=== PATIENT | male | born 1960 | race Caucasian/White ===

== ENCOUNTER 2017-01-09 06:47 | Outpatient (CLI) | payer BC ==
[~2017-01-09] VITALS: Ht 193 cm; Wt 105.2 kg
[~2017-01-09 06:47] MED LIST: ALFU10TA6 PO; ATOR20TA66 PO; CEPH-507 PO; CEPH500C PO; CIPR-225 PO; CIPR500T78 PO; DIPH1TAB25 PO; FENO145T2 PO; FENO145T20 PO; FEXO-104 PO; FEXO-16 PO; GABA-488 PO; GLIM4TAB PO; GLYB5TAB6 PO; HYDR-2889 PO; HYDR-2890 PO; HYDR-3729 PO; HYDR-3816 PO; HYDR-3820 PO; HYDR-622 PO; INSU100C4 SQ; INUL1TAB PO; KETO10TA PO; KETO10TA77 PO; KETO200T PO; LISI10TA2 PO; LISI20TA PO; LORA1TAB59 PO; MELO-195 PO; MONT10TA21 PO; MONT10TA24 PO; MULT-608 PO; MUPI15CR TP; NEBI5TAB8 PO; NF-LOVAZAC PO; NITR-65 PO; ONDA-42 SL; ONDA4TAB8 PO; ONDA4TAB8 SL; OXYC-12 PO; OXYC-197 PO; ROPI0.5T2 PO; ROPI2TAB28 PO; ROPI2TAB3 PO; SITA1TAB2 PO; SITA1TBM7 PO; SITA50TA PO; SULF1TAB7 PO; TAMS0.4C9 PO; TAMS0.4C98 PO; [UNRECOGNIZED DRUG - OTHER] PO
[2017-01-09] MEDS ORDERED: NFNEB10T PO (13:25)
[2017-01-09] MEDS ORDERED: OMG1KC PO (13:25)
== END 2017-01-09 13:29 ==
LOC: PREOP 06:47
PROVIDERS: ATTEND Surgery
DX: Z01.818 Encounter for other preprocedural examination (principal); R19.7 Diarrhea, unspecified

== ENCOUNTER → 2017-01-13 | Day surgery (SDC) | payer BC ==
[~2017-01-13] MED LIST changes: +FLUMAZENIL (ROMAZICON) 0.1 MG/ML 5 ML VIAL INJ PRN; +MIDAZOLAM 2 MG/2 ML (VERSED) VIAL IVP PRN; +NALOXONE 0.4 MG/ML 1 ML (NARCAN) VIAL IVP PRN; +NFNEB10T PO; +NS IV 500 ML 500 ML IV PRN; +OMG1KC PO
== END | disposition home or self-care (01) ==
LOC: ENDO 10:17
PROVIDERS: ATTEND Surgery
DX: K52.9 Noninfective gastroenteritis and colitis, unspecified (principal); Z53.9 Procedure and treatment not carried out, unspecified reason

== ENCOUNTER 2017-02-06 14:23 | Outpatient (CLI) | payer BC ==
[~2017-02-06] VITALS: Ht 193 cm; Wt 105.2 kg
[~2017-02-06 14:23] MED LIST changes: -FLUMAZENIL (ROMAZICON) 0.1 MG/ML 5 ML VIAL INJ PRN; -MIDAZOLAM 2 MG/2 ML (VERSED) VIAL IVP PRN; -NALOXONE 0.4 MG/ML 1 ML (NARCAN) VIAL IVP PRN; -NS IV 500 ML 500 ML IV PRN
== END 2017-02-07 13:17 ==
LOC: PREOP 14:23
PROVIDERS: ATTEND Surgery
DX: Z01.818 Encounter for other preprocedural examination (principal); R19.7 Diarrhea, unspecified

== ENCOUNTER 2017-02-10 11:03 | Day surgery (SDC) | payer BC ==
[~2017-02-10] VITALS: Ht 193 cm; Wt 105.2 kg
[2017-02-10] MEDS ORDERED: NS IV 500 ML 500 ML ONE (11:13)
[2017-02-10 11:15] VITALS: BP 152/82
[2017-02-10] MEDS ORDERED: NS IV 500 ML 500 ML IV ONE (11:15)
[2017-02-10] MEDS ORDERED: MIDAZOLAM 2 MG/2 ML (VERSED) VIAL ONE ×4 (12:29)
[2017-02-10] MEDS ORDERED: fentaNYL INJECTION 100 MCG/2 ML AMP ONE ×2 (12:29)
[2017-02-10] MEDS: fentaNYL INJECTION 100 MCG/2 ML AMP IVP PRN ×2 (12:40→12:48)
[2017-02-10] MEDS: MIDAZOLAM 2 MG/2 ML (VERSED) VIAL IVP PRN ×4 (12:41→12:55)
--- NOTE | 2017-02-10 12:44 | Conscious Sedation/ASA ---
Conscious Sedation Pre-Proced Time Reviewed: 12:44 ASA Class: 2 Airway Mallampati Classification: (wainwright appropriate class) I. II. III, IV Lungs Heart ASA score ASA 1: a normal healthy patient ASA 2: a patient with a mild systemic disease (mid diabetes, controlled hypertension, obesity ASA 3: a patient with a severe systemic disease that limits activity (angina , COPD, prior Myocardial infarction) ASA 4: a patient with an incapacitating disease that is a constant threat to life (CHF, renal failure) ASA 5: a moribund patient not expected to survive 24 hrs. (ruptured aneurysm) ASA 6: a declared brain patient whose organs are being harvested. For emergent operations, add the letter E after the classification Grade 1 Sedation Plan: Discussed options with patient/fam Note The patient is an appropriate candidate to undergo the planned procedure, sedation, and anesthesia. The patient immediately re-assessed prior to indication. CHARLES TELLEZ MD Feb 10, 2017 12:44 pm
--- NOTE | 2017-02-10 12:44 | History & Physicial ---
History of Present Illness History of Present Illness Reason for visit/HPI To undergo colonoscopy for investigating diarrhea and screening purposes Date of Admission Date Seen by Provider: Feb 10, 2017 Time Seen by Provider: 12:42 I consulted on this patient on 02/10/17 12:41 Attending Physician Charles Casiano MD Admitting Physician Jan Garg MD Consult Allergies and Home Medications Allergies Coded Allergies: No Known Drug Allergies (Unverified , 01/09/17) Home Medications Gabapentin 300 Mg Capsule, 600 MG PO BID, (Reported) TAKE 2 (300MG) TABS Glimepiride 4 Mg Tablet, 8 MG PO DAILY, (Reported) TAKE 2 (4MG) TABS Glyburide 5 Mg Tablet, 10 EACH PO BIDAC, (Reported) TAKE 2 (5MG) TAB Nebivolol HCl 10 Mg Tab, 10 MG PO DAILY, (Reported) [place] 3 Polyunsat Fatty Acids 1,000 Mg Cap, 1,000 MG PO DAILY, (Reported) Ropinirole Hcl 2 Mg Tab.er.24h, 4 MG PO BID, (Reported) TAKE 2 (2MG) TABS Sitagliptin Phos/Metformin Hcl 1 Each Tbmp.24hr, 1 EACH PO BID, (Reported) Past Kuykjhx-Vywhbr-Oipaqs Hx Patient Social History Marrital Status: Employed/Student: employed Alcohol Use: Occasionally Uses Recreational Drug Use: No Smoking Status: Light Tobacco Smoker Type Used: Cigars Recent Foreign Travel: No Contact w/other who traveled: No Recent Hopitalizations: No Recent Infectious Disease Expo: No Immunizations Up To Date Tetanus Booster (TDap): More than 5yrs Date of Influenza Vaccine: May 06, 2016 Seasonal Allergies Seasonal Allergies: Yes Surgeries HX Surgeries: Yes (scope left shoulder, attach muscle in right FA, ESWL, CYSTO) Surgeries: Gallbladder, Orthopedic Respiratory Hx Respiratory Disorders: No Cardiovascular Hx Cardiovascular Disorders: Yes Cardiac Disorders: Hypertension Neurological Hx Neurological Disorders: Yes (NEUROPATHY IN FEET) Neurological Disorders: Neuropathy Reproductive System Hx Reproductive Disorders: No Sexually Transmitted Disease: No HIV/AIDS: No Genitourinary Hx Genitourinary Disorders: Yes (CYSTS IN BILATERAL KIDNEYS) Genitourinary Disorders: Kidney Stones Gastrointestinal Hx Gastrointestinal Disorders: Yes (dumping syndrome) Gastrointestinal Disorders: Gastroesophageal Reflux, Chronic Diarrhea, Gall Bladder Disease, Irritable Bowel Musculoskeletal Hx Musculoskeletal Disorders: Yes ( LEFT RCR AND BICEP TENDON REPAIR 2011) Musculoskeletal Disorders: Arthritis Endocrine Hx Endocrine Disorders: Yes (DOES NOT CHECK BLOOD SUGAR, EXCEPT ON RARE OCCASIONS) Endocrine Disorders: Diabetes, Non-Insulin dep HEENT HX ENT Disorders: Yes Loss of Vision: Bilateral Hearing Impairment: Denies Cancer Hx Cancer: No Psychosocial Hx Psychiatric Problems: Yes (NONMEDICATED DEPRESSION) Behavioral Health Disorders: Depression Integumentary HX Skin/Integumentary Disorder: No Blood Transfusions Hx Blood Disorders: No Adverse Reaction to a Blood Tr: No Family Medical History Family Hx: Diabetes mellitus 19 MOTHER G8 SISTER FH: lung cancer 19 MOTHER Hypertension 19 FATHER 19 MOTHER G8 SISTER Kidney stone G8 SISTER Parkinson's disease G8 SISTER Prostate cancer 19 FATHER Constitutional: no symptoms reported EENTM: no symptoms reported Respiratory: no symptoms reported Cardiovascular: no symptoms reported Gastrointestinal: diarrhea Genitourinary: no symptoms reported Musculoskeletal: no symptoms reported Skin: no symptoms reported Psychiatric/Neurological: No Symptoms Reported Physical Exam Vital Signs Vital Sign - Last 12Hours 02/10/17 11:15 Temp 97.1 Pulse 55 Resp 18 B/P (MAP) 152/82 Pulse Ox 98 O2 Delivery Room Air Capillary Refill : General Appearance: No Apparent Distress HEENT: Normal ENT Inspection Neck: Normal Inspection Respiratory: Lungs Clear Cardiovascular: Regular Rate, Rhythm Gastrointestinal: Non Tender, Soft Rectal: Deferred Back: Normal Inspection Extremity: Normal Inspection Neurologic/Psychiatric: Alert, Oriented x3 Skin: Warm/Dry Assessment/Plan Assessment and Plan gentleman here to undergo colonoscopy for investigating diarrhea and screening purposes. Problems: CHARLES CASIANO MD Feb 10, 2017 12:44 pm
--- NOTE | 2017-02-10 13:01 | Endo Procedure Record ---
Endo Procedure Report Date of Procedure Feb 10, 2017 Surgeon (s) CHARLES TELLEZ MD Post Procedure/Op Diagnosis 1.chronic diarrhea 2. Screening for colon cancer Procedure Performed colonoscopy to cecum Description of Procedure Anesthesia Type: Conscious Sedation Specimen(s) collected/removed none Description of the Procedure Indication for procedure: This gentleman came in for screening colonoscopy to evaluate chronic diarrhea and for screening purposes. Informed consent was obtained after reviewing the procedure in detail. Description of the procedure; He was placed in left lateral to this position and his vital signs were monitored. Conscious sedation was achieved using Versed and fentanyl. Digital rectal examination was unremarkable. The colonoscope was then introduced in the rectum and advanced to the cecum. It was then withdrawn slowly and the mucosa examined in a systematic fashion and the quality bowel preparation was rather poor. No obvious lesions could be identified He tolerated the procedure well and was taken back to the nursing area in a stable condition Impression: Chronic diarrhea. Screening for colon cancer. No polyps. Copies To: ALEKSANDRA SANCHEZ MD, XAVIER M MD Feb 10, 2017 1:01 pm
--- NOTE | 2017-02-10 13:03 | Discharge Inst-Simple/Standard ---
Discharge Inst-Standard Discharge Medications New, Converted or Re-Newed RX: Other Patient Instructions/Follow Up Plan of Care/Instructions/FU: rrepeat colonoscopy in 10 years Activity as Tolerated: Yes Discharge Diet: ADA Diet CHARLES TELLEZ MD Feb 10, 2017 1:03 pm
[2017-02-10 13:25] VITALS: BP 107/60
[2017-02-10 13:55] VITALS: BP 134/77
[2017-02-10 14:20] VITALS: BP 134/77
== END 2017-02-10 14:20 | disposition home or self-care (01) ==
LOC: ENDO 11:03
PROVIDERS: ATTEND Surgery
DX: Z12.11 Encounter for screening for malignant neoplasm of colon (principal); R19.7 Diarrhea, unspecified; I10 Essential (primary) hypertension; F17.290 Nicotine dependence, other tobacco product, uncomplicated; K21.9 Gastro-esophageal reflux disease without esophagitis; E11.9 Type 2 diabetes mellitus without complications; F32.9 Major depressive disorder, single episode, unspecified; G62.9 Polyneuropathy, unspecified

== ENCOUNTER → 2017-04-15 | Outpatient (CLI) | payer BC ==
--- NOTE | 2017-04-15 16:41 | Diagnostic Imaging Report ---
EXAMINATION: Three views of the right foot. INDICATION: Right foot pain after injury when a board dropped on the foot a couple of weeks ago. Right great toe pain. FINDINGS: There is a curved lucency along the tuft of the distal phalanx of the great toe, suggestive of a nondisplaced fracture. There is also suggestion of a nondisplaced intra-articular fracture in the distal aspect of the proximal phalanx. There is a minimal hallux valgus deformity. No displaced fracture. IMPRESSION: The findings are suggestive of nondisplaced fractures along the distal aspect of the distal phalanx and the distal aspect of the proximal phalanx of the right great toe. Report given to Olu Sue APRN & faxed at 4:42 p.m. 04/15/2017/monika Dictated by: Dictated on workstation # [id number]
== END ==
LOC: RAD 14:37
PROVIDERS: ATTEND Nurse Practitioner Family
DX: S99.921A Unspecified injury of right foot, initial encounter (principal); W20.8XXA Other cause of strike by thrown, projected or falling object, initial encounter; Y99.8 Other external cause status
CPT/HCPCS: 73630

== ENCOUNTER 2017-10-17 09:49 | Emergency (ER) | payer BC ==
[~2017-10-17] VITALS: Ht 193 cm; Wt 108.9 kg
[2017-10-17] MEDS ORDERED: LACTATED RINGERS 1,000 ML IV ONE (10:58)
[2017-10-17 11:06] LABS: BASOPHILS % (AUTO) 0 % (0-10); EOSINOPHILS # (AUTO) 0.1 10^3/uL (0.0-0.3); EOSINOPHILS % (AUTO) 1 % (0-10); HEMATOCRIT 47 % (40-54); HEMOGLOBIN 17.2 G/DL (13.3-17.7); LYMPHOCYTES # (AUTO) 2.5 X 10^3 (1.0-4.0); LYMPHOCYTES % (AUTO) 14 % (12-44); MEAN CORPUSCULAR HEMOGLOBIN 30 PG (25-34); MEAN CORPUSCULAR HGB CONC 37 G/DL (32-36); MEAN CORPUSCULAR VOLUME 83 FL (80-99); MEAN PLATELET VOLUME 11.9 FL (7.4-10.4); MONOCYTES # (AUTO) 1.3 X 10^3 (0.0-1.0); MONOCYTES % (AUTO) 7 % (0-12); NEUTROPHILS # (AUTO) 14.4 X 10^3 (1.8-7.8); NEUTROPHILS % (AUTO) 79 % (42-75); PLATELET COUNT 186 10^3/uL (130-400); RED BLOOD COUNT 5.65 10^6/uL (4.35-5.85); WHITE BLOOD COUNT 18.3 10^3/uL (4.3-11.0)
[2017-10-17 11:10] LABS: PROTHROMBIN TIME PATIENT 13.1 SEC (12.2-14.7)
[2017-10-17 11:22] LABS: ALANINE AMINOTRANSFERASE 25 U/L (0-55); ALBUMIN 3.8 GM/DL (3.2-4.5); ALKALINE PHOSPHATASE 62 U/L (40-136); BUN/CREATININE RATIO 19; CARBON DIOXIDE 24 MMOL/L (21-32); CHLORIDE 103 MMOL/L (98-107); CREATINE KINASE 40 U/L (30-200); GFR ESTIMATED 57; MAGNESIUM 1.6 MG/DL (1.8-2.4); POTASSIUM 4.3 MMOL/L (3.6-5.0); SODIUM 134 MMOL/L (135-145); TOTAL PROTEIN 6.7 GM/DL (6.4-8.2)
[2017-10-17 11:25] LABS: GLUCOSE 425 MG/DL (70-105)
[2017-10-17] MEDS ORDERED: NS IV 1000 ML 1,000 ML IV ONE ×3 (11:25→14:54)
--- NOTE | 2017-10-17 11:28 | Diagnostic Imaging Report ---
INDICATION: Headache, nausea and emesis for one week Portable AP upright view of the chest is obtained with comparison made to study of 04/22/2016. FINDINGS: Heart size and pulmonary vascularity are within normal limits, and the lungs are clear, bilaterally. IMPRESSION: Unremarkable chest. Dictated by: Dictated on workstation # [id number]
[2017-10-17] MEDS ORDERED: inSUlin (REGULAR) HUMAN 1 UNIT/0.01 ML (CHARGE PER UNIT) IV ONE (11:30)
[2017-10-17 11:42] LABS: CREATINE KINASE MB 1.7 NG/ML (<6.6); TSH (THYROID ANALYZER) 1.72 UIU/ML (0.35-4.94)
[2017-10-17 12:06] LABS: BILIRUBIN,URINE NEGATIVE (NEGATIVE); CLARITY,URINE CLEAR; COLOR,URINE YELLOW; GLUCOSE, URINE (UA) 4+ (NEGATIVE); KETONES,URINE 1+ (NEGATIVE); LEUKOCYTE ESTERASE ,URINE 1+ (NEGATIVE); NITRITE,URINE NEGATIVE (NEGATIVE); PH,URINE 5 (5-9); PROTEIN,URINE 3+ (NEGATIVE); UROBILINOGEN,URINE NORMAL (NORMAL)
[2017-10-17 12:20] LABS: LYMPHOCYTES % (MANUAL) 12 %; MONOCYTES % (MANUAL) 6 %; NEUTROPHILS % (MANUAL) 82 %; RBC MORPH NORMAL
[2017-10-17 12:27] LABS: AMPHETAMINE SCREEN, URINE NEGATIVE (NEGATIVE); BARBITURATE SCREEN URINE NEGATIVE (NEGATIVE); BENZODIAZEPINES SCREEN URINE NEGATIVE (NEGATIVE); CANNABINOID SCREEN, URINE NEGATIVE (NEGATIVE); COCAINE SCREEN URINE NEGATIVE (NEGATIVE); METHADONE STAT NEGATIVE (NEGATIVE); METHAMPHETAMINE SCREEN URINE S NEGATIVE (NEGATIVE); OPIATE SCREEN URINE NEGATIVE (NEGATIVE); OXYCODONE STAT NEGATIVE (NEGATIVE); PROPOXYPHENE STAT NEGATIVE (NEGATIVE); TRICYCLIC ANTIDEPRESSANTS SCRE NEGATIVE (NEGATIVE)
[2017-10-17 12:44] LABS: BACTERIA,URINE FEW /HPF; CALCIUM OXALATE CRYSTALS,UR FEW /LPF; RBC,URINE >100 /HPF
--- NOTE | 2017-10-17 12:44 | Diagnostic Imaging Report ---
Clinical indication: Patient with headache since Friday. Nausea, vomiting and chills. Exam: Head CT without contrast. Comparison: None. Findings: There is no evidence of acute cerebral infarct, intracranial hemorrhage, or gross mass effect. The brain parenchymal volume appears appropriate for patient's age. There is a small prominent perivascular space versus chronic lacunar infarct in the left basal ganglia region. There is normal yang-white matter distinction. There is no significant midline shift or herniation. There is no evidence of hydrocephalus. The basal cisterns are unremarkable. The skull, extracranial soft tissue, and orbits are unremarkable. The paranasal sinuses are unremarkable. Temporal bones show no significant abnormality. IMPRESSION: 1: There is no evidence of acute intracranial process. 2: There is a small prominent perivascular space versus chronic lacunar infarct involving the left basal ganglia region. 3: Otherwise, unremarkable CT scan of the brain for age. Dictated by: Dictated on workstation # [id number]
[2017-10-17 13:20] LABS: ABG BASE EXCESS -2.1 MMOL/L (-2.5-2.5); ABG OXYGEN SATURATION 94 % (94-100); ABG PCO2 40 MMHG (35-45); ABG PH 7.37 (7.37-7.43); ABG PO2 65 MMHG (79-93); ABG TCO2 23.6 MMOL/L (21.0-31.0)
[2017-10-17 13:24] LABS: ALLENS TEST POSITIVE; PATIENT TEMP 98.5; VENTILATOR NO
[2017-10-17] MEDS ORDERED: ASPIRIN 81 MG CHEW (CHILDREN'S ASA) PO ONE (14:00)
[2017-10-17] MEDS ORDERED: HEParin DRIP 25000 UNIT/500ML 500 ML IV ONE (14:14)
[2017-10-17] MEDS ORDERED: NOREPINEPHRINE 4 MG in NS (IVPB) 250 ML IV SCH (14:15)
[2017-10-17] MEDS ORDERED: morphine INJ 10 MG/ML 1ML (SYR OR VIAL) IVP ONE (14:15)
[2017-10-17] MEDS ORDERED: HEParin 1000 UNIT/ML (10ML VIAL) FOR BOLUS IV ONE (14:15)
[2017-10-17 14:53] LABS: AMYLASE 33 U/L (25-125); LIPASE 32 U/L (8-78)
[2017-10-17] MEDS ORDERED: cefTRIAXone INJECTION 1,000 MG in NS (IVPB) 100 ML IV ONE (15:00)
[2017-10-17] MEDS ORDERED: MAGNESIUM 1 GM/100 ML IVPB 100 ML IV SCH (15:15)
--- NOTE | 2017-10-17 15:53 | Diagnostic Imaging Report ---
INDICATION: Central line placement. TIME OF EXAM: 3:41 p.m. Correlation is made with prior study earlier the same day. Right IJ line has tip overlying the SVC. No pneumothorax is identified. The lungs are clear. IMPRESSION: Satisfactory right IJ line placement. Dictated by: Dictated on workstation # [id number]
[2017-10-17 16:26] VITALS: BP 98/68
--- NOTE | 2017-10-17 21:36 | Consultation ---
History of Present Illness History of Present Illness Patient Consulted On(gonzalo/time) 10/17/17 21:30 Date Seen by Provider: Oct 17, 2017 Time Seen by Provider: 15:32 History of Present Illness Consult by Dr. Rodríguez for Central line placement, seen and evaluated in emergency dept. Patient is a 56 year old male who has been feeling ill several days. He reports having nausea and vomiting, and headache. He has not had any fever. He is diabetic and not compliant. Patient was found to have heart rate around 140's and systolic pressure dropped around the 70 range. Patient was started on levophed. Patient had chest x ray that was unremarkable and ct head no acute process and slight change basal ganglia chronic. Patient also with ekg changes of ischemia. Allergies and Home Medications Allergies Coded Allergies: No Known Drug Allergies (Unverified , 01/09/17) Home Medications Gabapentin 300 Mg Capsule, 600 MG PO BID, (Reported) TAKE 2 (300MG) TABS Glimepiride 4 Mg Tablet, 8 MG PO DAILY, (Reported) TAKE 2 (4MG) TABS Glyburide 5 Mg Tablet, 10 EACH PO BIDAC, (Reported) TAKE 2 (5MG) TAB Nebivolol HCl 10 Mg Tab, 10 MG PO DAILY, (Reported) [place] 3 Polyunsat Fatty Acids 1,000 Mg Cap, 1,000 MG PO DAILY, (Reported) Ropinirole Hcl 2 Mg Tab.er.24h, 4 MG PO BID, (Reported) TAKE 2 (2MG) TABS Sitagliptin Phos/Metformin Hcl 1 Each Tbmp.24hr, 1 EACH PO BID, (Reported) Patient Home Medication List Home Medication List Reviewed: Yes Past Umuwlxc-Oulxcp-Jwpvid Hx Patient Social History Alcohol Use: Denies Use Number of Drinks Today: AA Recreational Drug Use: No Type Used: Cigars Recent Foreign Travel: No Contact w/Someone Who Travel: No Recent Infectious Disease Expo: No Recent Hopitalizations: No Immunizations Up To Date Tetanus Booster (TDap): More than 5yrs PED Vaccines UTD: Yes Date of Influenza Vaccine: May 06, 2016 Seasonal Allergies Seasonal Allergies: Yes Surgeries History of Surgeries: Yes (scope left shoulder, attach muscle in right FA, ESWL , CYSTO) Surgeries: Gallbladder, Orthopedic Respiratory History of Respiratory Disorde: No Respiratory Disorders: Sleep Apnea Cardiovascular History of Cardiac Disorders: Yes Cardiac Disorders: Hypertension Neurological History of Neurological Disord: Yes (NEUROPATHY IN FEET) Neurological Disorders: Neuropathy Reproductive System Hx Reproductive Disorders: No Sexually Transmitted Disease: No HIV/AIDS: No Genitourinary Genitourinary Disorders: Kidney Stones Gastrointestinal History of Gastrointestinal Di: Yes (dumping syndrome) Gastrointestinal Disorders: Gastroesophageal Reflux, Chronic Diarrhea, Gall Bladder Disease, Irritable Bowel Musculoskeletal History of Musculoskeletal Dis: Yes ( LEFT RCR AND BICEP TENDON REPAIR 2011) Musculoskeletal Disorders: Arthritis Endocrine History of Endocrine Disorders: Yes (DOES NOT CHECK BLOOD SUGAR, EXCEPT ON RARE OCCASIONS) Endocrine Disorders: Diabetes, Non-Insulin dep HEENT Loss of Vision: Bilateral Hearing Impairment: Denies Cancer History of Cancer: No Psychosocial History of Psychiatric Problem: Yes (NONMEDICATED DEPRESSION) Behavioral Health Disorders: Depression Integumentary History of Skin or Integumenta: No Blood Transfusions History of Blood Disorders: No Adverse Reaction to a Blood Tr: No Family Medical History Significant Family History: No Pertinent Family Hx Family Medial History: Diabetes mellitus 19 MOTHER G8 SISTER FH: lung cancer 19 MOTHER Hypertension 19 FATHER 19 MOTHER G8 SISTER Kidney stone G8 SISTER Parkinson's disease G8 SISTER Prostate cancer 19 FATHER Review of Systems-General Constitutional: see HPI EENTM: no symptoms reported Respiratory: no symptoms reported Cardiovascular: no symptoms reported Gastrointestinal: no symptoms reported, see HPI Genitourinary: no symptoms reported Musculoskeletal: no symptoms reported Skin: no symptoms reported Psychiatric/Neurological: No Symptoms Reported Physical Exam-General Problems Physical Exam Vital Signs Vital Signs - First Documented 10/17/17 10/17/17 10:33 16:26 Temp 98.6 Pulse 136 Resp 18 B/P (MAP) 132/65 (87) Pulse Ox 98 Capillary Refill : Less Than 3 Seconds General Appearance: mild distress HEENT: normal ENT inspection Neck: full range of motion, supple Respiratory: no respiratory distress, no accessory muscle use Cardiovascular: tachycardia Gastrointestinal: non tender, soft Rectal: deferred Back: no CVA tenderness Extremities: normal inspection Neurologic/Psychiatric: alert, oriented x 3 Skin: warm/dry Lymphatic: no adenopathy Data Review Labs Laboratory Tests 10/17/17 10:46: White Blood Count 18.3H, Red Blood Count 5.65, Hemoglobin 17.2, Hematocrit 47, Mean Corpuscular Volume 83, Mean Corpuscular Hemoglobin 30, Mean Corpuscular Hemoglobin Concent 37H, Red Cell Distribution Width 13.0, Platelet Count 186, Mean Platelet Volume 11.9H, Neutrophils (%) (Auto) 79H, Lymphocytes (%) (Auto) 14, Monocytes (%) (Auto) 7, Eosinophils (%) (Auto) 1, Basophils (%) (Auto) 0, Neutrophils # (Auto) 14.4H, Lymphocytes # (Auto) 2.5, Monocytes # (Auto) 1.3H, Eosinophils # (Auto) 0.1, Basophils # (Auto) 0.0, Neutrophils % (Manual) 82, Lymphocytes % (Manual) 12, Monocytes % (Manual) 6, Blood Morphology Comment NORMAL, Prothrombin Time 13.1, INR Comment 1.0, Activated Partial Thromboplast Time 25, Sodium Level 134L, Potassium Level 4.3, Chloride Level 103, Carbon Dioxide Level 24, Anion Gap 7, Blood Urea Nitrogen 25H, Creatinine 1.30, Estimat Glomerular Filtration Rate 57, BUN/Creatinine Ratio 19, Glucose Level 425*H, Calcium Level 9.0, Magnesium Level 1.6L, Total Bilirubin 1.0, Aspartate Amino Transf (AST/SGOT) 19, Alanine Aminotransferase (ALT/SGPT) 25, Alkaline Phosphatase 62, Total Creatine Kinase 40, Creatine Kinase MB 1.7, Troponin I < 0.30, B-Type Natriuretic Peptide 428.7H, Total Protein 6.7, Albumin 3.8, TSH Verner Testing 1.72, Serum Alcohol < 10 10/17/17 11:55: Urine Color YELLOW, Urine Clarity CLEAR, Urine pH 5, Urine Specific Rosebud 1.025H, Urine Protein 3+H, Urine Glucose (UA) 4+H, Urine Ketones 1+H, Urine Nitrite NEGATIVE, Urine Bilirubin NEGATIVE, Urine Urobilinogen NORMAL, Urine Leukocyte Esterase 1+H, Urine RBC (Auto) 5+H, Urine RBC >100H, Urine WBC 2-5, Urine Crystals PRESENTH, Urine Calcium Oxalate Crystals FEWH, Urine Bacteria FEWH, Urine Casts PRESENT, Urine Hyaline Casts 5-10H, Urine Mucus SMALLH, Urine Other , Urine Culture Indicated YES, Urine Opiates Screen NEGATIVE, Urine Oxycodone Screen NEGATIVE, Urine Methadone Screen NEGATIVE, Urine Propoxyphene Screen NEGATIVE, Urine Barbiturates Screen NEGATIVE, Ur Tricyclic Antidepressants Screen NEGATIVE, Urine Phencyclidine Screen NEGATIVE, Urine Amphetamines Screen NEGATIVE, Urine Methamphetamines Screen NEGATIVE, Urine Benzodiazepines Screen NEGATIVE, Urine Cocaine Screen NEGATIVE, Urine Cannabinoids Screen NEGATIVE 10/17/17 12:30: Lactic Acid Level 3.35*H 10/17/17 13:14: Blood Gas Puncture Site LEFT BRACHIAL, Blood Gas Patient Temperature 98.5, Arterial Blood pH 7.37, Arterial Blood Partial Pressure CO2 40, Arterial Blood Partial Pressure O2 65L, Arterial Blood HCO3 22L, Arterial Blood Total CO2 23.6 , Arterial Blood Oxygen Saturation 94, Arterial Blood Base Excess -2.1, Tim Test POSITIVE, Blood Gas Ventilator Setting NO, Blood Gas Inspired Oxygen N/A 10/17/17 13:41: Glucometer 201H 10/17/17 14:15: Troponin I < 0.30, B-Type Natriuretic Peptide 612.4H, Amylase Level 33, Lipase 32 10/17/17 15:25: Lactic Acid Level 1.00 Assessment/Plan Assessment/Plan Assessment/Plan septic shock cardiac ischemia uti DM uncontrolled. Patient on Levophed at this time to maintain pressure. Asked to place central line. Risks and benefits were discussed with patient and family who understands risks and benefits and wish to proceed. Central line placed and chest x ray demonstrates line in good position and no pneumothorax. Patient being transferred to [facility] arranged by Dr. Rodríguez. BUNNY LAGUNAS DO Oct 17, 2017 21:36
--- NOTE | 2017-10-17 23:06 | OPERATIVE REPORT ---
DATE OF SERVICE: 10/17/2017 PREOPERATIVE DIAGNOSIS: Septic shock. POSTOPERATIVE DIAGNOSIS: Septic shock. PROCEDURE: Right internal jugular vein ultrasound-guided central line placement. SURGEON: Bunny Elder DO. ANESTHESIA: 3 mL of 1% lidocaine. ESTIMATED BLOOD LOSS: Minimal. COMPLICATIONS: None. INDICATIONS: The patient is a 56-year-old male with . He was tachycardic in the 140 range and his systolic blood pressures had dropped into the 70s. Dr. Rodríguez has consulted me for placement of central line. The patient was explained risks and benefits of procedure well with family that were present. They all understand risks and benefits of procedure and wished to proceed with procedure. Consent was signed in the chart. PROCEDURE: The patient was prepped and draped in sterile fashion. Timeout was performed. Ultrasound was used to locate the right internal jugular vein. Local anesthetic was infiltrated into the area. The right internal jugular vein was then accessed. Dark nonpulsatile blood was withdrawn. The guidewire was inserted through the needle and the needle was removed. The 11-blade scalpel was used to make a stab incision and the dilator was advanced over the guidewire and removed. The triple lumen catheter was inserted over the guidewire and the guidewire was removed. All ports were accessed and flushed without difficulty. The central line was then secured with 3-0 silk suture. The area was then washed and dried, sterile bandage was applied. The patient tolerated procedure well without any complications. Chest x-ray pending. Job ID: [id number] DocumentID: [id number] Dictated Date: 10/17/2017 21:24:24 Evidence Custodian Date: 10/17/2017 23:05:15 Dictated By: BUNNY ELDER DO
== END 2017-10-17 16:26 | disposition short-term general hospital (02) ==
LOC: EDUNIT# 09:49 → ER 09:51
DX: A41.9 Sepsis, unspecified organism (principal); R65.21 Severe sepsis with septic shock; I25.9 Chronic ischemic heart disease, unspecified; N39.0 Urinary tract infection, site not specified; E11.65 Type 2 diabetes mellitus with hyperglycemia; G47.30 Sleep apnea, unspecified; K21.9 Gastro-esophageal reflux disease without esophagitis; E11.40 Type 2 diabetes mellitus with diabetic neuropathy, unspecified; F32.9 Major depressive disorder, single episode, unspecified; Z87.19 Personal history of other diseases of the digestive system; Z80.1 Family history of malignant neoplasm of trachea, bronchus and lung; Z79.84 Long term (current) use of oral hypoglycemic drugs; Z85.46 Personal history of malignant neoplasm of prostate
CPT/HCPCS: 36415; 36600; 70450; 71045; 80053; 80306; 80320; 81000; 82150; 82550; 82553; 82805; 82962; 83605; 83690; 83735; 83880; 84443; 84484; 85007; 85027; 85610; 85730; 87088; 93005; 93041; 96361; 96365; 96366; 96367; 96368; 96375

== ENCOUNTER 2019-07-25 12:44 | Emergency (ER) | payer BC ==
[~2019-07-25] VITALS: Ht 193 cm; Wt 103.9 kg
[~2019-07-25 12:44] MED LIST changes: -OXYC-197 PO; +OXYC1TAB87 PO
[2019-07-25] MEDS ORDERED: NS IV 1000 ML 1,000 ML IV ONE (15:38)
[2019-07-25] MEDS ORDERED: NS IV 1000 ML 1,000 ML IV SCH (15:38)
[2019-07-25 15:44] LABS: BASOPHILS % (AUTO) 0 % (0-10); EOSINOPHILS # (AUTO) 0.2 10^3/uL (0.0-0.3); EOSINOPHILS % (AUTO) 2 % (0-10); HEMATOCRIT 44 % (40-54); HEMOGLOBIN 15.9 G/DL (13.3-17.7); LYMPHOCYTES # (AUTO) 1.7 X 10^3 (1.0-4.0); LYMPHOCYTES % (AUTO) 14 % (12-44); MEAN CORPUSCULAR HEMOGLOBIN 30 PG (25-34); MEAN CORPUSCULAR HGB CONC 36 G/DL (32-36); MEAN CORPUSCULAR VOLUME 84 FL (80-99); MEAN PLATELET VOLUME 11.7 FL (7.4-10.4); MONOCYTES # (AUTO) 0.9 X 10^3 (0.0-1.0); MONOCYTES % (AUTO) 8 % (0-12); NEUTROPHILS # (AUTO) 8.8 X 10^3 (1.8-7.8); NEUTROPHILS % (AUTO) 76 % (42-75); PLATELET COUNT 184 10^3/uL (130-400); RED CELL DISTRIBUTION WIDTH 13.5 % (10.0-14.5); WHITE BLOOD COUNT 11.5 10^3/uL (4.3-11.0)
[2019-07-25] MEDS ORDERED: PROMETHAZINE INJ 25 MG/ML (PHENERGAN) AMP IVP ONE (15:45)
--- NOTE | 2019-07-25 15:46 | ED GI ---
General Chief Complaint: General Problems/Pain Stated Complaint: N/V, BS 344 Nursing Triage Note: AMBULATED TO TRIAGE WITH COMPLAINTS OF N/V ET NOT FEELING WELL. 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 ALSO COMPLAINS OF A HEADACHE AND A SORE RIGHT FOOT. Sepsis Screen: No Definite Risk Source of Information: Patient, Spouse Exam Limitations: No Limitations History of Present Illness Date Seen by Provider: Jul 25, 2019 Time Seen by Provider: 15:09 Initial Comments Patient presents ER by private conveyance with chief complaint nausea vomiting without abdominal pain for the past few days. He has had mostly dry heaving. He did drink Court of chicken stock before coming in. He is diabetic and his blood sugars usually run in the 200-300 range. He has not had any fever cough chills shortness of breath sweats. He is concerned with his decreased urination and increased thirst and nausea he might be getting in diabetic ketoacidosis. He has no dysuria or abdominal pain. Allergies and Home Medications Allergies Coded Allergies: No Known Drug Allergies (Unverified , 01/09/17) Home Medications Gabapentin 300 Mg Capsule, 600 MG PO BID, (Reported) TAKE 2 (300MG) TABS Glimepiride 4 Mg Tablet, 8 MG PO DAILY, (Reported) TAKE 2 (4MG) TABS Glyburide 5 Mg Tablet, 10 EACH PO BIDAC, (Reported) TAKE 2 (5MG) TAB Nebivolol HCl 10 Mg Tab, 10 MG PO DAILY, (Reported) [place] 3 Polyunsat Fatty Acids 1,000 Mg Cap, 1,000 MG PO DAILY, (Reported) Ropinirole Hcl 2 Mg Tab.er.24h, 4 MG PO BID, (Reported) TAKE 2 (2MG) TABS Sitagliptin Phos/Metformin Hcl 1 Each Tbmp.24hr, 1 EACH PO BID, (Reported) Patient Home Medication List Home Medication List Reviewed: Yes Review of Systems Review of Systems Constitutional: No chills, No diaphoresis EENTM: No Blurred Vision, No Double Vision Respiratory: Denies Cough, Denies Shortness of Air Cardiovascular: Denies Chest Pain, Denies Lightheadedness Gastrointestinal: See HPI; Denies Abdominal Pain, Denies Constipated, Denies Diarrhea; Nausea, Poor Appetite, Poor Fluid Intake, Vomiting Genitourinary: Denies Burning, Denies Discharge All Other Systems Reviewed Negative Unless Noted: Yes Past Tcawhpb-Jrzbfk-Drdwau Hx Patient Social History Alcohol Use: Occasionally Uses Alcohol Beverage of Choice: Beer Recreational Drug Use: No Smoking Status: Former Smoker Type Used: Cigars Recent Foreign Travel: No Contact w/Someone Who Travel: No Recent Infectious Disease Expo: No Recent Hopitalizations: No Immunizations Up To Date Tetanus Booster (TDap): More than 5yrs PED Vaccines UTD: Yes Date of Influenza Vaccine: May 06, 2016 Seasonal Allergies Seasonal Allergies: Yes Past Medical History Surgeries: Yes (scope left shoulder, attach muscle in right FA, ESWL, CYSTO; COLONOSCOPY) Bladder Surgery, Gallbladder, Orthopedic, Renal Respiratory: Yes Sleep Apnea Currently Using CPAP: No Cardiac: Yes Hypertension Neurological: Yes (NEUROPATHY IN FEET) Neuropathy Reproductive Disorders: No Sexually Transmitted Disease: No HIV/AIDS: No Genitourinary: Yes Kidney Stones Gastrointestinal: Yes (dumping syndrome) Gastroesophageal Reflux, Chronic Diarrhea, Gall Bladder Disease, Irritable Bowel Musculoskeletal: Yes ( LEFT RCR AND BICEP TENDON REPAIR 2011) Arthritis Endocrine: Yes (DOES NOT CHECK BLOOD SUGAR, EXCEPT ON RARE OCCASIONS) Diabetes, Non-Insulin dep HEENT: No Loss of Vision: Bilateral Hearing Impairment: Denies Cancer: No Psychosocial: Yes (NONMEDICATED DEPRESSION) Depression Integumentary: No Blood Disorders: No Adverse Reaction/Blood Tranf: No Family Medical History Diabetes mellitus 19 MOTHER G8 SISTER FH: lung cancer 19 MOTHER Hypertension 19 FATHER 19 MOTHER G8 SISTER Kidney stone G8 SISTER Parkinson's disease G8 SISTER Prostate cancer 19 FATHER No Pertinent Family Hx Physical Exam Vital Signs Vital Signs - First Documented 07/25/19 07/25/19 12:50 17:36 Temp 36.6 Pulse 84 Resp 17 B/P (MAP) 141/81 (101) Pulse Ox 97 O2 Delivery Room Air Capillary Refill : Less Than 3 Seconds Height/Weight/BMI Height: 6'4.00" Weight: 240lbs. 0.0oz. 108.346826mw; 27.00 BMI Method:Stated General Appearance: WD/WN, no apparent distress HEENT: PERRL/EOMI, pharynx normal Neck: non-tender, full range of motion, supple, normal inspection Respiratory: lungs clear, normal breath sounds, no respiratory distress, no accessory muscle use Cardiovascular: normal peripheral pulses, regular rate, rhythm Peripheral Pulses: 2+ Radial Pulses (R), 2+ Radial Pulses (L) Gastrointestinal: normal bowel sounds, non tender, soft Extremities: normal inspection, normal capillary refill Neurologic/Psychiatric: alert, normal mood/affect, oriented x 3 Skin: normal color, warm/dry Progress/Results/Core Measures Results/Orders Lab Results Laboratory Tests Test 07/25/19 13:45 07/25/19 15:28 Range/Units White Blood Count 11.5 H 4.3-11.0 10^3/uL Red Blood Count 5.24 4.35-5.85 10^6/uL Hemoglobin 15.9 13.3-17.7 G/DL Hematocrit 44 40-54 % Mean Corpuscular Volume 84 80-99 FL Mean Corpuscular Hemoglobin 30 25-34 PG Mean Corpuscular Hemoglobin Concent 36 32-36 G/DL Red Cell Distribution Width 13.5 10.0-14.5 % Platelet Count 184 130-400 10^3/uL Mean Platelet Volume 11.7 H 7.4-10.4 FL Neutrophils (%) (Auto) 76 H 42-75 % Lymphocytes (%) (Auto) 14 12-44 % Monocytes (%) (Auto) 8 0-12 % Eosinophils (%) (Auto) 2 0-10 % Basophils (%) (Auto) 0 0-10 % Neutrophils # (Auto) 8.8 H 1.8-7.8 X 10^3 Lymphocytes # (Auto) 1.7 1.0-4.0 X 10^3 Monocytes # (Auto) 0.9 0.0-1.0 X 10^3 Eosinophils # (Auto) 0.2 0.0-0.3 10^3/uL Basophils # (Auto) 0.0 0.0-0.1 10^3/uL Urine Color YELLOW Urine Clarity CLEAR Urine pH 6.0 5-9 Urine Specific [place] >=1.030 1.016-1.022 Urine Protein 1+ H NEGATIVE Urine Glucose (UA) 2+ H NEGATIVE Urine Ketones NEGATIVE NEGATIVE Urine Nitrite NEGATIVE NEGATIVE Urine Bilirubin NEGATIVE NEGATIVE Urine Urobilinogen 0.2 < = 1.0 MG/DL Urine Leukocyte Esterase NEGATIVE NEGATIVE Urine RBC (Auto) NEGATIVE NEGATIVE Urine RBC NONE /HPF Urine WBC RARE /HPF Urine Squamous Epithelial Cells RARE /HPF Urine Crystals NONE /LPF Urine Bacteria TRACE /HPF Urine Casts PRESENT /LPF Urine Hyaline Casts RARE /LPF Urine Mucus SMALL H /LPF Urine Culture Indicated NO Sodium Level 137 135-145 MMOL/L Potassium Level 3.5 L 3.6-5.0 MMOL/L Chloride Level 107 98-107 MMOL/L Carbon Dioxide Level 18 L 21-32 MMOL/L Anion Gap 12 5-14 MMOL/L Blood Urea Nitrogen 22 H 7-18 MG/DL Creatinine 1.19 0.60-1.30 MG/DL Estimat Glomerular Filtration Rate > 60 BUN/Creatinine Ratio 18 Glucose Level 270 H 70-105 MG/DL Calcium Level 9.1 8.5-10.1 MG/DL Corrected Calcium 9.3 8.5-10.1 MG/DL Total Bilirubin 0.9 0.1-1.0 MG/DL Aspartate Amino Transf (AST/SGOT) 10 5-34 U/L Alanine Aminotransferase (ALT/SGPT) 13 0-55 U/L Alkaline Phosphatase 69 40-136 U/L Total Protein 6.5 6.4-8.2 GM/DL Albumin 3.8 3.2-4.5 GM/DL Glucometer 234 H 70-110 MG/DL My Orders Orders - VIVIAN,HYUN J Accucheck Stat ONCE (07/25/19 12:55) Ua Culture If Indicated (07/25/19 15:38) Cbc With Automated Diff (07/25/19 15:38) Comprehensive Metabolic Panel (07/25/19 15:38) Ed Iv/Invasive Line Start (07/25/19 15:38) Ns Iv 1000 Ml (Sodium Chloride 0.9%) (07/25/19 15:38) Ns Iv 1000 Ml (Sodium Chloride 0.9%) (07/25/19 15:38) Promethazine Injection (Phenergan Injec (07/25/19 15:45) Medications Given in ED Current Medications Medications Dose Ordered Sig/Parvin Route Start Time Stop Time Status Last Admin Dose Admin Promethazine HCl 25 mg ONCE ONCE IVP 07/25/19 15:45 07/25/19 15:46 DC 07/25/19 15:49 25 MG Sodium Chloride 1,000 ml @ 0 mls/hr Q0M ONCE IV 07/25/19 15:38 07/25/19 15:39 DC 07/25/19 15:49 0 MLS/HR Vital Signs/I&O 07/25/19 07/25/19 12:50 17:36 Temp 36.6 36.6 Pulse 84 78 Resp 17 B/P (MAP) 141/81 (101) 149/73 (101) Pulse Ox 97 98 O2 Delivery Room Air Room Air Blood Pressure Mean: 101 FSBG Bedside Testing Finger Stick Blood Glucose: 234 Blood Glucose Action Taken: RN NOTIFIED Progress Progress Note : Time: 17:30 Progress Note The patient is sleeping soundly without complaint. He has medicines for nausea and diarrhea. We have explained to manage his symptoms. Departure Impression Primary Impression: Gastroenteritis and colitis, viral Additional Impression: Hyperglycemia Disposition: HOME, SELF-CARE Condition: Stable Departure-Patient Inst. Decision time for Depature: 17:31 Referrals: ALEKSANDRA SANCHEZ MD (PCP/Family) Primary Care Physician Patient Instructions: Hyperglycemia, Adult Add. Discharge Instructions: Follow-up with Dr. Sanchez for management of your blood sugar. Zofran 1 tablet as prescribed for nausea and vomiting. Imodium 2 tablets followed by one tablet every 4 hours as needed for loose watery stools. All discharge instructions reviewed with patient and/or family. Voiced understanding. HYUN PARK Jul 25, 2019 15:46
[2019-07-25 15:48] LABS: BILIRUBIN,URINE NEGATIVE (NEGATIVE); CLARITY,URINE CLEAR; COLOR,URINE YELLOW; GLUCOSE, URINE (UA) 2+ (NEGATIVE); KETONES,URINE NEGATIVE (NEGATIVE); LEUKOCYTE ESTERASE ,URINE NEGATIVE (NEGATIVE); NITRITE,URINE NEGATIVE (NEGATIVE); PROTEIN,URINE 1+ (NEGATIVE)
[2019-07-25 15:55] LABS: BACTERIA,URINE TRACE /HPF; WBC,URINE RARE /HPF
[2019-07-25 15:56] LABS: HYALINE CASTS, URINE RARE /LPF; SQUAMOUS EPITHELIAL CELL,UR RARE /HPF
[2019-07-25 15:59] LABS: ALANINE AMINOTRANSFERASE 13 U/L (0-55); ALBUMIN 3.8 GM/DL (3.2-4.5); ALKALINE PHOSPHATASE 69 U/L (40-136); BILIRUBIN,TOTAL 0.9 MG/DL (0.1-1.0); BUN/CREATININE RATIO 18; CALCIUM 9.1 MG/DL (8.5-10.1); CARBON DIOXIDE 18 MMOL/L (21-32); CHLORIDE 107 MMOL/L (98-107); CREATININE SERUM 1.19 MG/DL (0.60-1.30); GFR ESTIMATED > 60; GLUCOSE 270 MG/DL (70-105); POTASSIUM 3.5 MMOL/L (3.6-5.0); SODIUM 137 MMOL/L (135-145); TOTAL PROTEIN 6.5 GM/DL (6.4-8.2)
[2019-07-25 17:36] VITALS: BP 149/73
== END 2019-07-25 17:36 | disposition home or self-care (01) ==
LOC: EDUNIT# 12:44 → ER 12:45
DX: A08.4 Viral intestinal infection, unspecified (principal); E11.65 Type 2 diabetes mellitus with hyperglycemia; E11.40 Type 2 diabetes mellitus with diabetic neuropathy, unspecified; I10 Essential (primary) hypertension; F32.9 Major depressive disorder, single episode, unspecified; K21.9 Gastro-esophageal reflux disease without esophagitis; K58.9 Irritable bowel syndrome, unspecified; Z79.84 Long term (current) use of oral hypoglycemic drugs; Z87.891 Personal history of nicotine dependence; Z87.442 Personal history of urinary calculi
CPT/HCPCS: 36415; 80053; 81000; 82962; 85025; 96361; 96374

== ENCOUNTER → 2020-01-11 | Outpatient (CLI) | payer BC ==
[~2020-01-11] MED LIST changes: +ACHYD1T PO; -HYDR-3820 PO; -TAMS0.4C98 PO; +TMSL.4C PO
--- NOTE | 2020-01-11 15:46 | Diagnostic Imaging Report ---
INDICATION: Ulcer on the plantar surface of the foot in the region of the first metatarsal. TIME OF EXAM: 03:01 p.m. FINDINGS: Three views of the right foot were obtained. No definite soft tissue gas is identified. No bony destructive changes are seen to suggest osteomyelitis. No fractures are seen. Metatarsals and phalanges are intact. Mid foot and hind foot are unremarkable. IMPRESSION: No acute abnormality is detected. Dictated by: Dictated on workstation # [id number]
== END ==
LOC: RAD 14:38
DX: E13.621 Other specified diabetes mellitus with foot ulcer (principal); L97.919 Non-pressure chronic ulcer of unspecified part of right lower leg with unspecified severity
CPT/HCPCS: 73630

== ENCOUNTER → 2020-01-11 | Outpatient (CLI) | payer BC | LOC: WOUNDCARE 12:27 | PROVIDERS: ATTEND Surgery | DX: E11.621 Type 2 diabetes mellitus with foot ulcer (principal); E11.42 Type 2 diabetes mellitus with diabetic polyneuropathy; E11.65 Type 2 diabetes mellitus with hyperglycemia; L97.512 Non-pressure chronic ulcer of other part of right foot with fat layer exposed; I10 Essential (primary) hypertension; I49.9 Cardiac arrhythmia, unspecified; M19.91 Primary osteoarthritis, unspecified site; F17.290 Nicotine dependence, other tobacco product, uncomplicated; N40.0 Benign prostatic hyperplasia without lower urinary tract symptoms; K58.0 Irritable bowel syndrome with diarrhea; E78.5 Hyperlipidemia, unspecified; Z87.19 Personal history of other diseases of the digestive system; Z79.4 Long term (current) use of insulin | CPT/HCPCS: 11042; A6196; G0463 ==

== ENCOUNTER → 2020-01-18 | Outpatient (CLI) | payer BC | LOC: WOUNDCARE 12:52 | PROVIDERS: ATTEND Surgery | DX: E11.621 Type 2 diabetes mellitus with foot ulcer (principal); E11.52 Type 2 diabetes mellitus with diabetic peripheral angiopathy with gangrene; E11.42 Type 2 diabetes mellitus with diabetic polyneuropathy; E11.65 Type 2 diabetes mellitus with hyperglycemia; I96 Gangrene, not elsewhere classified; L97.512 Non-pressure chronic ulcer of other part of right foot with fat layer exposed | CPT/HCPCS: 11042; A6196 ==

== ENCOUNTER → 2020-01-25 | Outpatient (CLI) | payer BC | LOC: WOUNDCARE 12:49 | PROVIDERS: ATTEND Surgery | DX: E11.621 Type 2 diabetes mellitus with foot ulcer (principal); E11.42 Type 2 diabetes mellitus with diabetic polyneuropathy; E11.65 Type 2 diabetes mellitus with hyperglycemia; L97.512 Non-pressure chronic ulcer of other part of right foot with fat layer exposed | CPT/HCPCS: 99212 ==

== ENCOUNTER → 2020-02-01 | Outpatient (CLI) | payer BC ==
--- NOTE | 2020-02-01 13:39 | Diagnostic Imaging Report ---
INDICATION: Low back pain. Gait change with foot injury. FINDINGS: 7 views including flexion and extension views in the lateral projection. Good alignment of vertebral bodies. Body height is well-maintained. Facets show good alignment. Disc spaces show mild narrowing throughout. There are hypertrophic endplate changes noted throughout the lumbosacral discs anteriorly. Facets show moderate degenerative change L4-L5 and L5-S1 most severe at the L5-S1 level on the right. Flexion and extension views show no evidence of abnormal subluxation to suggest instability. IMPRESSION: Moderate severe degenerative disc and facet disease throughout the lumbosacral spine as described. No evidence of acute fracture or instability. Dictated by: Dictated on workstation # [id number]
--- NOTE | 2020-02-01 14:16 | Diagnostic Imaging Report ---
INDICATION: Chronic left hip pain. FINDINGS: 2 views. Femoral acetabular joint is in good alignment. There is considerable hypertrophic bony change along the acetabular rim especially along the superior lateral margin. Articulating surfaces of the femoral head is smooth. There are no fractures. No soft tissue calcification about the hip. SI joints show moderate sclerosis with mild hypertrophic beaking. IMPRESSION: Rather advanced arthritic changes left hip with considerable hypertrophic change noted along the acetabular rim. Dictated by: Dictated on workstation # [id number]
== END ==
LOC: RAD 12:36
PROVIDERS: ATTEND Nurse Practitioner Family
DX: M47.817 Spondylosis without myelopathy or radiculopathy, lumbosacral region (principal); M51.17 Intervertebral disc disorders with radiculopathy, lumbosacral region; M16.12 Unilateral primary osteoarthritis, left hip
CPT/HCPCS: 72114; 73502

== ENCOUNTER 2021-06-17 19:41 | Inpatient (IN) | payer BC ==
[~2021-06-17] VITALS: Ht 193 cm; Wt 104.7 kg
[2021-06-17] MEDS ORDERED: fentaNYL INJ 100 MCG/2 ML AMP IVP ONE (20:00)
[2021-06-17] MEDS ORDERED: ENALAPRILAT 2.5 MG/2 ML (VASOTEC) VIAL IV ONE (20:00)
[2021-06-17] MEDS ORDERED: LACTATED RINGERS 1,000 ML IV SCH (20:00)
[2021-06-17 20:04] LABS: BASOPHILS # (AUTO) 0.1 10^3/uL (0.0-0.1); BASOPHILS % (AUTO) 0 % (0-10); EOSINOPHILS # (AUTO) 0.1 10^3/uL (0.0-0.3); EOSINOPHILS % (AUTO) 1 % (0-10); HEMATOCRIT 49 % (40-54); HEMOGLOBIN 16.9 g/dL (13.3-17.7); LYMPHOCYTES # (AUTO) 1.9 10^3/uL (1.0-4.0); LYMPHOCYTES % (AUTO) 13 % (12-44); MEAN CORPUSCULAR HEMOGLOBIN 30 pg (25-34); MEAN CORPUSCULAR HGB CONC 35 g/dL (32-36); MEAN CORPUSCULAR VOLUME 87 fL (80-99); MEAN PLATELET VOLUME 10.9 fL (9.0-12.2); MONOCYTES # (AUTO) 0.7 10^3/uL (0.0-1.0); MONOCYTES % (AUTO) 5 % (0-12); NEUTROPHILS # (AUTO) 11.3 10^3/uL (1.8-7.8); NEUTROPHILS % (AUTO) 80 % (42-75); PLATELET COUNT 258 10^3/uL (130-400); WHITE BLOOD COUNT 14.1 10^3/uL (4.3-11.0)
--- NOTE | 2021-06-17 20:04 | ED Abdominal Pain ---
General Chief Complaint: Abdominal/GI Problems Stated Complaint: ABD CRAMPING Source of Information: Patient Exam Limitations: No Limitations History of Present Illness Date Seen by Provider: Jun 17, 2021 Time Seen by Provider: 20:02 Initial Comments To ER with reports of abdominal distention, intermittent abdominal cramping that waxes and wanes and is associated with watery stools and acid reflux. He has some belching as well. Symptoms started this morning. No fevers or chills. Because of the nausea and abdominal pain he was unable to take his antihypertensive lisinopril this morning. History of cholecystectomy remotely and right inguinal hernia repair at the age of 9 Timing/Duration: 1-2 Days Severity/Quality: Moderate Location: Generalized Abdomen Radiation: No Radiation Activities at Onset: None Allergies and Home Medications Allergies Coded Allergies: No Known Drug Allergies (Unverified , 01/09/17) Patient Home Medication List Home Medication List Reviewed: Yes Gabapentin (Gabapentin) 300 Mg Capsule, 600 MG PO BID, (Reported) Entered as Reported by: LYNNE CHENG on 09/24/14 08 Glimepiride (Glimepiride) 4 Mg Tablet, 8 MG PO DAILY, (Reported) Entered as Reported by: LYNNE CHENG on 09/24/14 08 Glyburide (Glyburide) 5 Mg Tablet, 10 EACH PO BIDAC, (Reported) Entered as Reported by: MIRANDA JAQUEZ on 02/11/11 1627 Nebivolol HCl (Bystolic) 10 Mg Tab, 10 MG PO DAILY, (Reported) Entered as Reported by: PACHECO BUCKLEY on 01/09/17 1325 [place] 3 Polyunsat Fatty Acids (Fish Oil 1,000 mg Capsule) 1,000 Mg Cap, 1,000 MG PO DAILY, (Reported) Entered as Reported by: PACHECO BUCKLEY on 01/09/17 1325 Ropinirole Hcl (Ropinirole Hcl) 2 Mg Tab.er.24h, 4 MG PO BID, (Reported) Entered as Reported by: BENNY QUIGLEY on 04/29/14 1353 Sitagliptin Phos/Metformin Hcl (Janumet Xr 100-1,000 Mg Tablet) 1 Each Tbmp.24hr, 1 EACH PO BID, (Reported) Entered as Reported by: LYNNE CHENG on 09/24/14 0858 Review of Systems Review of Systems Constitutional: see HPI EENTM: No Symptoms Reported Respiratory: No Symptoms Reported Cardiovascular: No Symptoms Reported Gastrointestinal: See HPI, Abdominal Pain, Diarrhea Genitourinary: No Symptoms Reported Musculoskeletal: no symptoms reported Skin: no symptoms reported Psychiatric/Neurological: No Symptoms Reported Endocrine: No Symptoms Reported Hematologic/Lymphatic: No Symptoms Reported Past Zyalhyq-Dpkxyl-Fqsjjp Hx Patient Social History Tobacco Use?: Yes Tobacco type used: Cigars Smoking Status: Current Someday Smoker Use of E-Cig and/or Vaping dev: No Alcohol Use?: Yes Alcohol Frequency: Once in a while Pt feels they are or have been: No Immunizations Up To Date Tetanus Booster (TDap): More than 5yrs PED Vaccines UTD: Yes Influenza Vaccine Up-to-Date: No; Not Current Second COVID19 Vaccination Charli: December 2020 COVID19 Vaccine [place] [employer]: [employer] Seasonal Allergies Seasonal Allergies: Yes Past Medical History Surgeries: Yes (scope left shoulder, attach muscle in right FA, ESWL, CYSTO; COLONOSCOPY) Bladder Surgery, Gallbladder, Orthopedic, Renal Respiratory: Yes Sleep Apnea Currently Using CPAP: No Cardiac: Yes Hypertension Neurological: Yes (NEUROPATHY IN FEET) Neuropathy Reproductive Disorders: No Sexually Transmitted Disease: No HIV/AIDS: No Genitourinary: Yes Kidney Stones Gastrointestinal: Yes (dumping syndrome) Gastroesophageal Reflux, Chronic Diarrhea, Gall Bladder Disease, Irritable Bowel Musculoskeletal: Yes ( LEFT RCR AND BICEP TENDON REPAIR 2011) Arthritis Endocrine: Yes (DOES NOT CHECK BLOOD SUGAR, EXCEPT ON RARE OCCASIONS) Diabetes, Non-Insulin dep HEENT: No Loss of Vision: Bilateral Hearing Impairment: Denies Cancer: No Psychosocial: Yes (NONMEDICATED DEPRESSION) Depression Integumentary: No Blood Disorders: No Adverse Reaction/Blood Tranf: No Family Medical History Diabetes mellitus 19 MOTHER G8 SISTER FH: lung cancer 19 MOTHER Hypertension 19 FATHER 19 MOTHER G8 SISTER Kidney stone G8 SISTER Parkinson's disease G8 SISTER Prostate cancer 19 FATHER No Pertinent Family Hx Physical Exam Vital Signs Vital Signs - First Documented 06/17/21 19:47 Temp 36.3 Pulse 106 Resp 24 B/P (MAP) 245/141 (175) Pulse Ox 98 O2 Delivery Room Air Capillary Refill : Height/Weight/BMI Height: 6'4.00" Weight: 240lbs. 0.0oz. 108.061905tg; 27.00 BMI Method:Stated General Appearance: WD/WN, moderate distress (Hypertensive at 230s over 140s heart rate around 100) HEENT: PERRL/EOMI, normal ENT inspection Neck: non-tender, full range of motion Respiratory: no respiratory distress, no accessory muscle use Cardiovascular: no murmur, tachycardia Gastrointestinal: normal bowel sounds, soft Extremities: normal range of motion, non-tender Neurologic/Psychiatric: alert, normal mood/affect, oriented x 3 Skin: normal color, warm/dry Focused Exam Lactate Level 06/17/21 22:30: Lactic Acid Level Laboratory Tests Test 06/17/21 22:30 Progress/Results/Core Measures Results/Orders Lab Results Laboratory Tests Test 06/17/21 19:53 06/17/21 22:30 Range/Units White Blood Count 14.1 H 4.3-11.0 10^3/uL Red Blood Count 5.64 H 4.30-5.52 10^6/uL Hemoglobin 16.9 13.3-17.7 g/dL Hematocrit 49 40-54 % Mean Corpuscular Volume 87 80-99 fL Mean Corpuscular Hemoglobin 30 25-34 pg Mean Corpuscular Hemoglobin Concent 35 32-36 g/dL Red Cell Distribution Width 12.7 10.0-14.5 % Platelet Count 258 130-400 10^3/uL Mean Platelet Volume 10.9 9.0-12.2 fL Immature Granulocyte % (Auto) 0 % Neutrophils (%) (Auto) 80 H 42-75 % Lymphocytes (%) (Auto) 13 12-44 % Monocytes (%) (Auto) 5 0-12 % Eosinophils (%) (Auto) 1 0-10 % Basophils (%) (Auto) 0 0-10 % Neutrophils # (Auto) 11.3 H 1.8-7.8 10^3/uL Lymphocytes # (Auto) 1.9 1.0-4.0 10^3/uL Monocytes # (Auto) 0.7 0.0-1.0 10^3/uL Eosinophils # (Auto) 0.1 0.0-0.3 10^3/uL Basophils # (Auto) 0.1 0.0-0.1 10^3/uL Immature Granulocyte # (Auto) 0.1 0.0-0.1 10^3/uL Neutrophils % (Manual) 77 % Lymphocytes % (Manual) 15 % Monocytes % (Manual) 8 % Blood Morphology Comment NORMAL Prothrombin Time 12.7 12.2-14.7 SEC INR Comment 0.9 0.8-1.4 Sodium Level 140 135-145 MMOL/L Potassium Level 4.0 3.6-5.0 MMOL/L Chloride Level 107 98-107 MMOL/L Carbon Dioxide Level 20 L 21-32 MMOL/L Anion Gap 13 5-14 MMOL/L Blood Urea Nitrogen 21 H 7-18 MG/DL Creatinine 1.34 H 0.60-1.30 MG/DL Estimat Glomerular Filtration Rate 54 BUN/Creatinine Ratio 16 Glucose Level 199 H 70-105 MG/DL Calcium Level 10.5 H 8.5-10.1 MG/DL Corrected Calcium 10.1 8.5-10.1 MG/DL Total Bilirubin 0.6 0.1-1.0 MG/DL Aspartate Amino Transf (AST/SGOT) 13 5-34 U/L Alanine Aminotransferase (ALT/SGPT) 10 0-55 U/L Alkaline Phosphatase 86 40-136 U/L Total Protein 8.3 H 6.4-8.2 GM/DL Albumin 4.5 3.2-4.5 GM/DL Lipase 101 H 8-78 U/L My Orders Orders - ROB ISRAEL APRN Cbc With Automated Diff (06/17/21 19:58) Comprehensive Metabolic Panel (06/17/21 19:58) Lipase (06/17/21 19:58) Protime With Inr (06/17/21 19:58) Ed Iv/Invasive Line Start (06/17/21 19:58) Ct Abd/Pelv W (Appendicitis) (06/17/21 19:58) Lactated Ringers (Lr 1000 Ml Iv Solution (06/17/21 20:00) Fentanyl Inj (Sublimaze Injection) (06/17/21 20:00) Enalaprilat Injection (Vasotec Injection (06/17/21 20:00) Labetalol Injection (Normodyne Injection (06/17/21 20:15) Manual Differential (06/17/21 19:53) Diatrizoate Meglum/Sodium 37% (Gastrogra (06/17/21 20:45) Hydromorphone Injection (Dilaudid Inject (06/17/21 22:00) Iohexol Injection (Omnipaque 350 Mg/Ml 1 (06/17/21 22:15) Received Contrast (Hold Metformin- Contr (06/17/21 22:15) Sodium Chloride Flush (Catheter Flush Sy (06/17/21 22:15) Ns (Ivpb) (Sodium Chloride 0.9% Ivpb Bag (06/17/21 22:15) Lactic Acid Analyzer (06/17/21 22:21) Clonidine Tablet (Catapres Tablet) (06/17/21 22:45) Labetalol Injection (Normodyne Injection (06/17/21 22:45) Medications Given in ED Current Medications Medications Dose Ordered Sig/Parvin Route Start Time Stop Time Status Last Admin Dose Admin Clonidine HCl 0.1 mg ONCE ONCE PO 06/17/21 22:45 06/17/21 22:46 06/17/21 22:42 0.1 MG Diatrizoate Meglum/ Diatrizoate Sod 120 ml ONCE ONCE PO 06/17/21 20:45 06/17/21 20:46 DC 06/17/21 20:41 50 ML Enalaprilat 2.5 mg ONCE ONCE IV 06/17/21 20:00 06/17/21 20:02 DC 06/17/21 21:59 2.5 MG Fentanyl Citrate 50 mcg ONCE ONCE IVP 06/17/21 20:00 06/17/21 20:01 DC 06/17/21 20:13 50 MCG Hydromorphone HCl 0.5 mg ONCE ONCE IV 06/17/21 22:00 06/17/21 22:01 DC 06/17/21 21:59 0.5 MG Iohexol 100 ml ONCE ONCE IV 06/17/21 22:15 06/17/21 22:16 DC 06/17/21 22:15 100 ML Labetalol HCl 10 mg ONCE ONCE IV 06/17/21 20:15 06/17/21 20:16 DC 06/17/21 20:13 10 MG Labetalol HCl 10 mg ONCE ONCE IV 06/17/21 22:45 06/17/21 22:46 06/17/21 22:42 10 MG Sodium Chloride 10 ml NEEDED PRN IV 06/17/21 22:15 06/17/21 22:15 10 ML Sodium Chloride 100 ml ONCE ONCE IV 06/17/21 22:15 06/17/21 22:16 DC 06/17/21 22:15 80 ML Vital Signs/I&O 06/17/21 19:47 Temp 36.3 Pulse 106 Resp 24 B/P (MAP) 245/141 (175) Pulse Ox 98 O2 Delivery Room Air Departure Communication (Admissions) NAME: DARIN SUTTON JR [facility] REC#: [id number] PT STATUS: REG ER : 1960 PHYSICIAN: ROB ISRAEL LABEL SEWER ADMIT DATE: 06/17/21/ER Draft Date of Exam:06/17/21 CT ABD/PELV W (APPENDICITIS) PROCEDURE: CT abdomen and pelvis with contrast, rule out appendicitis. TECHNIQUE: Multiple contiguous axial images were obtained through the abdomen and pelvis after the administration of intravenous contrast. All CT scans use one or more of the following dose optimizing techniques: automated exposure control, MA and/or KvP adjustment based on patient size and exam type or iterative reconstruction. INDICATION: Abdominal pain and distention. COMPARISON: 04/22/2016. FINDINGS: There is dependent atelectasis in the lung bases. The heart is normal in size. The liver demonstrates no focal lesion. Cholecystectomy clips are noted. The spleen appears normal. The pancreas is normal. The adrenal glands are normal. The kidneys demonstrate no enhancing lesion. There are simple appearing cysts, bilaterally, the largest located on the left measuring up to 4.1 cm in size. Although this is a postcontrast exam, there does appear to be a large calculus in the inferior left kidney measuring 2.9 x 1.5 cm in size. No hydronephrosis is seen. No obstructing calculi are seen. The stomach is mildly distended and filled with contrast. The colon is mildly distended and filled with fluid and air. The appendix appears normal in size. The small bowel is predominantly decompressed. No free fluid or free air is seen. There is no lymphadenopathy identified. The aorta is normal in caliber. There are degenerative changes in the spine with no acute abnormality seen. IMPRESSION: 1. Mildly distended fluid and air-filled colon. No mechanical obstruction is identified. The small bowel loops are decompressed. 2. Large nonobstructing calculus in the inferior left kidney. Dictated on workstation # [id number] Dict: 06/17/212214 Trans: 06/17/212221 [id number] Interpreted by: SADIE DOMINGO MD Electronically signed by: [id number] hypertensive at 240/130. 1 dose of labetalol 10 mg. His pain was subsequently treated with Dilaudid about 30 minutes ago and he states that did help significantly. We will check his blood pressure once he gets back from the bathroom. CT does not show anything concerning for obstruction. He has dumping syndrome following cholecystectomy and irritable bowel syndrome. His labs are pretty unremarkable. [id number] of 103. Rates his pain now at 2 out of 10 mostly localized to all across the low abdomen both lower quadrants. Cause is not yet determined. He is agreeable to being watched overnight. I spoke with Dr. Newby will admit to stepdown floor with as needed hydralazine for hypertension Zofran and Dilaudid for pain. I also discussed with Dr. Pretty from surgery and he will evaluate patient in the morning. Impression Primary Impression: Hypertensive urgency Additional Impression: Abdominal pain Disposition: ADMITTED INPATIENT Condition: Stable Admissions Decision to Admit Reason: Admit from ER (General) Decision to Admit/Date: Jun 17, 2021 Time/Decision to Admit Time: 22:48 Departure-Patient Inst. Referrals: ALEKSANDRA SANCHEZ MD (PCP/Family) Primary Care Physician ROB ISRAEL APRN Jun 17, 2021 20:04
[2021-06-17] MEDS ORDERED: LABETALOL HCL 20 MG/4 ML VIAL IV ONE ×2 (20:15→22:45)
[2021-06-17 20:19] LABS: INR 0.9 (0.8-1.4); PROTHROMBIN TIME PATIENT 12.7 SEC (12.2-14.7)
[2021-06-17 20:27] LABS: LYMPHOCYTES % (MANUAL) 15 %; MONOCYTES % (MANUAL) 8 %; NEUTROPHILS % (MANUAL) 77 %; RBC MORPH NORMAL
[2021-06-17 20:35] LABS: ALBUMIN 4.5 GM/DL (3.2-4.5)
[2021-06-17 20:37] LABS: CALCIUM 10.5 MG/DL (8.5-10.1)
[2021-06-17 20:38] LABS: TOTAL PROTEIN 8.3 GM/DL (6.4-8.2)
[2021-06-17 20:40] LABS: BILIRUBIN,TOTAL 0.6 MG/DL (0.1-1.0)
[2021-06-17] MEDS ORDERED: DIATRIZOATE MEGLUM/SODIUM 37% 120 ML (GASTROGRAFIN) PO ONE (20:45)
[2021-06-17 20:56] LABS: CREATININE SERUM 1.34 MG/DL (0.60-1.30)
[2021-06-17] MEDS ORDERED: HYDROmorphone 2 MG/ML VIAL (DILAUDID) IV ONE (22:00)
[2021-06-17] MEDS ORDERED: NS 100 ML (IVPB) BAG IV ONE (22:15)
[2021-06-17] MEDS ORDERED: CATHETER FLUSH 10 ML SYR IV PRN (22:15)
[2021-06-17] MEDS ORDERED: IOHEXOL 350 MG/ML 100 ML (OMNIPAQUE 350) VIAL IV ONE (22:15)
[2021-06-17] MEDS ORDERED: HOLD METFORMIN - RECEIVED CONTRAST 20 ML VIAL IV SCH (22:15)
--- NOTE | 2021-06-17 22:23 | Diagnostic Imaging Report ---
PROCEDURE: CT abdomen and pelvis with contrast, rule out appendicitis. TECHNIQUE: Multiple contiguous axial images were obtained through the abdomen and pelvis after the administration of intravenous contrast. All CT scans use one or more of the following dose optimizing techniques: automated exposure control, MA and/or KvP adjustment based on patient size and exam type or iterative reconstruction. INDICATION: Abdominal pain and distention. COMPARISON: 04/22/2016. FINDINGS: There is dependent atelectasis in the lung bases. The heart is normal in size. The liver demonstrates no focal lesion. Cholecystectomy clips are noted. The spleen appears normal. The pancreas is normal. The adrenal glands are normal. The kidneys demonstrate no enhancing lesion. There are simple appearing cysts, bilaterally, the largest located on the left measuring up to 4.1 cm in size. Although this is a postcontrast exam, there does appear to be a large calculus in the inferior left kidney measuring 2.9 x 1.5 cm in size. No hydronephrosis is seen. No obstructing calculi are seen. The stomach is mildly distended and filled with contrast. The colon is mildly distended and filled with fluid and air. The appendix appears normal in size. The small bowel is predominantly decompressed. No free fluid or free air is seen. There is no lymphadenopathy identified. The aorta is normal in caliber. There are degenerative changes in the spine with no acute abnormality seen. IMPRESSION: 1. Mildly distended fluid and air-filled colon. No mechanical obstruction is identified. The small bowel loops are decompressed. 2. Large nonobstructing calculus in the inferior left kidney. Dictated by: Dictated on workstation # [id number]
[2021-06-17] MEDS ORDERED: cloNIDine 0.1 MG (CATAPRES) TAB PO ONE (22:45)
[2021-06-17] MEDS ORDERED: meTOproloL SUCCINATE 50 MG (TOPROL XL) TAB PO SCH (23:00)
[2021-06-17 23:01] LABS: BILIRUBIN,URINE NEGATIVE (NEGATIVE); CLARITY,URINE CLEAR; COLOR,URINE YELLOW; GLUCOSE, URINE (UA) TRACE (NEGATIVE); KETONES,URINE NEGATIVE (NEGATIVE); LEUKOCYTE ESTERASE ,URINE NEGATIVE (NEGATIVE); NITRITE,URINE NEGATIVE (NEGATIVE); PROTEIN,URINE 1+ (NEGATIVE)
[2021-06-17 23:08] LABS: BACTERIA,URINE NEGATIVE /HPF; RBC,URINE 0-2 /HPF; WBC,URINE 0-2 /HPF
[2021-06-17 23:12] LABS: AMPHETAMINE SCREEN, URINE NEGATIVE (NEGATIVE); BARBITURATE SCREEN URINE NEGATIVE (NEGATIVE); BENZODIAZEPINES SCREEN URINE NEGATIVE (NEGATIVE); CANNABINOID SCREEN, URINE NEGATIVE (NEGATIVE); COCAINE SCREEN URINE NEGATIVE (NEGATIVE); METHADONE STAT NEGATIVE (NEGATIVE); METHAMPHETAMINE SCREEN URINE S NEGATIVE (NEGATIVE); OPIATE SCREEN URINE POSITIVE (NEGATIVE); OXYCODONE STAT NEGATIVE (NEGATIVE); PROPOXYPHENE STAT NEGATIVE (NEGATIVE); TRICYCLIC ANTIDEPRESSANTS SCRE NEGATIVE (NEGATIVE)
--- NOTE | 2021-06-17 23:33 | Tele-ICU Progress Note ---
Progress Note 60/y/o with Hx of HTN, IBD c/o abd pain, diarrhea. BP uncontrolled a he skipped meds. CT abd w/o obstruction of bowel. Lt large nonobstructing stone. Labs reviewed. Hydralazine, dilaudid and Zofran given, Surgery notified in ED 1. HTN uncontrolled skipped medication due to abd pain 2. Hx of IBD CT abd neg for obsruction plan BP control Interventions Minor-Other: HTN uncontrolled. Abd pain/diarrhea Focused Exam Lactate Level 06/17/21 22:30: Lactic Acid Level 1.31 Height, Weight, BMI Height: 6'4.00" Weight: 240lbs. 0.0oz. 108.155258gx; 27.00 BMI Method:Stated Lactic Acid Level Laboratory Tests Test 06/17/21 22:30 Lactic Acid Level 1.31 MMOL/L (0.50-2.00) MACIEL BRAVO MD Jun 17, 2021 23:33
[2021-06-18] VITALS (31 sets, daily range): BP systolic 114–193; BP diastolic 53–121
[2021-06-18] MEDS ORDERED: LABETALOL HCL 20 MG/4 ML VIAL ONE (00:40)
[2021-06-18] MEDS: LABETALOL HCL 20 MG/4 ML VIAL IV PRN ×3 (00:42→19:23)
[2021-06-18] MEDS ORDERED: meTOprolol 5 MG/5 ML (LOPRESSOR) VIAL ONE (01:12)
[2021-06-18] MEDS ORDERED: meTOprolol 5 MG/5 ML (LOPRESSOR) VIAL IV ONE (01:15)
[2021-06-18] MEDS: LACTATED RINGERS 1,000 ML IV SCH ×7 (01:24→21:41)
[2021-06-18] MEDS ORDERED: hydrALAZINE (APESOLINE) 20 MG/ML VIAL IV PRN (01:30)
[2021-06-18] MEDS ORDERED: ONDANSETRON 4 MG/2 ML (SDV) Z0FRAN IV PRN (01:30)
[2021-06-18 02:03] LABS: POTASSIUM 3.9 MMOL/L (3.6-5.0)
[2021-06-18 02:04] LABS: CALCIUM 8.8 MG/DL (8.5-10.1)
[2021-06-18 02:08] LABS: PHOSPHORUS 2.5 MG/DL (2.3-4.7)
[2021-06-18] MEDS ORDERED: ADENOSINE 6 MG/2 ML (ADENOCARD) VIAL IV ONE ×3 (02:08→02:15)
[2021-06-18 02:09] LABS: CREATININE SERUM 1.02 MG/DL (0.60-1.30)
[2021-06-18 02:11] LABS: MAGNESIUM 1.9 MG/DL (1.6-2.4)
[2021-06-18] MEDS ORDERED: MAGNESIUM 1 GM/100 ML IVPB 200 ML IV ONE (02:23)
[2021-06-18] MEDS: MAGNESIUM 1 GM/100 ML IVPB 100 ML IV SCH ×3 (02:27→06:24)
--- NOTE | 2021-06-18 02:28 | Tele-ICU Progress Note ---
Progress Note Adenosin 6 mg given and now in NSR 90s. Explained the procedure to the Pt prior, tolerated it well. Pt appears comfortable. Interventions Minor-Other: SVT Focused Exam Lactate Level 06/17/21 22:30: Lactic Acid Level 1.31 Height, Weight, BMI Height: 6'4.00" Weight: 240lbs. 0.0oz. 108.034759py; 28.10 BMI Method:Stated Lactic Acid Level Laboratory Tests Test 06/17/21 22:30 Lactic Acid Level 1.31 MMOL/L (0.50-2.00) MACIEL BRAVO MD Jun 18, 2021 02:28
[2021-06-18] MEDS: HYDROmorphone 2 MG/ML VIAL (DILAUDID) IV PRN ×3 (04:27→15:26)
--- NOTE | 2021-06-18 04:49 | Diagnostic Imaging Report ---
EXAM: CHEST 1 VIEW, AP/PA ONLY INDICATION: Tachycardia. Hypertension. COMPARISON: 10/17/2017. FINDINGS: Normal heart size and central pulmonary vascularity. No focal pulmonary opacity. No pleural effusion or pneumothorax. No acute osseous findings. IMPRESSION: No acute cardiopulmonary findings. Dictated by: Dictated on workstation # [id number]
[2021-06-18 05:18] LABS: BASOPHILS # (AUTO) 0.1 10^3/uL (0.0-0.1); BASOPHILS % (AUTO) 0 % (0-10); EOSINOPHILS # (AUTO) 0.1 10^3/uL (0.0-0.3); EOSINOPHILS % (AUTO) 1 % (0-10); HEMATOCRIT 42 % (40-54); HEMOGLOBIN 14.3 g/dL (13.3-17.7); LYMPHOCYTES # (AUTO) 1.7 10^3/uL (1.0-4.0); LYMPHOCYTES % (AUTO) 13 % (12-44); MEAN CORPUSCULAR HEMOGLOBIN 30 pg (25-34); MEAN CORPUSCULAR HGB CONC 34 g/dL (32-36); MEAN CORPUSCULAR VOLUME 87 fL (80-99); MONOCYTES # (AUTO) 0.8 10^3/uL (0.0-1.0); MONOCYTES % (AUTO) 6 % (0-12); NEUTROPHILS # (AUTO) 10.6 10^3/uL (1.8-7.8); NEUTROPHILS % (AUTO) 80 % (42-75); PLATELET COUNT 203 10^3/uL (130-400); WHITE BLOOD COUNT 13.3 10^3/uL (4.3-11.0)
[2021-06-18 05:41] LABS: POTASSIUM 3.9 MMOL/L (3.6-5.0)
[2021-06-18 05:42] LABS: CALCIUM 8.8 MG/DL (8.5-10.1)
[2021-06-18 05:46] LABS: CREATININE SERUM 1.09 MG/DL (0.60-1.30)
[2021-06-18] MEDS: KCL 20 MEQ TAB (K-DUR) PO SCH (06:24)
[2021-06-18] MEDS: POTASSIUM CL 10MEQ/50ML IVPB 50 ML IV SCH (06:24)
[2021-06-18] MEDS: inSUlin ASPART (NovoLOG) 1 UNIT/0.01 ML (CHARGE PER UNIT) SC SCH ×4 (06:52→21:03)
[2021-06-18] MEDS ORDERED: FLU QUADRIvalent (3YOA+) 60 mcg/0.5 ml 2021-22(AFLURIA) IM ONE (07:00)
--- NOTE | 2021-06-18 07:21 | Consultation - Surgery ---
JAMES DE LA CRUZ 06/18/21 0721: History of Present Illness History of Present Illness Patient Consulted On(gonzalo/time) 06/18/21 07:17 Date Seen by Provider: Jun 18, 2021 Time Seen by Provider: 06:45 Reason for Visit: Consult for Abdominal pain, distention, cramping History of Present Illness Mr. Parveen Escalante Jr. is a 60 y.o. M that presented to the ED with abdom inal pain, distention, watery stools, acid reflux and belching. Sx started yesterday morning and progressively worsened. Patient has had similar issues with bloating in the pass after having gall bladder removed, however, usually resolved after taking antacids. Patient has nausea, yeast taste in mouth, no burning but states he belches stuff up. Not passing flatus. Last bm was yeste rday around 6pm and was loose. Patient feeling bloated and "just wants us to put a needle in him and suck the air out". Patient pain after Dilauded was 6/10. before Dilauded was 9/10. Patient had a SVT event yesterday, given adenosine and returned to sinus rhythm. Patient had gallbladder removed several years ago (didn't give an age) and has right inguinal hernia repair as a child (didn't provide age). Patient drinks beer occasionally and smokes cigars socially. Patient denies fever, aches, chills, shortness of breath, chest pain, palpitations, vomiting, numbness/tingling, paresthesia. Surgery was consulted for abdominal distention, pain, watery stools, acid reflux and belching. Allergies and Home Medications Allergies Coded Allergies: No Known Drug Allergies (Unverified , 01/09/17) Patient Home Medication List Diltiazem HCl (Diltiazem ER) 360 Mg Capsule.er, 360 MG PO DAILY, (Reported) Entered as Reported by: CEDRIC ANTHONY on 06/18/21 1040 Last Action: Reviewed Gabapentin (Neurontin) 300 Mg Capsule, 300 MG PO TID, (Reported) Entered as Reported by: CEDRIC ANTHONY on 06/18/21 1040 Last Action: Reviewed Glimepiride (Glimepiride) 4 Mg Tablet, 8 MG PO DAILY, (Reported) Entered as Reported by: CEDRIC ANTHONY on 06/18/211039 Last Action: Reviewed Guaifenesin (Mucus Relief) 600 Mg Tab.er.12h, 600 MG PO Q12H PRN for CONGESTION, (Reported) Entered as Reported by: CEDRIC ANTHONY on 06/18/211039 Last Action: Reviewed Insulin Degludec (Tresiba Flextouch U-200) 200 Unit/1 Ml Insuln.pen, 50 UNITS SC DAILY, (Reported) Entered as Reported by: CEDRIC ANTHONY on 06/18/211039 Last Action: Reviewed Lisinopril (Lisinopril) 40 Mg Tablet, 40 MG PO DAILY, (Reported) Entered as Reported by: CEDRIC ANTHONY on 06/18/211039 Last Action: Reviewed Orphenadrine Citrate (Orphenadrine Citrate) 100 Mg Tablet.er, 100 MG PO BID, (Reported) Entered as Reported by: CEDRIC ANTHONY on 06/18/211039 Last Action: Reviewed Pantoprazole Sodium (Pantoprazole Sodium) 40 Mg Tablet.dr, 40 MG PO DAILY, (Reported) Entered as Reported by: CEDRIC ANTHONY on 06/18/211039 Last Action: Reviewed Pioglitazone HCl (Pioglitazone HCl) 30 Mg Tablet, 30 MG PO DAILY, (Reported) Entered as Reported by: CEDRIC ANTHONY on 06/18/211039 Last Action: Reviewed Ropinirole HCl (Ropinirole HCl) 4 Mg Tablet, 4 MG PO BID, (Reported) Entered as Reported by: CEDRIC ANTHONY on 06/18/211039 Last Action: Reviewed Semaglutide (Ozempic) 1 Mg/0.75 Ml Pen.injctr, 1 MG SQ SUN, (Reported) Entered as Reported by: CEDRIC ANTHONY on 06/18/211039 Last Action: Reviewed Discontinued Medications Gabapentin (Gabapentin) 300 Mg Capsule, 600 MG PO BID, (Reported) Discontinued Reason: No Longer Taking Entered as Reported by: LYNNE CHENG on 09/24/14857 Last Action: Discontinued Glimepiride (Glimepiride) 4 Mg Tablet, 8 MG PO DAILY, (Reported) Discontinued Reason: No Longer Taking Entered as Reported by: LYNNE CHENG on 09/24/14857 Last Action: Discontinued Glyburide (Glyburide) 5 Mg Tablet, 10 EACH PO BIDAC, (Reported) Discontinued Reason: No Longer Taking Entered as Reported by: MIRANDA JAQUEZ on 02/11/11 1627 Last Action: Discontinued Nebivolol HCl (Bystolic) 10 Mg Tab, 10 MG PO DAILY, (Reported) Discontinued Reason: No Longer Taking Entered as Reported by: PACHECO BUCKLEY on 01/09/17 1325 Last Action: Discontinued [place] 3 Polyunsat Fatty Acids (Fish Oil 1,000 mg Capsule) 1,000 Mg Cap, 1,000 MG PO DAILY, (Reported) Discontinued Reason: No Longer Taking Entered as Reported by: PACHECO BUCKLEY on 01/09/17 1325 Last Action: Discontinued Ropinirole Hcl (Ropinirole Hcl) 2 Mg Tab.er.24h, 4 MG PO BID, (Reported) Discontinued Reason: No Longer Taking Entered as Reported by: BENNY QUIGLEY on 04/29/14 1353 Last Action: Discontinued Sitagliptin Phos/Metformin Hcl (Janumet Xr 100-1,000 Mg Tablet) 1 Each Tbmp.24hr, 1 EACH PO BID, (Reported) Discontinued Reason: No Longer Taking Entered as Reported by: LYNNE CHENG on 09/24/14 0858 Last Action: Discontinued Past Dzfebld-Oohbba-Uzzyzj Hx Patient Social History Smoking Status: Light Tobacco Smoker (cigars socially) Type Used: Cigars Recent Hopitalizations: No Alcohol Use?: Yes Have you traveled recently?: No Immunizations Up To Date Tetanus Booster (TDap): More than 5yrs PED Vaccines UTD: Yes Date of Influenza Vaccine: May 06, 2016 Seasonal Allergies Seasonal Allergies: Yes Surgeries History of Surgeries: Yes (COLONOSCOPY) Surgeries: Gallbladder (several years, didn't state age.), Orthopedic (Right shoulder scoped. Left bicep tendon repair 2011), Renal (cyst removal) Respiratory History of Respiratory Disorde: Yes Cardiovascular History of Cardiac Disorders: Yes Cardiac Disorders: Hypertension Neurological History of Neurological Disord: Yes (NEUROPATHY IN FEET) Neurological Disorders: Neuropathy Reproductive System Hx Reproductive Disorders: No Sexually Transmitted Disease: No HIV/AIDS: No Genitourinary History of Genitourinary Disor: Yes Gastrointestinal History of Gastrointestinal Di: Yes (dumping syndrome) Gastrointestinal Disorders: Gastroesophageal Reflux (gets reflux, belching. denies burning or chest pain.), Chronic Diarrhea, Gall Bladder Disease (had gallbladder removed.), Irritable Bowel (stated pcp told him he has ibs.) Musculoskeletal History of Musculoskeletal Dis: Yes ( LEFT RCR AND BICEP TENDON REPAIR 2011) Endocrine History of Endocrine Disorders: Yes (DOES NOT CHECK BLOOD SUGAR, EXCEPT ON RARE OCCASIONS) Endocrine Disorders: Diabetes, Non-Insulin dep (does not monitor surgar normally) HEENT History of HEENT Disorders: No Loss of Vision: Denies Hearing Impairment: Denies Cancer History of Cancer: No Psychosocial History of Psychiatric Problem: Yes (NONMEDICATED DEPRESSION) Integumentary History of Skin or Integumenta: No Blood Transfusions History of Blood Disorders: No Adverse Reaction to a Blood Tr: No Family Medical History Significant Family History: No Pertinent Family Hx, Diabetes Other Right hernia repair as child. Did not provide specific age. Family Medial History: Diabetes mellitus 19 MOTHER G8 SISTER FH: lung cancer 19 MOTHER Hypertension 19 FATHER 19 MOTHER G8 SISTER Kidney stone G8 SISTER Parkinson's disease G8 SISTER Prostate cancer 19 FATHER Review of Systems-General Constitutional: No chills, No diaphoresis EENTM: No hearing loss, No blurred vision, No mouth pain, No mouth swelling Respiratory: No cough, No hemoptysis, No short of breath Gastrointestinal: abdominal pain, diarrhea; No dysphagia, No hematemesis, No heartburn; nausea; No vomiting Genitourinary: No dysuria, No frequency Musculoskeletal: No back pain, No joint pain Skin: No change in color Psychiatric/Neurological: Denies Anxiety, Denies Depressed, Denies Numbness, Denies Paresthesia Physical Exam-General Problems Physical Exam Vital Signs Vital Signs - First Documented 06/17/21 06/18/21 19:47 01:29 Temp 36.3 Pulse 106 Resp 24 B/P (MAP) 245/141 (175) Pulse Ox 98 O2 Delivery Room Air O2 Flow Rate 2.00 Capillary Refill : General Appearance: WD/WN, mild distress (abdominal pain) Eyes: Bilateral Eye PERRL, Bilateral Eye EOMI HEENT: pharynx normal; No scleral icterus (R), No scleral icterus (L) Neck: non-tender, supple Respiratory: chest non-tender, lungs clear, normal breath sounds, no respiratory distress, no accessory muscle use Cardiovascular: regular rate, rhythm, no gallop, no murmur Peripheral Pulses: 2+ Dorsalis Pedis (R), 2+ Left Dors-Pedis (L), 2+ Radial Pulses (R), 2+ Radial Pulses (L) Gastrointestinal: no organomegaly, no pulsatile mass, abnormal bowel sounds, distended, tenderness (diffuse abdominal tenderness and pain on palpation.) Back: No no CVA tenderness, No no vertebral tenderness Extremities: normal range of motion, non-tender, no pedal edema Neurologic/Psychiatric: no motor/sensory deficits, alert, normal mood/affect, oriented x 3 Skin: normal color, warm/dry Lymphatic: no adenopathy (head and neck) Data Review Labs Laboratory Tests 06/17/21 19:53: White Blood Count 14.1H, Red Blood Count 5.64H, Hemoglobin 16.9, Hematocrit 49, Mean Corpuscular Volume 87, Mean Corpuscular Hemoglobin 30, Mean Corpuscular Hemoglobin Concent 35, Red Cell Distribution Width 12.7, Platelet Count 258, Mean Platelet Volume 10.9, Immature Granulocyte % (Auto) 0, Neutrophils (%) ( Auto) 80H, Lymphocytes (%) (Auto) 13, Monocytes (%) (Auto) 5, Eosinophils (%) (Auto) 1, Basophils (%) (Auto) 0, Neutrophils # (Auto) 11.3H, Lymphocytes # (Auto) 1.9, Monocytes # (Auto) 0.7, Eosinophils # (Auto) 0.1, Basophils # (Auto) 0.1, Immature Granulocyte # (Auto) 0.1, Neutrophils % (Manual) 77, Lymphocytes % (Manual) 15, Monocytes % (Manual) 8, Blood Morphology Comment NORMAL, Prothrombin Time 12.7, INR Comment 0.9, Sodium Level 140, Potassium Level 4.0, Chloride Level 107, Carbon Dioxide Level 20L, Anion Gap 13, Blood Urea Nitrogen 21H, Creatinine 1.34H, Estimat Glomerular Filtration Rate 54, BUN/Creatinine Ratio 16, Glucose Level 199H, Calcium Level 10.5H, Corrected Calcium 10.1, Total Bilirubin 0.6, Aspartate Amino Transf (AST/SGOT) 13, Alanine Aminotransferase (ALT/SGPT) 10, Alkaline Phosphatase 86, Total Protein 8.3H, Albumin 4.5, Lipase 101H, Serum Alcohol < 10 06/17/21 22:25: Urine Color YELLOW, Urine Clarity CLEAR, Urine pH 6.0, Urine Specific [place] 1.025H, Urine Protein 1+H, Urine Glucose (UA) TRACEH, Urine Ketones NEGATIVE, Urine Nitrite NEGATIVE, Urine Bilirubin NEGATIVE, Urine Urobilinogen 0.2, Urine Leukocyte Esterase NEGATIVE, Urine RBC (Auto) 1+H, Urine RBC 0-2, Urine WBC 0-2, Urine Squamous Epithelial Cells NONE, Urine Renal Epithelial Cells NONE, Urine Crystals NONE, Urine Bacteria NEGATIVE, Urine Casts NONE, Urine Mucus NEGATIVE, Urine Culture Indicated NO, Urine Opiates Screen POSITIVEH, Urine Oxycodone Screen NEGATIVE, Urine Methadone Screen NEGATIVE, Urine Propoxyphene Screen NEGATIVE, Urine Barbiturates Screen NEGATIVE, Ur Tricyclic Antidepressants Screen NEGATIVE, Urine Phencyclidine Screen NEGATIVE, Urine Amphetamines Screen NEGATIVE, Urine Methamphetamines Screen NEGATIVE, Urine Benzodiazepines Screen NEGATIVE, Urine Cocaine Screen NEGATIVE, Urine Cannabinoids Screen NEGATIVE 06/17/21 22:30: Lactic Acid Level 1.31 06/18/21 01:40: Sodium Level 138, Potassium Level 3.9, Chloride Level 108H, Carbon Dioxide Level 18L, Anion Gap 12, Blood Urea Nitrogen 19H, Creatinine 1.02, Estimat Glomerular Filtration Rate 74, BUN/Creatinine Ratio 19, Glucose Level 249H, Calcium Level 8.8, Phosphorus Level 2.5, Magnesium Level 1.9, Troponin I < 0.028 06/18/21 05:05: White Blood Count 13.3H, Red Blood Count 4.80, Hemoglobin 14.3, Hematocrit 42, Mean Corpuscular Volume 87, Mean Corpuscular Hemoglobin 30, Mean Corpuscular Hemoglobin Concent 34, Red Cell Distribution Width 12.8, Platelet Count 203, Mean Platelet Volume 11.0, Immature Granulocyte % (Auto) 0, Neutrophils (%) (Auto) 80H, Lymphocytes (%) (Auto) 13, Monocytes (%) (Auto) 6, Eosinophils (%) (Auto) 1, Basophils (%) (Auto) 0, Neutrophils # (Auto) 10.6H, Lymphocytes # (Auto) 1.7, Monocytes # (Auto) 0.8, Eosinophils # (Auto) 0.1, Basophils # (Auto) 0.1, Immature Granulocyte # (Auto) 0.1, Sodium Level 138, Potassium Level 3.9, Chloride Level 107, Carbon Dioxide Level 19L, Anion Gap 12, Blood Urea Nitrogen 18, Creatinine 1.09, Estimat Glomerular Filtration Rate 69, BUN/Creatinine Ratio 17, Glucose Level 240H, Calcium Level 8.8, Lipase 52 [facility] [place] [place] NAME: PARVEEN [facility] REC#: [id number] PT STATUS: ADM Keke : 1960 PHYSICIAN: MACIEL BRAVO MD ADMIT DATE: 06/17/21/ICU Signed Date of Exam:06/18/21 CHEST 1 VIEW, AP/PA ONLY EXAM: CHEST 1 VIEW, AP/PA ONLY INDICATION: Tachycardia. Hypertension. COMPARISON: 10/17/2017. FINDINGS: Normal heart size and central pulmonary vascularity. No focal pulmonary opacity. No pleural effusion or pneumothorax. No acute osseous findings. IMPRESSION: No acute cardiopulmonary findings. Dictated by: Dictated on workstation # [id number] Dict: 06/18/21 0445 Trans: 06/18/21 0535 [facility] [id number] Interpreted by: GEORGINA SANTAMARIA MD Electronically signed by: GEORGINA SANTAMARIA MD 06/18/21 0535 [facility] [place] [place] NAME: PARVEEN [facility] REC#: [id number] PT STATUS: REG ER : 1960 PHYSICIAN: ROB ISRAEL APRN ADMIT DATE: 06/17/21/ER Signed Date of Exam:06/17/21 CT ABD/PELV W (APPENDICITIS) PROCEDURE: CT abdomen and pelvis with contrast, rule out appendicitis. TECHNIQUE: Multiple contiguous axial images were obtained through the abdomen and pelvis after the administration of intravenous contrast. All CT scans use one or more of the following dose optimizing techniques: automated exposure control, MA and/or KvP adjustment based on patient size and exam type or iterative reconstruction. INDICATION: Abdominal pain and distention. COMPARISON: 04/22/2016. FINDINGS: There is dependent atelectasis in the lung bases. The heart is normal in size. The liver demonstrates no focal lesion. Cholecystectomy clips are noted. The spleen appears normal. The pancreas is normal. The adrenal glands are normal. The kidneys demonstrate no enhancing lesion. There are simple appearing cysts, bilaterally, the largest located on the left measuring up to 4.1 cm in size. Although this is a postcontrast exam, there does appear to be a large calculus in the inferior left kidney measuring 2.9 x 1.5 cm in size. No hydronephrosis is seen. No obstructing calculi are seen. The stomach is mildly distended and filled with contrast. The colon is mildly distended and filled with fluid and air. The appendix appears normal in size. The small bowel is predominantly decompressed. No free fluid or free air is seen. There is no lymphadenopathy identified. The aorta is normal in caliber. There are degenerative changes in the spine with no acute abnormality seen. IMPRESSION: 1. Mildly distended fluid and air-filled colon. No mechanical obstruction is identified. The small bowel loops are decompressed. 2. Large nonobstructing calculus in the inferior left kidney. Dictated by: Dictated on workstation # [id number] Dict: 06/17/212214 Trans: 06/17/212242 [facility] [id number] Interpreted by: SADIE DOMINGO MD Electronically signed by: SADIE DOMINGO MD 06/17/213 Assessment/Plan Assessment/Plan Assessment/Plan Abdominal distention - possible bowel obstruction Diarrhea Acid reflux and belching Plan: IV fluids. Continue pain and nausea tx for sx as needed. Manage htn, monitor for recurrent svt. Patient on hypertensive medication at home. Possible NG tube for bloating. Possible EGD for reflux, belching, yeast taste. TANMAY CERNA DO 06/18/21 1556: History of Present Illness History of Present Illness Time Seen by Provider: 13:01 History of Present Illness Surgery asked to consult regarding abdominal pain. Pt states he has had pain like this since he got his gallbladder out, never this bad. He states he is better today and not currently bloated. His thinks he had EGD and colonoscopy around 10yrs ago, but not sure if they were before or after his gallbladder surgery. He wants to eat and drink. Denies chest pain. Allergies and Home Medications Allergies Coded Allergies: No Known Drug Allergies (Unverified , 01/09/17) Patient Home Medication List Home Medication List Reviewed: Yes Diltiazem HCl (Diltiazem ER) 360 Mg Capsule.er, 360 MG PO DAILY, (Reported) Entered as Reported by: CEDRIC ANTHONY on 06/18/211039 Last Action: Reviewed Gabapentin (Neurontin) 300 Mg Capsule, 300 MG PO TID, (Reported) Entered as Reported by: CEDRIC ANTHONY on 06/18/211039 Last Action: Reviewed Glimepiride (Glimepiride) 4 Mg Tablet, 8 MG PO DAILY, (Reported) Entered as Reported by: CEDRIC ANTHONY on 06/18/211039 Last Action: Reviewed Guaifenesin (Mucus Relief) 600 Mg Tab.er.12h, 600 MG PO Q12H PRN for CONGESTION, (Reported) Entered as Reported by: CEDRIC ANTHONY on 06/18/211039 Last Action: Reviewed Insulin Degludec (Tresiba Flextouch U-200) 200 Unit/1 Ml Insuln.pen, 50 UNITS SC DAILY, (Reported) Entered as Reported by: CEDRIC ANTHONY on 06/18/211039 Last Action: Reviewed Lisinopril (Lisinopril) 40 Mg Tablet, 40 MG PO DAILY, (Reported) Entered as Reported by: CEDRIC ANTHONY on 06/18/211039 Last Action: Reviewed Orphenadrine Citrate (Orphenadrine Citrate) 100 Mg Tablet.er, 100 MG PO BID, (Reported) Entered as Reported by: CEDRIC ANTHONY on 06/18/211039 Last Action: Reviewed Pantoprazole Sodium (Pantoprazole Sodium) 40 Mg Tablet.dr, 40 MG PO DAILY, (Reported) Entered as Reported by: CEDRIC ANTHONY on 06/18/211039 Last Action: Reviewed Pioglitazone HCl (Pioglitazone HCl) 30 Mg Tablet, 30 MG PO DAILY, (Reported) Entered as Reported by: CEDRIC ANTHONY on 06/18/211039 Last Action: Reviewed Ropinirole HCl (Ropinirole HCl) 4 Mg Tablet, 4 MG PO BID, (Reported) Entered as Reported by: CEDRIC ANTHONY on 06/18/211039 Last Action: Reviewed Semaglutide (Ozempic) 1 Mg/0.75 Ml Pen.injctr, 1 MG SQ SUN, (Reported) Entered as Reported by: CEDRIC ANTHONY on 11/22/21 1040 Last Action: Reviewed Discontinued Medications Gabapentin (Gabapentin) 300 Mg Capsule, 600 MG PO BID, (Reported) Discontinued Reason: No Longer Taking Entered as Reported by: LYNNE CHENG on 09/24/14857 Last Action: Discontinued Glimepiride (Glimepiride) 4 Mg Tablet, 8 MG PO DAILY, (Reported) Discontinued Reason: No Longer Taking Entered as Reported by: LYNNE CHENG on 09/24/14857 Last Action: Discontinued Glyburide (Glyburide) 5 Mg Tablet, 10 EACH PO BIDAC, (Reported) Discontinued Reason: No Longer Taking Entered as Reported by: MIRANDA JAQUEZ on 02/11/11 1627 Last Action: Discontinued Nebivolol HCl (Bystolic) 10 Mg Tab, 10 MG PO DAILY, (Reported) Discontinued Reason: No Longer Taking Entered as Reported by: PACHECO BUCKLEY on 01/09/17 1325 Last Action: Discontinued [place] 3 Polyunsat Fatty Acids (Fish Oil 1,000 mg Capsule) 1,000 Mg Cap, 1,000 MG PO DAILY, (Reported) Discontinued Reason: No Longer Taking Entered as Reported by: PACHECO BUCKLEY on 01/09/17 1325 Last Action: Discontinued Ropinirole Hcl (Ropinirole Hcl) 2 Mg Tab.er.24h, 4 MG PO BID, (Reported) Discontinued Reason: No Longer Taking Entered as Reported by: BENNY QUIGLEY on 04/29/14 1353 Last Action: Discontinued Sitagliptin Phos/Metformin Hcl (Janumet Xr 100-1,000 Mg Tablet) 1 Each Tbmp.24h r, 1 EACH PO BID, (Reported) Discontinued Reason: No Longer Taking Entered as Reported by: LYNNE CHENG on 09/24/14857 Last Action: Discontinued Past Trzmadh-Tymdpe-Qfxavn Hx Patient Social History Smoking Status: Light Tobacco Smoker (cigars socially) Alcohol Use?: Yes Surgeries History of Surgeries: Yes (COLONOSCOPY) Surgeries: Gallbladder (several years, didn't state age.), Orthopedic (Right shoulder scoped. Left bicep tendon repair 2011), Renal (cyst removal, hernia as a kid) Respiratory History of Respiratory Disorde: No Cardiovascular History of Cardiac Disorders: Yes Cardiac Disorders: Hypertension Neurological History of Neurological Disord: Yes Neurological Disorders: Neuropathy Genitourinary History of Genitourinary Disor: Yes Genitourinary Disorders: Kidney Stones, Renal Failure Gastrointestinal History of Gastrointestinal Di: Yes Gastrointestinal Disorders: Gastroesophageal Reflux (gets reflux, belching. denies burning or chest pain.), Chronic Diarrhea, Gall Bladder Disease (had gallbladder removed.), Irritable Bowel (stated pcp told him he has ibs.) Musculoskeletal History of Musculoskeletal Dis: Yes Musculoskeletal Disorders: Arthritis Endocrine History of Endocrine Disorders: Yes Endocrine Disorders: Diabetes, Non-Insulin dep (does not monitor surgar normally) HEENT History of HEENT Disorders: No Loss of Vision: Denies Hearing Impairment: Denies Cancer History of Cancer: No Psychosocial History of Psychiatric Problem: No Family Medical History Significant Family History: Cancer, Diabetes, Hypertension Family Medial History: Diabetes mellitus 19 MOTHER G8 SISTER FH: lung cancer 19 MOTHER Hypertension 19 FATHER 19 MOTHER G8 SISTER Kidney stone G8 SISTER Parkinson's disease G8 SISTER Prostate cancer 19 FATHER Review of Systems-General Constitutional: No chills, No diaphoresis EENTM: No hearing loss, No blurred vision, No mouth pain, No mouth swelling Respiratory: No cough, No hemoptysis, No short of breath Cardiovascular: chest pain, palpitations Gastrointestinal: abdominal pain, diarrhea; No dysphagia, No hematemesis, No heartburn; nausea; No vomiting Genitourinary: No dysuria, No frequency Musculoskeletal: No back pain, No joint pain Skin: No change in color Psychiatric/Neurological: Denies Anxiety, Denies Depressed, Denies Numbness, Denies Paresthesia Physical Exam-General Problems Physical Exam General Appearance: no apparent distress, obese Eyes: Bilateral Eye PERRL, Bilateral Eye EOMI HEENT: pharynx normal; No scleral icterus (R), No scleral icterus (L) Neck: non-tender, supple Respiratory: lungs clear, normal breath sounds, no respiratory distress, no accessory muscle use Cardiovascular: regular rate, rhythm, no murmur Gastrointestinal: soft, no organomegaly, no pulsatile mass, abnormal bowel sounds, tenderness (diffuse abdominal tenderness and pain on palpation.) Back: no CVA tenderness, no vertebral tenderness Extremities: normal range of motion, non-tender, no pedal edema Neurologic/Psychiatric: alert, normal mood/affect, oriented x 3 Skin: normal color, warm/dry Lymphatic: no adenopathy (head and neck) Assessment/Plan Assessment/Plan Assessment/Plan Abdominal distention - possible bowel obstruction Diarrhea Acid reflux and belching Plan: IV fluids. Continue pain and anti-emetics as needed. Manage htn, monitor for recurrent svt. Patient on hypertensive medication at home. I looked at the CT myself and it looks like there may be some thickening near the pylorus; will plan for EGD in the morning. Will get consent and make npo after midnight. Supervisory-Addendum Brief Verification & Attestation Participated in pt care: history, MDM, physical Personally performed: exam, history, MDM, supervision of care Care discussed with: Medical Student Procedures: n/a Verification and Attestation of Medical Student E/M Service A medical student performed and documented this service. I then reviewed and verified all information documented by the medical student and made modifications to such information, when appropriate. I personally performed a physical exam, medical decision making and then discussed any differences between the notes and made revisions as necessary to create one note. Tanmay Cerna , 06/18/21 , 16:03 JAMES DE LA CRUZ Jun 18, 2021 07:21 TANMAY CERNA DO Jun 18, 2021 15:56
[2021-06-18] MEDS ORDERED: SEMA1PEN3 SQ (10:40)
[2021-06-18] MEDS ORDERED: PIOG30TA71 PO (10:40)
[2021-06-18] MEDS ORDERED: GLIM4TAB5 PO (10:40)
[2021-06-18] MEDS ORDERED: ROPI4TAB5 PO (10:40)
[2021-06-18] MEDS ORDERED: INSU200I4 SC (10:40)
[2021-06-18] MEDS ORDERED: DILT360C30 PO (10:40)
[2021-06-18] MEDS ORDERED: LISI40TA9 PO (10:40)
[2021-06-18] MEDS ORDERED: PANT40TA52 PO (10:40)
[2021-06-18] MEDS ORDERED: ORPH100T PO (10:40)
[2021-06-18] MEDS ORDERED: GABA300C PO (10:40)
[2021-06-18] MEDS ORDERED: GUAI-977 PO (10:40)
--- NOTE | 2021-06-18 11:27 | Pulmonary Progress Note ---
Subjective Date Seen by a Provider: Jun 18, 2021 Time Seen by a Provider: 10:06 Sepsis Event Evaluation Height, Weight, BMI Height: 6'4.00" Weight: 240lbs. 0.0oz. 108.544871lx; 28.10 BMI Method:Stated Focused Exam Lactate Level 06/17/21 22:30: Lactic Acid Level 1.31 Exam Exam Patient acknowledged, consented, and participated in this virtual visit which was conducted using real time audio/video Vital Signs Date Time Temp Pulse Resp B/P (MAP) Pulse Ox O2 Delivery O2 Flow Rate FiO2 06/18/21 09:00 80 21 151/95 (113) 94 Room Air 06/18/21 08:32 170/100 (123) 95 Room Air 06/18/21 08:00 84 27 170/100 (123) 93 Room Air 06/18/21 07:30 36.9 06/18/21 07:00 82 06/18/21 07:00 86 43 181/107 (131) 98 Room Air 06/18/21 07:00 Room Air 06/18/21 06:00 85 35 156/100 (118) 95 Nasal Cannula 2.00 06/18/21 05:00 90 30 168/101 (123) 94 Nasal Cannula 2.00 06/18/21 04:00 92 28 161/107 (125) 96 Nasal Cannula 2.00 06/18/21 04:00 95 Nasal Cannula 2.00 06/18/21 03:00 96 15 164/104 (124) 96 Nasal Cannula 2.00 06/18/21 02:22 101 32 98 Nasal Cannula 2.00 06/18/21 02:21 102 06/18/21 02:20 40 06/18/21 02:00 152 16 137/100 (112) 97 Nasal Cannula 2.00 06/18/21 01:30 151 17 137/103 (113) 95 Nasal Cannula 2.00 06/18/21 01:29 Nasal Cannula 2.00 06/18/21 01:23 151 25 143/108 (118) 94 Room Air 06/18/21 01:20 151 15 145/110 (121) 98 Room Air 06/18/21 01:00 140 06/18/21 01:00 140 16 139/106 (117) 91 Room Air 06/18/21 00:54 151 11 139/103 (112) 92 Room Air 06/18/21 00:30 154 21 167/121 (134) 91 Room Air 06/18/21 00:12 36.5 156 13 167/118 (134) 96 Room Air 06/18/21 00:03 156 06/18/21 00:00 95 Room Air 06/17/21 23:54 36.3 98 24 173/141 98 Room Air 06/17/21 19:47 36.3 106 24 245/141 (175) 98 Room Air I & O 06/18/21 07:00 Intake Total 1900 ml Output Total 400 ml Balance 1500 ml Height & Weight Height: 6'4.00" Weight: 240lbs. 0.0oz. 108.965200wh; 28.10 BMI Method:Stated General Appearance: No Apparent Distress Peripheral Pulses: 2+ Dorsalis Pedis (R), 2+ Left Dors-Pedis (L), 2+ Radial Pulses (R), 2+ Radial Pulses (L) Gastrointestinal: no organomegaly, no pulsatile mass, abnormal bowel sounds, distended, tenderness (diffuse abdominal tenderness and pain on palpation.) Results Lab Laboratory Tests 06/17/21 19:53 06/18/21 01:40 06/18/21 05:05 Assessment/Plan Assessment/Plan (Tele-ICU Physician , Progress Note ) Available chart/ vitals / labs / Images reviewed Video assessment done using teleICU camera, rest of exam as per RN Discussed with RN , EXAM PER RN Events overnight : SVT - adenosin Afebrile FiO2 - I/O = Drips: Pressors: , hemodynamically stable Consultants: sidney santiago Hospital course: 06/17- 60/y/o with Hx of HTN, IBD c/o abd pain, diarrhea. BP uncontrolle A/P Abd pain -CT abd w/o obstruction of bowel - h/o IBD - pain control - sx consulted HTN incontrolled - resume meds , follow closely Tachycardia 06/17 - s/o adenosine 6 mg-> sinus 90 ANTONETTE - CT with stone nonobstr on left , no hydro - improved hyperglycemia , DM - metformin on hold - ISS Lines : (Central Line Necessity Reviewed) Yang: OG: Nutrition: po Analgesia: Anxiety/ delirium VTE Prophylaxis: scd, lovenox when ok with sx Stress Ulcer Prophylaxis: po intake Plans in collaboration with bedside consultants and IM MDs. Discussed with RN to reach out if any questions or concerns A total of 31 minutes of critical care time was devoted to this patient today, required to treat and/or prevent further deterioration of critical care condition ( as above) . POLO CABA MD Jun 18, 2021 11:27
--- NOTE | 2021-06-18 12:18 | History & Physical-Hospitalist ---
[facility] 06/18/21 1218: History of Present Illness HPI/Chief Complaint CC: Abdominal Pain HPI: Mr. Escalante is a 60 year old male with a PMHx of HTN, kidney stones, type 2 diabetes mellitus for which he uses insulin, and IBS. He presented to the ED at 1900 yesterday evening with a chief complaint of abdominal pain that began yesterday around 0700. He reports the pain as being located in his RUQ, LUQ, and epigastric regions. He describes the pain as a colicky, sharp pain that will wax and wane throughout the day. He endorses associated abdominal distension with nausea, burping, and constipation but denies any vomiting. He reported having a bowel movement yesterday at 1800 which he said helped the pain slightly. He denies anything that makes it any worse. He denies any radiation of the pain. He reports the pain will vary in intensity from a 5/10 at baseline to a 8/10 at its most intense. Due to his pain and nausea yesterday he was unable to take his medication for his HTN. As a result he also presented with hypertensive urgency. Overnight he also experienced an episode of SVT which was resolved with adenosine. He denied chest pain or palpitations this morning. Source: patient Exam Limitations: no limitations Date Seen 06/18/21 Time Seen by a Provider: 07:48 Attending Physician Tracie Sneed Rick D MD Referring Physician Date of Admission Jun 18, 2021 at 09:39 Home Medications & Allergies Home Medications Reviewed patient Home Medication Reconciliation performed by pharmacy medication reconciliations fuel technician and/or nursing. Patients Allergies have been reviewed. Allergies Allergies Coded Allergies No Known Drug Allergies (Unverified01/09/17) Past Mevtmug-Dxnmqp-Ogrcct Hx Patient Social History Tobacco Use?: Yes Tobacco type used: Cigars Smoking Status: Light Tobacco Smoker (1 cigar/week since he was around 18) Smokeless Tobacco Frequency: Never a User Use of E-Cig and/or Vaping dev: No Substance use?: No Alcohol Use?: Yes Alcohol type: Beer Alcohol Frequency: Once in a while Pt feels they are or have been: No Immunizations Up To Date Date of Influenza Vaccine: May 06, 2016 First/Initial COVID19 Vaccinat: December 2020 Second COVID19 Vaccination Charli: December 2020 Hepatitis A: No Hepatitis B: No PED Vaccines UTD: Yes Seasonal Allergies Seasonal Allergies: Yes Current Status Advance Directives: No Advance Directive Location: Home Communicates: Verbally Primary Language: Syrian Preferred Spoken Language: Syrian Is interpretation needed?: No Sensory deficits: Vision impairment (Diabetic retinopathy in right eye) Implanted or Applied Medical D: None Past Medical History Surgeries: Gallbladder (5 years ago), Orthopedic (Right shoulder scoped. Left bicep tendon repair 2011), Renal (cyst removal) Currently Using CPAP: No Hypertension Neuropathy Sexually Transmitted Disease: No HIV/AIDS: No Gastroesophageal Reflux, Chronic Diarrhea, Gall Bladder Disease, Irritable Bowel Diabetes, Non-Insulin dep Loss of Vision: Denies Hearing Impairment: Denies Blood Disorders: No Adverse Reaction/Blood Tranf: No Family Medical History Cancer (Prostate in father. Lung cancer in mother and sister), Diabetes (Mother and sister), GI Disease (IBS in daughter), Hypertension (Father) Review of Systems Constitutional: No chills, No fever EENTM: other (Diabetic retinopathy) Respiratory: No cough; dyspnea on exertion (2/2 abdominal pain) Cardiovascular: No chest pain, No palpitations Gastrointestinal: abdominal pain (RUQ, LUQ, and epigastric), constipation, diarrhea, heartburn, nausea; No vomiting Genitourinary: No dysuria, No frequency Psychiatric/Neurological: Headache Physical Exam Physical Exam Vital Signs Vital Signs - First Documented 06/17/21 06/18/21 19:47 01:29 Temp 36.3 Pulse 106 Resp 24 B/P (MAP) 245/141 (175) Pulse Ox 98 O2 Delivery Room Air O2 Flow Rate 2.00 Capillary Refill : Height, Weight, BMI Height: 6'4.00" Weight: 240lbs. 0.0oz. 108.071280ee; 28.10 BMI Method:Stated General Appearance: WD/WN, Moderate Distress HEENT: PERRL/EOMI, Moist Mucous Membranes; No Scleral Icterus (L), No Scleral Icterus (R) Neck: Normal Inspection, Non Tender; No Lymphadenopathy (L), No Lymphadenopathy (R) Respiratory: Chest Non Tender, Lungs Clear, Normal Breath Sounds, No Accessory Muscle Use, No Respiratory Distress Cardiovascular: Regular Rate, Rhythm, No Murmur, Normal Peripheral Pulses Gastrointestinal: Abnormal Bowel Sounds (Sounded abnormal but present. Not decreased), Distended, Guarding, Tenderness Extremity: Normal Capillary Refill, Normal Inspection, No Pedal Edema Neurologic/Psychiatric: Alert, Oriented x3, No Motor/Sensory Deficits, Normal Mood/Affect, can tester II-XII Norm as Tested Skin: Normal Color, Warm/Dry Lymphatic: No Adenopathy (Head and neck) Results Results/Procedures Labs Laboratory Tests 06/17/21 19:53 06/18/21 01:40 06/18/21 05:05 Patient resulted labs reviewed. Assessment/Plan Admission Diagnosis Assessment Abdominal pain - h/o IBS Bowel obstruction - Doubt due to imaging results - CT of the abdomen shoed distended loops of air-filled bowel without an obstruction - Monitor closely Hypertensive urgency - BP was at 240/130 - Given labetalol and Dilaudid SVT - Episode overnight - Resolved with adenosine Plan Consider moving to cardiac stepdown or 4th floor for further monitoring Cardiology consult for SVT Surgery consult for abdominal pain Continue hydralazine for HTN, Dilaudid for pain, and Zofran for nausea TRACIE SNEED DO 06/19/21 0547: History of Present Illness HPI/Chief Complaint Chief complaint: Abdominal pain with hypertensive urgency History of present illness: This is a 60-year-old white male clinic patient Dr. Garg who has a past medical history of hypertension and type 2 diabetes along with irritable bowel syndrome who presented to the ER with abdominal pain. He was found to have severe hypertension requiring ICU admission for IV medication and had an episode of SVT. Bowel obstruction suspected so Dr. Pretty consulted. Very difficult to obtain significant reliable details from the patie nt but will try to approach a different interview technique. Source: patient Exam Limitations: no limitations Past Nwbcrke-Lotjux-Deshss Hx Patient Social History Marrital Status: Employed/Student: retired Smoking Status: Light Tobacco Smoker (1 cigar/week since he was around 18) Past Medical History Surgeries: Gallbladder (5 years ago), Orthopedic (Right shoulder scoped. Left bicep tendon repair 2011), Renal (cyst removal) High Cholesterol, Hypertension Gastroesophageal Reflux, Chronic Diarrhea, Gall Bladder Disease, Irritable Bowel Family Medical History Diabetes mellitus 19 MOTHER G8 SISTER FH: lung cancer 19 MOTHER Hypertension 19 FATHER 19 MOTHER G8 SISTER Kidney stone G8 SISTER Parkinson's disease G8 SISTER Prostate cancer 19 FATHER Review of Systems Constitutional: see HPI EENTM: no symptoms reported Respiratory: no symptoms reported Cardiovascular: no symptoms reported Gastrointestinal: abdominal pain (RUQ, LUQ, and epigastric), loss of appetite, nausea Genitourinary: no symptoms reported Musculoskeletal: no symptoms reported Skin: no symptoms reported Psychiatric/Neurological: No Symptoms Reported All Other Systems Reviewed Negative Unless Noted: Yes Physical Exam Physical Exam General Appearance: WD/WN, Chronically ill, Mild Distress Eyes: Right Eye Normal Inspection, Right Eye PERRL HEENT: PERRL/EOMI, Normal ENT Inspection, Pharynx Normal, Moist Mucous Membranes Neck: Full Range of Motion, Normal Inspection, Non Tender Respiratory: Chest Non Tender, Lungs Clear, Normal Breath Sounds, No Accessory Muscle Use, No Respiratory Distress Cardiovascular: Regular Rate, Rhythm, No Edema, No Gallop, No JVD, No Murmur, Normal Peripheral Pulses Gastrointestinal: Normal Bowel Sounds, No Organomegaly, No Pulsatile Mass, Soft, Tenderness Back: Normal Inspection, No CVA Tenderness, No Vertebral Tenderness Extremity: Normal Capillary Refill, Normal Inspection, Normal Range of Motion, Non Tender, No Calf Tenderness, No Pedal Edema Neurologic/Psychiatric: Alert, Oriented x3, No Motor/Sensory Deficits, Normal Mood/Affect Skin: Normal Color, Warm/Dry Lymphatic: No Adenopathy Assessment/Plan Admission Diagnosis Assessment: Acute abdominal pain consulting general surgery suspecting bowel obstruction Hypertensive urgency requiring ICU admit Episode of SVT status post management with adenosine consulting cardiology Diabetes mellitus Hypertension Kidney stones Irritable bowel syndrome Plan: Supportive care Cardiology General surgery Admission Status: Inpatient Order (span 2 midnights) Reason for Inpatient Admission: Severe abdominal pain with hypertensive urgency Supervisory-Addendum Brief Verification & Attestation Participated in pt care: history, MDM, physical Personally performed: exam, history, MDM, supervision of care Care discussed with: Medical Student Procedures: n/a Results interpretation: Verified all documentation Verification and Attestation of Medical Student E/M Service A medical student performed and documented this service in my presence. I reviewed and verified all information documented by the medical student and made modifications to such information, when appropriate. I personally performed the physical exam and medical decision making. Tracie Sneed Jun 19, 2021,05:47 [facility] Jun 18, 2021 12:18 TRACIE SNEED DO Jun 19, 2021 05:47
--- NOTE | 2021-06-18 17:08 | Consultation-Cardiology ---
HPI-Cardiology Cardiology Consultation: Date of Consultation 06/18/2021 Date of Admission 06/17/2021 Attending Physician Tracie Lenz DO Admitting Physician Jan Garg MD Consulting Physician DANN LAU JR, MD HPI: Time Seen by a Provider: 17:03 Chief Complaint: Reason for consultation: Supraventricular tachycardia I had the pleasure of seeing Parveen in the intensive care unit at [facility] in [place], [place] this afternoon. He has a history of supraventricular tachycardia and hypertension. He normally follows with Dr. Arteaga at [facility] in [place], [place]. Yesterday when he woke up he had some slight abdominal discomfort. As the day progressed, the abdominal discomfort became worse. He had some nausea but denies any vomiting. He has chronic diarrhea for the past 5 or 6 years ever since his cholecystectomy at that time. As the day went on, the abdominal pain became more and more severe and he ultimately told his he needed to come to the hospital for further evaluation. In the emergency room he received intravenous pain medication and his abdominal discomfort has improved. However, at some point, the patient developed supraventricular tachycardia. Earlier this morning it appears as though he was given 1 dose of adenosine and converted back to sinus rhythm. The patient states that he had palpitations at that time. He tells me he gets palpitations approximately once per month. This often happens after he wakes up in the morning. He will just lay there in bed and wait for this to pass. Sometimes this makes him lightheaded but he denies any syncope. He denies any chest discomfort, dyspnea, paroxysmal nocturnal dyspnea, the apnea, or lower extremity edema. Because of the supraventricular tachycardia, a cardiology consultation was requested. He is retired. He smokes an occasional cigar. Certain portions of this document may have been dictated utilizing voice recognition technology. Inherent to this technology, typographical and grammatical errors may exist. As much as I am diligent to identify and correct these mistakes, some errors may remain in the document. Review of Systems-Cardiology Review of Systems Other comments Review of 10 organ systems is as per the history of present illness, otherwise negative. [id number]-[id number] Hx Patient Social History Marrital Status: Smoking Status: Light Tobacco Smoker (cigars socially) Have you traveled recently?: No Alcohol Use?: Yes Pt feels they are or have been: No Tobacco type used: Cigars Immunizations Up To Date Tetanus Booster (TDap): More than 5yrs Date of Influenza Vaccine: May 06, 2016 Past Medical History PMH As described under Assessment. Family Medical History Family History: Diabetes mellitus 19 MOTHER G8 SISTER FH: lung cancer 19 MOTHER Hypertension 19 FATHER 19 MOTHER G8 SISTER Kidney stone G8 SISTER Parkinson's disease G8 SISTER Prostate cancer 19 FATHER Allergies and Home Medications Allergies Coded Allergies: No Known Drug Allergies (Unverified , 01/09/17) Patient Home Medication List Home Medication List Reviewed: Yes Diltiazem HCl (Diltiazem ER) 360 Mg Capsule.er, 360 MG PO DAILY, (Reported) Entered as Reported by: CEDRIC ANTHONY on 06/18/211039 Last Action: Reviewed Gabapentin (Neurontin) 300 Mg Capsule, 300 MG PO TID, (Reported) Entered as Reported by: CEDRIC ANTHONY on 06/18/211039 Last Action: Reviewed Glimepiride (Glimepiride) 4 Mg Tablet, 8 MG PO DAILY, (Reported) Entered as Reported by: CEDRIC ANTHONY on 06/18/211039 Last Action: Reviewed Guaifenesin (Mucus Relief) 600 Mg Tab.er.12h, 600 MG PO Q12H PRN for CONGESTION, (Reported) Entered as Reported by: CEDRIC ANTHONY on 06/18/211039 Last Action: Reviewed Insulin Degludec (Tresiba Flextouch U-200) 200 Unit/1 Ml Insuln.pen, 50 UNITS SC DAILY, (Reported) Entered as Reported by: CEDRIC ANTHONY on 06/18/211039 Last Action: Reviewed Lisinopril (Lisinopril) 40 Mg Tablet, 40 MG PO DAILY, (Reported) Entered as Reported by: CEDRIC ANTHONY on 06/18/211039 Last Action: Reviewed Orphenadrine Citrate (Orphenadrine Citrate) 100 Mg Tablet.er, 100 MG PO BID, (Reported) Entered as Reported by: CEDRIC ANTHONY on 06/18/211039 Last Action: Reviewed Pantoprazole Sodium (Pantoprazole Sodium) 40 Mg Tablet.dr, 40 MG PO DAILY, (Reported) Entered as Reported by: CEDRIC ANTHONY on 06/18/211039 Last Action: Reviewed Pioglitazone HCl (Pioglitazone HCl) 30 Mg Tablet, 30 MG PO DAILY, (Reported) Entered as Reported by: CEDRIC ANTHONY on 06/18/21 104 Last Action: Reviewed Ropinirole HCl (Ropinirole HCl) 4 Mg Tablet, 4 MG PO BID, (Reported) Entered as Reported by: CEDRIC ANTHONY on 06/18/21 104 Last Action: Reviewed Semaglutide (Ozempic) 1 Mg/0.75 Ml Pen.injctr, 1 MG SQ SUN, (Reported) Entered as Reported by: CEDRIC ANTHONY on 06/18/21 104 Last Action: Reviewed Discontinued Medications Gabapentin (Gabapentin) 300 Mg Capsule, 600 MG PO BID, (Reported) Discontinued Reason: No Longer Taking Entered as Reported by: LYNNE CHENG on 09/24/14857 Last Action: Discontinued Glimepiride (Glimepiride) 4 Mg Tablet, 8 MG PO DAILY, (Reported) Discontinued Reason: No Longer Taking Entered as Reported by: LYNNE CHENG on 09/24/14857 Last Action: Discontinued Glyburide (Glyburide) 5 Mg Tablet, 10 EACH PO BIDAC, (Reported) Discontinued Reason: No Longer Taking Entered as Reported by: MIRANDA JAQUEZ on 02/11/11 1627 Last Action: Discontinued Nebivolol HCl (Bystolic) 10 Mg Tab, 10 MG PO DAILY, (Reported) Discontinued Reason: No Longer Taking Entered as Reported by: PACHECO BUCKLEY on 01/09/17 1325 Last Action: Discontinued [place] 3 Polyunsat Fatty Acids (Fish Oil 1,000 mg Capsule) 1,000 Mg Cap, 1,000 MG PO DAILY, (Reported) Discontinued Reason: No Longer Taking Entered as Reported by: PACHECO BUCKLEY on 01/09/17 1325 Last Action: Discontinued Ropinirole Hcl (Ropinirole Hcl) 2 Mg Tab.er.24h, 4 MG PO BID, (Reported) Discontinued Reason: No Longer Taking Entered as Reported by: BENNY QUIGLEY on 04/29/14 1353 Last Action: Discontinued Sitagliptin Phos/Metformin Hcl (Janumet Xr 100-1,000 Mg Tablet) 1 Each Tbmp.24hr, 1 EACH PO BID, (Reported) Discontinued Reason: No Longer Taking Entered as Reported by: LYNNE CHENG on 09/24/14 0858 Last Action: Discontinued Exam Vital Signs Vital Signs Date Time Temp Pulse Resp B/P (MAP) Pulse Ox O2 Delivery O2 Flow Rate FiO2 06/18/21 15:30 Room Air 06/18/21 15:15 78 15 185/106 (132) 94 06/18/21 11:30 37.0 06/18/21 06:00 2.00 Physical Exam General: Alert. No acute distress. Well nourished and appears stated age. Eye: Extraocular movements are intact. Conjunctivae are clear. There are no xanthelasma. HENT: Normocephalic. Atraumatic. Carotid pulsations 2/2 without bruits. Neck: Jugular venous pressure does not appear elevated. No thyromegaly appreciated. Respiratory: Lungs are clear to auscultation. Respirations are non-labored. Breath sounds are equal. Symmetrical chest wall expansion. Cardiovascular: Normal rate. Regular rhythm. No murmur. No gallop. Point of maximal impulse is not appear displaced. Good pulses equal in all extremities. No edema. Gastrointestinal: Soft. Normal bowel sounds. Skin: Skin turgor is normal. There is no pallor. Musculoskeletal: No kyphosis or scoliosis appreciated. Neurologic: Alert and oriented to person, place, time. Cranial nerves 3-12 appear grossly intact. The patient has good motor tone strength in the upper and lower extremities bilaterally. Psychiatric: Cooperative. Appropriate mood & affect. Labs Laboratory Tests Test 06/17/21 19:53 06/17/21 22:25 06/17/21 22:30 06/18/21 01:40 Range/Units White Blood Count 14.1 H 4.3-11.0 10^3/uL Red Blood Count 5.64 H 4.30-5.52 10^6/uL Hemoglobin 16.9 13.3-17.7 g/dL Hematocrit 49 40-54 % Mean Corpuscular Volume 87 80-99 fL Mean Corpuscular Hemoglobin 30 25-34 pg Mean Corpuscular Hemoglobin Concent 35 32-36 g/dL Red Cell Distribution Width 12.7 10.0-14.5 % Platelet Count 258 130-400 10^3/uL Mean Platelet Volume 10.9 9.0-12.2 fL Immature Granulocyte % (Auto) 0 % Neutrophils (%) (Auto) 80 H 42-75 % Lymphocytes (%) (Auto) 13 12-44 % Monocytes (%) (Auto) 5 0-12 % Eosinophils (%) (Auto) 1 0-10 % Basophils (%) (Auto) 0 0-10 % Neutrophils # (Auto) 11.3 H 1.8-7.8 10^3/uL Lymphocytes # (Auto) 1.9 1.0-4.0 10^3/uL Monocytes # (Auto) 0.7 0.0-1.0 10^3/uL Eosinophils # (Auto) 0.1 0.0-0.3 10^3/uL Basophils # (Auto) 0.1 0.0-0.1 10^3/uL Immature Granulocyte # (Auto) 0.1 0.0-0.1 10^3/uL Neutrophils % (Manual) 77 % Lymphocytes % (Manual) 15 % Monocytes % (Manual) 8 % Blood Morphology Comment NORMAL Prothrombin Time 12.7 12.2-14.7 SEC INR Comment 0.9 0.8-1.4 Sodium Level 140 138 135-145 MMOL/L Potassium Level 4.0 3.9 3.6-5.0 MMOL/L Chloride Level 107 108 H 98-107 MMOL/L Carbon Dioxide Level 20 L 18 L 21-32 MMOL/L Anion Gap 13 12 5-14 MMOL/L Blood Urea Nitrogen 21 H 19 H 7-18 MG/DL Creatinine 1.34 H 1.02 0.60-1.30 MG/DL Estimat Glomerular Filtration Rate 54 74 BUN/Creatinine Ratio 16 19 Glucose Level 199 H 249 H 70-105 MG/DL Calcium Level 10.5 H 8.8 8.5-10.1 MG/DL Corrected Calcium 10.1 8.5-10.1 MG/DL Total Bilirubin 0.6 0.1-1.0 MG/DL Aspartate Amino Transf (AST/SGOT) 13 5-34 U/L Alanine Aminotransferase (ALT/SGPT) 10 0-55 U/L Alkaline Phosphatase 86 40-136 U/L Total Protein 8.3 H 6.4-8.2 GM/DL Albumin 4.5 3.2-4.5 GM/DL Lipase 101 H 8-78 U/L Serum Alcohol < 10 <10 MG/DL Urine Color YELLOW Urine Clarity CLEAR Urine pH 6.0 5-9 Urine Specific [place] 1.025 H 1.016-1.022 Urine Protein 1+ H NEGATIVE Urine Glucose (UA) TRACE H NEGATIVE Urine Ketones NEGATIVE NEGATIVE Urine Nitrite NEGATIVE NEGATIVE Urine Bilirubin NEGATIVE NEGATIVE Urine Urobilinogen 0.2 < = 1.0 MG/DL Urine Leukocyte Esterase NEGATIVE NEGATIVE Urine RBC (Auto) 1+ H NEGATIVE Urine RBC 0-2 /HPF Urine WBC 0-2 /HPF Urine Squamous Epithelial Cells NONE /HPF Urine Renal Epithelial Cells NONE /HPF Urine Crystals NONE /LPF Urine Bacteria NEGATIVE /HPF Urine Casts NONE /LPF Urine Mucus NEGATIVE /LPF Urine Culture Indicated NO Urine Opiates Screen POSITIVE H NEGATIVE Urine Oxycodone Screen NEGATIVE NEGATIVE Urine Methadone Screen NEGATIVE NEGATIVE Urine Propoxyphene Screen NEGATIVE NEGATIVE Urine Barbiturates Screen NEGATIVE NEGATIVE Ur Tricyclic Antidepressants Screen NEGATIVE NEGATIVE Urine Phencyclidine Screen NEGATIVE NEGATIVE Urine Amphetamines Screen NEGATIVE NEGATIVE Urine Methamphetamines Screen NEGATIVE NEGATIVE Urine Benzodiazepines Screen NEGATIVE NEGATIVE Urine Cocaine Screen NEGATIVE NEGATIVE Urine Cannabinoids Screen NEGATIVE NEGATIVE Lactic Acid Level 1.31 0.50-2.00 MMOL/L Phosphorus Level 2.5 2.3-4.7 MG/DL Magnesium Level 1.9 1.6-2.4 MG/DL Troponin I < 0.028 <0.028 NG/ML Test 06/18/21 05:05 06/18/21 10:45 06/18/21 16:04 06/18/21 16:22 Range/Units White Blood Count 13.3 H 4.3-11.0 10^3/uL Red Blood Count 4.80 4.30-5.52 10^6/uL Hemoglobin 14.3 13.3-17.7 g/dL Hematocrit 42 40-54 % Mean Corpuscular Volume 87 80-99 fL Mean Corpuscular Hemoglobin 30 25-34 pg Mean Corpuscular Hemoglobin Concent 34 32-36 g/dL Red Cell Distribution Width 12.8 10.0-14.5 % Platelet Count 203 130-400 10^3/uL Mean Platelet Volume 11.0 9.0-12.2 fL Immature Granulocyte % (Auto) 0 % Neutrophils (%) (Auto) 80 H 42-75 % Lymphocytes (%) (Auto) 13 12-44 % Monocytes (%) (Auto) 6 0-12 % Eosinophils (%) (Auto) 1 0-10 % Basophils (%) (Auto) 0 0-10 % Neutrophils # (Auto) 10.6 H 1.8-7.8 10^3/uL Lymphocytes # (Auto) 1.7 1.0-4.0 10^3/uL Monocytes # (Auto) 0.8 0.0-1.0 10^3/uL Eosinophils # (Auto) 0.1 0.0-0.3 10^3/uL Basophils # (Auto) 0.1 0.0-0.1 10^3/uL Immature Granulocyte # (Auto) 0.1 0.0-0.1 10^3/uL Sodium Level 138 135-145 MMOL/L Potassium Level 3.9 3.6-5.0 MMOL/L Chloride Level 107 98-107 MMOL/L Carbon Dioxide Level 19 L 21-32 MMOL/L Anion Gap 12 5-14 MMOL/L Blood Urea Nitrogen 18 7-18 MG/DL Creatinine 1.09 0.60-1.30 MG/DL Estimat Glomerular Filtration Rate 69 BUN/Creatinine Ratio 17 Glucose Level 240 H 70-105 MG/DL Calcium Level 8.8 8.5-10.1 MG/DL Lipase 52 8-78 U/L Glucometer 187 H 152 H 70-110 MG/DL SARS-CoV-2 RNA (RT-PCR) Not Detected Not Detecte ECG Impression ECG Comment Electrocardiogram from 00:41 early this morning shows supraventricular tachycardia with nonspecific ST changes. This appears to be a long RP tachycardia. Follow-up electrocardiogram following adenosine shows sinus tachycardia and later in the morning sinus rhythm. Diagnosis/Problems Diagnosis/Problems (1) Supraventricular tachycardia Assessment & Plan: From his description, he has longstanding supraventricular tachycardia. He has been taking diltiazem but still gets palpitations from time to time. I suspect the supraventricular tachycardia last evening may have been triggered by his severe abdominal pain. I will restart his diltiazem CD. He has an appointment with his regular domestic cleaner in [place] in about 1 month. I suggested he ask his regular domestic cleaner about having an ablation. This can usually be curative for this condition. (2) Hypertensive urgency Status: Acute Assessment & Plan: His blood pressure was markedly elevated in the emergency room. Some of this may be related to the severe abdominal pain he was having. I will restart his diltiazem. This should help improve his blood pressure. (3) Aortic regurgitation Assessment & Plan: He has mild aortic regurgitation noted on his echocardiogram from earlier today. This should not be causing symptoms but will need to be followed longitudinally by his regular domestic cleaner. (4) Thoracic aortic aneurysm without rupture Assessment & Plan: He has mild enlargement of the thoracic aorta. Some of this could just be due to his tall stature. This will also need to be followed longitudinally. (5) Acute kidney injury superimposed on chronic kidney disease Assessment & Plan: He had mild elevation of the creatinine at the time of admission. This is starting to improve. (6) Type 2 diabetes mellitus with complication Assessment & Plan: This is being managed by the hospitalist. DANN LAU JR, MD Jun 18, 2021 17:08
[2021-06-19] VITALS (12 sets, daily range): BP systolic 107–183; BP diastolic 55–90
[2021-06-19] MEDS: LACTATED RINGERS 1,000 ML IV SCH (05:29)
[2021-06-19] MEDS: inSUlin ASPART (NovoLOG) 1 UNIT/0.01 ML (CHARGE PER UNIT) SC SCH ×2 (05:29→11:00)
[2021-06-19 05:50] LABS: BASOPHILS # (AUTO) 0.1 10^3/uL (0.0-0.1); BASOPHILS % (AUTO) 1 % (0-10); EOSINOPHILS # (AUTO) 0.1 10^3/uL (0.0-0.3); EOSINOPHILS % (AUTO) 1 % (0-10); HEMATOCRIT 41 % (40-54); LYMPHOCYTES # (AUTO) 2.1 10^3/uL (1.0-4.0); LYMPHOCYTES % (AUTO) 20 % (12-44); MEAN CORPUSCULAR HEMOGLOBIN 30 pg (25-34); MEAN CORPUSCULAR HGB CONC 34 g/dL (32-36); MEAN CORPUSCULAR VOLUME 87 fL (80-99); MEAN PLATELET VOLUME 11.1 fL (9.0-12.2); MONOCYTES # (AUTO) 0.8 10^3/uL (0.0-1.0); MONOCYTES % (AUTO) 7 % (0-12); NEUTROPHILS # (AUTO) 7.6 10^3/uL (1.8-7.8); NEUTROPHILS % (AUTO) 71 % (42-75); PLATELET COUNT 187 10^3/uL (130-400); WHITE BLOOD COUNT 10.7 10^3/uL (4.3-11.0)
[2021-06-19 06:05] LABS: ALBUMIN 3.3 GM/DL (3.2-4.5); POTASSIUM 3.7 MMOL/L (3.6-5.0)
[2021-06-19 06:06] LABS: CALCIUM 8.4 MG/DL (8.5-10.1)
[2021-06-19 06:08] LABS: TOTAL PROTEIN 5.9 GM/DL (6.4-8.2)
[2021-06-19] MEDS: POTASSIUM CL 10MEQ/50ML IVPB 50 ML IV SCH (06:08)
[2021-06-19] MEDS: KCL 20 MEQ TAB (K-DUR) PO SCH (06:08)
[2021-06-19] MEDS: MAGNESIUM 1 GM/100 ML IVPB 100 ML IV SCH (06:08)
[2021-06-19 06:09] LABS: BILIRUBIN,TOTAL 0.9 MG/DL (0.1-1.0)
[2021-06-19 06:11] LABS: CREATININE SERUM 0.92 MG/DL (0.60-1.30); PHOSPHORUS 2.4 MG/DL (2.3-4.7)
[2021-06-19 06:14] LABS: MAGNESIUM 1.8 MG/DL (1.6-2.4)
--- NOTE | 2021-06-19 08:10 | Progress Note - Surgery ---
JAMES DE LA CRUZ 06/19/21 0810: Subjective Date Seen by a Provider: Jun 19, 2021 Time Seen by a Provider: 06:45 Subjective/Events-last exam Patient resting in bed. No distress. Patient denies abdominal pain, belching as before, any burning in throat or waking up with regurgitation. Patient had another cardiac episode of tachycardia and severe hypertension o/n, tx and resolved. Patient has been npo since midnight. Patient denies fever, chills, nausea, vomiting, shortness of breath, chest pain, palpitations, dizziness and lightheadedness, vision changes, numbness and paresthesia. Review of Systems General: No Chills, No Night Sweats HEENT: No Head Aches, No Visual Changes Pulmonary: No Dyspnea, No Cough Cardiovascular: No: Chest Pain, Palpitations Gastrointestinal: No: Nausea, Vomiting Genitourinary: No Dysuria, No Frequency Musculoskeletal: No: neck pain, shoulder pain Neurological: No: Weakness, Numbness Focused Exam Lactate Level 06/17/21 22:30: Lactic Acid Level 1.31 Objective Exam Vital Signs Date Time Temp Pulse Resp B/P (MAP) Pulse Ox O2 Delivery O2 Flow Rate FiO2 06/19/21 07:54 36.8 Room Air 06/19/21 06:00 70 11 159/85 (109) 95 Room Air 06/19/21 05:00 66 23 141/82 (102) 99 Nasal Cannula 2.00 06/19/21 04:00 66 136/79 (97) 99 Nasal Cannula 2.00 06/19/21 03:11 36.9 Nasal Cannula 2.00 06/19/21 03:10 96 Nasal Cannula 2.00 06/19/21 03:00 70 12 143/90 (107) 96 Room Air 06/19/21 02:00 69 11 134/87 (103) 94 Room Air 06/19/21 01:00 71 10 141/84 (103) 97 Room Air 06/19/21 01:00 71 06/19/21 00:00 67 11 107/55 (72) 96 Room Air 06/18/21 23:05 97 Room Air 06/18/21 23:00 37.0 69 12 116/53 (74) 97 Room Air 06/18/21 22:00 72 14 149/82 (104) 96 Room Air 06/18/21 21:00 74 18 170/97 (124) 96 Room Air 06/18/21 20:30 70 19 162/98 (121) 94 Room Air 06/18/21 20:00 36.4 06/18/21 19:35 93 Room Air 06/18/21 19:20 141 20 184/110 (134) 96 Room Air 06/18/21 19:00 80 06/18/21 18:00 81 35 178/100 (126) 95 Room Air 06/18/21 17:00 79 193/110 (137) 98 Room Air 06/18/21 16:00 80 12 177/97 (123) 98 Room Air 06/18/21 15:30 Room Air 06/18/21 15:15 78 15 185/106 (132) 94 Room Air 06/18/21 15:00 79 27 191/105 (133) 95 Room Air 06/18/21 14:00 80 14 171/102 (125) 96 Room Air 06/18/21 13:00 80 32 179/99 (125) 96 Room Air 06/18/21 13:00 82 06/18/21 12:15 Room Air 06/18/21 12:00 80 26 179/104 (129) 94 Room Air 06/18/21 11:30 37.0 06/18/21 11:00 85 37 114/91 (99) 98 Room Air 06/18/21 10:00 82 31 157/95 (115) 97 Room Air 06/18/21 09:00 80 21 151/95 (113) 94 Room Air 06/18/21 08:35 Room Air 06/18/21 08:32 170/100 (123) 95 Room Air I & O 06/19/21 07:00 Intake Total 3400 ml Output Total 900 ml Balance 2500 ml Capillary Refill : General Appearance: No Apparent Distress, Chronically ill HEENT: PERRL/EOMI, Pharynx Normal, Moist Mucous Membranes; No Scleral Icterus (L), No Scleral Icterus (R) Neck: Full Range of Motion, Non Tender, Supple Respiratory: Chest Non Tender, Lungs Clear, Normal Breath Sounds, No Accessory Muscle Use, No Respiratory Distress Cardiovascular: Regular Rate, Rhythm, No Edema, No Gallop, No Murmur Peripheral Pulses: 2+ Dorsalis Pedis (R), 2+ Left Dors-Pedis (L), 2+ Radial Pulses (R), 2+ Radial Pulses (L) Gastrointestinal: normal bowel sounds, non tender (Patient denies any tenderness on palpation. Patient stated abd is normal in size for him.), soft, no organomegaly, no pulsatile mass Extremity: Normal Capillary Refill, Normal Range of Motion, Non Tender, No Calf Tenderness, No Pedal Edema Neurologic/Psychiatric: Alert, Oriented x3, No Motor/Sensory Deficits, Normal Mood/Affect Skin: Normal Color, Warm/Dry Lymphatic: No Adenopathy (head and neck) Results Lab Laboratory Tests 06/18/21 10:45: Glucometer 187H 06/18/21 16:04: Glucometer 152H 06/18/21 16:22: SARS-CoV-2 RNA (RT-PCR) Not Detected 06/18/21 20:58: Glucometer 158H 06/19/21 05:27: Glucometer 178H 06/19/21 05:45: White Blood Count 10.7, Red Blood Count 4.67, Hemoglobin 14.0, Hematocrit 41, Mean Corpuscular Volume 87, Mean Corpuscular Hemoglobin 30, Mean Corpuscular Hemoglobin Concent 34, Red Cell Distribution Width 12.7, Platelet Count 187, Mean Platelet Volume 11.1, Immature Granulocyte % (Auto) 0, Neutrophils (%) (Auto) 71, Lymphocytes (%) (Auto) 20, Monocytes (%) (Auto) 7, Eosinophils (%) (Auto) 1, Basophils (%) (Auto) 1, Neutrophils # (Auto) 7.6, Lymphocytes # (Auto) 2.1, Monocytes # (Auto) 0.8, Eosinophils # (Auto) 0.1, Basophils # (Auto) 0.1, Immature Granulocyte # (Auto) 0.0, Sodium Level 138, Potassium Level 3.7, Chloride Level 106, Carbon Dioxide Level 20L, Anion Gap 12, Blood Urea Nitrogen 12, Creatinine 0.92, Estimat Glomerular Filtration Rate 84, BUN/Creatinine Ratio 13, Glucose Level 173H, Calcium Level 8.4L, Corrected Calcium 9.0, Phosphorus Level 2.4, Magnesium Level 1.8, Total Bilirubin 0.9, Aspartate Amino Transf (AST/SGOT) 11, Alanine Aminotransferase (ALT/SGPT) 6, Alkaline Phosphatase 62, Total Protein 5.9L, Albumin 3.3 Meds Item Value Date Time Diltiazem HCl 360 mg 06/19/21 0900 (Cardizem Cd 24 DAILY/PO Hr Capsule) Potassium Chloride 50 ml @ 0 mls/hr 06/18/21 0600 Magnesium Sulfate/ 100 ml @ 0 mls/hr 06/18/21 0600 Dextrose DAILY@0600/IV Potassium Chloride 40 meq 06/18/21 0600 (K Dur Tablet) DAILY@0600/PO Insulin Aspart SLIDING SCALE B In a... 06/18/21 0600 (NovoLOG (CHARGE ACHS/SC PER UNIT)) Hydralazine HCl 10 mg 06/18/21 0130 (Apresoline Q4HR PRN/IV Injection) Hydromorphone HCl 0.5 mg 06/18/21 0130 (Dilaudid Q2HR PRN/IV 06/18/21 1526 Injection) Ondansetron HCl 8 mg 06/18/21 0130 (Zofran Q6H PRN/IV Injection (Sdv)) Lactated Ringer's 1,000 ml @ 125 mls/hr 06/18/21 0130 Labetalol HCl 20 mg 06/18/21 0045 (Normodyne Q6HR PRN/IV 06/18/21 1923 Injection) Sodium Chloride 10 ml 06/17/215 (Catheter Flush NEEDED PRN/IV 06/17/215 Syringe) Miscellaneous 06/17/212214 (Hold Metformin- UD/IV Contrast Received) Lactated Ringer's 1,000 ml @ 0 mls/hr 06/17/211999 Radiology No new images Assessment/Plan Assessment/Plan Assessment/Plan Abdominal distention - possible bowel obstruction Diarrhea Acid reflux and belching Plan: IV fluids. Continue to monitor labs - wbc, lipase, alk phos, alt, ast decreased. Continue pain and anti-emetics as needed. Manage htn, monitor for recurrent svt. Patient had another episode o/n. Patient on hypertensive medication at home. EGD today, consent obtained and on file - Pt NPO since midnight. Consider PPI for reflux issues. ROYAL PRETTY DO 06/19/21 1200: Subjective Time Seen by a Provider: 11:46 Subjective/Events-last exam Pt seen and examined, states he is ready for EGD and then to go home. Denies abdominal pain. Review of Systems Pulmonary: No Dyspnea, No Cough Cardiovascular: Palpitations; No: Chest Pain Gastrointestinal: No: Nausea, Vomiting Objective Exam General Appearance: No Apparent Distress, WD/WN HEENT: Moist Mucous Membranes Respiratory: Lungs Clear, Normal Breath Sounds, No Accessory Muscle Use, No Respiratory Distress Cardiovascular: Regular Rate, Rhythm, No Murmur Assessment/Plan Assessment/Plan Assessment/Plan Acid reflux and belching Abdominal distention - resolved Diarrhea Plan: EGD today, consent obtained and on file - Pt NPO since midnight. Consider PPI for reflux issues. IV fluids. Continue to monitor labs - wbc, lipase, alk phos, alt, ast decreased. Continue pain and anti-emetics as needed. Manage htn, monitor for recurrent svt. Patient had another episode o/n. Patient on hypertensive medication at home. Pt probably to go home after EGD if ok with medicine. Supervisory-Addendum Brief Verification & Attestation Participated in pt care: history, MDM, physical Personally performed: exam, history, MDM, supervision of care Care discussed with: Medical Student Procedures: n/a Verification and Attestation of Medical Student E/M Service A medical student performed and documented this service. I then reviewed and verified all information documented by the medical student and made modifications to such information, when appropriate. I personally performed a physical exam, medical decision making and then discussed any differences between the notes and made revisions as necessary to create one note. Royal Pretty , 06/19/21 , 12:00 JAMES DE LA CRUZ Jun 19, 2021 08:10 ROYAL PRETTY DO Jun 19, 2021 12:00
--- NOTE | 2021-06-19 10:01 | Cardiology Progress Note ---
Progress Note-Cardiology Events since last exam Date Seen by Provider: Jun 19, 2021 Time Seen by Provider: 09:58 Events since last exam I am following him for supraventricular tachycardia. He had another episode of supraventricular tachycardia last evening. He was given 20 mg of intravenous labetalol. The tachycardia persisted. I was then notified by the nurse. I had the nurse give 10 mg of intravenous diltiazem and then the tachycardia broke. He did have palpitations when this occurred and they resolved when the tachycardia stopped. He denies chest discomfort, dyspnea, syncope, or ankle edema. He is supposed to undergo an endoscopy later today. Certain portions of this document may have been dictated utilizing voice recognition technology. Inherent to this technology, typographical and grammatical errors may exist. As much as I am diligent to identify and correct these mistakes, some errors may remain in the document. Vitals Last set of Vitals Signs Vital Signs 06/19/21 06/19/21 06/19/21 06/19/21 05:00 07:54 08:00 12:50 Temp 36.8 Pulse 66 Resp 12 B/P (MAP) 141/73 (109) Pulse Ox 97 O2 Delivery Room Air O2 Flow Rate 2.00 Labs Labs Laboratory Tests 06/19/21 05:45 Exam Vital Signs Vital Signs Date Time Temp Pulse Resp B/P (MAP) Pulse Ox O2 Delivery O2 Flow Rate FiO2 06/19/21 12:50 66 12 97 Room Air 06/19/21 08:30 06/19/21 07:54 36.8 06/19/21 05:00 2.00 Physical Exam General: Alert. No acute distress. He is overweight. Eye: No xanthelasma. HENT: Normocephalic. Neck: Jugular venous pressure does not appear elevated. Respiratory: Lungs are clear to auscultation. Respirations are non-labored. Breath sounds are equal. Symmetrical chest wall expansion. Cardiovascular: Normal rate. Regular rhythm. No murmur. No gallop. No edema. Gastrointestinal: Soft. Normal bowel sounds. Skin: Warm. Dry. Neurologic: Alert and oriented to person, place, time. Cranial nerves 3-11 grossly intact. Psychiatric: Cooperative. Appropriate mood & affect. Labs Laboratory Tests Test 06/18/21 16:04 06/18/21 16:22 06/18/21 20:58 06/19/21 05:27 Range/Units Glucometer 152 H 158 H 178 H 70-110 MG/DL SARS-CoV-2 RNA (RT-PCR) Not Detected Not Detecte Test 06/19/21 05:45 06/19/21 11:20 Range/Units White Blood Count 10.7 4.3-11.0 10^3/uL Red Blood Count 4.67 4.30-5.52 10^6/uL Hemoglobin 14.0 13.3-17.7 g/dL Hematocrit 41 40-54 % Mean Corpuscular Volume 87 80-99 fL Mean Corpuscular Hemoglobin 30 25-34 pg Mean Corpuscular Hemoglobin Concent 34 32-36 g/dL Red Cell Distribution Width 12.7 10.0-14.5 % Platelet Count 187 130-400 10^3/uL Mean Platelet Volume 11.1 9.0-12.2 fL Immature Granulocyte % (Auto) 0 % Neutrophils (%) (Auto) 71 42-75 % Lymphocytes (%) (Auto) 20 12-44 % Monocytes (%) (Auto) 7 0-12 % Eosinophils (%) (Auto) 1 0-10 % Basophils (%) (Auto) 1 0-10 % Neutrophils # (Auto) 7.6 1.8-7.8 10^3/uL Lymphocytes # (Auto) 2.1 1.0-4.0 10^3/uL Monocytes # (Auto) 0.8 0.0-1.0 10^3/uL Eosinophils # (Auto) 0.1 0.0-0.3 10^3/uL Basophils # (Auto) 0.1 0.0-0.1 10^3/uL Immature Granulocyte # (Auto) 0.0 0.0-0.1 10^3/uL Sodium Level 138 135-145 MMOL/L Potassium Level 3.7 3.6-5.0 MMOL/L Chloride Level 106 98-107 MMOL/L Carbon Dioxide Level 20 L 21-32 MMOL/L Anion Gap 12 5-14 MMOL/L Blood Urea Nitrogen 12 7-18 MG/DL Creatinine 0.92 0.60-1.30 MG/DL Estimat Glomerular Filtration Rate 84 BUN/Creatinine Ratio 13 Glucose Level 173 H 70-105 MG/DL Calcium Level 8.4 L 8.5-10.1 MG/DL Corrected Calcium 9.0 8.5-10.1 MG/DL Phosphorus Level 2.4 2.3-4.7 MG/DL Magnesium Level 1.8 1.6-2.4 MG/DL Total Bilirubin 0.9 0.1-1.0 MG/DL Aspartate Amino Transf (AST/SGOT) 11 5-34 U/L Alanine Aminotransferase (ALT/SGPT) 6 0-55 U/L Alkaline Phosphatase 62 40-136 U/L Total Protein 5.9 L 6.4-8.2 GM/DL Albumin 3.3 3.2-4.5 GM/DL Glucometer 181 H 70-110 MG/DL Diagnosis/Problems Diagnosis/Problems (1) Supraventricular tachycardia Assessment & Plan: From his description, he has longstanding supraventricular tachycardia. He has been taking diltiazem but still gets palpitations from time to time. I suspect the supraventricular tachycardia last evening may have been triggered by his severe abdominal pain. I restarted his diltiazem CD on 06/18 but he only got half a dose since this was late in the day. He is now on his regular dose of diltiazem CD. If he has recurrent tachycardia, I will consider adding low-dose metoprolol succinate. He has an appointment with his regular smash fixer in [place] in about 1 month. I suggested he ask his regular smash fixer about having an ablation. This can usually be curative for this condition. (2) Hypertensive urgency Status: Acute Assessment & Plan: His blood pressure was markedly elevated in the emergency room. Some of this may be related to the severe abdominal pain he was having. His blood pressures have improved with the resumption of his outpatient medication. (3) Aortic regurgitation Assessment & Plan: He has mild aortic regurgitation noted on his echocardiogram from 06/18. This should not be causing symptoms but will need to be followed longitudinally by his regular smash fixer. (4) Thoracic aortic aneurysm without rupture Assessment & Plan: He has mild enlargement of the thoracic aorta. Some of this could just be due to his tall stature. This will also need to be followed longitudinally by his regular smash fixer in [place], [place] following discharge. (5) Acute kidney injury superimposed on chronic kidney disease Assessment & Plan: He had mild elevation of the creatinine at the time of admission. This has improved and is probably back to his baseline. (6) Type 2 diabetes mellitus with complication Assessment & Plan: This is being managed by the hospitalist. DANN LAU JR, MD Jun 19, 2021 10:01
--- NOTE | 2021-06-19 10:39 | Tele-ICU Progress Note ---
Subjective Date Seen by a Provider: Jun 19, 2021 Time Seen by a Provider: 10:39 Sepsis Event Evaluation Height, Weight, BMI Height: 6'4.00" Weight: 240lbs. 0.0oz. [id number]; 28.10 BMI Method:Stated Focused Exam Lactate Level 06/17/21 22:30: Lactic Acid Level 1.31 Exam Exam Patient acknowledged, consented, and participated in this virtual visit which was conducted using real time audio/video Vital Signs Date Time Temp Pulse Resp B/P (MAP) Pulse Ox O2 Delivery O2 Flow Rate FiO2 06/19/21 08:30 66 14 97 Room Air 06/19/21 08:23 Room Air 06/19/21 08:15 65 96 Room Air 06/19/21 08:00 67 14 141/73 (109) 96 Room Air 06/19/21 07:54 36.8 Room Air 06/19/21 07:30 75 19 97 Room Air 06/19/21 07:15 69 19 93 Room Air 06/19/21 07:00 72 06/19/21 07:00 67 144/75 (98) 97 Room Air 06/19/21 06:00 70 11 159/85 (109) 95 Room Air 06/19/21 05:00 66 23 141/82 (102) 99 Nasal Cannula 2.00 06/19/21 04:00 66 136/79 (97) 99 Nasal Cannula 2.00 06/19/21 03:11 36.9 Nasal Cannula 2.00 06/19/21 03:10 96 Nasal Cannula 2.00 06/19/21 03:00 70 12 143/90 (107) 96 Room Air 06/19/21 02:00 69 11 134/87 (103) 94 Room Air 06/19/21 01:00 71 10 141/84 (103) 97 Room Air 06/19/21 01:00 71 06/19/21 00:00 67 11 107/55 (72) 96 Room Air 06/18/21 23:05 97 Room Air 06/18/21 23:00 37.0 69 12 116/53 (74) 97 Room Air 06/18/21 22:00 72 14 149/82 (104) 96 Room Air 06/18/21 21:00 74 18 170/97 (124) 96 Room Air 06/18/21 20:30 70 19 162/98 (121) 94 Room Air 06/18/21 20:00 36.4 06/18/21 19:35 93 Room Air 06/18/21 19:20 141 20 184/110 (134) 96 Room Air 06/18/21 19:00 80 06/18/21 18:00 81 35 178/100 (126) 95 Room Air 06/18/21 17:00 79 193/110 (137) 98 Room Air 06/18/21 16:00 80 12 177/97 (123) 98 Room Air 06/18/21 15:30 Room Air 06/18/21 15:15 78 15 185/106 (132) 94 Room Air 06/18/21 15:00 79 27 191/105 (133) 95 Room Air 06/18/21 14:00 80 14 171/102 (125) 96 Room Air 06/18/21 13:00 80 32 179/99 (125) 96 Room Air 06/18/21 13:00 82 06/18/21 12:15 Room Air 06/18/21 12:00 80 26 179/104 (129) 94 Room Air 06/18/21 11:30 37.0 06/18/21 11:00 85 37 114/91 (99) 98 Room Air I & O 06/19/21 07:00 Intake Total 3400 ml Output Total 900 ml Balance 2500 ml Height & Weight Height: 6'4.00" Weight: 240lbs. 0.0oz. [id number]; 28.10 BMI Method:Stated General Appearance: No Apparent Distress, Chronically ill HEENT: PERRL/EOMI, Pharynx Normal, Moist Mucous Membranes; No Scleral Icterus (L), No Scleral Icterus (R) Neck: Full Range of Motion, Non Tender, Supple Respiratory: Chest Non Tender, Lungs Clear, Normal Breath Sounds, No Accessory Muscle Use, No Respiratory Distress Cardiovascular: Regular Rate, Rhythm, No Edema, No Gallop, No Murmur Peripheral Pulses: 2+ Dorsalis Pedis (R), 2+ Left Dors-Pedis (L), 2+ Radial Pulses (R), 2+ Radial Pulses (L) Gastrointestinal: normal bowel sounds, non tender (Patient denies any tenderness on palpation. Patient stated abd is normal in size for him.), soft, no organomegaly, no pulsatile mass Extremity: Normal Capillary Refill, Normal Range of Motion, Non Tender, No Calf Tenderness, No Pedal Edema Neurologic/Psychiatric: Alert, Oriented x3, No Motor/Sensory Deficits, Normal M ood/Affect Skin: Normal Color, Warm/Dry Lymphatic: No Adenopathy (head and neck) Results Lab Laboratory Tests 06/17/21 19:53 06/18/21 01:40 06/18/21 05:05 06/19/21 05:45 Assessment/Plan Assessment/Plan (Tele-ICU Physician , Progress Note ) Available chart/ vitals / labs / Images reviewed Video assessment done using teleICU camera, rest of exam as per RN Discussed with RN , EXAM PER RN Events overnight : SVT - beta blockers Afebrile FiO2 - RA I/O = pos 2L Drips: Pressors: , hemodynamically stable Consultants: sidney santiago Hospital course: 06/17- 60/y/o with Hx of HTN, IBD c/o abd pain, diarrhea. BP uncontrolle A/P Abd pain - improved -CT abd w/o obstruction of bowel - h/o IBD - pain control - sx consulted- thickening near the pylorus; plan EGD today HTN incontrolled - resume meds , follow closely Tachycardia 06/17 - s/o adenosine 6 mg-> sinus 90 - as per crs- resume cardizem po ANTONETTE - CT with stone nonobstr on left , no hydro - improved hyperglycemia , DM - metformin on hold - ISS Lines : periph (Central Line Necessity Reviewed) Yang: void OG: Nutrition: po Analgesia: Anxiety/ delirium VTE Prophylaxis: scd, lovenox when ok with sx Stress Ulcer Prophylaxis: po intake Plans in collaboration with bedside consultants and IM MDs. Discussed with RN to reach out if any questions or concerns A total of 31 minutes of critical care time was devoted to this patient today, required to treat and/or prevent further deterioration of critical care condition ( as above) . POLO CABA MD Jun 19, 2021 10:39
[2021-06-19] MEDS ORDERED: LACTATED RINGERS 1,000 ML IV ONE (12:00)
[2021-06-19] MEDS ORDERED: MIDAZOLAM 2 MG/2 ML (VERSED) VIAL ONE (12:07)
[2021-06-19] MEDS ORDERED: proPOfol 200 MG/20 ML (DIPRIVAN) VIAL IV ONE (12:08)
[2021-06-19] MEDS ORDERED: LACTATED RINGERS 1,000 ML IV PRN (12:15)
--- NOTE | 2021-06-19 12:56 | Progress Note - Hospitalist ---
[facility] 06/19/21 1256: Subjective HPI/CC On Admission Date Seen by Provider: Jun 19, 2021 Time Seen by Provider: 08:01 Chief complaint: Abdominal pain with hypertensive urgency Subjective/Events-last exam Mr. Escalante had another episode of SVT last night with elevated blood pressure. He was given IV labetalol later followed by IV diltiazem which broke the tachycardia. This morning he denied any chest pain or cardiac issues. He reports his abdominal pain has completely subsided. He had a bowel movement at 0630 today which was just diarrhea. He said he has not had a solid bowel movement s fannie his cholecystectomy. He has been NPO since midnight and will be undergoing an EGD with Dr. Pretty this afternoon. He feels he is ready to go home after his EGD. Review of Systems General: No Chills, No Fatigue HEENT: No Head Aches, No Visual Changes Pulmonary: Dyspnea (2/2 palpitations); No Cough Cardiovascular: Palpitations; No: Chest Pain Gastrointestinal: Diarrhea; No: Nausea, Vomiting, Abdominal Pain Neurological: No: Weakness, Confusion Focused Exam Lactate Level 06/17/21 22:30: Lactic Acid Level 1.31 Capillary Refill: Less Than 3 Seconds Peripheral Pulses: 2+ Radial Pulses (R), 2+ Radial Pulses (L) Objective Exam Vital Signs Vital Signs Date Time Temp Pulse Resp B/P (MAP) Pulse Ox O2 Delivery O2 Flow Rate FiO2 06/19/21 08:30 66 14 97 Room Air 06/19/21 07:54 36.8 06/19/21 05:00 2.00 Capillary Refill : General Appearance: No Apparent Distress, WD/WN HEENT: PERRL/EOMI, Moist Mucous Membranes; No Scleral Icterus (L), No Scleral Icterus (R) Neck: Normal Inspection, Non Tender; No Lymphadenopathy (L), No Lymphadenopathy (R) Respiratory: Chest Non Tender, Lungs Clear, Normal Breath Sounds, No Accessory Muscle Use, No Respiratory Distress Cardiovascular: Regular Rate, Rhythm, No Edema, No Murmur, Normal Peripheral Pulses Gastrointestinal: Normal Bowel Sounds, Soft; No Distended, No Guarding; Tenderness (Patient reported minor tenderness to deep palpation in the RLQ but largely improved from yesterday. Rest of abdomen was nontender.) Extremity: Normal Capillary Refill, Normal Inspection, Non Tender, No Calf Tenderness, No Pedal Edema Neurologic/Psychiatric: Alert, Oriented x3, No Motor/Sensory Deficits, Normal Mood/Affect, ticket attendant II-XII Norm as Tested Skin: Normal Color, Warm/Dry Lymphatic: No Adenopathy (Head and neck) Results/Procedures Lab Laboratory Tests 06/19/21 05:45 Patient resulted labs reviewed. Assessment/Plan Assessment and Plan Assess & Plan/Chief Complaint Assessment Abdominal pain - h/o IBS Bowel obstruction - Doubt due to imaging results - CT of the abdomen showed distended loops of air-filled bowel without an obstruction - Monitor closely - Patient had a BM this morning Hypertensive urgency SVT - Another episode overnight - Resolved with labetalol and diltiazem Plan Moved to 4th floor Cardiology consult for SVT Surgery consult for abdominal pain EGD today with Dr. Pretty Continue hydralazine for HTN, Dilaudid for pain, and Zofran for nausea ASIYA SNEED DO 06/20/21 0540: Subjective Subjective/Events-last exam Patient ready for EGD Blood pressure much improved monitoring closely Moving to fourth floor Assessment/Plan Assessment and Plan Assess & Plan/Chief Complaint HD today Monitor blood pressure Monitor SVT Supervisory-Addendum Brief Verification & Attestation Participated in pt care: history, MDM, physical Personally performed: exam, history, MDM, supervision of care Care discussed with: Medical Student Procedures: n/a Results interpretation: Verified all documentation Verification and Attestation of Medical Student E/M Service A medical student performed and documented this service in my presence. I reviewed and verified all information documented by the medical student and made modifications to such information, when appropriate. I personally performed the physical exam and medical decision making. Asiya Sneed Jun 20, 2021,05:39 [facility] Jun 19, 2021 12:56 ASIYA SNEED DO Jun 20, 2021 05:40
--- NOTE | 2021-06-19 14:07 | Progress Note-Post Operative ---
Post-Operative Progess Note Surgeon (s)/Lithograph Press Feeder (s) Surgeon TANMAY CERNA DO Lithograph Press Feeder: none Pre-Operative Diagnosis Gastritis, Abd pain, Abd distention Post-Operative Diagnosis Gastritis Hiatal Hernia Esophagitis Procedure & Operative Findings Date of Procedure 06/19/21 Procedure Performed/Findings EGD with biopsy PROCEDURE NOTE: After informed consent was obtained, the patient was brought to the endoscopy suite, placed in bed in left lateral decubitus position. He was administered IV sedation by the GRADUATE RECRUITER who then monitored vitals the entire time, heart rate, blood pressure and pulse ox and the scope was inserted down the mouth through the esophagus into the stomach. On the way down, noted some mild esophagitis, pushed into the stomach and noted some mild to moderate Gastritis took a picture. Pushed past the antrum into the duodenum. Duodenum looked good. Pulled back and did a biopsy of antrum, then retroflexed the scope, saw a small hiatal hernia, took a picture of this and then pulled the scope into the GE junction. Then did a biopsy of the GE junction. Pushed the scope back into the stomach, suctioned all the air out of the stomach. At this point pulled the scope up the esophagus and out the mouth. The patient tolerated the procedure, and he recovered in endoscopy suite. Anesthesia Type IV sedation by GRADUATE RECRUITER Estimated Blood Loss Estimated blood loss (mL): scant Specimens/Packing Specimens Removed antral bx body of stomach bx GE jxn bx TANMAY CERNA DO Jun 19, 2021 14:07
--- NOTE | 2021-06-19 14:29 | Discharge Summary ---
Discharge Summary Hospital Course Was the Problem List Reviewed?: Yes Problems/Dx: (1) Supraventricular tachycardia (2) Hypertensive urgency Status: Acute (3) Aortic regurgitation (4) Thoracic aortic aneurysm without rupture (5) Acute kidney injury superimposed on chronic kidney disease (6) Type 2 diabetes mellitus with complication Hospital Course Date of Admission: Jun 18, 2021 at 09:39 Admission Diagnosis : Family Physician/Provider: Jan Garg MD Date of Discharge: 06/19/21 Discharge Diagnosis: Acute abdominal pain possibly due to partial small bowel obstruction versus irritable bowel syndrome flare, acute on chronic SVT episodes, hypertension urgency Hospital Course: Short course after admitted for hypertensive urgency. Cardiology consulted for SVT. Abdominal pain requiring general surgery consult because of suspicion for partial small bowel obstruction. EGD performed. Blood pressure much improved. Dr. Leigh his regular aerospace engineer officer armament and manage his SVT on a chronic basis. He was deemed stable for discharge. Labs and Pending Lab Test: Laboratory Tests 06/18/21 16:04: Glucometer 152H 06/18/21 16:22: SARS-CoV-2 RNA (RT-PCR) Not Detected 06/18/21 20:58: Glucometer 158H 06/19/21 05:27: Glucometer 178H 06/19/21 05:45: White Blood Count 10.7, Red Blood Count 4.67, Hemoglobin 14.0, Hematocrit 41, Mean Corpuscular Volume 87, Mean Corpuscular Hemoglobin 30, Mean Corpuscular Hemoglobin Concent 34, Red Cell Distribution Width 12.7, Platelet Count 187, Mean Platelet Volume 11.1, Immature Granulocyte % (Auto) 0, Neutrophils (%) (Auto) 71, Lymphocytes (%) (Auto) 20, Monocytes (%) (Auto) 7, Eosinophils (%) (Auto) 1, Basophils (%) (Auto) 1, Neutrophils # (Auto) 7.6, Lymphocytes # (Auto) 2.1, Monocytes # (Auto) 0.8, Eosinophils # (Auto) 0.1, Basophils # (Auto) 0.1, Immature Granulocyte # (Auto) 0.0, Sodium Level 138, Potassium Level 3.7, Chloride Level 106, Carbon Dioxide Level 20L, Anion Gap 12, Blood Urea Nitrogen 12, Creatinine 0.92, Estimat Glomerular Filtration Rate 84, BUN/Creatinine Ratio 13, Glucose Level 173H, Calcium Level 8.4L, Corrected Calcium 9.0, Phosphorus L evel 2.4, Magnesium Level 1.8, Total Bilirubin 0.9, Aspartate Amino Transf (AST/SGOT) 11, Alanine Aminotransferase (ALT/SGPT) 6, Alkaline Phosphatase 62, Total Protein 5.9L, Albumin 3.3 06/19/21 11:20: Glucometer 181H Microbiology 06/18/21 MRSA Screen - Final, Complete MRSA not isolated Home Meds Active Reported Mucus Relief (Guaifenesin) 600 Mg Tab.er.12h 600 Mg PO Q12H PRN Diltiazem ER (Diltiazem HCl) 360 Mg Capsule.er 360 Mg PO DAILY Neurontin (Gabapentin) 300 Mg Capsule 300 Mg PO TID Orphenadrine Citrate 100 Mg Tablet.er 100 Mg PO BID Ropinirole HCl 4 Mg Tablet 4 Mg PO BID Pioglitazone HCl 30 Mg Tablet 30 Mg PO DAILY Glimepiride 4 Mg Tablet 8 Mg PO DAILY TAKES 2 (4MG) TABS Lisinopril 40 Mg Tablet 40 Mg PO DAILY Ozempic (Semaglutide) 1 Mg/0.75 Ml Pen.injctr 1 Mg SQ SUN Tresiba Flextouch U-200 (Insulin Degludec) 200 Unit/1 Ml Insuln.pen 50 Units SC DAILY Pantoprazole Sodium 40 Mg Tablet.dr 40 Mg PO DAILY Assessment/Pt Instructions PCP in 1 week Discharge Planning: <30 minutes discharge planning Discharge Instructions Discharge Diet: No Restrictions Activity as Tolerated: Yes Discharge Physical Examination Vital Signs Vital Signs Date Time Temp Pulse Resp B/P (MAP) Pulse Ox O2 Delivery O2 Flow Rate FiO2 06/19/21 12:50 66 12 97 Room Air 06/19/21 11:05 36.2 170/88 (115) 06/19/21 05:00 2.00 General Appearance: No Apparent Distress, WD/WN Allergies: Coded Allergies: No Known Drug Allergies (Unverified , 01/09/17) Discharge Summary Date of Admission Jun 18, 2021 at 09:39 Date of Discharge Discharge Date: Jun 19, 2021 Admission Diagnosis Assessment: Acute abdominal pain consulting general surgery suspecting bowel obstruction Hypertensive urgency requiring ICU admit Episode of SVT status post management with adenosine consulting cardiology Diabetes mellitus Hypertension Kidney stones Irritable bowel syndrome Plan: Supportive care Cardiology General surgery Discharge Diagnosis (1) Supraventricular tachycardia Assessment & Plan: From his description, he has longstanding supraventricular tachycardia. He has been taking diltiazem but still gets palpitations from time to time. I suspect the supraventricular tachycardia last evening may have been triggered by his severe abdominal pain. I restarted his diltiazem CD on 06/18 but he only got half a dose since this was late in the day. He is now on his regular dose of diltiazem CD. If he has recurrent tachycardia, I will consider adding low-dose metoprolol succinate. He has an appointment with his regular aerospace engineer officer armament in [place] in about 1 month. I suggested he ask his regular aerospace engineer officer armament about having an ablation. This can usually be curative for this condition. (2) Hypertensive urgency Status: Acute Assessment & Plan: His blood pressure was markedly elevated in the emergency room. Some of this may be related to the severe abdominal pain he was having. His blood pressures have improved with the resumption of his outpatient medication. (3) Aortic regurgitation Assessment & Plan: He has mild aortic regurgitation noted on his echocardiogram from 06/18. This should not be causing symptoms but will need to be followed longitudinally by his regular aerospace engineer officer armament. (4) Thoracic aortic aneurysm without rupture Assessment & Plan: He has mild enlargement of the thoracic aorta. Some of this could just be due to his tall stature. This will also need to be followed longitudinally by his regular aerospace engineer officer armament in [place], [place] following discharge. (5) Acute kidney injury superimposed on chronic kidney disease Assessment & Plan: He had mild elevation of the creatinine at the time of admission. This has improved and is probably back to his baseline. (6) Type 2 diabetes mellitus with complication Assessment & Plan: This is being managed by the hospitalist. ASIYA SNEED DO Jun 19, 2021 14:29
--- NOTE | 2021-06-19 14:44 | Anesthesia-General Post-Op ---
MAC Patient Condition Mental Status/LOC: Same as Preop Cardiovascular: Satisfactory Nausea/Vomiting: Absent Respiratory: Satisfactory Pain: Controlled Complications: Absent Post Op Complications Complications None Follow Up Care/Instructions Patient Instructions None needed. Anesthesiology Discharge Order Discharge Order Patient is doing well, no complaints, stable vital signs, no apparent adverse anesthesia problems. No complications reported per nursing. DIDI CALVO CRNA Jun 19, 2021 14:44
== END 2021-06-19 15:25 | disposition home or self-care (01) | DRG 389 ==
LOC: EDUNIT# 19:41 → ER 19:42 → ICU 19:43 → UNDOADMOB 22:54 → ICU 22:54 → OBSVTOIN 06-18 09:39 → INTOOBSV 06-18 09:39 → ICU 06-18 10:38 → 4TH 06-19 11:04 → ICU 06-19 11:04 → UNDODISIN 06-19 15:25
PROVIDERS: ADMIT Internal Medicine; ATTEND Internal Medicine
PROC: 0DB78ZX Excision of Stomach, Pylorus, Via Natural or Artificial Opening Endoscopic, Diagnostic (ICD-10-PCS; 2021-06-19)
PROC: 0DB48ZX Excision of Esophagogastric Junction, Via Natural or Artificial Opening Endoscopic, Diagnostic (ICD-10-PCS; principal; 2021-06-19 13:15)
DX: K56.600 Partial intestinal obstruction, unspecified as to cause (principal); I47.1 Supraventricular tachycardia; N17.9 Acute kidney failure, unspecified; K58.0 Irritable bowel syndrome with diarrhea; I16.0 Hypertensive urgency; K29.70 Gastritis, unspecified, without bleeding; K21.00 Gastro-esophageal reflux disease with esophagitis, without bleeding; I12.9 Hypertensive chronic kidney disease with stage 1 through stage 4 chronic kidney disease, or unspecified chronic kidney disease; E11.22 Type 2 diabetes mellitus with diabetic chronic kidney disease; E11.65 Type 2 diabetes mellitus with hyperglycemia; Z20.822 Contact with and (suspected) exposure to COVID-19; N18.9 Chronic kidney disease, unspecified; K91.1 Postgastric surgery syndromes; E11.40 Type 2 diabetes mellitus with diabetic neuropathy, unspecified; G47.30 Sleep apnea, unspecified; F17.210 Nicotine dependence, cigarettes, uncomplicated; F32.A Depression, unspecified; Z79.84 Long term (current) use of oral hypoglycemic drugs; M19.91 Primary osteoarthritis, unspecified site; H54.7 Unspecified visual loss; I35.1 Nonrheumatic aortic (valve) insufficiency; I71.2 Thoracic aortic aneurysm, without rupture; K44.9 Diaphragmatic hernia without obstruction or gangrene; N20.0 Calculus of kidney; Z83.3 Family history of diabetes mellitus; Z82.49 Family history of ischemic heart disease and other diseases of the circulatory system
CPT/HCPCS: 36415; 71045; 74177; 80048; 80053; 80306; 80320; 81000; 82947; 83605; 83690; 83735; 84100; 84484; 85007; 85025; 85027; 85610; 87081; 87636; 93005; 93306

== ENCOUNTER 2021-11-16 04:42 | Observation (INO) | payer BC, MEDICARE ==
[~2021-11-16] VITALS: Ht 193 cm; Wt 102.5 kg
[~2021-11-16 04:42] MED LIST changes: +DILT360C30 PO; +GABA300C PO; +GLIM4TAB5 PO; +GUAI-977 PO; +INSU200I4 SC; +LISI40TA9 PO; +ORPH100T PO; +PANT40TA52 PO; +PIOG30TA71 PO; +ROPI4TAB5 PO; +SEMA1PEN3 SQ
--- NOTE | 2021-11-16 05:10 | ED Abdominal Pain ---
General Chief Complaint: Abdominal/GI Problems Stated Complaint: PT ST BLOOD PRESSURE HIGH, 170/121,CONSTIPATION,AB Source of Information: Patient Exam Limitations: No Limitations (HYUN PARK) History of Present Illness Date Seen by Provider: Nov 16, 2021 Time Seen by Provider: 04:52 Initial Comments The patient presents to the ER by private conveyance from home with chief complaint of 3 hours of intractable pain, abdominal distention, low abdominal pain that comes and goes intermittently. He has not been able to pass a bowel movement for couple days. He has been treating his acid reflux with Pepto- Bismol. He has had several doses a day over the past several days. He is not taking any laxatives or enemas. He has a history of cholecystectomy and an inguinal hernia surgery when he was a child. He is not having any fevers chills nausea vomiting or diarrhea. He says he is intensely uncomfortable. (HYUN PARK) Allergies and Home Medications Allergies Coded Allergies: No Known Drug Allergies (Unverified , 01/09/17) Patient Home Medication List Home Medication List Reviewed: Yes (HYUN PARK) Home Medication List Reviewed: Yes (ALLEGRA HOLLIS MD) Diltiazem HCl (Diltiazem ER) 360 Mg Capsule.er, 360 MG PO DAILY, (Reported) Entered as Reported by: CEDRIC ANTHONY on 06/18/211039 Last Action: Reviewed Gabapentin (Neurontin) 300 Mg Capsule, 300 MG PO TID, (Reported) Entered as Reported by: CEDRIC ANTHONY on 06/18/211039 Last Action: Reviewed Glimepiride (Glimepiride) 4 Mg Tablet, 8 MG PO DAILY, (Reported) Entered as Reported by: CEDRIC ANTHONY on 06/18/211039 Last Action: Reviewed Guaifenesin (Mucus Relief) 600 Mg Tab.er.12h, 600 MG PO Q12H PRN for CONGESTION, (Reported) Entered as Reported by: CEDRIC ANTHONY on 06/18/211039 Last Action: Reviewed Insulin Degludec (Tresiba Flextouch U-200) 200 Unit/1 Ml Insuln.pen, 50 UNITS SC DAILY, (Reported) Entered as Reported by: CEDRIC ANTHONY on 06/18/211039 Last Action: Reviewed Lisinopril (Lisinopril) 40 Mg Tablet, 40 MG PO DAILY, (Reported) Entered as Reported by: CEDRIC ANTHONY on 06/18/211039 Last Action: Reviewed Metoprolol Succinate (Metoprolol Succinate) 50 Mg Tab.er.24h, 50 MG PO DAILY, (Reported) Entered as Reported by: CEDRIC ANTHONY on 11/16/21 1227 Last Action: Reviewed Orphenadrine Citrate (Orphenadrine Citrate) 100 Mg Tablet.er, 100 MG PO BID, (Reported) Entered as Reported by: CEDRIC ANTHONY on 06/18/211039 Last Action: Reviewed Pantoprazole Sodium (Pantoprazole Sodium) 40 Mg Tablet.dr, 40 MG PO DAILY, (Reported) Entered as Reported by: CEDRIC ANTHONY on 06/18/211039 Last Action: Reviewed Pioglitazone HCl (Pioglitazone HCl) 30 Mg Tablet, 30 MG PO DAILY, (Reported) Entered as Reported by: CEDRIC ANTHONY on 06/18/211039 Last Action: Reviewed Ropinirole HCl (Ropinirole HCl) 4 Mg Tablet, 4 MG PO BID, (Reported) Entered as Reported by: CEDRIC ANTHONY on 06/18/211039 Last Action: Reviewed Semaglutide (Ozempic) 1 Mg/0.75 Ml Pen.injctr, 1 MG SQ SUN, (Reported) Entered as Reported by: CEDRIC ANTHONY on 06/18/211039 Last Action: Reviewed Review of Systems Review of Systems Constitutional: No chills, No fever EENTM: No Blurred Vision, No Double Vision Respiratory: Denies Cough, Denies Shortness of Air Cardiovascular: Denies Chest Pain, Denies Lightheadedness Gastrointestinal: Abdomen Distended, Abdominal Pain, Constipated; Denies Diarrhea, Denies Nausea, Denies Vomiting Genitourinary: Denies Burning, Denies Discharge Musculoskeletal: No back pain, No joint pain (HYUN PARK) All Other Systems Reviewed Negative Unless Noted: Yes (HYUN PARK) Past Yhdbeyx-Fvvugt-Hrcfzo Hx Patient Social History Tobacco Use?: Yes Tobacco type used: Cigars Smoking Status: Current Everyday Smoker Use of E-Cig and/or Vaping dev: No Substance use?: No Alcohol Use?: Yes Alcohol type: Beer Alcohol Frequency: Couple times a week (HYUN PARK) Immunizations Up To Date Tetanus Booster (TDap): More than 5yrs PED Vaccines UTD: Yes Influenza Vaccine Up-to-Date: No; Not Current First/Initial COVID19 Vaccinat: December 2020 Second COVID19 Vaccination Charli: December 2020 Third COVID19 Vaccination Date: December 2020 (HYUN PARK) Seasonal Allergies Seasonal Allergies: Yes (HYUN PARK) Past Medical History Surgeries: Yes (COLONOSCOPY) Gallbladder, Orthopedic, Renal Respiratory: No Currently Using CPAP: No Cardiac: Yes High Cholesterol, Hypertension Neurological: Yes Neuropathy Reproductive Disorders: No Sexually Transmitted Disease: No HIV/AIDS: No Genitourinary: Yes Kidney Stones, Renal Failure Gastrointestinal: Yes Gastroesophageal Reflux, Chronic Diarrhea, Gall Bladder Disease, Irritable Bowel Musculoskeletal: Yes Arthritis Endocrine: Yes Diabetes, Non-Insulin dep HEENT: No Loss of Vision: Denies Hearing Impairment: Denies Cancer: No Psychosocial: No Integumentary: No Blood Disorders: No Adverse Reaction/Blood Tranf: No (HYUN PARK) Family Medical History Diabetes mellitus 19 MOTHER G8 SISTER FH: lung cancer 19 MOTHER Hypertension 19 FATHER 19 MOTHER G8 SISTER Kidney stone G8 SISTER Parkinson's disease G8 SISTER Prostate cancer 19 FATHER Cancer, Diabetes, Hypertension (HYUN PARK) Physical Exam Vital Signs Vital Signs - First Documented 11/16/21 04:56 Temp 36.9 Pulse 72 Resp 22 B/P (MAP) 180/98 (125) Pulse Ox 98 O2 Delivery Room Air (ALLEGRA HOLLIS MD) Vital Signs Capillary Refill : (HYUN PARK) Height/Weight/BMI Height: 6'4.00" Weight: 240lbs. 0.0oz. 108.047976tz; 28.10 BMI Method:Stated General Appearance: WD/WN, moderate distress HEENT: PERRL/EOMI, pharynx normal Neck: full range of motion, supple, normal inspection Respiratory: lungs clear, normal breath sounds, accessory muscle use (Shallow panting) Cardiovascular: normal peripheral pulses, regular rate, rhythm, no edema Peripheral Pulses: 2+ Radial Pulses (R), 2+ Radial Pulses (L) Gastrointestinal: soft, abnormal bowel sounds (High-pitched, tinkling), distended, tenderness (Sounds bilateral lower quadrants) Extremities: normal range of motion, non-tender, normal capillary refill Neurologic/Psychiatric: alert, normal mood/affect, oriented x 3 Skin: normal color, warm/dry (HYUN PARK) Focused Exam Lactate Level 11/16/21 06:00: Lactic Acid Level 0.73 (ALLEGRA HOLLIS MD) Lactic Acid Level Laboratory Tests Test 11/16/21 06:00 Lactic Acid Level 0.73 MMOL/L (0.50-2.00) (ALLEGRA HOLLIS MD) Progress/Results/Core Measures Results/Orders Lab Results Laboratory Tests Test 11/16/21 05:13 11/16/21 05:16 11/16/21 05:44 11/16/21 06:00 Range/Units Blood Gas Puncture Site RIGHT RADIAL RIGHT RADIAL Blood Gas Patient Temperature 37 37 Arterial Blood pH 7.39 7.35 L 7.37-7.43 Arterial Blood Partial Pressure CO2 42 45 35-45 MMHG Arterial Blood Partial Pressure O2 41 L 72 L 79-93 MMHG Arterial Blood HCO3 25 24 23-27 MMOL/L Arterial Blood Total CO2 26.2 25.4 21.0-31.0 MMOL/L Arterial Blood Oxygen Saturation 79 L 95 94-100 % Arterial Blood Base Excess 0.5 -0.9 -2.5-2.5 MMOL/L Tim Test POSITIVE POSITIVE Blood Gas Ventilator Setting NO NO Blood Gas Inspired Oxygen 0 0 White Blood Count 11.6 H 4.3-11.0 10^3/uL Red Blood Count 5.08 4.30-5.52 10^6/uL Hemoglobin 15.1 13.3-17.7 g/dL Hematocrit 44 40-54 % Mean Corpuscular Volume 86 80-99 fL Mean Corpuscular Hemoglobin 30 25-34 pg Mean Corpuscular Hemoglobin Concent 35 32-36 g/dL Red Cell Distribution Width 13.6 10.0-14.5 % Platelet Count 199 130-400 10^3/uL Mean Platelet Volume 11.2 9.0-12.2 fL Immature Granulocyte % (Auto) 0 % Neutrophils (%) (Auto) 71 42-75 % Lymphocytes (%) (Auto) 19 12-44 % Monocytes (%) (Auto) 8 0-12 % Eosinophils (%) (Auto) 1 0-10 % Basophils (%) (Auto) 0 0-10 % Neutrophils # (Auto) 8.2 H 1.8-7.8 10^3/uL Lymphocytes # (Auto) 2.2 1.0-4.0 10^3/uL Monocytes # (Auto) 0.9 0.0-1.0 10^3/uL Eosinophils # (Auto) 0.1 0.0-0.3 10^3/uL Basophils # (Auto) 0.0 0.0-0.1 10^3/uL Immature Granulocyte # (Auto) 0.1 0.0-0.1 10^3/uL Sodium Level 144 135-145 MMOL/L Potassium Level 3.3 L 3.6-5.0 MMOL/L Chloride Level 109 H 98-107 MMOL/L Carbon Dioxide Level 22 21-32 MMOL/L Anion Gap 13 5-14 MMOL/L Blood Urea Nitrogen 20 H 7-18 MG/DL Creatinine 1.39 H 0.60-1.30 MG/DL Estimat Glomerular Filtration Rate 58 BUN/Creatinine Ratio 14 Glucose Level 104 70-105 MG/DL Calcium Level 9.6 8.5-10.1 MG/DL Corrected Calcium 9.6 8.5-10.1 MG/DL Total Bilirubin 0.6 0.1-1.0 MG/DL Aspartate Amino Transf (AST/SGOT) 10 5-34 U/L Alanine Aminotransferase (ALT/SGPT) 12 0-55 U/L Alkaline Phosphatase 71 40-136 U/L C-Reactive Protein High Sensitivity 0.44 0.00-0.50 MG/DL Total Protein 6.9 6.4-8.2 GM/DL Albumin 4.0 3.2-4.5 GM/DL Lipase 36 8-78 U/L Serum Alcohol < 10 <10 MG/DL Urine Color YELLOW Urine Clarity SL CLOUDY Urine pH 6.0 5-9 Urine Specific [place] >=1.030 1.016-1.022 Urine Protein 2+ H NEGATIVE Urine Glucose (UA) NEGATIVE NEGATIVE Urine Ketones NEGATIVE NEGATIVE Urine Nitrite NEGATIVE NEGATIVE Urine Bilirubin NEGATIVE NEGATIVE Urine Urobilinogen 0.2 < = 1.0 MG/DL Urine Leukocyte Esterase NEGATIVE NEGATIVE Urine RBC (Auto) TRACE-I H NEGATIVE Urine RBC 0-2 /HPF Urine WBC 0-2 /HPF Urine Crystals PRESENT H /LPF Urine Calcium Oxalate Crystals FEW H /LPF Urine Bacteria TRACE /HPF Urine Casts NONE /LPF Urine Mucus SMALL H /LPF Urine Other SPERM PRESENT /HPF Urine Culture Indicated NO Lactic Acid Level 0.73 0.50-2.00 MMOL/L (ALLEGRA HOLLIS MD) My Orders Orders - ALLEGRA HOLLIS MD Iohexol Injection (Omnipaque 350 Mg/Ml 1 (11/16/21 07:00) Sodium Chloride Flush (Catheter Flush Sy (11/16/21 07:00) Ns (Ivpb) (Sodium Chloride 0.9% Ivpb Bag (11/16/21 07:00) Diatrizoate Meglum/Sodium 37% (Gastrogra (11/16/21 07:00) Ns Iv 1000 Ml (Sodium Chloride 0.9%) (11/16/21 07:15) (ALLEGRA HOLLIS MD) Medications Given in ED (ALLEGRA HOLLIS MD) Vital Signs/I&O 11/16/21 04:56 Temp 36.9 Pulse 72 Resp 22 B/P (MAP) 180/98 (125) Pulse Ox 98 O2 Delivery Room Air (ALLEGRA HOLLIS MD) Admisison Planning May Need Admission (Planning): 07:29 (ALLEGRA HOLLIS MD) Progress Progress Note #1: Time: 05:12 Progress Note The patient has aggressively been treating his acid reflux with Pepto-Bismol as well as expecting good results from his constipation. He is not using any laxatives. He does however have distended abdomen with high-pitched bowel sounds and so there is some concern for bowel obstruction so we will get a CT of his abdomen and pelvis with IV and oral contrast. We will give him a liter of fluids IV and have encouraged him to use laxatives in the future. He is panting, shallow breathing although he is maintaining oxygen saturations 100%. I suspect he may be having increased work of breathing due to the pain and distention in his abdomen. We will get an ABG to confirm. Progress Note #2: Time: 05:35 Progress Note His initial ABG appears to be a venous draw. He is probably in respiratory alkalosis which is why the pH and CO2 look normal. He has maintained upper 90s to 100% oxygen saturations and does not have any evidence of cyanosis or mottling suggesting that his PaO2 of 41 is a venous draw. (HYUN PARK) Progress Note : Time: 07:29 Progress Note Patient reexamined at this time after CT results obtained. Findings suggestive of a partial colonic obstruction at the level of the proximal sigmoid. Patient has quite distended abdomen with high-pitched tinkling bowel sounds. He is moderately tender. He rates his pain at a "2-3". He is not nauseated currently. I did order a second liter of fluids post IV contrast. His vital signs are stable. Per review of the medical record his last colonoscopy was by Dr. Casiano in 2017 and it appeared it was normal at that time. Dr. Elder is on for general surgery will discuss with him. (ALLEGRA HOLLIS MD) Diagnostic Imaging Diagonstic Imaging: CT Plain Films/CT/US/NM/MRI: abdomen, pelvis Reviewed: Reviewed [place] Study, Reviewed by Me (HYUN PARK) Diagonstic Imaging: CT Comments NAME: HERMANDARIN Brandi [facility] REC#: [id number] PT STATUS: REG ER : 1960 PHYSICIAN: HYUN PARK MD ADMIT DATE: 11/16/21/ER Draft Date of Exam:11/16/21 CT ABDOMEN/PELVIS W CLINICAL INDICATIONS: Patient with abdominal pain, bloating and constipation. Patient has history of kidney stones and cholecystectomy. EXAM: Axial CT scan abdomen and pelvis performed with 100 cc of Omnipaque 300 IV contrast. Sagittal and coronal reformatted images are created. COMPARISON: CT scan abdomen and pelvis with contrast dated 06/17/2021. FINDINGS: There is mild atelectasis involving the posterior aspects of both lungs. There are degenerative spurs involving both hips. There is degenerative spurs involving the lower thoracic spine and lumbar spine. There is lower lumbar spine facet arthropathy. Cholecystectomy changes are again seen. Stable 10 mm fat density involving left adrenal gland which may represent a myelolipoma. The liver, spleen, pancreas and adrenal glands are otherwise unremarkable. Stable nonobstructive staghorn-like calcification involving the inferior aspect of left kidney which measures 2.9 cm x 1.5 cm. There are no other renal stones seen. Again noted multiple bilateral renal cysts with the largest in the left kidney. There is no hydronephrosis. Small amount of fluid within the bladder seen. There is diffuse bladder wall thickening which is nonspecific. There is fluid within the rectum, sigmoid colon and air-fluid levels throughout the rest of the colon. The colon is mildly distended measuring up to 8.6 cm in greatest width in the region of the cecum. There is a persistent area of contraction with bowel wall thickening involving the proximal sigmoid colon with associated luminal narrowing. Appendix is unremarkable. Small bowel is unremarkable. Stomach is unremarkable. There is no intra-abdominal free air or free fluid. The extraabdominal and extrapelvic soft tissue structures are unremarkable. IMPRESSION: 1: There is an area of persistent wall thickening and luminal narrowing involving the proximal sigmoid colon. Colon neoplasm should be excluded. Double contrast barium enema or colonoscopy is suggested. 2: There are air-fluid levels throughout the colon and rectosigmoid region with dilation of the proximal colon. This finding has slightly progressed compared to prior study. This may represent partial colonic obstruction at the level of the narrowing of the proximal sigmoid colon. 3: There is no significant lymphadenopathy. 4: Nonobstructive left renal calculi noted. 5: The remainder of this exam is stable. Dictated on workstation # [id number] Dict: 11/16/21 0701 Trans: 11/16/21 0715 [facility] [id number] Interpreted by: CRICKET BRIAN MD Electronically signed by: (ALLEGRA HOLLIS MD) Departure Communication (Admissions) Time/Spoke to Admitting Phy: 07:[address] Norris Time/Spoke to Consulting Phy: 07:[address] Elder; ok with clear liquids at this time (ALLEGRA HOLLIS MD) Impression Primary Impression: Abdominal pain Qualified Codes: R10.84 - Generalized abdominal pain Additional Impression: Partial obstruction of colon Disposition: ADMITTED INPATIENT Condition: Stable Admissions Decision to Admit Reason: Admit from ER (General) Decision to Admit/Date: Nov 16, 2021 Time/Decision to Admit Time: 07:30 (ALLEGRA HOLLIS MD) Departure-Patient Inst. Referrals: UNKNOWN (PCP/Family) Primary Care Physician HYUN PARK Nov 16, 2021 05:10 ALLEGRA HOLLIS MD Nov 16, 2021 07:21
[2021-11-16] MEDS ORDERED: KETOROLAC 30 MG/ML VIAL IVP ONE (05:15)
[2021-11-16] MEDS ORDERED: SIMETHICONE 80 MG (MYLICON) CHEW PO ONE (05:15)
[2021-11-16] MEDS ORDERED: NS IV 1000 ML 1,000 ML IV SCH ×2 (05:15→07:15)
[2021-11-16] MEDS ORDERED: ONDANSETRON 4 MG/2 ML (SDV) Z0FRAN IVP ONE (05:15)
[2021-11-16 05:22] LABS: BASOPHILS % (AUTO) 0 % (0-10); EOSINOPHILS # (AUTO) 0.1 10^3/uL (0.0-0.3); EOSINOPHILS % (AUTO) 1 % (0-10); HEMATOCRIT 44 % (40-54); HEMOGLOBIN 15.1 g/dL (13.3-17.7); LYMPHOCYTES # (AUTO) 2.2 10^3/uL (1.0-4.0); LYMPHOCYTES % (AUTO) 19 % (12-44); MEAN CORPUSCULAR HEMOGLOBIN 30 pg (25-34); MEAN CORPUSCULAR HGB CONC 35 g/dL (32-36); MEAN CORPUSCULAR VOLUME 86 fL (80-99); MEAN PLATELET VOLUME 11.2 fL (9.0-12.2); MONOCYTES # (AUTO) 0.9 10^3/uL (0.0-1.0); MONOCYTES % (AUTO) 8 % (0-12); NEUTROPHILS # (AUTO) 8.2 10^3/uL (1.8-7.8); NEUTROPHILS % (AUTO) 71 % (42-75); PLATELET COUNT 199 10^3/uL (130-400); WHITE BLOOD COUNT 11.6 10^3/uL (4.3-11.0)
[2021-11-16] MEDS ORDERED: PANTOPRAZOLE 40 MG (PROTONIX) VIAL IV ONE (05:30)
[2021-11-16 05:31] LABS: ABG BASE EXCESS 0.5 MMOL/L (-2.5-2.5); ABG OXYGEN SATURATION 79 % (94-100); ABG PCO2 42 MMHG (35-45); ABG PH 7.39 (7.37-7.43); ABG PO2 41 MMHG (79-93); ABG TCO2 26.2 MMOL/L (21.0-31.0); ALLENS TEST POSITIVE; INSPIRED O2 0; PATIENT TEMP 37; VENTILATOR NO
[2021-11-16 05:34] LABS: CHLORIDE 109 MMOL/L (98-107); POTASSIUM 3.3 MMOL/L (3.6-5.0); SODIUM 144 MMOL/L (135-145)
[2021-11-16 05:35] LABS: CALCIUM 9.6 MG/DL (8.5-10.1)
[2021-11-16 05:37] LABS: GLUCOSE 104 MG/DL (70-105); TOTAL PROTEIN 6.9 GM/DL (6.4-8.2)
[2021-11-16 05:38] LABS: BILIRUBIN,TOTAL 0.6 MG/DL (0.1-1.0); CARBON DIOXIDE 22 MMOL/L (21-32)
[2021-11-16 05:40] LABS: ALKALINE PHOSPHATASE 71 U/L (40-136); CREATININE SERUM 1.39 MG/DL (0.60-1.30); GFR ESTIMATED 58
[2021-11-16 05:41] LABS: BUN/CREATININE RATIO 14
[2021-11-16 05:43] LABS: ALANINE AMINOTRANSFERASE 12 U/L (0-55)
[2021-11-16 05:44] LABS: LIPASE 36 U/L (8-78)
[2021-11-16 05:49] LABS: ABG BASE EXCESS -0.9 MMOL/L (-2.5-2.5); ABG OXYGEN SATURATION 95 % (94-100); ABG PCO2 45 MMHG (35-45); ABG PH 7.35 (7.37-7.43); ABG PO2 72 MMHG (79-93); ABG TCO2 25.4 MMOL/L (21.0-31.0)
[2021-11-16 05:51] LABS: ALLENS TEST POSITIVE; INSPIRED O2 0; PATIENT TEMP 37; VENTILATOR NO
[2021-11-16 06:08] LABS: BILIRUBIN,URINE NEGATIVE (NEGATIVE); CLARITY,URINE SL CLOUDY; COLOR,URINE YELLOW; GLUCOSE, URINE (UA) NEGATIVE (NEGATIVE); KETONES,URINE NEGATIVE (NEGATIVE); LEUKOCYTE ESTERASE ,URINE NEGATIVE (NEGATIVE); NITRITE,URINE NEGATIVE (NEGATIVE); PROTEIN,URINE 2+ (NEGATIVE)
[2021-11-16 06:32] LABS: BACTERIA,URINE TRACE /HPF; CALCIUM OXALATE CRYSTALS,UR FEW /LPF; RBC,URINE 0-2 /HPF; URINE OTHER SPERM PRESENT /HPF; WBC,URINE 0-2 /HPF
[2021-11-16] MEDS ORDERED: DIATRIZOATE MEGLUM/SODIUM 37% 120 ML (GASTROGRAFIN) PO ONE (07:00)
[2021-11-16] MEDS ORDERED: NS 100 ML (IVPB) BAG IV ONE (07:00)
[2021-11-16] MEDS ORDERED: CATHETER FLUSH 10 ML SYR IV PRN (07:00)
[2021-11-16] MEDS ORDERED: IOHEXOL 350 MG/ML 100 ML (OMNIPAQUE 350) VIAL IV ONE (07:00)
--- NOTE | 2021-11-16 07:16 | Diagnostic Imaging Report ---
CLINICAL INDICATIONS: Patient with abdominal pain, bloating and constipation. Patient has history of kidney stones and cholecystectomy. EXAM: Axial CT scan abdomen and pelvis performed with 100 cc of Omnipaque 300 IV contrast. Sagittal and coronal reformatted images are created. COMPARISON: CT scan abdomen and pelvis with contrast dated 06/17/2021. FINDINGS: There is mild atelectasis involving the posterior aspects of both lungs. There are degenerative spurs involving both hips. There is degenerative spurs involving the lower thoracic spine and lumbar spine. There is lower lumbar spine facet arthropathy. Cholecystectomy changes are again seen. Stable 10 mm fat density involving left adrenal gland which may represent a myelolipoma. The liver, spleen, pancreas and adrenal glands are otherwise unremarkable. Stable nonobstructive staghorn-like calcification involving the inferior aspect of left kidney which measures 2.9 cm x 1.5 cm. There are no other renal stones seen. Again noted multiple bilateral renal cysts with the largest in the left kidney. There is no hydronephrosis. Small amount of fluid within the bladder seen. There is diffuse bladder wall thickening which is nonspecific. There is fluid within the rectum, sigmoid colon and air-fluid levels throughout the rest of the colon. The colon is mildly distended measuring up to 8.6 cm in greatest width in the region of the cecum. There is a persistent area of contraction with bowel wall thickening involving the proximal sigmoid colon with associated luminal narrowing. Appendix is unremarkable. Small bowel is unremarkable. Stomach is unremarkable. There is no intra-abdominal free air or free fluid. The extraabdominal and extrapelvic soft tissue structures are unremarkable. IMPRESSION: 1: There is an area of persistent wall thickening and luminal narrowing involving the proximal sigmoid colon. Colon neoplasm should be excluded. Double contrast barium enema or colonoscopy is suggested. 2: There are air-fluid levels throughout the colon and rectosigmoid region with dilation of the proximal colon. This finding has slightly progressed compared to prior study. This may represent partial colonic obstruction at the level of the narrowing of the proximal sigmoid colon. 3: There is no significant lymphadenopathy. 4: Nonobstructive left renal calculi noted. 5: The remainder of this exam is stable. Dictated by: Dictated on workstation # [id number]
[2021-11-16 09:15] VITALS: BP 176/99
[2021-11-16] MEDS ORDERED: CATHETER FLUSH 10 ML SYR IVP PRN (09:45)
[2021-11-16] MEDS ORDERED: ONDANSETRON 4 MG/2 ML (SDV) Z0FRAN IV PRN (09:45)
[2021-11-16] MEDS: fentaNYL INJ 100 MCG/2 ML AMP IV PRN ×2 (09:47→13:08)
[2021-11-16] MEDS: NS IV 1000 ML 1,000 ML IV SCH ×2 (09:50→17:03)
[2021-11-16] MEDS: inSUlin ASPART (NovoLOG) 1 UNIT/0.01 ML (CHARGE PER UNIT) SC SCH ×3 (11:27→20:12)
[2021-11-16] MEDS ORDERED: hydrALAZINE (APESOLINE) 20 MG/ML VIAL IV NR (11:30)
[2021-11-16] MEDS ORDERED: hydrALAZINE (APESOLINE) 20 MG/ML VIAL IV PRN (11:45)
[2021-11-16 12:12] VITALS: BP 180/100
[2021-11-16] MEDS ORDERED: METO50TA7 PO (12:27)
[2021-11-16 13:11] VITALS: BP 180/100
[2021-11-16] MEDS ORDERED: RT-ALBUTEROL SULF 2.5 MG/3 ML PRE-MIX VIAL INH PRN (13:30)
--- NOTE | 2021-11-16 15:44 | History & Physical-Hospitalist ---
History of Present Illness HPI/Chief Complaint Patient 60-year-old male who presented to the emergency department due to abdominal pain. He states it started a few days ago when he developed "yeasty burps" and he thought he was not digesting something well. He had a similar occurrence in May of last year and he was admitted to the ICU with a bowel obstruction and hypertensive emergency. He reports that his blood pressure started to rise and he developed constipation prompting him to seek evaluation in the emergency department earlier this time. CT was done and revealed a partial colonic obstruction. He was admitted and surgery has been consulted. He complains of persistent abdominal pain but states he has already had a bowel movement that was liquid. He is a known diabetic and his last A1c was 7.6. He takes long-acting insulin only and no mealtime insulin. Source: patient, family Date Seen 11/16/21 Time Seen by a Provider: 11:45 Attending Physician Haydee Norris MD PCP Jan Garg MD Referring Physician Date of Admission Nov 16, 2021 at 07:37 Home Medications & Allergies Home Medications Reviewed patient Home Medication Reconciliation performed by pharmacy medication reconciliations geotechnicial properties technician and/or nursing. Patients Allergies have been reviewed. Allergies Allergies Coded Allergies No Known Drug Allergies (Unverified01/09/17) Past Qgcaazu-Hvqxob-Lbqswb Hx Patient Social History Tobacco Use?: Yes Tobacco type used: Cigars Smoking Status: Light Tobacco Smoker Smokeless Tobacco Frequency: Light User Use of E-Cig and/or Vaping dev: No Substance use?: No Alcohol Use?: Yes Alcohol type: Beer Additional alcohol type: couple times a week Alcohol Frequency: Couple times a week Pt feels they are or have been: No Immunizations Up To Date Date of Influenza Vaccine: May 06, 2016 First/Initial COVID19 Vaccinat: December 2020 Second COVID19 Vaccination Charli: December 2020 Tetanus Booster (TDap): Less Than 5 Years Hepatitis A: Yes Hepatitis B: Yes PED Vaccines UTD: Yes Seasonal Allergies Seasonal Allergies: Yes Current Status Advance Directives: No Communicates: Verbally Primary Language: Bengali Preferred Spoken Language: Bengali Is interpretation needed?: No Implanted or Applied Medical D: None Past Medical History Surgeries: Gallbladder, Orthopedic, Renal Currently Using CPAP: No High Cholesterol, Hypertension Neuropathy Sexually Transmitted Disease: No HIV/AIDS: No Kidney Stones, Renal Failure Gastroesophageal Reflux, Chronic Diarrhea, Gall Bladder Disease, Irritable Bowel Arthritis Diabetes, Non-Insulin dep Loss of Vision: Denies Hearing Impairment: Denies Blood Disorders: No Adverse Reaction/Blood Tranf: No Family Medical History Diabetes mellitus 19 MOTHER G8 SISTER FH: lung cancer 19 MOTHER Hypertension 19 FATHER 19 MOTHER G8 SISTER Kidney stone G8 SISTER Parkinson's disease G8 SISTER Prostate cancer 19 FATHER Cancer, Diabetes, Hypertension Review of Systems Constitutional: No chills, No fever EENTM: no symptoms reported Respiratory: No cough, No short of breath Cardiovascular: No chest pain, No edema, No palpitations Gastrointestinal: abdominal pain, constipation; No melena; nausea Genitourinary: no symptoms reported Musculoskeletal: no symptoms reported Skin: no symptoms reported Psychiatric/Neurological: No Symptoms Reported Physical Exam Physical Exam Vital Signs Vital Signs - First Documented 11/16/21 11/17/21 04:56 07:48 Temp 36.9 Pulse 72 Resp 22 B/P (MAP) 180/98 (125) Pulse Ox 98 O2 Delivery Room Air O2 Flow Rate 0.00 Capillary Refill : Less Than 3 Seconds Height, Weight, BMI Height: 6'4.00" Weight: 240lbs. 0.0oz. [id number]; 27.51 BMI Method:Stated General Appearance: No Apparent Distress, WD/WN HEENT: PERRL/EOMI, Moist Mucous Membranes Neck: Normal Inspection, Supple Respiratory: Lungs Clear, No Accessory Muscle Use, No Respiratory Distress Cardiovascular: Regular Rate, Rhythm, No JVD, No Murmur Gastrointestinal: Soft, Abnormal Bowel Sounds (quiet), Distended, Tenderness (mild, diffuse) Extremity: Normal Capillary Refill, Non Tender, No Pedal Edema Neurologic/Psychiatric: Alert, Oriented x3, Normal Mood/Affect; No Aphasia, No Facial Droop Skin: Normal Color, Warm/Dry Results Results/Procedures Labs Laboratory Tests 11/16/21 05:16 11/17/21 05:00 Patient resulted labs reviewed. Imaging: Reviewed Imaging Report Imaging [facility], [place] NAME: DARIN SUTTON Brandi [facility] REC#: [id number] PT STATUS: ADM Keke : 1960 PHYSICIAN: HYUN PARK MD ADMIT DATE: 11/16/21 Signed Date of Exam:11/16/21 CT ABDOMEN/PELVIS W CLINICAL INDICATIONS: Patient with abdominal pain, bloating and constipation. Patient has history of kidney stones and cholecystectomy. EXAM: Axial CT scan abdomen and pelvis performed with 100 cc of Omnipaque 300 IV contrast. Sagittal and coronal reformatted images are created. COMPARISON: CT scan abdomen and pelvis with contrast dated 06/17/2021. FINDINGS: There is mild atelectasis involving the posterior aspects of both lungs. There are degenerative spurs involving both hips. There is degenerative spurs involving the lower thoracic spine and lumbar spine. There is lower lumbar spine facet arthropathy. Cholecystectomy changes are again seen. Stable 10 mm fat density involving left adrenal gland which may represent a myelolipoma. The liver, spleen, pancreas and adrenal glands are otherwise unremarkable. Stable nonobstructive staghorn-like calcification involving the inferior aspect of left kidney which measures 2.9 cm x 1.5 cm. There are no other renal stones seen. Again noted multiple bilateral renal cysts with the largest in the left kidney. There is no hydronephrosis. Small amount of fluid within the bladder seen. There is diffuse bladder wall thickening which is nonspecific. There is fluid within the rectum, sigmoid colon and air-fluid levels throughout the rest of the colon. The colon is mildly distended measuring up to 8.6 cm in greatest width in the region of the cecum. There is a persistent area of contraction with bowel wall thickening involving the proximal sigmoid colon with associated luminal narrowing. Appendix is unremarkable. Small bowel is unremarkable. Stomach is unremarkable. There is no intra-abdominal free air or free fluid. The extraabdominal and extrapelvic soft tissue structures are unremarkable. IMPRESSION: 1: There is an area of persistent wall thickening and luminal narrowing involving the proximal sigmoid colon. Colon neoplasm should be excluded. Double contrast barium enema or colonoscopy is suggested. 2: There are air-fluid levels throughout the colon and rectosigmoid region with dilation of the proximal colon. This finding has slightly progressed compared to prior study. This may represent partial colonic obstruction at the level of the narrowing of the proximal sigmoid colon. 3: There is no significant lymphadenopathy. 4: Nonobstructive left renal calculi noted. 5: The remainder of this exam is stable. Dictated by: Dictated on workstation # [id number] Dict: 11/16/21 0701 Trans: 11/16/21 1033 CV [id number] Interpreted by: CRICKET BRIAN MD Electronically signed by: CRICKET BRIAN MD 11/16/21 1033 Assessment/Plan Admission Diagnosis partial colonic obstruction Admission Status: Observation Assessment and Plan partial colonic obstruction Surgery consulted, appreciate recs CLD Fentanyl for pain ANTONETTE Creatinine 0.92 in May, up to 1.39 today IVF IDDMII SSI Hold home levemir HTN BP very elevated, had similar presentation in May and required ICU admission for HTN urgency Hydralzine prn DVT ppx: SCDs only until seen by surgery Diagnosis/Problems Diagnosis/Problems (1) Insulin dependent diabetes mellitus (2) Acute kidney injury superimposed on chronic kidney disease (3) Hypertensive urgency Status: Acute (4) Partial obstruction of colon Status: Acute HAYDEE NORRIS MD Nov 16, 2021 15:44
[2021-11-16 16:00] VITALS: BP 186/97
[2021-11-16 19:33] VITALS: BP 170/80
--- NOTE | 2021-11-16 21:46 | Consultation - Surgery ---
[facility] 11/16/215: History of Present Illness History of Present Illness Patient Consulted On(gonzalo/time) 11/16/21 21:40 Date Seen by Provider: Nov 16, 2021 Time Seen by Provider: 12:50 Reason for Visit: Abdominal pain History of Present Illness Mr. Escalante is a 60 year old male with a past medical history of HTN and DM who presented to the ED with abdominal pain. General surgery was consulted for partial colonic obstruction. He reports constipation and abdominal pain. He reported a similar episode in May of 2021. CT imaging demonstrated narrowing of the proximal sigmoid colon with air-fluid levels throughout the colon and rectosigmoid region with dilation of the proximal colon. Allergies and Home Medications Allergies Coded Allergies: No Known Drug Allergies (Unverified , 01/09/17) Patient Home Medication List Diltiazem HCl (Diltiazem ER) 360 Mg Capsule.er, 360 MG PO DAILY, (Reported) Entered as Reported by: CEDRIC ANTHONY on 06/18/21 104 Last Action: Reviewed Gabapentin (Neurontin) 300 Mg Capsule, 300 MG PO TID, (Reported) Entered as Reported by: CEDRCI ANTHONY on 06/18/211039 Last Action: Reviewed Glimepiride (Glimepiride) 4 Mg Tablet, 8 MG PO DAILY, (Reported) Entered as Reported by: CEDRIC ANTHONY on 06/18/211039 Last Action: Reviewed Guaifenesin (Mucus Relief) 600 Mg Tab.er.12h, 600 MG PO Q12H PRN for CONGESTION, (Reported) Entered as Reported by: CEDRIC ANTHONY on 06/18/211039 Last Action: Reviewed Insulin Degludec (Tresiba Flextouch U-200) 200 Unit/1 Ml Insuln.pen, 50 UNITS SC DAILY, (Reported) Entered as Reported by: CEDRIC ANTHONY on 06/18/21 104 Last Action: Reviewed Lisinopril (Lisinopril) 40 Mg Tablet, 40 MG PO DAILY, (Reported) Entered as Reported by: CEDRIC ANTHONY on 06/18/211039 Last Action: Continued Metoprolol Succinate (Metoprolol Succinate) 50 Mg Tab.er.24h, 50 MG PO DAILY, (Reported) Entered as Reported by: CEDRIC ANTHONY on 11/16/21 1227 Last Action: Continued Orphenadrine Citrate (Orphenadrine Citrate) 100 Mg Tablet.er, 100 MG PO BID, (Reported) Entered as Reported by: CEDRIC ANTHONY on 06/18/211039 Last Action: Reviewed Pantoprazole Sodium (Pantoprazole Sodium) 40 Mg Tablet.dr, 40 MG PO DAILY, (Reported) Entered as Reported by: CEDRIC ANTHONY on 06/18/211039 Last Action: Reviewed Pioglitazone HCl (Pioglitazone HCl) 30 Mg Tablet, 30 MG PO DAILY, (Reported) Entered as Reported by: CEDRIC ANTHONY on 06/18/211039 Last Action: Reviewed Ropinirole HCl (Ropinirole HCl) 4 Mg Tablet, 4 MG PO BID, (Reported) Entered as Reported by: CEDRIC ANTHONY on 06/18/211039 Last Action: Reviewed Semaglutide (Ozempic) 1 Mg/0.75 Ml Pen.injctr, 1 MG SQ SUN, (Reported) Entered as Reported by: CEDRIC ANTHONY on 06/18/211039 Last Action: Reviewed Past Tyciqkr-Xwkubt-Ilmqlr Hx Patient Social History Smoking Status: Light Tobacco Smoker Type Used: Cigars Recent Hopitalizations: No Alcohol Use?: Yes Have you traveled recently?: No Immunizations Up To Date Tetanus Booster (TDap): More than 5yrs PED Vaccines UTD: Yes Date of Influenza Vaccine: May 06, 2016 Seasonal Allergies Seasonal Allergies: Yes Surgeries History of Surgeries: Yes (COLONOSCOPY) Surgeries: Gallbladder, Orthopedic, Renal Respiratory History of Respiratory Disorde: No Cardiovascular History of Cardiac Disorders: Yes Cardiac Disorders: High Cholesterol, Hypertension Neurological History of Neurological Disord: Yes Neurological Disorders: Neuropathy Reproductive System Hx Reproductive Disorders: No Sexually Transmitted Disease: No HIV/AIDS: No Genitourinary History of Genitourinary Disor: Yes Genitourinary Disorders: Kidney Stones, Renal Failure Gastrointestinal History of Gastrointestinal Di: Yes Gastrointestinal Disorders: Gastroesophageal Reflux, Chronic Diarrhea, Gall Bladder Disease, Irritable Bowel Musculoskeletal History of Musculoskeletal Dis: Yes Musculoskeletal Disorders: Arthritis Endocrine History of Endocrine Disorders: Yes Endocrine Disorders: Diabetes, Non-Insulin dep HEENT History of HEENT Disorders: No Loss of Vision: Denies Hearing Impairment: Denies Cancer History of Cancer: No Psychosocial History of Psychiatric Problem: No Integumentary History of Skin or Integumenta: No Blood Transfusions History of Blood Disorders: No Adverse Reaction to a Blood Tr: No Family Medical History Significant Family History: Cancer, Diabetes, Hypertension Family Medial History: Diabetes mellitus 19 MOTHER G8 SISTER FH: lung cancer 19 MOTHER Hypertension 19 FATHER 19 MOTHER G8 SISTER Kidney stone G8 SISTER Parkinson's disease G8 SISTER Prostate cancer 19 FATHER Review of Systems-General Constitutional: No chills, No fever EENTM: No blurred vision, No double vision Respiratory: No dyspnea on exertion, No short of breath Cardiovascular: No chest pain, No palpitations Gastrointestinal: abdominal pain, constipation Psychiatric/Neurological: Denies Anxiety, Denies Depressed Physical Exam-General Problems Physical Exam Vital Signs Vital Signs - First Documented 11/16/21 04:56 Temp 36.9 Pulse 72 Resp 22 B/P (MAP) 180/98 (125) Pulse Ox 98 O2 Delivery Room Air Capillary Refill : Less Than 3 Seconds General Appearance: WD/WN, no apparent distress HEENT: PERRL/EOMI; No scleral icterus (R), No scleral icterus (L) Neck: non-tender; No lymphadenopathy (R), No lymphadenopathy (L) Respiratory: chest non-tender, no respiratory distress, no accessory muscle use Cardiovascular: normal peripheral pulses, regular rate, rhythm Peripheral Pulses: 2+ Radial Pulses (R), 2+ Radial Pulses (L) Gastrointestinal: No guarding; tenderness Extremities: non-tender, normal inspection Neurologic/Psychiatric: no motor/sensory deficits, alert, oriented x 3, other (Flat affect) Skin: normal color, warm/dry Data Review Labs Laboratory Tests 11/16/21 05:13: Blood Gas Puncture Site RIGHT RADIAL, Blood Gas Patient Temperature 37, Arterial Blood pH 7.39, Arterial Blood Partial Pressure CO2 42, Arterial Blood Partial Pressure O2 41L, Arterial Blood HCO3 25, Arterial Blood Total CO2 26.2, Arterial Blood Oxygen Saturation 79L, Arterial Blood Base Excess 0.5, Tim Test POSITIVE, Blood Gas Ventilator Setting NO, Blood Gas Inspired Oxygen 0 11/16/21 05:16: White Blood Count 11.6H, Red Blood Count 5.08, Hemoglobin 15.1, Hematocrit 44, Mean Corpuscular Volume 86, Mean Corpuscular Hemoglobin 30, Mean Corpuscular Hemoglobin Concent 35, Red Cell Distribution Width 13.6, Platelet Count 199, Mean Platelet Volume 11.2, Immature Granulocyte % (Auto) 0, Neutrophils (%) (Auto) 71, Lymphocytes (%) (Auto) 19, Monocytes (%) (Auto) 8, Eosinophils (%) (Auto) 1, Basophils (%) (Auto) 0, Neutrophils # (Auto) 8.2H, Lymphocytes # (Auto) 2.2, Monocytes # (Auto) 0.9, Eosinophils # (Auto) 0.1, Basophils # (Auto) 0.0, Immature Granulocyte # (Auto) 0.1, Sodium Level 144, Potassium Level 3.3L, Chloride Level 109H, Carbon Dioxide Level 22, Anion Gap 13, Blood Urea Nitrogen 20H, Creatinine 1.39H, Estimat Glomerular Filtration Rate 58, BUN/Creatinine Ratio 14, Glucose Level 104, Calcium Level 9.6, Corrected Calcium 9.6, Total Bilirubin 0.6, Aspartate Amino Transf (AST/SGOT) 10, Alanine Aminotransferase (ALT/SGPT) 12, Alkaline Phosphatase 71, C-Reactive Protein High Sensitivity 0.44, Total Protein 6.9, Albumin 4.0, Lipase 36, Serum Alcohol < 10 11/16/21 05:44: Blood Gas Puncture Site RIGHT RADIAL, Blood Gas Patient Temperature 37, Arterial Blood pH 7.35L, Arterial Blood Partial Pressure CO2 45, Arterial Blood Partial Pressure O2 72L, Arterial Blood HCO3 24, Arterial Blood Total CO2 25.4, Arterial Blood Oxygen Saturation 95, Arterial Blood Base Excess -0.9, Tim Test POSITIVE, Blood Gas Ventilator Setting NO, Blood Gas Inspired Oxygen 0 11/16/21 06:00: Urine Color YELLOW, Urine Clarity SL CLOUDY, Urine pH 6.0, Urine Specific Edwards >=1.030, Urine Protein 2+H, Urine Glucose (UA) NEGATIVE, Urine Ketones NEGATIVE, Urine Nitrite NEGATIVE, Urine Bilirubin NEGATIVE, Urine Urobilinogen 0.2, Urine Leukocyte Esterase NEGATIVE, Urine RBC (Auto) TRACE-IH, Urine RBC 0- 2, Urine WBC 0-2, Urine Crystals PRESENTH, Urine Calcium Oxalate Crystals FEWH, Urine Bacteria TRACE, Urine Casts NONE, Urine Mucus SMALLH, Urine Other SPERM PRESENT, Urine Culture Indicated NO, Lactic Acid Level 0.73 11/16/21 11:08: Glucometer 106 11/16/21 15:29: Glucometer 91 11/16/21 20:02: Glucometer 99 Radiology Date of Exam:11/16/21 CT ABDOMEN/PELVIS W CLINICAL INDICATIONS: Patient with abdominal pain, bloating and constipation. Patient has history of kidney stones and cholecystectomy. EXAM: Axial CT scan abdomen and pelvis performed with 100 cc of Omnipaque 300 IV contrast. Sagittal and coronal reformatted images are created. COMPARISON: CT scan abdomen and pelvis with contrast dated 06/17/2021. FINDINGS: There is mild atelectasis involving the posterior aspects of both lungs. There are degenerative spurs involving both hips. There is degenerative spurs involving the lower thoracic spine and lumbar spine. There is lower lumbar spine facet arthropathy. Cholecystectomy changes are again seen. Stable 10 mm fat density involving left adrenal gland which may represent a myelolipoma. The liver, spleen, pancreas and adrenal glands are otherwise unremarkable. Stable nonobstructive staghorn-like calcification involving the inferior aspect of left kidney which measures 2.9 cm x 1.5 cm. There are no other renal stones seen. Again noted multiple bilateral renal cysts with the largest in the left kidney. There is no hydronephrosis. Small amount of fluid within the bladder seen. There is diffuse bladder wall thickening which is nonspecific. There is fluid within the rectum, sigmoid colon and air-fluid levels throughout the rest of the colon. The colon is mildly distended measuring up to 8.6 cm in greatest width in the region of the cecum. There is a persistent area of contraction with bowel wall thickening involving the proximal sigmoid colon with associated luminal narrowing. Appendix is unremarkable. Small bowel is unremarkable. Stomach is unremarkable. There is no intra-abdominal free air or free fluid. The extraabdominal and extrapelvic soft tissue structures are unremarkable. IMPRESSION: 1: There is an area of persistent wall thickening and luminal narrowing involving the proximal sigmoid colon. Colon neoplasm should be excluded. Double contrast barium enema or colonoscopy is suggested. 2: There are air-fluid levels throughout the colon and rectosigmoid region with dilation of the proximal colon. This finding has slightly progressed compared to prior study. This may represent partial colonic obstruction at the level of the narrowing of the proximal sigmoid colon. 3: There is no significant lymphadenopathy. 4: Nonobstructive left renal calculi noted. 5: The remainder of this exam is stable. Assessment/Plan Assessment/Plan Assessment/Plan Assessment: Partial colonic obstruction - Wall thickening and narrowing of the proximal sigmoid colon - Cannot exclude neoplasm - Air fluid levels throughout colon Nephrolithiasis - Nonobstructive, left Hypertensive urgency vs. emergency - BP persistently elevated ANTONETTE - BUN and Cr elevated - 20 and 1.39 respectively Hypokalemia Nausea Abdominal Pain Plan: IVF and clear liquids at this time BP control. Consider hydralazine PRN and restart home meds as tolerated Will need colonoscopy. Plan for inpatient vs. outpatient. Inpatient if patient can tolerate prep at this time If conservative management fails consider possible surgical intervention, not indicated at this time but will continue to monitor closely JAGUAR LAGUNAS DO 11/17/21 1722: History of Present Illness History of Present Illness History of Present Illness Consult requested by Dr. Norris for partial colonic obstruction. Patient is a 60-year-old male who presented to the emergency department with generalized abdominal pain. He is also having some abdominal distention. Patient is not passing any gas or bowel movement. Patient moderate discomfort. Patient had a CT scan which demonstrated an area of sigmoid thickening suggestive of causing a partial colonic obstruction, neoplasm cannot be excluded. He also had a nonobstructing left renal calculi. Patient notes that his last colonoscopy was approximately 5 years ago. He did have a similar episode of abdominal discomfort and bloating less than a year ago. Patient no other complaints at this time. Having nausea. Denies any fever sweats chills shortness of breath or chest pain at this time. Allergies and Home Medications Allergies Coded Allergies: No Known Drug Allergies (Unverified , 01/09/17) Patient Home Medication List Home Medication List Reviewed: Yes Diltiazem HCl (Diltiazem ER) 360 Mg Capsule.er, 360 MG PO DAILY, (Reported) Entered as Reported by: CEDRIC ANTHONY on 06/18/21 104 Last Action: Reviewed Gabapentin (Neurontin) 300 Mg Capsule, 300 MG PO TID, (Reported) Entered as Reported by: CEDRIC ANTHONY on 06/18/21 104 Last Action: Reviewed Glimepiride (Glimepiride) 4 Mg Tablet, 8 MG PO DAILY, (Reported) Entered as Reported by: CEDRIC ANTHONY on 06/18/21 104 Last Action: Reviewed Guaifenesin (Mucus Relief) 600 Mg Tab.er.12h, 600 MG PO Q12H PRN for CONGESTION, (Reported) Entered as Reported by: CEDRIC ANTHONY on 06/18/211039 Last Action: Reviewed Insulin Degludec (Tresiba Flextouch U-200) 200 Unit/1 Ml Insuln.pen, 50 UNITS SC DAILY, (Reported) Entered as Reported by: CEDRIC ANTHONY on 06/18/211039 Last Action: Reviewed Lisinopril (Lisinopril) 40 Mg Tablet, 40 MG PO DAILY, (Reported) Entered as Reported by: CEDRIC ANTHONY on 06/18/211039 Last Action: Continued Metoprolol Succinate (Metoprolol Succinate) 50 Mg Tab.er.24h, 50 MG PO DAILY, (Reported) Entered as Reported by: CEDRIC ANTHONY on 11/16/21 122 Last Action: Continued Orphenadrine Citrate (Orphenadrine Citrate) 100 Mg Tablet.er, 100 MG PO BID, (Reported) Entered as Reported by: CEDRIC ANTHONY on 06/18/211039 Last Action: Reviewed Pantoprazole Sodium (Pantoprazole Sodium) 40 Mg Tablet.dr, 40 MG PO DAILY, (Reported) Entered as Reported by: CEDRIC ANTHONY on 06/18/211039 Last Action: Reviewed Pioglitazone HCl (Pioglitazone HCl) 30 Mg Tablet, 30 MG PO DAILY, (Reported) Entered as Reported by: CEDRIC ANTHONY on 06/18/211039 Last Action: Reviewed Ropinirole HCl (Ropinirole HCl) 4 Mg Tablet, 4 MG PO BID, (Reported) Entered as Reported by: CEDRIC ANTHONY on 06/18/211039 Last Action: Reviewed Semaglutide (Ozempic) 1 Mg/0.75 Ml Pen.injctr, 1 MG SQ SUN, (Reported) Entered as Reported by: CEDRIC ANTHONY on 06/18/211039 Last Action: Reviewed Past Kbhxvvo-Kkpzeq-Jbqptg Hx Reviewed Nursing Assessment Reviewed/Agree w Nursing PMH: Yes Family Medical History Significant Family History: Heart Disease, Cancer Family Medial History: Diabetes mellitus 19 MOTHER G8 SISTER FH: lung cancer 19 MOTHER Hypertension 19 FATHER 19 MOTHER G8 SISTER Kidney stone G8 SISTER Parkinson's disease G8 SISTER Prostate cancer 19 FATHER Review of Systems-General Constitutional: No chills, No fever EENTM: No blurred vision, No double vision Respiratory: No dyspnea on exertion, No short of breath Cardiovascular: No chest pain, No palpitations Gastrointestinal: abdominal pain, constipation, nausea Genitourinary: No decreased output, No discharge Musculoskeletal: No back pain, No joint pain Skin: No change in color, No change in hair/nails Psychiatric/Neurological: Denies Anxiety, Denies Depressed, Denies Emotional Problems All Other Systems Reviewed Negative Unless Noted: Yes (Negative excepted noted.) Physical Exam-General Problems Physical Exam General Appearance: WD/WN, no apparent distress HEENT: PERRL/EOMI, normal ENT inspection Neck: non-tender, supple Respiratory: chest non-tender, no respiratory distress, no accessory muscle use Cardiovascular: regular rate, rhythm, no JVD Gastrointestinal: distended, tenderness (Minimal generalized) Rectal: deferred Extremities: non-tender, normal inspection Neurologic/Psychiatric: no motor/sensory deficits, alert, normal mood/affect, oriented x 3 Skin: normal color, warm/dry Lymphatic: no adenopathy Assessment/Plan Assessment/Plan Assessment/Plan Partial colonic obstruction - Wall thickening and narrowing of the proximal sigmoid colon - Cannot exclude neoplasm - Air fluid levels throughout colon Nephrolithiasis - Nonobstructive, left Hypertensive urgency vs. emergency - BP persistently elevated ANTONETTE - BUN and Cr elevated - 20 and 1.39 respectively Hypokalemia Nausea Abdominal Pain Plan: IVF and clear liquids at this time BP control. Consider hydralazine PRN and restart home meds as tolerated Will need colonoscopy. Plan for inpatient vs. outpatient. Inpatient if patient can tolerate prep at this time If conservative management fails consider possible surgical intervention, not indicated at this time but will continue to monitor closely Supervisory-Addendum Brief Verification & Attestation Participated in pt care: history, MDM, physical Personally performed: exam, history, MDM, supervision of care Care discussed with: Medical Student Procedures: n/a Results interpretation: Verified all documentation Verification and Attestation of Medical Student E/M Service A medical student performed and documented this service in my presence. I reviewed and verified all information documented by the medical student and made modifications to such information, when appropriate. I personally performed the physical exam and medical decision making. Jaguar Lagunas, Nov 16, 2021,20:24 [facility] Nov 16, 2021 21:45 JAGUAR LAGUNAS DO Nov 17, 2021 17:22
[2021-11-17 00:10] VITALS: BP 175/85
[2021-11-17] MEDS: NS IV 1000 ML 1,000 ML IV SCH (01:54)
[2021-11-17 04:46] VITALS: BP 177/96
[2021-11-17 05:39] LABS: BASOPHILS % (AUTO) 0 % (0-10); EOSINOPHILS # (AUTO) 0.1 10^3/uL (0.0-0.3); EOSINOPHILS % (AUTO) 1 % (0-10); HEMATOCRIT 40 % (40-54); HEMOGLOBIN 13.9 g/dL (13.3-17.7); LYMPHOCYTES # (AUTO) 1.8 10^3/uL (1.0-4.0); LYMPHOCYTES % (AUTO) 18 % (12-44); MEAN CORPUSCULAR HEMOGLOBIN 30 pg (25-34); MEAN CORPUSCULAR HGB CONC 35 g/dL (32-36); MEAN CORPUSCULAR VOLUME 85 fL (80-99); MEAN PLATELET VOLUME 11.8 fL (9.0-12.2); MONOCYTES # (AUTO) 0.7 10^3/uL (0.0-1.0); MONOCYTES % (AUTO) 8 % (0-12); NEUTROPHILS # (AUTO) 7.1 10^3/uL (1.8-7.8); NEUTROPHILS % (AUTO) 73 % (42-75); PLATELET COUNT 160 10^3/uL (130-400); WHITE BLOOD COUNT 9.7 10^3/uL (4.3-11.0)
[2021-11-17 05:45] LABS: POTASSIUM 3.1 MMOL/L (3.6-5.0)
[2021-11-17 05:46] LABS: CALCIUM 8.4 MG/DL (8.5-10.1)
[2021-11-17] MEDS: inSUlin ASPART (NovoLOG) 1 UNIT/0.01 ML (CHARGE PER UNIT) SC SCH (05:48)
[2021-11-17 05:50] LABS: CREATININE SERUM 0.96 MG/DL (0.60-1.30)
--- NOTE | 2021-11-17 07:35 | Progress Note - Surgery ---
[facility] 11/17/21 0735: Subjective Date Seen by a Provider: Nov 17, 2021 Time Seen by a Provider: 06:40 Subjective/Events-last exam Mr. Escalante is being followed for partial bowel obstruction. This morning he reports that he feels well and he denies abdominal pain. He said he had 2 bowel movements last night which were mostly liquid with some slightly formed stool. He has been walking around his room and the halls. He thinks his stomach is slightly bloated but not too much. Review of Systems General: No Chills, No Fatigue Pulmonary: No Dyspnea, No Cough Cardiovascular: No: Chest Pain, Palpitations Gastrointestinal: No: Nausea, Vomiting, Abdominal Pain Neurological: No: Weakness, Confusion Focused Exam Lactate Level 11/16/21 06:00: Lactic Acid Level 0.73 Objective Exam Vital Signs Date Time Temp Pulse Resp B/P (MAP) Pulse Ox O2 Delivery O2 Flow Rate FiO2 11/17/21 04:46 37.4 85 18 177/96 (123) 97 Room Air 11/17/21 00:10 36.4 84 18 175/85 (115) 97 Room Air 11/16/21 20:45 Room Air 11/16/21 19:33 36.0 90 18 170/80 (110) 97 Room Air 11/16/21 16:00 35.8 88 18 186/97 (126) 98 Room Air 11/16/21 13:11 36.4 73 97 11/16/21 12:12 36.4 73 180/100 (126) Room Air 11/16/21 09:15 36.6 73 20 176/99 (124) Room Air 11/16/21 08:51 Room Air 11/16/21 08:45 75 182/93 97 Room Air I & O 11/17/21 07:00 Intake Total 1950 ml Output Total 3 ml Balance 1947 ml Capillary Refill : Less Than 3 Seconds General Appearance: No Apparent Distress, WD/WN HEENT: PERRL/EOMI, Moist Mucous Membranes Neck: Normal Inspection, Non Tender, Supple Respiratory: Chest Non Tender, Lungs Clear, Normal Breath Sounds, No Accessory Muscle Use, No Respiratory Distress Cardiovascular: Regular Rate, Rhythm, No Edema, No JVD, No Murmur, Normal Peripheral Pulses Peripheral Pulses: 2+ Radial Pulses (R), 2+ Radial Pulses (L) Gastrointestinal: normal bowel sounds, non tender, distended (Slightly dist ended and firm); No guarding, No tenderness Extremity: Normal Capillary Refill, Non Tender, No Pedal Edema Neurologic/Psychiatric: Alert, Oriented x3, No Motor/Sensory Deficits, Normal Mood/Affect; No Aphasia, No Facial Droop Skin: Normal Color, Warm/Dry Results Lab Laboratory Tests 11/16/21 11:08: Glucometer 106 11/16/21 15:29: Glucometer 91 11/16/21 20:02: Glucometer 99 11/17/21 05:00: White Blood Count 9.7, Red Blood Count 4.70, Hemoglobin 13.9, Hematocrit 40, Mean Corpuscular Volume 85, Mean Corpuscular Hemoglobin 30, Mean Corpuscular Hemoglobin Concent 35, Red Cell Distribution Width 13.2, Platelet Count 160, Mean Platelet Volume 11.8, Immature Granulocyte % (Auto) 0, Neutrophils (%) (Auto) 73, Lymphocytes (%) (Auto) 18, Monocytes (%) (Auto) 8, Eosinophils (%) (Auto) 1, Basophils (%) (Auto) 0, Neutrophils # (Auto) 7.1, Lymphocytes # (Auto) 1.8, Monocytes # (Auto) 0.7, Eosinophils # (Auto) 0.1, Basophils # (Auto) 0.0, Immature Granulocyte # (Auto) 0.0, Sodium Level 139, Potassium Level 3.1L, Chloride Level 108H, Carbon Dioxide Level 21, Anion Gap 10, Blood Urea Nitrogen 10, Creatinine 0.96, Estimat Glomerular Filtration Rate 90, BUN/Creatinine Ratio 10, Glucose Level 74, Calcium Level 8.4L Assessment/Plan Assessment/Plan Assessment/Plan Assessment: Partial colonic obstruction - Wall thickening and narrowing of the proximal sigmoid colon - Cannot exclude neoplasm - Air fluid levels throughout colon Nephrolithiasis - Nonobstructive, left Hypertensive urgency vs. emergency - BP persistently elevated ANTONETTE, resolved - BUN and Cr at 10 and 0.96 this morning Hypokalemia - 3.3 at admission and 3.1 this morning Nausea Abdominal Pain Plan: IVF and clear liquids at this time Consider potassium replacement BP control. Consider hydralazine PRN and restart home meds as tolerated Will need colonoscopy. Consider prep today and colonoscopy tomorrow if tolerated If conservative management fails consider possible surgical intervention, not indicated at this time but will continue to monitor closely BUNNY ELDER DO 11/17/21 1731: Subjective Subjective/Events-last exam Patient had multiple bowel movements last night. Feeling significantly better since these past. He is not having any abdominal pain at this time. Wanting to go home. He is tolerating diet. He is not having any nausea or vomiting fever sweats chills shortness of breath or chest pain. Objective Exam General Appearance: No Apparent Distress, WD/WN HEENT: PERRL/EOMI Neck: Normal Inspection, Non Tender, Supple Respiratory: Chest Non Tender, No Accessory Muscle Use, No Respiratory Distress Cardiovascular: Regular Rate, Rhythm, No JVD Gastrointestinal: non tender, distended (Minimal); No guarding, No tenderness Extremity: Normal Capillary Refill, Non Tender Neurologic/Psychiatric: Alert, Oriented x3, No Motor/Sensory Deficits Skin: Normal Color, Warm/Dry Lymphatic: No Adenopathy Assessment/Plan Assessment/Plan Assessment/Plan Partial colonic obstruction - Wall thickening and narrowing of the proximal sigmoid colon - Cannot exclude neoplasm - Air fluid levels throughout colon Nephrolithiasis - Nonobstructive, left Hypertensive urgency vs. emergency - BP persistently elevated ANTONETTE, resolved - BUN and Cr at 10 and 0.96 this morning Hypokalemia - 3.3 at admission and 3.1 this morning Nausea Abdominal Pain BP control. Consider hydralazine PRN and restart home meds as tolerated Will need colonoscopy. Patient wanting to go home. Will give prep instructions and plan on Colonoscopy Friday, he understands risks and benefits. Supervisory-Addendum Brief Verification & Attestation Participated in pt care: history, MDM, physical Personally performed: exam, history, MDM, supervision of care Care discussed with: Medical Student Procedures: n/a Results interpretation: Verified all documentation Verification and Attestation of Medical Student E/M Service A medical student performed and documented this service in my presence. I reviewed and verified all information documented by the medical student and made modifications to such information, when appropriate. I personally performed the physical exam and medical decision making. Bunny Elder, Nov 17, 2021,17:31 [facility] Nov 17, 2021 07:35 BUNNY ELDER DO Nov 17, 2021 17:31
[2021-11-17 08:00] VITALS: BP 179/89
[2021-11-17] MEDS ORDERED: meTOproloL SUCCINATE 50 MG (TOPROL XL) TAB PO SCH (09:00)
[2021-11-17] MEDS ORDERED: lisINopril 40 MG (PRINIVIL) TABLET PO SCH (09:00)
--- NOTE | 2021-11-17 09:58 | Discharge Summary ---
Diagnosis/Chief Complaint Date of Admission Nov 16, 2021 at 07:37 Date of Discharge Admission Diagnosis partial colonic obstruction Primary Care Jan Garg MD Discharge Diagnosis (1) Insulin dependent diabetes mellitus (2) Acute kidney injury superimposed on chronic kidney disease (3) Hypertensive urgency Status: Acute (4) Partial obstruction of colon Status: Acute Discharge Summary Discharge Physical Exam Allergies: Coded Allergies: No Known Drug Allergies (Unverified , 01/09/17) Vitals & I&Os Vital Signs Date Time Temp Pulse Resp B/P (MAP) Pulse Ox O2 Delivery O2 Flow Rate FiO2 11/17/21 11:16 35.9 81 16 179/89 96 Room Air 0.00 General Appearance: No Apparent Distress, WD/WN Cardiovascular: Regular Rate, Rhythm, No Murmur Gastrointestinal: Normal Bowel Sounds, Soft Neurologic/Psychiatric: Alert, Oriented x3 Hospital Course Patient was admitted to the hospital secondary to a partial colonic obstruction. This is the second time this is happened in the past 5 months for the patient. He was admitted and treated conservatively with resolution of symptoms. He had multiple large bowel movements prior to discharge and pain was controlled. Surgery was consulted and Dr. Elder saw patient and recommended outpatient colonoscopy. He is to follow-up with Dr. Elder for that this week. Labs (last 24 hrs) Laboratory Tests 11/16/21 15:29: Glucometer 91 11/16/21 20:02: Glucometer 99 11/17/21 05:00: White Blood Count 9.7, Red Blood Count 4.70, Hemoglobin 13.9, Hematocrit 40, Mean Corpuscular Volume 85, Mean Corpuscular Hemoglobin 30, Mean Corpuscular Hemoglobin Concent 35, Red Cell Distribution Width 13.2, Platelet Count 160, Mean Platelet Volume 11.8, Immature Granulocyte % (Auto) 0, Neutrophils (%) (Auto) 73, Lymphocytes (%) (Auto) 18, Monocytes (%) (Auto) 8, Eosinophils (%) (Auto) 1, Basophils (%) (Auto) 0, Neutrophils # (Auto) 7.1, Lymphocytes # (Auto) 1.8, Monocytes # (Auto) 0.7, Eosinophils # (Auto) 0.1, Basophils # (Auto) 0.0, Immature Granulocyte # (Auto) 0.0, Sodium Level 139, Potassium Level 3.1L, Chloride Level 108H, Carbon Dioxide Level 21, Anion Gap 10, Blood Urea Nitrogen 10, Creatinine 0.96, Estimat Glomerular Filtration Rate 90, BUN/Creatinine Ratio 10, Glucose Level 74, Calcium Level 8.4L Patient resulted labs reviewed. Pending Labs Laboratory Tests 11/17/21 05:00: White Blood Count 9.7, Red Blood Count 4.70, Hemoglobin 13.9, Hematocrit 40, M thomas Corpuscular Volume 85, Mean Corpuscular Hemoglobin 30, Mean Corpuscular Hemoglobin Concent 35, Red Cell Distribution Width 13.2, Platelet Count 160, Mean Platelet Volume 11.8, Immature Granulocyte % (Auto) 0, Neutrophils (%) (Auto) 73, Lymphocytes (%) (Auto) 18, Monocytes (%) (Auto) 8, Eosinophils (%) (Auto) 1, Basophils (%) (Auto) 0, Neutrophils # (Auto) 7.1, Lymphocytes # (Auto) 1.8, Monocytes # (Auto) 0.7, Eosinophils # (Auto) 0.1, Basophils # (Auto) 0.0, Immature Granulocyte # (Auto) 0.0, Sodium Level 139, Potassium Level 3.1, Chloride Level 108, Carbon Dioxide Level 21, Anion Gap 10, Blood Urea Nitrogen 10, Creatinine 0.96, Estimat Glomerular Filtration Rate 90, BUN/Creatinine Ratio 10, Glucose Level 74, Calcium Level 8.4 Imaging: Reviewed Imaging Report Discussion & Recommendations Discharge Planning: >30 minutes discharge planning Discharge Home Medications: Active Scripts Active Reported Metoprolol Succinate 50 Mg Tab.er.24h 50 Mg PO DAILY Mucus Relief (Guaifenesin) 600 Mg Tab.er.12h 600 Mg PO Q12H PRN Diltiazem ER (Diltiazem HCl) 360 Mg Capsule.er 360 Mg PO DAILY Neurontin (Gabapentin) 300 Mg Capsule 300 Mg PO TID Orphenadrine Citrate 100 Mg Tablet.er 100 Mg PO BID Ropinirole HCl 4 Mg Tablet 4 Mg PO BID Pioglitazone HCl 30 Mg Tablet 30 Mg PO DAILY Glimepiride 4 Mg Tablet 8 Mg PO DAILY TAKES 2 (4MG) TABS Lisinopril 40 Mg Tablet 40 Mg PO DAILY Ozempic (Semaglutide) 1 Mg/0.75 Ml Pen.injctr 1 Mg SQ SUN Tresiba Flextouch U-200 (Insulin Degludec) 200 Unit/1 Ml Insuln.pen 50 Units SC DAILY Pantoprazole Sodium 40 Mg Tablet.dr 40 Mg PO DAILY Instructions to patient/family Please see electronic discharge instructions given to patient. HAYDEE MTZ MD Nov 17, 2021 09:58
--- NOTE | 2021-11-17 10:02 | Discharge Inst-Simple/Standard ---
Discharge Inst-Standard Patient Instructions/Follow Up Plan of Care/Instructions/FU: Please continue to take your medications as written. Please follow up with Dr Elder as scheduled on Friday. Activity as Tolerated: Yes Discharge Diet: No Restrictions Return to The Hospital For: Chest pain, shortness of breath, abdominal pain, weakness, constipation, if you feel you are getting worse. HAYDEE MTZ MD Nov 17, 2021 10:02
[2021-11-17 11:16] VITALS: BP 179/89
== END 2021-11-17 10:02 | disposition home or self-care (01) ==
LOC: EDUNIT# 04:42 → ER 04:46 → UNDOADMOB 07:37 → 4TH 07:37 → UNDODISOB 11-17 11:15
PROVIDERS: ADMIT Family Medicine; ATTEND Family Medicine
DX: E11.9 Type 2 diabetes mellitus without complications (principal); E11.22 Type 2 diabetes mellitus with diabetic chronic kidney disease; N18.9 Chronic kidney disease, unspecified; N17.9 Acute kidney failure, unspecified; I16.0 Hypertensive urgency; K56.600 Partial intestinal obstruction, unspecified as to cause; N20.0 Calculus of kidney; F17.210 Nicotine dependence, cigarettes, uncomplicated; Z79.4 Long term (current) use of insulin; Z79.899 Other long term (current) drug therapy
CPT/HCPCS: 74177; 80048; 80053; 81000; 82805; 82947; 83605; 83690; 85025 ×2; 86141; 94760; 96360; 96361 ×2; 96374 ×2; 96375 ×2; 96376; 99291; G0378; G0480; 36415; 80320

== ENCOUNTER 2021-11-20 10:08 | Day surgery (SDC) | payer BC, MEDICARE ==
[~2021-11-20] VITALS: Ht 193 cm; Wt 102.5 kg
[~2021-11-20 10:08] MED LIST changes: +METO50TA7 PO
[2021-11-20] MEDS ORDERED: LACTATED RINGERS 1,000 ML IV STA (10:17)
[2021-11-20 10:25] VITALS: BP 176/83
--- NOTE | 2021-11-20 10:58 | Progress Note-Pre Operative ---
Pre-Operative Progress Note H&P Reviewed The H&P was reviewed, patient examined and no changes noted. Date Seen by Provider: Nov 20, 2021 Time Seen by Provider: 10:58 Date H&P Reviewed: Nov 20, 2021 Time H&P Reviewed: 10:58 Pre-Operative Diagnosis: Partial colonic obstruction BUNNY LAGUNAS DO Nov 20, 2021 10:58
[2021-11-20] MEDS ORDERED: PROPOFOL INJECTION 50 ML IV ONE ×2 (12:02→12:28)
--- NOTE | 2021-11-20 13:21 | Progress Note-Post Operative ---
Post-Operative Progess Note Surgeon (s)/Helper Coordinator (s) Surgeon BUNNY LAGUNAS DO Helper Coordinator: none Pre-Operative Diagnosis Partial colonic obstruction Post-Operative Diagnosis Colon polyps x3 Procedure & Operative Findings Date of Procedure 11/20/21 Procedure Performed/Findings Colonoscopy with hot biopsy polypectomy x3 Anesthesia Type per MAINTENANCE HELPER Estimated Blood Loss Estimated blood loss (mL): none Specimens/Packing Specimens Removed Ascending polyp x1, hepatic flexure polyp x1, rectal polyp x1. BUNNY LAGUNAS DO Nov 20, 2021 13:21
[2021-11-20 13:22] VITALS: BP 99/51
--- NOTE | 2021-11-20 13:22 | Discharge Inst-Simple/Standard ---
Discharge Inst-Standard Patient Instructions/Follow Up Plan of Care/Instructions/FU: 2 weeks Jael Activity as Tolerated: Yes Discharge Diet: Regular Diet BUNNY LAGUNAS DO Nov 20, 2021 13:22
[2021-11-20 13:27] VITALS: BP 98/51
[2021-11-20 13:30] VITALS: BP 129/69
[2021-11-20 13:53] VITALS: BP 158/91
--- NOTE | 2021-11-20 14:10 | Anesthesia-General Post-Op ---
MAC Patient Condition Mental Status/LOC: Same as Preop Cardiovascular: Satisfactory Nausea/Vomiting: Absent Respiratory: Satisfactory Pain: Controlled Complications: Absent Post Op Complications Complications None Follow Up Care/Instructions Patient Instructions None needed. Anesthesiology Discharge Order Discharge Order Patient was doing well after the procedure, no complaints, stable vital signs, no apparent adverse anesthesia problems. JAZZ BIRMINGHAM DO Nov 20, 2021 14:10
--- NOTE | 2021-11-20 16:20 | OPERATIVE REPORT ---
DATE OF SERVICE: 11/20/2021 PREOPERATIVE DIAGNOSIS: Partial colonic obstruction. POSTOPERATIVE DIAGNOSIS: Colon polyps. PROCEDURE: Colonoscopy with hot biopsy polypectomy x3. SURGEON: Bunny Elder DO ANESTHESIA: Per PHYSICIAN OFFICE SPECIALIST. ESTIMATED BLOOD LOSS: None. COMPLICATIONS: None. INDICATIONS: The patient is a 61-year-old male with recent admission to the hospital due to partial colonic obstruction. It was recommended to have colonoscopy for further evaluation. He understands risks and benefits of procedure and wished to proceed. Consent was signed in the chart. DESCRIPTION OF PROCEDURE: The patient was taken to the endoscopy suite, placed in left lateral recumbent position. Timeout was performed. Digital rectal exam was performed. There were no palpable polyps, masses or ulcerations. Scope was inserted in the rectum, advanced all the way to the cecum had a very redundant colon and repositioned multiple times in order to get to the cecum. Once in the cecum, scope was then slowly retracted back in the ascending. No polyps, masses, or ulcerations visualized within the cecum. The prep lots of irrigation and suction performed over 2 liters of stool suctioned. Scope was slowly retracted back. No polyps, masses, or ulcerations in the cecum. In the ascending colon, a large polyp was present, which hot biopsy polypectomy was performed. This was also cauterized. Scope was then continuously retracted back until the hepatic flexure where a polyp was present, which hot biopsy polypectomy was performed. Scope was then continuously retracted back. No polyps, masses, or ulcerations visualized within the transverse, descending, and sigmoid colon. No obstructing masses, no narrowing. Once in the rectum, it was retroflexed noting no other pathology. Scope was returned to its normal position, noting a small polyp present, which hot biopsy polypectomy was performed. Scope was slowly retracted back until completely removed. The patient tolerated the procedure well without any complications. He was taken to recovery room in stable condition. RECOMMENDATIONS: Due to larger polyp in the ascending colon, we will repeat colonoscopy in 6 months. We will do a 2-day prep at that time. Any issues before that be seen at that time. Job ID: [id number] DocumentID: [id number] Dictated Date: 11/20/2021 13:23:10 Arts And Crafts Teacher Date: 11/20/2021 16:19:29 Dictated By: BUNNY ELDER DO
== END 2021-11-20 14:28 | disposition home or self-care (01) ==
LOC: ENDO 10:08
PROVIDERS: ATTEND Surgery
DX: D12.3 Benign neoplasm of transverse colon (principal); D12.2 Benign neoplasm of ascending colon; K62.1 Rectal polyp; K56.600 Partial intestinal obstruction, unspecified as to cause; N20.0 Calculus of kidney; I16.0 Hypertensive urgency; N17.9 Acute kidney failure, unspecified; E87.6 Hypokalemia; F17.210 Nicotine dependence, cigarettes, uncomplicated; Z79.899 Other long term (current) drug therapy
CPT/HCPCS: 82947; 88305

== ENCOUNTER 2022-02-24 05:23 | Observation (INO) | payer BC, MEDICARE ==
[~2022-02-24] VITALS: Ht 193 cm; Wt 98.0 kg
[2022-02-24 05:45] LABS: BILIRUBIN,URINE NEGATIVE (NEGATIVE); CLARITY,URINE CLEAR; COLOR,URINE YELLOW; GLUCOSE, URINE (UA) 1+ (NEGATIVE); KETONES,URINE 1+ (NEGATIVE); LEUKOCYTE ESTERASE ,URINE NEGATIVE (NEGATIVE); NITRITE,URINE NEGATIVE (NEGATIVE); PH,URINE 5.5 (5-9); PROTEIN,URINE 2+ (NEGATIVE)
[2022-02-24] MEDS ORDERED: NS IV 1000 ML 1,000 ML IV SCH (05:45)
[2022-02-24] MEDS ORDERED: ONDANSETRON 4 MG/2 ML (SDV) Z0FRAN IVP ONE ×2 (05:45→09:15)
[2022-02-24 05:54] LABS: BACTERIA,URINE FEW /HPF; SQUAMOUS EPITHELIAL CELL,UR 0-2 /HPF; WBC,URINE 0-2 /HPF
[2022-02-24 06:02] LABS: BASOPHILS % (AUTO) 0 % (0-10); EOSINOPHILS % (AUTO) 0 % (0-10)
[2022-02-24 06:04] LABS: HEMATOCRIT 42 % (40-54); HEMOGLOBIN 14.9 g/dL (13.3-17.7); LYMPHOCYTES % (AUTO) 8 % (12-44); MEAN CORPUSCULAR HEMOGLOBIN 30 pg (25-34); MEAN CORPUSCULAR HGB CONC 36 g/dL (32-36); MEAN CORPUSCULAR VOLUME 84 fL (80-99); MEAN PLATELET VOLUME 11.3 fL (9.0-12.2); MONOCYTES # (AUTO) 0.8 10^3/uL (0.0-1.0); MONOCYTES % (AUTO) 6 % (0-12); NEUTROPHILS # (AUTO) 11.1 10^3/uL (1.8-7.8); NEUTROPHILS % (AUTO) 86 % (42-75); PLATELET COUNT 135 10^3/uL (130-400)
[2022-02-24 06:26] LABS: ALBUMIN 3.5 GM/DL (3.2-4.5); BILIRUBIN,TOTAL 1.4 MG/DL (0.1-1.0); CALCIUM 8.8 MG/DL (8.5-10.1); CREATININE SERUM 1.13 MG/DL (0.60-1.30); MAGNESIUM 1.2 MG/DL (1.6-2.4); POTASSIUM 3.2 MMOL/L (3.6-5.0); TOTAL PROTEIN 6.5 GM/DL (6.4-8.2)
--- NOTE | 2022-02-24 06:27 | Diagnostic Imaging Report ---
CLINICAL INDICATION: Patient with fever. EXAM: Portable chest x-ray upright view. COMPARISON: Chest x-ray dated 06/18/2021. FINDINGS: Lungs/pleura: Lungs are clear. There is no pneumothorax. There is no pleural effusion. Mediastinum: Unremarkable. Pulmonary vasculature: Unremarkable. Heart: Unremarkable. Bones/extrathoracic soft tissue: There are hypertrophic spurs involving the thoracic spine. IMPRESSION: There is no radiographic evidence of acute cardiopulmonary process. Dictated by: Dictated on workstation # [id number]
[2022-02-24] MEDS ORDERED: POTASSIUM CL 10MEQ/50ML IVPB 50 ML IV ONE (06:30)
[2022-02-24] MEDS ORDERED: morphine INJ 10 MG/ML 1ML (SYR OR VIAL) IVP STA (06:36)
[2022-02-24 06:42] LABS: ERYTHROCYTE SEDIMENTATION RATE 17 MM/HR (0-30)
[2022-02-24 06:54] LABS: LYMPHOCYTES % (MANUAL) 7 %; MONOCYTES % (MANUAL) 5 %; NEUTROPHILS % (MANUAL) 88 %; PLATELET CLUMPS NONE OBSERVED; RBC MORPH NORMAL
--- NOTE | 2022-02-24 06:56 | ED Abdominal Pain ---
General Chief Complaint: Abdominal/GI Problems Stated Complaint: ABD PAIN,N/V,CHILLS Nursing Triage Note: PT ARRIVAL TO ER WITH ABDOMINAL PAIN, N/V THAT STARTED FRIDAY MORNING. PT STATES THAT HE WAS SEEN A WHILE BACK WITH SAME SYMPTOMS AND IT WOUND UP BEING A BOWEL OBSTRUCTION. PT STATES THAT HE FEELS LIKE ITS PROBABLY THAT AGAIN. PT DESCRIBES PAIN A TIGHTNESS/FULLNESS OF ABDOMEN. PT STATES THAT HE HASN'T BEEN ABLE TO SLEEP, AND IF HE TRIES TO EAT OR DRINK THE SMALLEST AMOUNT HE VOMITS. PT STATES THAT HE ALSO HASN'T HAD A BOWEL MOVEMENT IN 3 DAYS. Source of Information: Patient, Old Records Exam Limitations: No Limitations History of Present Illness Date Seen by Provider: Feb 24, 2022 Time Seen by Provider: 05:31 Initial Comments This 61-year-old gentleman presents to the emergency room with complaints of abdominal pain, nausea, vomiting, cough, congestion, chest discomfort with vomiting, and subjective fever/chills. This is the third or fourth day of symptoms. He does have history of prior small bowel obstruction. He also has history of urinary tract infection and sepsis. He has not had a bowel movement in 3 days. He is hypertensive and has not been able to keep down his blood pressure medications. Allergies and Home Medications Allergies Coded Allergies: No Known Drug Allergies (Unverified , 02/24/22) Patient Home Medication List Home Medication List Reviewed: Yes Diltiazem HCl (Diltiazem ER) 360 Mg Capsule.er, 360 MG PO DAILY, (Reported) Entered as Reported by: CEDRIC ANTHONY on 06/18/21 104 Gabapentin (Neurontin) 300 Mg Capsule, 300 MG PO TID, (Reported) Entered as Reported by: CEDRIC ANTHONY on 06/18/21 104 Glimepiride (Glimepiride) 4 Mg Tablet, 8 MG PO DAILY, (Reported) Entered as Reported by: CEDRIC ANTHONY on 06/18/21 104 Guaifenesin (Mucus Relief) 600 Mg Tab.er.12h, 600 MG PO Q12H PRN for CONGESTION, (Reported) Entered as Reported by: CEDRIC ANTHONY on 06/18/21 104 Insulin Degludec (Tresiba Flextouch U-200) 200 Unit/1 Ml Insuln.pen, 50 UNITS SC DAILY, (Reported) Entered as Reported by: CEDRIC ANTHONY on 06/18/21 1040 Lisinopril (Lisinopril) 40 Mg Tablet, 40 MG PO DAILY, (Reported) Entered as Reported by: CEDRIC ANTHONY on 06/18/21 1040 Metoprolol Succinate (Metoprolol Succinate) 50 Mg Tab.er.24h, 50 MG PO DAILY, (Reported) Entered as Reported by: CEDRIC ANTHONY on 11/16/21 1227 Orphenadrine Citrate (Orphenadrine Citrate) 100 Mg Tablet.er, 100 MG PO BID, (Reported) Entered as Reported by: CEDRIC ANTHONY on 06/18/21 104 Pantoprazole Sodium (Pantoprazole Sodium) 40 Mg Tablet.dr, 40 MG PO DAILY, (Reported) Entered as Reported by: CEDRIC ANTHONY on 06/18/21 104 Pioglitazone HCl (Pioglitazone HCl) 30 Mg Tablet, 30 MG PO DAILY, (Reported) Entered as Reported by: CEDRIC ANTHONY on 06/18/21 104 Ropinirole HCl (Ropinirole HCl) 4 Mg Tablet, 4 MG PO BID, (Reported) Entered as Reported by: CEDRIC ANTHONY on 06/18/21 104 Semaglutide (Ozempic) 1 Mg/0.75 Ml Pen.injctr, 1 MG SQ SUN, (Reported) Entered as Reported by: CEDRIC ANTHONY on 06/18/21 104 Review of Systems Review of Systems Constitutional: see HPI EENTM: No Symptoms Reported Respiratory: See HPI Gastrointestinal: See HPI Genitourinary: No Symptoms Reported Musculoskeletal: no symptoms reported Skin: no symptoms reported Psychiatric/Neurological: No Symptoms Reported Endocrine: No Symptoms Reported Hematologic/Lymphatic: No Symptoms Reported Past Mahzbmx-Uffucl-Gtzfha Hx Patient Social History Tobacco Use?: Yes Tobacco type used: Cigars Smoking Status: Current Everyday Smoker Use of E-Cig and/or Vaping dev: No Substance use?: No Alcohol Use?: Yes Alcohol type: Beer Alcohol Frequency: Couple times a week Pt feels they are or have been: Yes Immunizations Up To Date Tetanus Booster (TDap): More than 5yrs PED Vaccines UTD: Yes Influenza Vaccine Up-to-Date: No; Not Current First/Initial COVID19 Vaccinat: STATES 2 VACCINES PLUS BOOSTER Second COVID19 Vaccination Charli: STATES 2 VACCINES PLUS BOOSTER Third COVID19 Vaccination Date: STATES 2 VACCINES PLUS BOOSTER Seasonal Allergies Seasonal Allergies: Yes Past Medical History Surgeries: Yes (COLONOSCOPY) Gallbladder, Orthopedic, Renal Respiratory: Yes Sleep Apnea Currently Using CPAP: No Cardiac: Yes High Cholesterol, Hypertension Neurological: Yes Neuropathy Reproductive Disorders: No Sexually Transmitted Disease: No HIV/AIDS: No Genitourinary: Yes Kidney Stones, Renal Failure Gastrointestinal: Yes Gastroesophageal Reflux, Chronic Diarrhea, Gall Bladder Disease, Irritable Bowel Musculoskeletal: Yes Arthritis Endocrine: Yes Diabetes, Non-Insulin dep HEENT: No Loss of Vision: Denies Hearing Impairment: Denies Cancer: No Psychosocial: No Depression Integumentary: No Blood Disorders: No Adverse Reaction/Blood Tranf: No Family Medical History Reviewed Nursing Family Hx Diabetes mellitus 19 MOTHER G8 SISTER FH: lung cancer 19 MOTHER Hypertension 19 FATHER 19 MOTHER G8 SISTER Kidney stone G8 SISTER Parkinson's disease G8 SISTER Prostate cancer 19 FATHER Heart Disease, Cancer Physical Exam Vital Signs Vital Signs - First Documented 02/24/22 05:40 Temp 37.7 Pulse 102 Resp 22 B/P (MAP) 200/101 (134) Pulse Ox 97 O2 Delivery Room Air Capillary Refill : Less Than 3 Seconds Height/Weight/BMI Height: 6'4.00" Weight: 240lbs. 0.0oz. 108.089457hn; 26.00 BMI Method:Stated General Appearance: WD/WN, mild distress HEENT: PERRL/EOMI, normal ENT inspection Neck: normal inspection Respiratory: lungs clear, normal breath sounds, no respiratory distress Cardiovascular: regular rate, rhythm, no edema, no murmur Gastrointestinal: abnormal bowel sounds (Decreased), distended, tenderness (Generalized, upper greater than lower) Extremities: normal inspection, no pedal edema Neurologic/Psychiatric: no motor/sensory deficits, alert, normal mood/affect, oriented x 3 Skin: normal color, warm/dry Focused Exam Lactate Level 02/24/22 05:48: Lactic Acid Level 1.48 Lactic Acid Level Laboratory Tests Test 02/24/22 05:48 Lactic Acid Level 1.48 MMOL/L (0.50-2.00) Progress/Results/Core Measures Results/Orders Lab Results Laboratory Tests Test 02/24/22 05:37 02/24/22 05:48 Range/Units Urine Color YELLOW Urine Clarity CLEAR Urine pH 5.5 5-9 Urine Specific [place] >=1.030 1.016-1.022 Urine Protein 2+ H NEGATIVE Urine Glucose (UA) 1+ H NEGATIVE Urine Ketones 1+ H NEGATIVE Urine Nitrite NEGATIVE NEGATIVE Urine Bilirubin NEGATIVE NEGATIVE Urine Urobilinogen 0.2 < = 1.0 MG/DL Urine Leukocyte Esterase NEGATIVE NEGATIVE Urine RBC (Auto) 2+ H NEGATIVE Urine RBC 2-5 H /HPF Urine WBC 0-2 /HPF Urine Squamous Epithelial Cells 0-2 /HPF Urine Crystals NONE /LPF Urine Bacteria FEW H /HPF Urine Casts PRESENT /LPF Urine Hyaline Casts 2-5 H /LPF Urine Mucus NEGATIVE /LPF Urine Culture Indicated CULTURE PENDING Influenza Type A (RT-PCR) Not Detected Not Detecte Influenza Type B (RT-PCR) Not Detected Not Detecte SARS-CoV-2 RNA (RT-PCR) Not Detected Not Detecte White Blood Count 13.0 H 4.3-11.0 10^3/uL Red Blood Count 4.97 4.30-5.52 10^6/uL Hemoglobin 14.9 13.3-17.7 g/dL Hematocrit 42 40-54 % Mean Corpuscular Volume 84 80-99 fL Mean Corpuscular Hemoglobin 30 25-34 pg Mean Corpuscular Hemoglobin Concent 36 32-36 g/dL Red Cell Distribution Width 12.9 10.0-14.5 % Platelet Count 135 130-400 10^3/uL Mean Platelet Volume 11.3 9.0-12.2 fL Immature Granulocyte % (Auto) 1 % Neutrophils (%) (Auto) 86 H 42-75 % Lymphocytes (%) (Auto) 8 L 12-44 % Monocytes (%) (Auto) 6 0-12 % Eosinophils (%) (Auto) 0 0-10 % Basophils (%) (Auto) 0 0-10 % Neutrophils # (Auto) 11.1 H 1.8-7.8 10^3/uL Lymphocytes # (Auto) 1.0 1.0-4.0 10^3/uL Monocytes # (Auto) 0.8 0.0-1.0 10^3/uL Eosinophils # (Auto) 0.0 0.0-0.3 10^3/uL Basophils # (Auto) 0.0 0.0-0.1 10^3/uL Immature Granulocyte # (Auto) 0.1 0.0-0.1 10^3/uL Neutrophils % (Manual) 88 % Lymphocytes % (Manual) 7 % Monocytes % (Manual) 5 % Clumped Platelets NONE OBSERVED Percent Immature Platelet Fraction 5.4 0.0-7.6 % Blood Morphology Comment NORMAL Erythrocyte Sedimentation Rate 17 0-30 MM/HR Prothrombin Time 14.0 12.2-14.7 SEC INR Comment 1.0 0.8-1.4 Activated Partial Thromboplast Time 31 24-35 SEC Sodium Level 136 135-145 MMOL/L Potassium Level 3.2 L 3.6-5.0 MMOL/L Chloride Level 101 98-107 MMOL/L Carbon Dioxide Level 21 21-32 MMOL/L Anion Gap 14 5-14 MMOL/L Blood Urea Nitrogen 15 7-18 MG/DL Creatinine 1.13 0.60-1.30 MG/DL Estimat Glomerular Filtration Rate 74 BUN/Creatinine Ratio 13 Glucose Level 277 H 70-105 MG/DL Lactic Acid Level 1.48 0.50-2.00 MMOL/L Calcium Level 8.8 8.5-10.1 MG/DL Corrected Calcium 9.2 8.5-10.1 MG/DL Magnesium Level 1.2 L 1.6-2.4 MG/DL Total Bilirubin 1.4 H 0.1-1.0 MG/DL Aspartate Amino Transf (AST/SGOT) 14 5-34 U/L Alanine Aminotransferase (ALT/SGPT) 13 0-55 U/L Alkaline Phosphatase 63 40-136 U/L C-Reactive Protein High Sensitivity 9.98 H 0.00-0.50 MG/DL Total Protein 6.5 6.4-8.2 GM/DL Albumin 3.5 3.2-4.5 GM/DL Lipase 19 8-78 U/L Procalcitonin 0.49 H <0.10 NG/ML My Orders Orders - KEVON POWELL MD Lipase (02/24/22 06:07) Potassium Cl 10meq/50ml Ivpb (Kcl 10 Meq (02/24/22 06:30) Ct Abdomen/Pelvis W (02/24/22 06:28) Morphine Injection (Morphine Injection (02/24/22 06:36) Iohexol Injection (Omnipaque 350 Mg/Ml 1 (02/24/22 07:00) Sodium Chloride Flush (Catheter Flush Sy (02/24/22 07:00) Ns (Ivpb) (Sodium Chloride 0.9% Ivpb Bag (02/24/22 07:00) Magnesium 1 Gm/100 Ml Ivpb (Magnesium Chang (02/24/22 07:15) Ns Iv 500 Ml (Sodium Chloride 0.9%) (02/24/22 07:15) Metoprolol Succinate (Xl) Tab (Toprol Xl (02/24/22 07:23) Lisinopril Tablet (Zestril Tablet) (02/24/22 07:23) Ondansetron Injection (Zofran Injectio (02/24/22 09:15) Lidocaine 2% Viscous 15 Ml (Xylocaine Vi (02/24/22 09:15) Antacid Suspension (Mylanta Suspension (02/24/22 09:15) Fentanyl Inj (Sublimaze Injection) (02/24/22 10:45) Code/Resuscitation (02/24/22 11:36) Medications Given in ED Current Medications Medications Dose Ordered Sig/Parvin Route Start Time Stop Time Status Last Admin Dose Admin Al Hydrox/Mg Hydrox/Simethicone 30 ml ONCE ONCE PO 02/24/22 09:15 02/24/22 09:16 DC 02/24/22 09:34 30 ML Fentanyl Citrate 75 mcg ONCE ONCE IVP 02/24/22 10:45 02/24/22 10:46 DC 02/24/22 10:40 75 MCG Lidocaine HCl 15 ml ONCE ONCE PO 02/24/22 09:15 02/24/22 09:16 DC 02/24/22 09:34 15 ML Ondansetron HCl 4 mg ONCE ONCE IVP 02/24/22 09:15 02/24/22 09:16 DC 02/24/22 09:19 4 MG Vital Signs/I&O 02/24/22 02/24/22 05:40 06:02 Temp 37.7 Pulse 102 Resp 22 B/P (MAP) 200/101 (134) Pulse Ox 97 97 O2 Delivery Room Air Room Air Blood Pressure Mean: 134 Progress Progress Note #1: Time: 06:59 Progress Note Patient was initially interviewed and assessed by Dr. BERNARD who placed the original orders. He demonstrates hypokalemia and hypomagnesemia which are being replaced by IV route. CRP and WBC were modestly elevated. IV fluids are also being infused. Zofran was administered for nausea and morphine administered for pain. CT read is pending. COVID and influenza screening were negative. Progress Note #2: Time: 07:22 Progress Note No bowel obstruction or other acute abdominal pathology was identified on CT. Despite receiving morphine, patient still is significantly hypertensive with systolic blood pressure in the 190s. He would like to try his oral medications since his nausea has been treated. Progress Note #3: Time: 11:54 Progress Note Blood pressure did improve on oral medications but is still elevated. Taking his medications caused epigastric pain. He was treated with an additional dose of Zofran followed by GI cocktail. This did not improve his pain. Fentanyl was then given for further pain management. Patient was offered an observation admission for electrolyte replacement and monitoring, management of symptoms, IV hydration, etc. Patient accepted the invitation for admission. We discussed CODE STATUS and he would like to remain full code. Case was reviewed with Dr. Norris and bridging orders were submitted. Diagnostic Imaging Diagonstic Imaging: Xray Plain Films/CT/US/NM/MRI: chest Comments Chest x-ray viewed by me and report reviewed. See report below: NAME: DARIN SUTTON JR [facility] REC#: [id number] PT STATUS: REG ER : 1960 PHYSICIAN: NIRALI BERNARD DO ADMIT DATE: 02/24/22/ER Draft Date of Exam:02/24/22 CHEST 1 VIEW, AP/PA ONLY CLINICAL INDICATION: Patient with fever. EXAM: Portable chest x-ray upright view. COMPARISON: Chest x-ray dated 06/18/2021. FINDINGS: Lungs/pleura: Lungs are clear. There is no pneumothorax. There is no pleural effusion. Mediastinum: Unremarkable. Pulmonary vasculature: Unremarkable. Heart: Unremarkable. Bones/extrathoracic soft tissue: There are hypertrophic spurs involving the thoracic spine. IMPRESSION: There is no radiographic evidence of acute cardiopulmonary process. Dictated on workstation # [id number] Dict: 02/24/22623 Trans: 02/24/22 0626 HALEY [id number] Interpreted by: CRICKET BRIAN MD Diagonstic Imaging: CT Plain Films/CT/US/NM/MRI: abdomen, pelvis Comments CT abdomen pelvis viewed by me and report reviewed. See report below: NAME: DARIN SUTTON JR [facility] REC#: [id number] PT STATUS: REG ER : 1960 PHYSICIAN: KEVON POWELL MD ADMIT DATE: 02/24/22/ER Draft Date of Exam:02/24/22 CT ABDOMEN/PELVIS W EXAMINATION: CT abdomen and pelvis with intravenous contrast. TECHNIQUE: Multiple contiguous axial images were obtained through the abdomen and pelvis after the uneventful administration of intravenous contrast. All CT scans use one or more of the following dose optimizing techniques: automated exposure control, MA and/or KvP adjustment based on patient size and exam type or iterative reconstruction. HISTORY: Abdominal pain COMPARISON: 11/14/2021 FINDINGS: Lung bases: There are calcifications along the inferior left pleura. Solid organs: The liver is normal without focal lesion. The gallbladder is surgically absent. There is no biliary ductal dilation. Pancreas is normal. Spleen is normal. A subcentimeter fat attenuation left adrenal nodule likely a myelolipoma. The right adrenal gland is unremarkable. There are multiple bilateral renal cysts which require no followup. Large calcification within the left renal collecting system measuring up to 2.7 cm. No hydronephrosis. Bowel: The stomach and small bowel are normal without obstruction. The appendix is normal. Fluid is seen throughout the colon. Peritoneum: There is no intraperitoneal free fluid or free air. No suspicious lymphadenopathy. Vasculature: Calcification of the aorta without aneurysm. Musculoskeletal: Degenerative changes of the spine without suspicious osseous lesion or compression fracture. Pelvis: The prostate gland is normal. The urinary bladder is normal. IMPRESSION: 1. No acute abnormality in the abdomen or pelvis. An 2. Fluid seen throughout the colon which can be seen with diarrheal state. 3. A large nonobstructing calculus within the left kidney measuring up to 2.7 cm. No hydronephrosis. Dictated on workstation # [id number] Dict: 02/24/22 0659 Trans: 02/24/22 0703 CV [id number] Interpreted by: SARY ELIAS DO Departure Communication (Admissions) Time/Spoke to Admitting Phy: 11:40 Dr. Norris Impression Primary Impression: Nausea and vomiting Qualified Codes: R11.2 - Nausea with vomiting, unspecified Additional Impressions: Abdominal pain Qualified Codes: R10.84 - Generalized abdominal pain Hypertension Qualified Codes: I10 - Essential (primary) hypertension Hypokalemia Hypomagnesemia Disposition: ADMITTED INPATIENT Condition: Improved Admissions Decision to Admit Reason: Admit from ER (General) Decision to Admit/Date: Feb 24, 2022 Time/Decision to Admit Time: 11:40 Departure-Patient Inst. Referrals: MARIELY BARTON DO (PCP/Family) Primary Care Physician Copy Copies To 1: MARIELY BARTON JOSHUA T MD Feb 24, 2022 06:56
[2022-02-24] MEDS ORDERED: IOHEXOL 350 MG/ML 100 ML (OMNIPAQUE 350) VIAL IV ONE (07:00)
[2022-02-24] MEDS ORDERED: CATHETER FLUSH 10 ML SYR IV PRN (07:00)
[2022-02-24] MEDS ORDERED: NS 100 ML (IVPB) BAG IV ONE (07:00)
--- NOTE | 2022-02-24 07:03 | Diagnostic Imaging Report ---
EXAMINATION: CT abdomen and pelvis with intravenous contrast. TECHNIQUE: Multiple contiguous axial images were obtained through the abdomen and pelvis after the uneventful administration of intravenous contrast. All CT scans use one or more of the following dose optimizing techniques: automated exposure control, MA and/or KvP adjustment based on patient size and exam type or iterative reconstruction. HISTORY: Abdominal pain COMPARISON: 11/14/2021 FINDINGS: Lung bases: There are calcifications along the inferior left pleura. Solid organs: The liver is normal without focal lesion. The gallbladder is surgically absent. There is no biliary ductal dilation. Pancreas is normal. Spleen is normal. A subcentimeter fat attenuation left adrenal nodule likely a myelolipoma. The right adrenal gland is unremarkable. There are multiple bilateral renal cysts which require no followup. Large calcification within the left renal collecting system measuring up to 2.7 cm. No hydronephrosis. Bowel: The stomach and small bowel are normal without obstruction. The appendix is normal. Fluid is seen throughout the colon. Peritoneum: There is no intraperitoneal free fluid or free air. No suspicious lymphadenopathy. Vasculature: Calcification of the aorta without aneurysm. Musculoskeletal: Degenerative changes of the spine without suspicious osseous lesion or compression fracture. Pelvis: The prostate gland is normal. The urinary bladder is normal. IMPRESSION: 1. No acute abnormality in the abdomen or pelvis. An 2. Fluid seen throughout the colon which can be seen with diarrheal state. 3. A large nonobstructing calculus within the left kidney measuring up to 2.7 cm. No hydronephrosis. Dictated by: Dictated on workstation # [id number]
[2022-02-24] MEDS ORDERED: NS IV 500 ML 500 ML IV ONE (07:15)
[2022-02-24] MEDS ORDERED: MAGNESIUM 1 GM/100 ML IVPB 100 ML IV ONE (07:15)
[2022-02-24] MEDS ORDERED: meTOproloL SUCCINATE 50 MG (TOPROL XL) TAB PO STA (07:23)
[2022-02-24] MEDS ORDERED: lisINopril 20 MG (PRINIVIL) TABLET PO STA (07:23)
[2022-02-24] MEDS ORDERED: ANTACID SUSP 30 ML UDC (MYLANTA) PO ONE (09:15)
[2022-02-24] MEDS ORDERED: LIDOCAINE 2% VISCOUS 15 ML UDC PO ONE (09:15)
[2022-02-24] MEDS ORDERED: fentaNYL INJ 100 MCG/2 ML AMP IVP ONE (10:45)
[2022-02-24] MEDS ORDERED: fentaNYL INJ 100 MCG/2 ML AMP IV PRN (12:45)
[2022-02-24] MEDS ORDERED: ONDANSETRON 4 MG/2 ML (SDV) Z0FRAN IV PRN (12:45)
[2022-02-24] MEDS: NS W/KCL 40 MEQ/L 1,000 ML IV SCH ×2 (12:50→19:23)
[2022-02-24] MEDS: PANTOPRAZOLE 40 MG (PROTONIX) VIAL IV SCH (12:50)
--- NOTE | 2022-02-24 13:43 | History & Physical-Hospitalist ---
History of Present Illness HPI/Chief Complaint Patient 61-year-old male who presented to the emergency department due to abdominal pain with nausea and vomiting. He has a history of bowel obstructions and was worried he was having another. His symptoms started 3 or 4 days ago and his last bowel movement was roughly 3 days ago. He has had increasing abdominal pain with nausea and vomiting. He has been unable to keep most of his medications down as well. CT abdomen and pelvis was done in the emergency department which revealed likely a diarrheal illness but no obstruction. He was still having significant nausea and so decision was made to admit for IV fluids and antiemetics. Since getting a GI cocktail, Zofran, morphine, and fentanyl his pain has improved and he is hopeful to try some clear liquids. Date Seen 02/24/22 Time Seen by a Provider: 13:20 Attending Physician Brandt Mitchell DO PCP Admitting Physician: Haydee Norris MD Attending Physician: Haydee Norris MD Referring Physician Date of Admission Feb 24, 2022 at 11:40 Home Medications & Allergies Home Medications Reviewed patient Home Medication Reconciliation performed by pharmacy medication reconciliations driver service technician and/or nursing. Patients Allergies have been reviewed. Allergies Allergies Coded Allergies No Known Drug Allergies (Unverified02/24/22) Past Mwfyine-Deppwx-Urqyjj Hx Patient Social History Tobacco Use?: Yes Tobacco type used: Cigars Smoking Status: Current Everyday Smoker Smokeless Tobacco Frequency: Never a User Use of E-Cig and/or Vaping dev: No Substance use?: No Alcohol Use?: Yes Alcohol type: Beer Alcohol Frequency: Couple times a week Pt feels they are or have been: No Immunizations Up To Date Date of Influenza Vaccine: May 06, 2016 First/Initial COVID19 Vaccinat: STATES 2 VACCINES PLUS BOOSTER Second COVID19 Vaccination Charli: STATES 2 VACCINES PLUS BOOSTER Tetanus Booster (TDap): Less Than 5 Years Hepatitis A: Yes Hepatitis B: Yes PED Vaccines UTD: Yes Seasonal Allergies Seasonal Allergies: Yes Current Status Advance Directives: No Communicates: Verbally Primary Language: Maltese Preferred Spoken Language: Maltese Is interpretation needed?: No Implanted or Applied Medical D: None Past Medical History Surgeries: Gallbladder, Orthopedic, Renal Sleep Apnea Currently Using CPAP: No High Cholesterol, Hypertension Neuropathy Sexually Transmitted Disease: No HIV/AIDS: No Kidney Stones, Renal Failure Gastroesophageal Reflux, Chronic Diarrhea, Gall Bladder Disease, Irritable Bowel Arthritis Diabetes, Non-Insulin dep Loss of Vision: Denies Hearing Impairment: Denies Depression Blood Disorders: No Adverse Reaction/Blood Tranf: No Family Medical History Reviewed Nursing Family Hx Diabetes mellitus 19 MOTHER G8 SISTER FH: lung cancer 19 MOTHER Hypertension 19 FATHER 19 MOTHER G8 SISTER Kidney stone G8 SISTER Parkinson's disease G8 SISTER Prostate cancer 19 FATHER Heart Disease, Cancer Review of Systems Constitutional: No chills; fever EENTM: no symptoms reported Respiratory: no symptoms reported Cardiovascular: no symptoms reported Gastrointestinal: abdominal pain, constipation; No diarrhea; nausea, vomiting Genitourinary: no symptoms reported Musculoskeletal: no symptoms reported Skin: no symptoms reported Psychiatric/Neurological: No Symptoms Reported Physical Exam Physical Exam Vital Signs Vital Signs - First Documented 02/24/22 02/24/22 05:40 12:23 Temp 37.7 Pulse 102 Resp 22 B/P (MAP) 200/101 (134) Pulse Ox 97 O2 Delivery Room Air O2 Flow Rate 2.00 Capillary Refill : Less Than 3 Seconds Height, Weight, BMI Height: 6'4.00" Weight: 240lbs. 0.0oz. 108.747900dm; 26.30 BMI Method:Stated General Appearance: No Apparent Distress, WD/WN HEENT: PERRL/EOMI, Moist Mucous Membranes Neck: Normal Inspection, Supple Respiratory: Lungs Clear, No Accessory Muscle Use, No Respiratory Distress Cardiovascular: Regular Rate, Rhythm, No Murmur Gastrointestinal: Normal Bowel Sounds, Non Tender, Soft; No Distended, No Guarding, No Rebound, No Tenderness Extremity: Normal Capillary Refill, No Calf Tenderness, No Pedal Edema Neurologic/Psychiatric: Alert, Oriented x3; No Aphasia, No Facial Droop; Other (flat affect) Skin: Normal Color, Warm/Dry Results Results/Procedures Labs Laboratory Tests 02/24/22 05:48 Patient resulted labs reviewed. Imaging: Reviewed Imaging Report Imaging [facility], [place] NAME: DARIN SUTTON JR [facility] REC#: [id number] PT STATUS: REG ER : 1960 PHYSICIAN: KEVON POWELL MD ADMIT DATE: 02/24/22/ER Signed Date of Exam:02/24/22 CT ABDOMEN/PELVIS W EXAMINATION: CT abdomen and pelvis with intravenous contrast. TECHNIQUE: Multiple contiguous axial images were obtained through the abdomen and pelvis after the uneventful administration of intravenous contrast. All CT scans use one or more of the following dose optimizing techniques: automated exposure control, MA and/or KvP adjustment based on patient size and exam type or iterative reconstruction. HISTORY: Abdominal pain COMPARISON: 11/14/2021 FINDINGS: Lung bases: There are calcifications along the inferior left pleura. Solid organs: The liver is normal without focal lesion. The gallbladder is surgically absent. There is no biliary ductal dilation. Pancreas is normal. Spleen is normal. A subcentimeter fat attenuation left adrenal nodule likely a myelolipoma. The right adrenal gland is unremarkable. There are multiple bilateral renal cysts which require no followup. Large calcification within the left renal collecting system measuring up to 2.7 cm. No hydronephrosis. Bowel: The stomach and small bowel are normal without obstruction. The appendix is normal. Fluid is seen throughout the colon. Peritoneum: There is no intraperitoneal free fluid or free air. No suspicious lymphadenopathy. Vasculature: Calcification of the aorta without aneurysm. Musculoskeletal: Degenerative changes of the spine without suspicious osseous lesion or compression fracture. Pelvis: The prostate gland is normal. The urinary bladder is normal. IMPRESSION: 1. No acute abnormality in the abdomen or pelvis. An 2. Fluid seen throughout the colon which can be seen with diarrheal state. 3. A large nonobstructing calculus within the left kidney measuring up to 2.7 cm. No hydronephrosis. Dictated by: Dictated on workstation # [id number] Dict: 02/24/22 0659 Trans: 02/24/22 0740 [facility] [id number] Interpreted by: SARY ELIAS DO Electronically signed by: SARY ELIAS DO 02/24/22 0740 Assessment/Plan Admission Diagnosis Gastroenteritis Admission Status: Observation Assessment and Plan Gastroenteritis Dehydration CT shows no obstruction but diarrheal illness Spec grav on UA >1.030 CLD- advance as tolerated Fentanyl fo severe pain Continue Protonix Zofran prn nausea Continue IVF Hopefully home tomorrow if doing well IDDMII SSI Hold home levemir while oral intake questionable Accuchecks HTN BP was very high on arrival to the ER Improved now Continue metoprolol Hydralzine prn DVT ppx: SCDs Diagnosis/Problems Diagnosis/Problems (1) Type 2 diabetes mellitus with complication (2) Hypertensive urgency Status: Acute (3) Left ureteral stone Status: Acute (4) Insulin dependent diabetes mellitus (5) Hypokalemia Status: Acute (6) Hypomagnesemia Status: Acute (7) Gastroenteritis Status: Acute (8) Dehydration Status: Acute HAYDEE NORRIS MD Feb 24, 2022 13:43
[2022-02-24] MEDS ORDERED: hydrALAZINE (APESOLINE) 20 MG/ML VIAL IV PRN (13:45)
[2022-02-24] MEDS ORDERED: PROMETHAZINE INJ 25 MG/ML (PHENERGAN) AMP IVP PRN (13:45)
[2022-02-24 15:51] VITALS: BP 124/62
[2022-02-24] MEDS: inSUlin ASPART (NovoLOG) 1 UNIT/0.01 ML (CHARGE PER UNIT) SC SCH ×2 (17:01→20:31)
[2022-02-24 20:15] VITALS: BP 140/67
[2022-02-24 23:04] VITALS: BP 115/57
[2022-02-25] MEDS: NS W/KCL 40 MEQ/L 1,000 ML IV SCH ×2 (01:58→09:45)
[2022-02-25] MEDS ORDERED: IBUPROFEN 600 MG (MOTRIN) TAB PO PRN (04:30)
[2022-02-25 04:59] VITALS: BP 127/69
[2022-02-25] MEDS: inSUlin ASPART (NovoLOG) 1 UNIT/0.01 ML (CHARGE PER UNIT) SC SCH ×2 (05:47→11:23)
[2022-02-25 05:54] LABS: BASOPHILS % (AUTO) 0 % (0-10); HEMATOCRIT 34 % (40-54)
[2022-02-25 05:57] LABS: EOSINOPHILS % (AUTO) 0 % (0-10); HEMOGLOBIN 11.8 g/dL (13.3-17.7); LYMPHOCYTES # (AUTO) 1.5 10^3/uL (1.0-4.0); LYMPHOCYTES % (AUTO) 15 % (12-44); MEAN CORPUSCULAR HEMOGLOBIN 30 pg (25-34); MEAN CORPUSCULAR HGB CONC 35 g/dL (32-36); MEAN CORPUSCULAR VOLUME 87 fL (80-99); MEAN PLATELET VOLUME 11.8 fL (9.0-12.2); MONOCYTES # (AUTO) 0.9 10^3/uL (0.0-1.0); MONOCYTES % (AUTO) 9 % (0-12); NEUTROPHILS # (AUTO) 7.3 10^3/uL (1.8-7.8); NEUTROPHILS % (AUTO) 75 % (42-75); PLATELET COUNT 110 10^3/uL (130-400); WHITE BLOOD COUNT 9.8 10^3/uL (4.3-11.0)
[2022-02-25] MEDS ORDERED: IBUPROFEN 600 MG (MOTRIN) TAB PO SCH (06:00)
[2022-02-25 06:42] LABS: CALCIUM 8.1 MG/DL (8.5-10.1); CREATININE SERUM 1.13 MG/DL (0.60-1.30); MAGNESIUM 1.6 MG/DL (1.6-2.4)
[2022-02-25 07:33] VITALS: BP 100/59
[2022-02-25] MEDS: PANTOPRAZOLE 40 MG (PROTONIX) VIAL IV SCH (08:31)
[2022-02-25] MEDS ORDERED: lisINopril 40 MG (PRINIVIL) TABLET PO SCH (09:00)
[2022-02-25] MEDS ORDERED: meTOproloL SUCCINATE 50 MG (TOPROL XL) TAB PO SCH (09:00)
[2022-02-25 09:43] VITALS: BP 127/66
[2022-02-25 11:22] VITALS: BP 119/62
[2022-02-25 13:04] VITALS: BP 119/62
--- NOTE | 2022-02-25 16:16 | Discharge Summary ---
Discharge Summary Hospital Course Problems/Dx: (1) Gastroenteritis Status: Acute (2) Type 2 diabetes mellitus with complication (3) Hypertensive urgency Status: Acute (4) Left ureteral stone Status: Acute (5) Insulin dependent diabetes mellitus (6) Hypokalemia Status: Acute (7) Hypomagnesemia Status: Acute (8) Dehydration Status: Acute Hospital Course Date of Admission: Feb 24, 2022 at 11:40 Admission Diagnosis : Gastroenteritis Family Physician/Provider: Mariely Mitchell DO Date of Discharge: 02/25/22 Discharge Diagnosis: Gastroenteritis Hospital Course: Parveen Escalante is a 61 year old male who presented with abdominal pain and was admitted with gastroenteritis. He was also having nausea and vomiting. He has a history of small bowel obstruction and was concerned about a recurrence. He underwent CT which showed no evidence of obstruction. He was treated conservatively and his symptoms improved. He was discharged home in stable condition. He should follow up with Dr. Mitchell in a week or two. Labs and Pending Lab Test: Laboratory Tests 02/24/22 16:00: Glucometer 272H 02/24/22 19:55: Glucometer 243H 02/25/22 04:55: White Blood Count 9.8, Red Blood Count 3.91L, Hemoglobin 11.8#L, Hematocrit 34L, Mean Corpuscular Volume 87, Mean Corpuscular Hemoglobin 30, Mean Corpuscular Hemoglobin Concent 35, Red Cell Distribution Width 13.5, Platelet Count 110L, Mean Platelet Volume 11.8, Immature Granulocyte % (Auto) 1, Neutrophils (%) (Auto) 75, Lymphocytes (%) (Auto) 15, Monocytes (%) (Auto) 9, Eosinophils (%) (Auto) 0, Basophils (%) (Auto) 0, Neutrophils # (Auto) 7.3, Lymphocytes # (Auto) 1.5, Monocytes # (Auto) 0.9, Eosinophils # (Auto) 0.0, Basophils # (Auto) 0.0, Immature Granulocyte # (Auto) 0.1, Percent Immature Platelet Fraction 7.8H, Sodium Level 138, Potassium Level 4.0, Chloride Level 107, Carbon Dioxide Level 21, Anion Gap 10, Blood Urea Nitrogen 14, Creatinine 1.13, Estimat Glomerular Filtration Rate 74, BUN/Creatinine Ratio 12, Glucose Level 190H, Calcium Level 8.1L, Magnesium Level 1.6 02/25/22 05:38: Glucometer 188H 02/25/22 11:10: Glucometer 227H Microbiology 02/24/22 Blood Culture - Preliminary, Resulted No growth 02/24/22 Urine Culture - Final, Complete NO GROWTH Home Meds Active Reported Metoprolol Succinate 50 Mg Tab.er.24h 50 Mg PO DAILY Mucus Relief (Guaifenesin) 600 Mg Tab.er.12h 600 Mg PO Q12H PRN Diltiazem ER (Diltiazem HCl) 360 Mg Capsule.er 360 Mg PO DAILY Neurontin (Gabapentin) 300 Mg Capsule 300 Mg PO TID Orphenadrine Citrate 100 Mg Tablet.er 100 Mg PO BID Ropinirole HCl 4 Mg Tablet 4 Mg PO BID Pioglitazone HCl 30 Mg Tablet 30 Mg PO DAILY Glimepiride 4 Mg Tablet 8 Mg PO DAILY TAKES 2 (4MG) TABS Lisinopril 40 Mg Tablet 40 Mg PO DAILY Ozempic (Semaglutide) 1 Mg/0.75 Ml Pen.injctr 1 Mg SQ SUN Tresiba Flextouch U-200 (Insulin Degludec) 200 Unit/1 Ml Insuln.pen 50 Units SC DAILY Pantoprazole Sodium 40 Mg Tablet.dr 40 Mg PO DAILY Assessment/Pt Instructions See instructions Discharge Planning: <30 minutes discharge planning Discharge Instructions Discharge Diet: No Restrictions Activity as Tolerated: Yes Discharge Physical Examination Vital Signs Vital Signs Date Time Temp Pulse Resp B/P (MAP) Pulse Ox O2 Delivery O2 Flow Rate FiO2 02/25/22 13:04 36.2 61 18 119/62 97 Room Air 0.00 General Appearance: No Apparent Distress, WD/WN Respiratory: Lungs Clear, No Respiratory Distress Cardiovascular: Regular Rate, Rhythm, No Murmur Gastrointestinal: Normal Bowel Sounds, Non Tender, Soft Extremity: Normal Inspection, No Pedal Edema Skin: Normal Color, Warm/Dry Neurologic/Psychiatric: Alert, Normal Mood/Affect Allergies: Coded Allergies: No Known Drug Allergies (Unverified , 02/24/22) Copy Copies To 1: MARIELY MITCHELL DO Discharge Summary Date of Admission Feb 24, 2022 at 11:40 Date of Discharge Feb 25, 2022 at 13:07 Discharge Date: Feb 25, 2022 Discharge Time: 13:07 Admission Diagnosis Gastroenteritis Discharge Diagnosis (1) Gastroenteritis Status: Acute (2) Type 2 diabetes mellitus with complication (3) Hypertensive urgency Status: Acute (4) Left ureteral stone Status: Acute (5) Insulin dependent diabetes mellitus (6) Hypokalemia Status: Acute (7) Hypomagnesemia Status: Acute (8) Dehydration Status: Acute TAD ERAZO MD Feb 25, 2022 16:10
== END 2022-02-25 11:49 | disposition home or self-care (01) ==
LOC: EDUNIT# 05:23 → ER 05:25 → UNDOADMOB 11:40 → 4TH 11:40 → UNDODISOB 02-25 13:07
PROVIDERS: ADMIT Family Medicine; ATTEND Family Medicine
DX: K52.9 Noninfective gastroenteritis and colitis, unspecified (principal); E11.8 Type 2 diabetes mellitus with unspecified complications; I16.0 Hypertensive urgency; N20.1 Calculus of ureter; Z79.4 Long term (current) use of insulin; E83.42 Hypomagnesemia; E86.0 Dehydration; F17.210 Nicotine dependence, cigarettes, uncomplicated
CPT/HCPCS: 71045; 74177; 80048; 80053; 81000; 82947 ×2; 83605; 83690; 83735 ×2; 84145; 85007; 85025; 85027; 85610; 85652; 85730; 86141; 87040; 87088; 87636; 93041; 96361; 96375; 96376; 99284; G0378; 36415; 96374

== ENCOUNTER 2022-02-25 22:55 | Observation (INO) | payer MEDICARE ==
[~2022-02-25] VITALS: Ht 193 cm; Wt 105.0 kg
[2022-02-25] MEDS ORDERED: ASPIRIN 81 MG CHEW (CHILDREN'S ASA) PO ONE (23:15)
[2022-02-25] MEDS ORDERED: NITROGLYCERIN 0.4 MG SL TABS BTL 25'S SL PRN (23:15)
[2022-02-25 23:27] LABS: HEMATOCRIT 38 % (40-54); HEMOGLOBIN 13.2 g/dL (13.3-17.7); MEAN CORPUSCULAR HEMOGLOBIN 30 pg (25-34); MEAN CORPUSCULAR HGB CONC 34 g/dL (32-36); MEAN CORPUSCULAR VOLUME 88 fL (80-99); MEAN PLATELET VOLUME 12.1 fL (9.0-12.2)
[2022-02-25 23:29] LABS: BASOPHILS % (AUTO) 1 % (0-10); EOSINOPHILS # (AUTO) 0.1 10^3/uL (0.0-0.3); EOSINOPHILS % (AUTO) 2 % (0-10); LYMPHOCYTES # (AUTO) 1.4 10^3/uL (1.0-4.0); LYMPHOCYTES % (AUTO) 17 % (12-44); MONOCYTES # (AUTO) 0.7 10^3/uL (0.0-1.0); MONOCYTES % (AUTO) 8 % (0-12); NEUTROPHILS # (AUTO) 5.8 10^3/uL (1.8-7.8); NEUTROPHILS % (AUTO) 72 % (42-75); PLATELET COUNT 127 10^3/uL (130-400); WHITE BLOOD COUNT 8.1 10^3/uL (4.3-11.0)
[2022-02-25] MEDS ORDERED: dilTIAZem DRIP PRE-MIX 125 ML IV SCH (23:30)
[2022-02-25] MEDS ORDERED: ENOXAPARIN 100 MG/1 ML (LOVENOX) SYR SC ONE (23:30)
[2022-02-25] MEDS ORDERED: ONDANSETRON 4 MG/2 ML (SDV) Z0FRAN IVP PRN (23:30)
[2022-02-25 23:45] LABS: ALBUMIN 3.4 GM/DL (3.2-4.5); BILIRUBIN,TOTAL 0.6 MG/DL (0.1-1.0); CALCIUM 9.1 MG/DL (8.5-10.1); CREATININE SERUM 1.34 MG/DL (0.60-1.30); MAGNESIUM 1.9 MG/DL (1.6-2.4); POTASSIUM 4.1 MMOL/L (3.6-5.0); TOTAL PROTEIN 6.4 GM/DL (6.4-8.2)
[2022-02-25 23:53] LABS: CREATINE KINASE MB 1.6 NG/ML (<6.6)
[2022-02-26] MEDS ORDERED: NS IV 1000 ML 1,000 ML IV SCH ×2 (00:15→03:45)
[2022-02-26] MEDS ORDERED: NS 100 ML (IVPB) BAG IV ONE (00:45)
[2022-02-26] MEDS ORDERED: CATHETER FLUSH 10 ML SYR IV PRN (00:45)
[2022-02-26] MEDS ORDERED: IOHEXOL 350 MG/ML 100 ML (OMNIPAQUE 350) VIAL IV ONE (00:45)
[2022-02-26 02:44] VITALS: BP 140/82
[2022-02-26] MEDS ORDERED: NS IV 1000 ML 1,000 ML ONE (02:56)
--- NOTE | 2022-02-26 03:20 | ED Chest Pain ---
General Chief Complaint: Chest Pain Stated Complaint: CP;AFIB RVR;IDDM Nursing Triage Note: PT AMBULATORY TO ROOM. PT STATES HE WAS DISCHARGED FROM HERE THIS AM AFTER HAVING A STOMACH BUG. PT REPORTS CP STARTED APPROX 1 HR CERTIFIED REGISTERED NURSE PRACTITIONER WHILE WATCHING TV. PT STATES HE "FEELS LIKE ITS MY HIGH BLOOD PRESSURE." PT RATES HIS PAIN 8/10, PAIN IS CONSTANT, NOTHING MAKES IT WORSE OR MAKES IT BETTER. PT REPORTS LEFT SIDED CP THAT RADIATES TO BOTH SIDES OF NECK. PT DOES REPORT HX OF AN IRREGULAR HEART RYTHM BUT IS UNSURE WHAT IT WAS Source: patient (EXTREMELY POOR HISTORIAN--DOES NOT KNOW ANY PMH OR ANY OF HIS MEDICATIONS. ) History of Present Illness Date Seen by Provider: Feb 25, 2022 Time Seen by Provider: 23:05 Initial Comments PT ARRIVES VIA POV FROM HOME STATES AROUND 1900 TONIGHT, WHILE SITTING IN RECLINER WATCHING TV, HE SUDDENLY BEGAN TO HAVE CHEST PAIN, SHORTNESS OF BREATH AND HIS HEART WAS RACING AND BEATING VERY HARD. HAD MILD SHORTNESS OF BREATH HAD NAUSEA AND DRY HEAVES + SWEATS STATES PAIN WAS 8/10 AT WORST, IS 7/10 NOW. PAIN IS IN CENTER OF CHEST, DOES NOT RADIATE NOTHING WORSENS OR IMPROVES PAIN, BUT HAS NOT TAKEN ANYTHING FOR PAIN PT WAS ADMITTED YESTERDAY AND DISMISSED THIS AM FOR ABDOMINAL PAIN AND NAUSEA/VOMITING-WORK UP WAS ESSENTIALLY NEGATIVE AND WAS DX WITH GASTROENTERITIS PT STATES HE DID NOT GET HIS MEDICATIONS YESTERDAY, BUT TOOK THEM TODAY WHEN HE GOT HOME NO MEDICATION CHANGES SINCE HE WAS DISMISSED FROM HOSPITAL, BUT DOES NOT KNOW ANY OF HIS MEDICATIONS PT IS ALSO INSULIN DEPENDENT DIABETIC, BUT HAS NOT CHECKED HIS BLOOD SUGAR TODAY STATES HE HAS HAD A FAST HEART BEAT BEFORE, BUT DOES NOT KNOW IF HE HAD ATRIAL FIBRILLATION AND DOES NOT KNOW IF HE IS ON A BLOOD THINNER OR IF HE TAKES ANY M EDICATION FOR A FAST OR IRREGULAR HEART BEAT PT STATES HE SEES DR. PEREZ AT [facility], AND HAD A CHEMICAL STRESS TEST OVER A YEAR AGO, BUT HAS NEVER HAD A CARDIAC CATH. PCP: WAS DR. SANCHEZ'S PT UNTIL HE RECENTLY , JUST STARTED SEEING DR. BARTON. MEASUREMENT AND SENSING TECHNICIAN: DR. WHITEHEAD HINES Allergies and Home Medications Allergies Coded Allergies: No Known Drug Allergies (Unverified , 02/24/22) Patient Home Medication List Diltiazem HCl (Diltiazem ER) 360 Mg Capsule.er, 360 MG PO DAILY, (Reported) Entered as Reported by: CEDRIC ANTHONY on 06/18/21 104 Gabapentin (Neurontin) 300 Mg Capsule, 300 MG PO TID, (Reported) Entered as Reported by: CEDRIC ANTHONY on 06/18/21 104 Glimepiride (Glimepiride) 4 Mg Tablet, 8 MG PO DAILY, (Reported) Entered as Reported by: CEDRIC ANTHONY on 06/18/21 104 Guaifenesin (Mucus Relief) 600 Mg Tab.er.12h, 600 MG PO Q12H PRN for CONGESTION, (Reported) Entered as Reported by: CEDRIC ANTHONY on 06/18/21 104 Insulin Degludec (Tresiba Flextouch U-200) 200 Unit/1 Ml Insuln.pen, 50 UNITS SC DAILY, (Reported) Entered as Reported by: CEDRIC ANTHONY on 06/18/21 104 Lisinopril (Lisinopril) 40 Mg Tablet, 40 MG PO DAILY, (Reported) Entered as Reported by: CEDRIC ANTHONY on 06/18/21 104 Metoprolol Succinate (Metoprolol Succinate) 50 Mg Tab.er.24h, 50 MG PO DAILY, (Reported) Entered as Reported by: CEDRIC ANTHONY on 11/16/21 1227 Orphenadrine Citrate (Orphenadrine Citrate) 100 Mg Tablet.er, 100 MG PO BID, (Reported) Entered as Reported by: CEDRIC ANTHONY on 06/18/21 104 Pantoprazole Sodium (Pantoprazole Sodium) 40 Mg Tablet.dr, 40 MG PO DAILY, (Reported) Entered as Reported by: CEDRIC ANTHONY on 06/18/21 104 Pioglitazone HCl (Pioglitazone HCl) 30 Mg Tablet, 30 MG PO DAILY, (Reported) Entered as Reported by: CEDRIC ANTHONY on 06/18/21 104 Ropinirole HCl (Ropinirole HCl) 4 Mg Tablet, 4 MG PO BID, (Reported) Entered as Reported by: CEDRIC ANTHONY on 06/18/21 104 Semaglutide (Ozempic) 1 Mg/0.75 Ml Pen.injctr, 1 MG SQ SUN, (Reported) Entered as Reported by: CEDRIC ANTHONY on 06/18/21 1040 Review of Systems Review of Systems Constitutional: see HPI, diaphoresis EENTM: No Symptoms Reported Respiratory: See HPI, Cough (HAD COUGH A COUPLE OF DAYS AGO, NOT TODAY), Shortness of Air Cardiovascular: See HPI, Chest Pain; Denies Edema; Irregular Heart Rate; Denies Lightheadedness; Palpitations; Denies Syncope Gastrointestinal: See HPI; Denies Abdominal Pain; Nausea; Denies Vomiting (DRY HEAVES) Genitourinary: No Symptoms Reported Musculoskeletal: no symptoms reported Skin: no symptoms reported Psychiatric/Neurological: Anxiety Endocrine: No Symptoms Reported Hematologic/Lymphatic: No Symptoms Reported Past Imjxfhi-Ryignd-Jlbrpv Hx Patient Social History Tobacco Use?: Yes Tobacco type used: Cigars Smoking Status: Current Someday Smoker Use of E-Cig and/or Vaping dev: No Substance use?: No Alcohol Use?: Yes Alcohol type: Beer Alcohol Frequency: Couple times a week Immunizations Up To Date Tetanus Booster (TDap): More than 5yrs PED Vaccines UTD: Yes Influenza Vaccine Up-to-Date: No; Not Current First/Initial COVID19 Vaccinat: STATES 2 VACCINES PLUS BOOSTER Second COVID19 Vaccination Charli: STATES 2 VACCINES PLUS BOOSTER Third COVID19 Vaccination Date: STATES 2 VACCINES PLUS BOOSTER Seasonal Allergies Seasonal Allergies: Yes Past Medical History Surgeries: Yes (SEE BELOW) Gallbladder, Orthopedic, Renal Respiratory: Yes Sleep Apnea Currently Using CPAP: No Cardiac: Yes High Cholesterol, Hypertension Neurological: Yes Neuropathy Reproductive Disorders: No Sexually Transmitted Disease: No HIV/AIDS: No Genitourinary: Yes (RENAL CYSTS; NO DIALYSIS) Kidney Stones, Renal Failure Gastrointestinal: Yes (PARTIAL BOWEL OBSTRUCTIONS-NO SURGERY) Gastroesophageal Reflux, Obstructive Bowel, Chronic Diarrhea, Polyps, Gall Bladder Disease, Irritable Bowel Musculoskeletal: Yes (LEFT ROTATOR CUFF REPAIR; RIGHT BICEPS TENDON REPAIR) Arthritis Endocrine: Yes Diabetes, Insulin dep HEENT: No Loss of Vision: Denies Hearing Impairment: Denies Cancer: No Psychosocial: Yes Depression Integumentary: No Blood Disorders: No Adverse Reaction/Blood Tranf: No Family Medical History Diabetes mellitus 19 MOTHER G8 SISTER FH: lung cancer 19 MOTHER Hypertension 19 FATHER 19 MOTHER G8 SISTER Kidney stone G8 SISTER Parkinson's disease G8 SISTER Prostate cancer 19 FATHER Heart Disease, Cancer SOCIAL HISTORY: -SMOKES CIGARS SOMETIMES -ETOH-OCCASIONAL USE -DRUGS-DENIES USE PAST SURGICAL HISTORY: -MOST RECENT COLONOSCOPY WITH POLYPECTOMY X [address] LAGUNAS 11/20/21 -CHOLECYSTECTOMY 2012 -LEFT ROTATOR CUFF REPAIR 2012 -RIGHT BICEPS TENDON REPAIR 2012 -MULTIPLE CYSTOSCOPIES, LITHOTRIPSIES, KIDNEY STONE BASKET REMOVALS Physical Exam Vital Signs Vital Signs - First Documented 02/25/22 23:00 Temp 36.0 Pulse 140 Resp 20 B/P (MAP) 152/121 (131) Pulse Ox 98 Capillary Refill : Height, Weight, BMI Height: 6'4.00" Weight: 240lbs. 0.0oz. 108.037854ts; 28.00 BMI Method:Stated General Appearance: WD/WN, Anxious, Other (SLIGHTLY DYSPNEIC. ) Neck: Normal Inspection Respiratory: Normal Breath Sounds, No Accessory Muscle Use, Other (SLIGHTLY DYSPNEIC) Cardiovascular: No JVD, No Murmur, Normal Peripheral Pulses, Tachycardia Gastrointestinal: Non Tender, Soft Extremity: Normal Capillary Refill, Normal Inspection, Normal Range of Motion, Non Tender, No Calf Tenderness, No Pedal Edema Neurologic/Psychiatric: Alert, Oriented x3, No Motor/Sensory Deficits, adjuster electrical contacts II- XII Norm as Tested Skin: Normal Color, Warm/Dry Progress/Results/Core Measures Results/Orders Lab Results Laboratory Tests Test 02/25/22 23:17 Range/Units White Blood Count 8.1 4.3-11.0 10^3/uL Red Blood Count 4.38 4.30-5.52 10^6/uL Hemoglobin 13.2 L 13.3-17.7 g/dL Hematocrit 38 L 40-54 % Mean Corpuscular Volume 88 80-99 fL Mean Corpuscular Hemoglobin 30 25-34 pg Mean Corpuscular Hemoglobin Concent 34 32-36 g/dL Red Cell Distribution Width 13.5 10.0-14.5 % Platelet Count 127 L 130-400 10^3/uL Mean Platelet Volume 12.1 9.0-12.2 fL Immature Granulocyte % (Auto) 0 % Neutrophils (%) (Auto) 72 42-75 % Lymphocytes (%) (Auto) 17 12-44 % Monocytes (%) (Auto) 8 0-12 % Eosinophils (%) (Auto) 2 0-10 % Basophils (%) (Auto) 1 0-10 % Neutrophils # (Auto) 5.8 1.8-7.8 10^3/uL Lymphocytes # (Auto) 1.4 1.0-4.0 10^3/uL Monocytes # (Auto) 0.7 0.0-1.0 10^3/uL Eosinophils # (Auto) 0.1 0.0-0.3 10^3/uL Basophils # (Auto) 0.0 0.0-0.1 10^3/uL Immature Granulocyte # (Auto) 0.0 0.0-0.1 10^3/uL Percent Immature Platelet Fraction 8.2 H 0.0-7.6 % Prothrombin Time 14.0 12.2-14.7 SEC INR Comment 1.0 0.8-1.4 Activated Partial Thromboplast Time 35 24-35 SEC D-Dimer 0.64 H 0.00-0.49 UG/ML Sodium Level 139 135-145 MMOL/L Potassium Level 4.1 3.6-5.0 MMOL/L Chloride Level 106 98-107 MMOL/L Carbon Dioxide Level 23 21-32 MMOL/L Anion Gap 10 5-14 MMOL/L Blood Urea Nitrogen 19 H 7-18 MG/DL Creatinine 1.34 H 0.60-1.30 MG/DL Estimat Glomerular Filtration Rate 60 BUN/Creatinine Ratio 14 Glucose Level 316 H 70-105 MG/DL Calcium Level 9.1 8.5-10.1 MG/DL Corrected Calcium 9.6 8.5-10.1 MG/DL Magnesium Level 1.9 1.6-2.4 MG/DL Total Bilirubin 0.6 0.1-1.0 MG/DL Aspartate Amino Transf (AST/SGOT) 14 5-34 U/L Alanine Aminotransferase (ALT/SGPT) 15 0-55 U/L Alkaline Phosphatase 60 40-136 U/L Total Creatine Kinase 129 30-200 U/L Creatine Kinase MB 1.6 <6.6 NG/ML Myoglobin 87.9 10.0-92.0 NG/ML Troponin I < 0.028 <0.028 NG/ML B-Type Natriuretic Peptide 136.4 H <100.0 PG/ML Total Protein 6.4 6.4-8.2 GM/DL Albumin 3.4 3.2-4.5 GM/DL Amylase Level 36 25-125 U/L Lipase 58 8-78 U/L My Orders Orders - NIRALI BERNARD DO Ekg Tracing (02/25/22 23:05) Ed Iv/Invasive Line Start (02/25/22 23:04) Ekg Tracing (02/25/22 23:04) Monitor-Rhythm Ecg Trace Only (02/25/22 23:04) Cbc With Automated Diff (02/25/22:04) Magnesium (02/25/22 23:04) Chest 1 View, Ap/Pa Only (02/25/22:04) Ekg Tracing (02/25/22:04) Comprehensive Metabolic Panel (02/25/22 23:04) Myoglobin Serum (02/25/22 23:04) Protime With Inr (02/25/22:04) Partial Thromboplastin Time (02/25/22:) O2 (02/25/22 23:04) Ed Iv/Invasive Line Start (02/25/22 23:04) Creatine Kinase (02/25/22 23:04) Creatine Kinase Mb (02/25/22:04) Lipase (02/25/22:04) Amylase (02/25/22 23:04) Bnp Lagrange (02/25/22 23:04) Fibrin Degradation Products (02/25/22 23:04) Troponin I Lagrange (02/25/22 23:04) Nitroglycerin 0.4 Mg Btl 25's (Nitrostat (02/25/22 23:15) Aspirin Chewable Tablet (Baby Aspirin Ch (02/25/22 23:15) Diltiazem Injection (Cardizem Injection) (02/25/22 23:30) Diltiazem Drip Pre-Mix (Cardizem Drip Pr (02/25/22 23:30) Enoxaparin Injection (Lovenox Injection) (02/25/22 23:30) Ondansetron Injection (Zofran Injectio (02/25/22 23:30) Ekg Tracing (02/25/22 23:41) Ct Otilia Chest/Noang Abd-Pelv W (02/26/22 00:04) Ed Iv/Invasive Line Start (02/26/22 00:10) Ns Iv 1000 Ml (Sodium Chloride 0.9%) (02/26/22 00:15) Iohexol Injection (Omnipaque 350 Mg/Ml 1 (02/26/22 00:45) Sodium Chloride Flush (Catheter Flush Sy (02/26/22 00:45) Ns (Ivpb) (Sodium Chloride 0.9% Ivpb Bag (02/26/22 00:45) Medications Given in ED Current Medications Medications Dose Ordered Sig/Parvin Route Start Time Stop Time Status Last Admin Dose Admin Aspirin 324 mg ONCE ONCE PO 02/25/22 23:15 02/25/22 23:16 DC 02/25/22 23:34 324 MG Diltiazem HCl 20 mg ONCE ONCE IVP 02/25/22 23:30 02/25/22 23:31 DC 02/25/22 23:35 20 MG Enoxaparin Sodium 100 mg ONCE ONCE SC 02/25/22 23:30 02/25/22 23:31 DC 02/25/22 23:35 100 MG Iohexol 100 ml ONCE ONCE IV 02/26/22 00:45 02/26/22 00:46 DC 02/26/22 00:51 100 ML Nitroglycerin 0.4 mg UD PRN SL 02/25/22 23:15 02/25/22 23:35 0.4 MG Ondansetron HCl 4 mg Q4H PRN IVP 02/25/22 23:30 02/25/22 23:35 4 MG Sodium Chloride 10 ml NEEDED PRN IV 02/26/22 00:45 02/26/22 00:51 10 ML Sodium Chloride 100 ml ONCE ONCE IV 02/26/22 00:45 02/26/22 00:46 DC 02/26/22 00:51 80 ML Vital Signs/I&O 02/25/22 23:00 Temp 36.0 Pulse 140 Resp 20 B/P (MAP) 152/121 (131) Pulse Ox 98 Blood Pressure Mean: 96 Progress Progress Note : Progress Note GIVEN ASPIRIN, NTG X 1 AND CARDIZEM 20 MG IV HEART RATE DOWN TO 70'S AND IS IN NSR. CHEST PAIN AND ALL OTHER SYMPTOMS COMPLETELY RESOLVED, BP DOWN TO 120'S/70'S UNEVENTFUL ER STAY Initial ECG Impression Date: Feb 25, 2022 Initial ECG Impression Time: 23:28 Initial ECG Rate: 139 Initial ECG Rhythm: A Fib/Flutter Initial ECG Impression: Atrial Fibrillation w/RVR EKG : EKG Time: 23:43 Rate: 65 Rhythm: Normal Sinus Diagnostic Imaging Comments CXR--NO ACUTE PROCESS, PENDING RADIOLOGIST REVIEW CT ANGIOGRAM CHEST/ABDOMEN-PELVIS--PER [facility] VIA FAX AT 0136 -NO PNEUMONIA, NO EFFUSION, NO P.E. -MODERATE BILATERAL PERINEPHRIC STRANDING, MORE PROMINENT THAN ON 02/24/11 -OTHER NON-ACUTE FINDINGS Reviewed: Reviewed by Me Departure Communication (Admissions) 0139--SPOKE WITH DR. SNEED, HOSPITALIST, ACCEPTS PT FOR ADMIT 0140--SPOKE WITH DR. MARQUEZ, MEASUREMENT AND SENSING TECHNICIAN. ADVISES TO START ON ELIQUIS. Impression Primary Impression: Atrial fibrillation with rapid ventricular response Additional Impressions: Chest pain HTN (hypertension) Diabetes mellitus, insulin dependent (IDDM), uncontrolled Chronic renal insufficiency Disposition: ADMITTED INPATIENT Condition: Improved Admissions Decision to Admit Reason: Admit from ER (General) Decision to Admit/Date: Feb 26, 2022 Time/Decision to Admit Time: 01:40 Departure-Patient Inst. Referrals: MARIELY BARTON DO (PCP/Family) Primary Care Physician NIRALI BERNARD DO Feb 26, 2022 03:20
[2022-02-26] MEDS ORDERED: ONDANSETRON 4 MG/2 ML (SDV) Z0FRAN IVP PRN (03:45)
[2022-02-26] MEDS ORDERED: NITROGLYCERIN 0.4 MG SL TABS BTL 25'S SL PRN (03:45)
[2022-02-26] MEDS ORDERED: morphine INJ 4 MG/ML 1 ML (VIAL/SYRINGE) IV PRN (03:45)
--- NOTE | 2022-02-26 04:14 | Tele-ICU Consult ---
History of Present Illness History of Present Illness Date Seen by Provider: Feb 26, 2022 Time Seen by Provider: 04:10 Date of Admission ED coursePT ARRIVES VIA POV FROM HOME STATES AROUND 1900 TONIGHT, WHILE SITTING IN RECLINER WATCHING TV, HE SUDDENLY BEGAN TO HAVE CHEST PAIN, SHORTNESS OF BREATH AND HIS HEART WAS RACING AND BEATING VERY HARD. HAD MILD SHORTNESS OF BREATH HAD NAUSEA AND DRY HEAVES + SWEATS STATES PAIN WAS 8/10 AT WORST, IS 7/10 NOW. PAIN IS IN CENTER OF CHEST, DOES NOT RADIATE NOTHING WORSENS OR IMPROVES PAIN, BUT HAS NOT TAKEN ANYTHING FOR PAIN PT WAS ADMITTED YESTERDAY AND DISMISSED THIS AM FOR ABDOMINAL PAIN AND NAUSEA/VOMITING-WORK UP WAS ESSENTIALLY NEGATIVE AND WAS DX WITH GASTROENTERITIS PT STATES HE DID NOT GET HIS MEDICATIONS YESTERDAY, BUT TOOK THEM TODAY WHEN HE GOT HOME NO MEDICATION CHANGES SINCE HE WAS DISMISSED FROM HOSPITAL, BUT DOES NOT KNOW ANY OF HIS MEDICATIONS PT IS ALSO INSULIN DEPENDENT DIABETIC, BUT HAS NOT CHECKED HIS BLOOD SUGAR TODAY STATES HE HAS HAD A FAST HEART BEAT BEFORE, BUT DOES NOT KNOW IF HE HAD ATRIAL FIBRILLATION AND DOES NOT KNOW IF HE IS ON A BLOOD THINNER OR IF HE TAKES ANY MEDICATION FOR A FAST OR IRREGULAR HEART BEAT PT STATES HE SEES DR. PEREZ AT [facility], AND HAD A CHEMICAL STRESS TEST OVER A YEAR AGO, BUT HAS NEVER HAD A CARDIAC CATH. ICU A fib converted to SR after cardizem bolus -not on any drips Allergies and Home Medications Allergies Coded Allergies: No Known Drug Allergies (Unverified , 02/24/22) Home Medications Diltiazem HCl 360 Mg Capsule.er, 360 MG PO DAILY, (Reported) Gabapentin 300 Mg Capsule, 300 MG PO TID, (Reported) Glimepiride 4 Mg Tablet, 8 MG PO DAILY, (Reported) TAKES 2 (4MG) TABS Guaifenesin 600 Mg Tab.er.12h, 600 MG PO Q12H PRN for CONGESTION, (Reported) Insulin Degludec 200 Unit/1 Ml Insuln.pen, 50 UNITS SC DAILY, (Reported) Lisinopril 40 Mg Tablet, 40 MG PO DAILY, (Reported) Metoprolol Succinate 50 Mg Tab.er.24h, 50 MG PO DAILY, (Reported) Orphenadrine Citrate 100 Mg Tablet.er, 100 MG PO BID, (Reported) Pantoprazole Sodium 40 Mg Tablet.dr, 40 MG PO DAILY, (Reported) Pioglitazone HCl 30 Mg Tablet, 30 MG PO DAILY, (Reported) Ropinirole HCl 4 Mg Tablet, 4 MG PO BID, (Reported) Semaglutide 1 Mg/0.75 Ml Pen.injctr, 1 MG SQ SUN, (Reported) Past Medical/Social/Family Hx Patient Social History Tobacco Use?: No Tobacco type used: Cigars Smoking Status: Current Someday Smoker Use of E-Cig and/or Vaping dev: No Substance use?: No Alcohol Use?: Yes Alcohol type: Beer Alcohol Frequency: Couple times a week Immunizations Up To Date Influenza Vaccine Up-to-Date: No; Not Current First/Initial COVID19 Vaccinat: STATES 2 VACCINES PLUS BOOSTER Second COVID19 Vaccination Charli: STATES 2 VACCINES PLUS BOOSTER Tetanus Booster (TDap): Less Than 5 Years Hepatitis A: Yes Hepatitis B: Yes TB Skin Test: None Current Status Communicates: Verbally Primary Language: Venezuelan Preferred Spoken Language: Venezuelan Is interpretation needed?: No Family Medical History Family Hx: SOCIAL HISTORY: -SMOKES CIGARS SOMETIMES -ETOH-OCCASIONAL USE -DRUGS-DENIES USE PAST SURGICAL HISTORY: -MOST RECENT COLONOSCOPY WITH POLYPECTOMY X [address] LAGUNAS 11/20/21 -CHOLECYSTECTOMY 2012 -LEFT ROTATOR CUFF REPAIR 2012 -RIGHT BICEPS TENDON REPAIR 2012 -MULTIPLE CYSTOSCOPIES, LITHOTRIPSIES, KIDNEY STONE BASKET REMOVALS Review of Systems Constitutional: see HPI Focused Exam Height, Weight, BMI Height: 6'4.00" Weight: 240lbs. 0.0oz. 108.709615ad; 28.00 BMI Method:Stated Exam Exam Patient acknowledged, consented, and participated in this virtual visit which was conducted using real time audio/video Vital Signs Date Time Temp Pulse Resp B/P (MAP) Pulse Ox O2 Delivery O2 Flow Rate FiO2 02/26/22 03:15 60 20 119/64 95 Room Air 02/26/22 03:00 36.5 58 14 136/77 96 Room Air 02/26/22 02:54 60 02/26/22 02:44 62 17 140/82 98 Room Air 02/25/22 23:00 36.0 140 20 152/121 (131) 98 I & O0 02/26/22 07:00 Intake Total 1000 ml Balance 1000 ml Height & Weight Height: 6'4.00" Weight: 240lbs. 0.0oz. 108.657271bl; 28.00 BMI Method:Stated General Appearance: No Apparent Distress, WD/WN, Anxious, Other (SLIGHTLY DYSPNEIC. ) Neck: Normal Inspection Respiratory: Normal Breath Sounds, No Accessory Muscle Use, Other (SLIGHTLY DYSPNEIC) Cardiovascular: No JVD, No Murmur, Normal Peripheral Pulses, Tachycardia Extremity: Normal Capillary Refill, Normal Inspection, Normal Range of Motion, Non Tender, No Calf Tenderness, No Pedal Edema Neurologic/Psychiatric: Alert, Oriented x3, No Motor/Sensory Deficits, pattern marking supervisor II- XII Norm as Tested Skin: Normal Color, Warm/Dry Results Lab Laboratory Tests 02/25/22 23:17 Assessment/Plan Assessment/Plan A fib with rvr -resolved -not on antiarrhythmics drips -ct chest ro pe pending final report labs/ chart reviewed pt was visualized/ dw bed side KRISTAL Tran MD Feb 26, 2022 04:14
[2022-02-26 04:49] LABS: BASOPHILS % (AUTO) 0 % (0-10); EOSINOPHILS # (AUTO) 0.1 10^3/uL (0.0-0.3); EOSINOPHILS % (AUTO) 1 % (0-10); HEMOGLOBIN 11.3 g/dL (13.3-17.7); MEAN CORPUSCULAR HEMOGLOBIN 30 pg (25-34)
[2022-02-26 04:52] LABS: HEMATOCRIT 33 % (40-54); LYMPHOCYTES # (AUTO) 1.7 10^3/uL (1.0-4.0); LYMPHOCYTES % (AUTO) 22 % (12-44); MEAN CORPUSCULAR HGB CONC 34 g/dL (32-36); MEAN CORPUSCULAR VOLUME 88 fL (80-99); MEAN PLATELET VOLUME 12.4 fL (9.0-12.2); MONOCYTES # (AUTO) 0.6 10^3/uL (0.0-1.0); MONOCYTES % (AUTO) 8 % (0-12); NEUTROPHILS # (AUTO) 5.3 10^3/uL (1.8-7.8); NEUTROPHILS % (AUTO) 68 % (42-75); PLATELET COUNT 114 10^3/uL (130-400); WHITE BLOOD COUNT 7.8 10^3/uL (4.3-11.0)
[2022-02-26 05:13] LABS: CALCIUM 8.5 MG/DL (8.5-10.1); CREATININE SERUM 1.18 MG/DL (0.60-1.30); POTASSIUM 4.3 MMOL/L (3.6-5.0)
[2022-02-26] MEDS ORDERED: inSUlin ASPART (NovoLOG) 1 UNIT/0.01 ML (CHARGE PER UNIT) SC SCH (06:00)
--- NOTE | 2022-02-26 07:16 | Diagnostic Imaging Report ---
INDICATION: Chest pain. TECHNIQUE: Single view chest 11:44 PM. CORRELATION STUDY: 02/24/2022 FINDINGS: Heart size borderline enlarged. Vasculature overall within normal limits. The lungs are clear with no consolidating infiltrate. There is no significant effusion or pneumothorax. IMPRESSION: 1. Negative appearing single view chest. Borderline cardiac enlargement. Dictated by: Dictated on workstation # [id number]
--- NOTE | 2022-02-26 07:57 | Diagnostic Imaging Report ---
INDICATION: 61-year-old male, chest pain, onset one hour prior to arrival. Prior visit to the emergency facility earlier in the day. CTA chest, abdomen and pelvis Thin axial sections through the chest, abdomen and pelvis are obtained following intravenous contrast bolus. Multiplanar MIP images were reconstructed and reviewed. All CT scans use one or more of the following dose optimizing techniques: automated exposure control, MA and/or KvP adjustment based on patient size and exam type or iterative reconstruction. CORRELATION STUDY: CT abdomen pelvis 02/24/2022 FINDINGS: CTA chest: Heart size enlarged. No disproportionate right heart strain. Scattered coronary artery calcification. Mild calcification thoracic aorta without evidence for aneurysm or dissection. There is no pulmonary artery filling defect to suggest pulmonary embolism. No pathologically enlarged mediastinal lymph nodes. Lung neumann are clear. No infiltrate, effusion or pneumothorax. Osseous structures demonstrate no acute findings. CT abdomen and pelvis: Liver, spleen, pancreas and adrenal glands demonstrate no acute findings. Gallbladder absent. No overt bile duct dilatation. Prominent, staghorn type calcification at the inferior pole left kidney. Probable several renal cortical cysts bilaterally left greater than right. There is no definitive ureteric calcification or evidence for obstructive uropathy. Bilateral perinephric stranding is present. Abdominal aorta with mild wall calcification, nonaneurysmal. Gastrointestinal tract demonstrates no obstruction or inflammation. No abdominal ascites and/or free air. Urinary bladder unremarkable. Prostate gland unremarkable. Osseous structures demonstrate no acute findings. IMPRESSION: 1. CTA chest demonstrates no evidence for acute abnormality. No evidence for pulmonary embolism. 2. Moderate bilateral perinephric stranding. Possibility of underlying pyelonephritis/infection not excluded. 3. Partial staghorn calculus inferior pole left kidney. No hydronephrosis. Initial report was provided by [facility]. Dictated by: Dictated on workstation # [id number]
--- NOTE | 2022-02-26 08:34 | Consultation-Cardiology ---
HPI-Cardiology Cardiology Consultation Date of Consultation 02/26/22 Date of Admission Time Seen by Provider: 08:29 Indication: Chest pain HPI 61 years old gentleman with history of paroxysmal supraventricular tachycardia. Chest pain. Follows with Dr. Leigh. Patient reported that he had a stress test done as an outpatient at [facility] [place] and he it was reported within the last year that it was normal. He started to have chest pain and palpitation felt his heart racing. Came into the emergency room for evaluation and he was noted to be in narrow complex tachycardia, paroxysmal atrial tachycardia. While in the ER he returned to sinus rhythm. He denied any further episodes of chest pain. No shortness of breath. Cardiac enzymes were negative. Home Medications & Allergies Allergies: Coded Allergies: No Known Drug Allergies (Unverified , 02/24/22) Home Medication List Reviewed: Yes HTP-Dqscqo-Hlnklu Hx Patient Social History Marital Status: Employed/Student: employed Smoking Status: Current Someday Smoker Type Used: Cigars Recent Hopitalizations: Yes (11/17/21- PARTIAL BOWEL OBSTRUCTION) Alcohol Use?: Yes Immunizations Up To Date Tetanus Booster (TDap): More than 5yrs Date of Influenza Vaccine: May 06, 2016 Past Medical History Discussed below Family Medical History Significant Family History: Heart Disease, Cancer Family History: Diabetes mellitus 19 MOTHER G8 SISTER FH: lung cancer 19 MOTHER Hypertension 19 FATHER 19 MOTHER G8 SISTER Kidney stone G8 SISTER Parkinson's disease G8 SISTER Prostate cancer 19 FATHER Review of Systems-General Review of Systems Constitutional: see HPI EENTM: see HPI, no symptoms reported Respiratory: no symptoms reported, see HPI Cardiovascular: see HPI, chest pain; No edema, No Hx of Intervention; palpitations; No syncope, No vascular heart diseas, No other Gastrointestinal: no symptoms reported, see HPI Genitourinary: no symptoms reported, see HPI Musculoskeletal: no symptoms reported Skin: no symptoms reported Psychiatric/Neurological: Anxiety Reviewed Test Results Reviewed Test Results Lab Laboratory Tests Test 02/25/22 23:17 02/26/22 04:00 02/26/22 06:38 Range/Units White Blood Count 8.1 7.8 4.3-11.0 10^3/uL Red Blood Count 4.38 3.75 L 4.30-5.52 10^6/uL Hemoglobin 13.2 L 11.3 L 13.3-17.7 g/dL Hematocrit 38 L 33 L 40-54 % Mean Corpuscular Volume 88 88 80-99 fL Mean Corpuscular Hemoglobin 30 30 25-34 pg Mean Corpuscular Hemoglobin Concent 34 34 32-36 g/dL Red Cell Distribution Width 13.5 13.6 10.0-14.5 % Platelet Count 127 L 114 L 130-400 10^3/uL Mean Platelet Volume 12.1 12.4 H 9.0-12.2 fL Immature Granulocyte % (Auto) 0 0 % Neutrophils (%) (Auto) 72 68 42-75 % Lymphocytes (%) (Auto) 17 22 12-44 % Monocytes (%) (Auto) 8 8 0-12 % Eosinophils (%) (Auto) 2 1 0-10 % Basophils (%) (Auto) 1 0 0-10 % Neutrophils # (Auto) 5.8 5.3 1.8-7.8 10^3/uL Lymphocytes # (Auto) 1.4 1.7 1.0-4.0 10^3/uL Monocytes # (Auto) 0.7 0.6 0.0-1.0 10^3/uL Eosinophils # (Auto) 0.1 0.1 0.0-0.3 10^3/uL Basophils # (Auto) 0.0 0.0 0.0-0.1 10^3/uL Immature Granulocyte # (Auto) 0.0 0.0 0.0-0.1 10^3/uL Percent Immature Platelet Fraction 8.2 H 9.3 H 0.0-7.6 % Prothrombin Time 14.0 12.2-14.7 SEC INR Comment 1.0 0.8-1.4 Activated Partial Thromboplast Time 35 24-35 SEC D-Dimer 0.64 H 0.00-0.49 UG/ML Sodium Level 139 137 135-145 MMOL/L Potassium Level 4.1 4.3 3.6-5.0 MMOL/L Chloride Level 106 109 H 98-107 MMOL/L Carbon Dioxide Level 23 19 L 21-32 MMOL/L Anion Gap 10 9 5-14 MMOL/L Blood Urea Nitrogen 19 H 18 7-18 MG/DL Creatinine 1.34 H 1.18 0.60-1.30 MG/DL Estimat Glomerular Filtration Rate 60 70 BUN/Creatinine Ratio 14 15 Glucose Level 316 H 309 H 70-105 MG/DL Calcium Level 9.1 8.5 8.5-10.1 MG/DL Corrected Calcium 9.6 8.5-10.1 MG/DL Magnesium Level 1.9 1.6-2.4 MG/DL Total Bilirubin 0.6 0.1-1.0 MG/DL Aspartate Amino Transf (AST/SGOT) 14 5-34 U/L Alanine Aminotransferase (ALT/SGPT) 15 0-55 U/L Alkaline Phosphatase 60 40-136 U/L Total Creatine Kinase 129 30-200 U/L Creatine Kinase MB 1.6 <6.6 NG/ML Myoglobin 87.9 10.0-92.0 NG/ML Troponin I < 0.028 < 0.028 < 0.028 <0.028 NG/ML B-Type Natriuretic Peptide 136.4 H <100.0 PG/ML Total Protein 6.4 6.4-8.2 GM/DL Albumin 3.4 3.2-4.5 GM/DL Amylase Level 36 25-125 U/L Lipase 58 8-78 U/L Triglycerides Level 244 H <150 MG/DL Cholesterol Level 128 < 200 MG/DL LDL Cholesterol Direct 76 1-129 MG/DL VLDL Cholesterol 49 H 5-40 MG/DL HDL Cholesterol 24 L 40-60 MG/DL Physical Exam Physical Exam Vital Signs Vital Signs - First Documented 02/25/22 02/26/22 23:00 02:44 Temp 36.0 Pulse 140 Resp 20 B/P (MAP) 152/121 (131) Pulse Ox 98 O2 Delivery Room Air Capillary Refill : Height, Weight, BMI Height: 6'4.00" Weight: 240lbs. 0.0oz. [id number]; 28.00 BMI Method:Stated General Appearance: No Apparent Distress, WD/WN, Anxious, Other (SLIGHTLY DYSPNEIC. ) Eyes: Bilateral Eye Normal Inspection, Bilateral Eye PERRL, Bilateral Eye EOMI HEENT: PERRL/EOMI, TMs Normal, Normal ENT Inspection, Pharynx Normal, Moist Mu cous Membranes Neck: Normal Inspection Respiratory: Normal Breath Sounds, No Accessory Muscle Use, Other (SLIGHTLY DYSPNEIC) Cardiovascular: No JVD, No Murmur, Normal Peripheral Pulses, Tachycardia Gastrointestinal: Non Tender, Soft Back: Normal Inspection, No CVA Tenderness, No Vertebral Tenderness Extremity: Normal Capillary Refill, Normal Inspection, Normal Range of Motion, Non Tender, No Calf Tenderness, No Pedal Edema Neurologic/Psychiatric: Alert, Oriented x3, No Motor/Sensory Deficits, calciner operator helper II- XII Norm as Tested Skin: Normal Color, Warm/Dry Lymphatic: No Adenopathy A/P-Cardiology Admission Diagnosis Chest pain Palpitation Paroxysmal supraventricular tachycardia Hypertension Assessment/Plan Chest pain nonspecific etiology probably secondary to tachycardia. EKG and cardiac enzymes are back to normal. Patient had a recent stress test within the last year and he reported that it was normal, it was done at [facility] [place]. Follows with Dr. Leigh as an outpatient. Patient was instructed to follow-up with his primary assembling motor builder Palpitation, secondary to supraventricular tachycardia. Known to have paroxysmal supraventricular tachycardia. On previous admissions he was advised to talk to his assembling motor builder about electrophysiology evaluation. I offered him referral and patient declined. He requested to follow-up with his primary assembling motor builder and discuss it with him. Abdominal pain, patient was seen in the emergency room and admitted for abdominal pain 24 hours prior to the emergency room visit. Work-up was negative and his abdominal pain is better. Hypertension, controlled, continue on current medications and monitor Aortic valve regurgitation, as was noted to be mild per echo done in May 2021. Continue to monitor Mildly prominent thoracic aorta noted on echocardiogram. Followed by primary assembling motor builder CT of the chest with contrast done on February 25, 2022 did not report any significant aneurysm Hyperlipidemia, monitor lipids Diabetes mellitus, followed and managed by primary care physician Juan Jose for discharge from cardiology standpoint RHYS MARQUEZ MD Feb 26, 2022 08:34
[2022-02-26] MEDS ORDERED: ASPIRIN E.C. 81 MG (ECOTRIN) TAB PO SCH (09:00)
[2022-02-26] MEDS ORDERED: APIXABAN 5 MG (ELIQUIS) TABLET PO SCH (09:00)
--- NOTE | 2022-03-05 13:50 | Clinic Account Progress/Dx ---
Francia Prakash Mar 05, 2022 13:50
== END 2022-02-26 11:07 | disposition home or self-care (01) ==
LOC: EDUNIT# 22:55 → ER 22:57 → ICU 22:58 → UNDOADMOB 02-26 01:40 → INTOOBSV 02-26 01:40 → ICU 02-26 01:40 → UNDODISOB 02-26 11:07
PROVIDERS: ADMIT Internal Medicine; ATTEND Internal Medicine
DX: R07.9 Chest pain, unspecified (principal); R00.2 Palpitations; I47.1 Supraventricular tachycardia; E78.5 Hyperlipidemia, unspecified; I48.91 Unspecified atrial fibrillation; E11.22 Type 2 diabetes mellitus with diabetic chronic kidney disease; I12.9 Hypertensive chronic kidney disease with stage 1 through stage 4 chronic kidney disease, or unspecified chronic kidney disease; N18.9 Chronic kidney disease, unspecified; F17.210 Nicotine dependence, cigarettes, uncomplicated; Z79.4 Long term (current) use of insulin
CPT/HCPCS: 71045; 71275; 74177; 80048; 80053; 80061; 82150; 82550; 82553; 83690; 83735; 83874; 83880; 84484 ×2; 85025 ×2; 85379; 85610; 85730; 93005; 93041; 99284; G0378; 36415

== ENCOUNTER → 2022-04-23 | Outpatient (CLI) | payer MEDICARE ==
--- NOTE | 2022-04-23 16:22 | Diagnostic Imaging Report ---
INDICATION: Diabetic foot ulcer of the right foot COMPARISON: None Doppler/duplex, grayscale and color-flow imaging of the right lower extremity arterial system was performed. FINDINGS: A normal triphasic waveform is seen throughout the right lower extremity arterial system. There are no areas of focal narrowing or hemodynamically significant plaque formation identified by NASCET criteria. Flow velocities are within the normal limits. IMPRESSION: No focal significant stenosis. Dictated by: Dictated on workstation # [id number]
== END ==
LOC: RAD 10:00
PROVIDERS: ATTEND Internal Medicine
DX: E11.621 Type 2 diabetes mellitus with foot ulcer (principal); L97.509 Non-pressure chronic ulcer of other part of unspecified foot with unspecified severity
CPT/HCPCS: 93926

== ENCOUNTER → 2022-06-13 | Outpatient (CLI) | payer MEDICARE ==
--- NOTE | 2022-06-13 14:48 | Diagnostic Imaging Report ---
Clinical indications: Patient with possible carotid stenosis. Comparison: None Exam: Real-time ultrasound carotid Doppler duplex imaging is performed bilaterally with multiple real-time grayscale images obtained in various projections. Additional spectral analysis and color Doppler duple images were also obtained. Peak systolic velocity, ICA/CCA peak systolic ratio, spectral analysis, and vascular morphology are studied. Findings: ARTERY VELOCITY Right Left CCA 0.84 m/s 0.83 m/s ICA 0.75 m/s 0.74 m/s ECA 1.03 m/s 1.20 m/s ICA/CCA 0.9 0.9 VERT.ART Antegrade Antegrade There is mild bilateral carotid artery atherosclerotic disease. Impression: There is mild bilateral carotid artery atherosclerotic disease with no grayscale or Doppler evidence of significant vascular stenosis. Dictated by: Dictated on workstation # [id number]
== END ==
LOC: RAD 08:44
PROVIDERS: ATTEND Internal Medicine
DX: I65.23 Occlusion and stenosis of bilateral carotid arteries (principal)
CPT/HCPCS: 93880

== ENCOUNTER 2022-08-28 11:36 | Emergency (ER) | payer MEDICARE ==
[~2022-08-28] VITALS: Ht 193 cm; Wt 98.8 kg
[2022-08-28] MEDS ORDERED: NS IV 1000 ML 1,000 ML IV STA ×2 (12:06→13:05)
--- NOTE | 2022-08-28 12:09 | ED Abdominal Pain ---
General Chief Complaint: Abdominal/GI Problems Stated Complaint: HIGH BLOOD SUGAR | ABD PAIN Nursing Triage Note: PT AMB TO RM 3 WITH COMPLAINT OF ABD PAIN AND NAUSEA X2 WEEKS. STATES HE HAS HX OF PANCREATITIS AND FEELS LIKE HE HAS IT AGAIN. STATES HIS SUGARS HAVE BEEN HIGH AT HOME ALSO. Source of Information: Patient, Family () Exam Limitations: No Limitations History of Present Illness Date Seen by Provider: Aug 28, 2022 Time Seen by Provider: 11:58 Initial Comments Patient is a 61-year-old male who presents to the emergency department with a chief complaint of epigastric and right upper quadrant abdominal pain, nausea and dry heaves for 2 weeks. Patient states that he feels like this pain is similar to his "pancreatitis" pain that he has had a couple of times. He went to his primary care physician, Dr. Mitchell this morning and was sent to the ER for further evaluation. Patient states that he has chronic diarrhea since his cholecystectomy, nonblack nonbloody. He states he is urinating a little less frequently over the last couple of days. He has poorly controlled diabetes with a hemoglobin A1c per his at about 12. He states the pain is worse with eating. Nothing makes it any better. He is not taking any Tylenol or ibuprofen. He has taken some Pepto-Bismol. He denies fevers or chills. He has had many colonoscopies as a result of polyps and 2 prior partial small bowel obstructions according to his . No other abdominal surgeries other than the cholecystectomy. He has a history he thinks of A-fib as well as hypertension. All other review of systems reviewed and negative except as stated. Timing/Duration: Other (2 weeks) Severity/Quality: Moderate ("5-6") Location: RUQ, Epigastric Radiation: No Radiation Activities at Onset: None Associated Symptoms: Denies Symptoms Allergies and Home Medications Allergies Coded Allergies: No Known Drug Allergies (Unverified , 02/24/22) Patient Home Medication List Home Medication List Reviewed: Yes Diltiazem HCl (Diltiazem ER) 360 Mg Capsule.er, 360 MG PO DAILY, (Reported) Entered as Reported by: CEDRIC ANTHONY on 06/18/21 1040 Gabapentin (Neurontin) 300 Mg Capsule, 300 MG PO TID, (Reported) Entered as Reported by: CEDRIC ANTHONY on 06/18/21 1040 Glimepiride (Glimepiride) 4 Mg Tablet, 8 MG PO DAILY, (Reported) Entered as Reported by: CEDRIC ANTHONY on 06/18/21 104 Guaifenesin (Mucus Relief) 600 Mg Tab.er.12h, 600 MG PO Q12H PRN for CONGESTION, (Reported) Entered as Reported by: CEDRIC ANTHONY on 06/18/21 104 Insulin Degludec (Tresiba Flextouch U-200) 200 Unit/1 Ml Insuln.pen, 50 UNITS SC DAILY, (Reported) Entered as Reported by: CEDRIC ANTHONY on 06/18/21 104 Lisinopril (Lisinopril) 40 Mg Tablet, 40 MG PO DAILY, (Reported) Entered as Reported by: CEDRIC ANTHONY on 06/18/21 104 Metoprolol Succinate (Metoprolol Succinate) 50 Mg Tab.er.24h, 50 MG PO DAILY, (Reported) Entered as Reported by: CEDRIC ANTHONY on 11/16/21 1227 Orphenadrine Citrate (Orphenadrine Citrate) 100 Mg Tablet.er, 100 MG PO BID, (Reported) Entered as Reported by: CEDRIC ANTHONY on 06/18/21 104 Pantoprazole Sodium (Pantoprazole Sodium) 40 Mg Tablet.dr, 40 MG PO DAILY, (Reported) Entered as Reported by: CEDRIC ANTHONY on 06/18/21 104 Pioglitazone HCl (Pioglitazone HCl) 30 Mg Tablet, 30 MG PO DAILY, (Reported) Entered as Reported by: CEDRIC ANTHONY on 06/18/21 104 Ropinirole HCl (Ropinirole HCl) 4 Mg Tablet, 4 MG PO BID, (Reported) Entered as Reported by: CEDRIC ANTHONY on 06/18/21 104 Semaglutide (Ozempic) 1 Mg/0.75 Ml Pen.injctr, 1 MG SQ SUN, (Reported) Entered as Reported by: CEDRIC ANTHONY on 06/18/21 104 Review of Systems Review of Systems Constitutional: see HPI, malaise EENTM: No Symptoms Reported Respiratory: No Symptoms Reported Cardiovascular: No Symptoms Reported Gastrointestinal: Abdominal Pain, Diarrhea (chronic), Nausea Genitourinary: Other (slightly decreased frequency) Musculoskeletal: no symptoms reported Skin: no symptoms reported Psychiatric/Neurological: No Symptoms Reported Past Zuggdyv-Xfjdyi-Kgvohp Hx Patient Social History Tobacco Use?: Yes Tobacco type used: Cigars Smoking Status: Current Someday Smoker Use of E-Cig and/or Vaping dev: No Substance use?: No Alcohol Use?: Yes Alcohol type: Beer Alcohol Frequency: Daily Pt feels they are or have been: No Immunizations Up To Date Tetanus Booster (TDap): More than 5yrs PED Vaccines UTD: Yes First/Initial COVID19 Vaccinat: STATES 2 VACCINES PLUS BOOSTER Second COVID19 Vaccination Charli: STATES 2 VACCINES PLUS BOOSTER Third COVID19 Vaccination Date: STATES 2 VACCINES PLUS BOOSTER Seasonal Allergies Seasonal Allergies: Yes Past Medical History Surgeries: Yes (SEE BELOW) Gallbladder, Orthopedic, Renal Respiratory: Yes Sleep Apnea Currently Using CPAP: No Cardiac: Yes High Cholesterol, Hypertension Neurological: Yes Neuropathy Reproductive Disorders: No Sexually Transmitted Disease: No HIV/AIDS: No Genitourinary: Yes (RENAL CYSTS; NO DIALYSIS) Kidney Stones, Renal Failure Gastrointestinal: Yes (PARTIAL BOWEL OBSTRUCTIONS-NO SURGERY) Gastroesophageal Reflux, Obstructive Bowel, Chronic Diarrhea, Polyps, Gall Bladder Disease, Irritable Bowel Musculoskeletal: Yes (LEFT ROTATOR CUFF REPAIR; RIGHT BICEPS TENDON REPAIR) Arthritis Endocrine: Yes Diabetes, Insulin dep HEENT: No Loss of Vision: Denies Hearing Impairment: Denies Cancer: No Psychosocial: Yes Depression Integumentary: No Blood Disorders: No Adverse Reaction/Blood Tranf: No Family Medical History Diabetes mellitus 19 MOTHER G8 SISTER FH: lung cancer 19 MOTHER Hypertension 19 FATHER 19 MOTHER G8 SISTER Kidney stone G8 SISTER Parkinson's disease G8 SISTER Prostate cancer 19 FATHER Heart Disease, Cancer SOCIAL HISTORY: -SMOKES CIGARS SOMETIMES -ETOH-OCCASIONAL USE -DRUGS-DENIES USE PAST SURGICAL HISTORY: -MOST RECENT COLONOSCOPY WITH POLYPECTOMY X [address] LAGUNAS 11/20/21 -CHOLECYSTECTOMY 2012 -LEFT ROTATOR CUFF REPAIR 2012 -RIGHT BICEPS TENDON REPAIR 2012 -MULTIPLE CYSTOSCOPIES, LITHOTRIPSIES, KIDNEY STONE BASKET REMOVALS Physical Exam Vital Signs Vital Signs - First Documented 08/28/22 11:49 Pulse 66 Resp 17 B/P (MAP) 124/72 (89) Pulse Ox 97 O2 Delivery Room Air Capillary Refill : Less Than 3 Seconds Height/Weight/BMI Height: 6'4.00" Weight: 240lbs. 0.0oz. [id number]; 26.00 BMI Method:Stated General Appearance: WD/WN, no apparent distress HEENT: PERRL/EOMI, other (dry lips) Neck: supple Respiratory: lungs clear, normal breath sounds, no respiratory distress, no accessory muscle use Cardiovascular: regular rate, rhythm Gastrointestinal: soft, tenderness (RUQ and epigastrum; no rebound, guarding or distension) Extremities: normal range of motion Neurologic/Psychiatric: alert, oriented x 3, other (flat affect) Skin: normal color, warm/dry Progress/Results/Core Measures Results/Orders Lab Results Laboratory Tests Test 08/28/22 11:51 08/28/22 12:58 Range/Units White Blood Count 11.5 H 4.3-11.0 10^3/uL Red Blood Count 4.96 4.30-5.52 10^6/uL Hemoglobin 15.1 13.3-17.7 g/dL Hematocrit 43 40-54 % Mean Corpuscular Volume 86 80-99 fL Mean Corpuscular Hemoglobin 30 25-34 pg Mean Corpuscular Hemoglobin Concent 36 32-36 g/dL Red Cell Distribution Width 12.7 10.0-14.5 % Platelet Count 217 130-400 10^3/uL Mean Platelet Volume 11.2 9.0-12.2 fL Immature Granulocyte % (Auto) 0 % Neutrophils (%) (Auto) 72 42-75 % Lymphocytes (%) (Auto) 20 12-44 % Monocytes (%) (Auto) 6 0-12 % Eosinophils (%) (Auto) 1 0-10 % Basophils (%) (Auto) 0 0-10 % Neutrophils # (Auto) 8.3 H 1.8-7.8 10^3/uL Lymphocytes # (Auto) 2.3 1.0-4.0 10^3/uL Monocytes # (Auto) 0.7 0.0-1.0 10^3/uL Eosinophils # (Auto) 0.1 0.0-0.3 10^3/uL Basophils # (Auto) 0.0 0.0-0.1 10^3/uL Immature Granulocyte # (Auto) 0.0 0.0-0.1 10^3/uL Sodium Level 137 135-145 MMOL/L Potassium Level 3.4 L 3.6-5.0 MMOL/L Chloride Level 101 98-107 MMOL/L Carbon Dioxide Level 27 21-32 MMOL/L Anion Gap 9 5-14 MMOL/L Blood Urea Nitrogen 22 H 7-18 MG/DL Creatinine 1.65 H 0.60-1.30 MG/DL Estimat Glomerular Filtration Rate 47 BUN/Creatinine Ratio 13 Glucose Level 283 H 70-105 MG/DL Calcium Level 9.5 8.5-10.1 MG/DL Corrected Calcium 9.6 8.5-10.1 MG/DL Total Bilirubin 1.1 H 0.1-1.0 MG/DL Aspartate Amino Transf (AST/SGOT) 12 5-34 U/L Alanine Aminotransferase (ALT/SGPT) 15 0-55 U/L Alkaline Phosphatase 58 40-136 U/L Total Protein 7.1 6.4-8.2 GM/DL Albumin 3.9 3.2-4.5 GM/DL Lipase 35 8-78 U/L Urine Color DARK YELLOW Urine Clarity CLEAR Urine pH 5.0 5-9 Urine Specific [place] >=1.030 1.016-1.022 Urine Protein 1+ H NEGATIVE Urine Glucose (UA) 2+ H NEGATIVE Urine Ketones NEGATIVE NEGATIVE Urine Nitrite NEGATIVE NEGATIVE Urine Bilirubin NEGATIVE NEGATIVE Urine Urobilinogen 0.2 < = 1.0 MG/DL Urine Leukocyte Esterase NEGATIVE NEGATIVE Urine RBC (Auto) NEGATIVE NEGATIVE Urine RBC NONE /HPF Urine WBC 5-10 H /HPF Urine Squamous Epithelial Cells 0-2 /HPF Urine Crystals NONE /LPF Urine Bacteria TRACE /HPF Urine Casts PRESENT /LPF Urine Hyaline Casts 2-5 H /LPF Urine Mucus SMALL H /LPF Urine Culture Indicated NO My Orders Orders - ALLEGRA HOLLIS MD Ed Iv/Invasive Line Start (08/28/22 12:06) Cbc With Automated Diff (08/28/22 12:06) Comprehensive Metabolic Panel (08/28/22 12:06) Lipase (08/28/22 12:06) Urinalysis (08/28/22 12:06) Ns Iv 1000 Ml (Sodium Chloride 0.9%) (08/28/22 12:06) Ondansetron Injection (Zofran Injectio (08/28/22 12:15) Fentanyl Inj (Sublimaze Injection) (08/28/22 12:15) Ns Iv 1000 Ml (Sodium Chloride 0.9%) (08/28/22 13:05) Medications Given in ED Current Medications Medications Dose Ordered Sig/Parvin Route Start Time Stop Time Status Last Admin Dose Admin Fentanyl Citrate 50 mcg ONCE ONCE IVP 08/28/22 12:15 08/28/22 12:16 DC 08/28/22 12:15 50 MCG Ondansetron HCl 4 mg ONCE ONCE IVP 08/28/22 12:15 08/28/22 12:16 DC 08/28/22 12:15 4 MG Vital Signs/I&O 08/28/22 11:49 Pulse 66 Resp 17 B/P (MAP) 124/72 (89) Pulse Ox 97 O2 Delivery Room Air Blood Pressure Mean: 89 Progress Progress Note : Time: 14:03 Progress Note Patient seen and evaluated by me, 61-year-old diabetic with a chief complaint of epigastric and right upper quadrant abdominal pain, 12 pound weight loss in the last couple of weeks. High blood sugars. Patient evaluation includes physical exam, CBC, Chem-12, lipase and urinalysis. He was slightly tachycardic on physical examination. Clinically appears dry with dry lips and mucous membranes. Exam showed mild tenderness in the epigastrium and right upper quadrant. Differential diagnosis based on history and physical, viral syndrome, dehydration, retained stone, gastric ulcer, pancreatitis. Based on labs, normal CBC, chemistry (mildly hyperglycemia, elevated BUN/Creat) ) and UA(normal) and lipase (34) patient does not have acute pancreatitis. He does not have any COVID type complaints. His liver functions are normal. His hemoglobin is normal. I did speak with Dr. Evans, the patient's primary care physician, we both agreed that the patient has no clinical findings to warrant CT scan of the abdomen and pelvis at this time. He has had multiple CTs over his lifetime. I do not feel that a CT of the abdomen and pelvis at this time would lend much information to his current clinical picture. Dr. Mitchell states that he did just stop his Ozempic. He is going to likely start him on some prandial insulin. Patient has been treated with Zofran, fentanyl for the abdominal discomfort and 2 L of IV fluids. On reevaluation the patient is sleepy but feels better. Blood pressure is good, pulses good. I have reviewed the lab work with the patient and his who is at the bedside. They are comfortable with plan of care. We will send him home with a prescription for some Reglan. Encouraged compliance with medications. Dr. Mitchell did mention that he has been historically noncompliant with medical therapies. and patient are comfortable with the plan of care. All questions are sought and answered. Patient is improved at discharge. Departure Impression Primary Impression: Abdominal pain Qualified Codes: R10.11 - Right upper quadrant pain Additional Impressions: Dehydration ANTONETTE (acute kidney injury) Disposition: HOME, SELF-CARE Condition: Improved Departure-Patient Inst. Decision time for Depature: 14:08 Referrals: MARIELY MITCHELL DO (PCP/Family) Primary Care Physician Patient Instructions: Dehydration, Adult ED, Abdominal Pain, Adult ED Add. Discharge Instructions: Monitor your symptoms for worsening; if you develop fever, vomiting blood or passing blood in your stool or worsening pain please come back to the emergency room for reevaluation. Take the Reglan, 10 mg every 6-8 hours as needed for nausea. You can take this 30 minutes before eating. Bentyl (dicyclomine), 20 mg, 30 minutes before eating as well which may help with abdominal pain/cramping. Please call Dr. Mitchell''s office in the morning for a follow-up appointment next Friday or Friday. Please try and push fluids so that you stay well-hydrated. Scripts Metoclopramide HCl (Reglan) 10 Mg Tablet 10 MG PO Q6H PRN for nausea, #20 TAB Prov: ALLEGRA HOLLIS MD 08/28/22 Dicyclomine HCl (Dicyclomine HCl) 20 Mg Tablet 20 MG PO QIDACHS PRN for abdominal cramping, #30 TAB Prov: ALLEGRA HOLLIS MD 08/28/22 Copy Copies To 1: MARIELY MITCHELL KATHRYN M MD Aug 28, 2022 12:09
[2022-08-28 12:13] LABS: BASOPHILS % (AUTO) 0 % (0-10); EOSINOPHILS # (AUTO) 0.1 10^3/uL (0.0-0.3); EOSINOPHILS % (AUTO) 1 % (0-10); HEMATOCRIT 43 % (40-54); HEMOGLOBIN 15.1 g/dL (13.3-17.7); LYMPHOCYTES # (AUTO) 2.3 10^3/uL (1.0-4.0); LYMPHOCYTES % (AUTO) 20 % (12-44); MEAN CORPUSCULAR HEMOGLOBIN 30 pg (25-34); MEAN CORPUSCULAR HGB CONC 36 g/dL (32-36); MEAN CORPUSCULAR VOLUME 86 fL (80-99); MEAN PLATELET VOLUME 11.2 fL (9.0-12.2); MONOCYTES # (AUTO) 0.7 10^3/uL (0.0-1.0); MONOCYTES % (AUTO) 6 % (0-12); NEUTROPHILS # (AUTO) 8.3 10^3/uL (1.8-7.8); NEUTROPHILS % (AUTO) 72 % (42-75); PLATELET COUNT 217 10^3/uL (130-400); WHITE BLOOD COUNT 11.5 10^3/uL (4.3-11.0)
[2022-08-28] MEDS ORDERED: ONDANSETRON 4 MG/2 ML (SDV) Z0FRAN IVP ONE (12:15)
[2022-08-28] MEDS ORDERED: fentaNYL INJ 100 MCG/2 ML AMP IVP ONE (12:15)
[2022-08-28 12:41] LABS: ALBUMIN 3.9 GM/DL (3.2-4.5); BILIRUBIN,TOTAL 1.1 MG/DL (0.1-1.0); CALCIUM 9.5 MG/DL (8.5-10.1); CREATININE SERUM 1.65 MG/DL (0.60-1.30); POTASSIUM 3.4 MMOL/L (3.6-5.0); TOTAL PROTEIN 7.1 GM/DL (6.4-8.2)
[2022-08-28 13:12] LABS: BILIRUBIN,URINE NEGATIVE (NEGATIVE); CLARITY,URINE CLEAR; COLOR,URINE DARK YELLOW; GLUCOSE, URINE (UA) 2+ (NEGATIVE); KETONES,URINE NEGATIVE (NEGATIVE); LEUKOCYTE ESTERASE ,URINE NEGATIVE (NEGATIVE); NITRITE,URINE NEGATIVE (NEGATIVE); PROTEIN,URINE 1+ (NEGATIVE)
[2022-08-28 13:22] LABS: BACTERIA,URINE TRACE /HPF; SQUAMOUS EPITHELIAL CELL,UR 0-2 /HPF
[2022-08-28] MEDS ORDERED: METO-310 PO (14:10)
[2022-08-28] MEDS ORDERED: DICY20TA PO (14:10)
[2022-08-28 14:21] VITALS: BP 115/70
== END 2022-08-28 14:21 | disposition home or self-care (01) ==
LOC: EDUNIT# 11:36 → ER 11:39
DX: R10.31 Right lower quadrant pain (principal); R10.13 Epigastric pain; E86.0 Dehydration; N17.9 Acute kidney failure, unspecified; F17.210 Nicotine dependence, cigarettes, uncomplicated; E11.65 Type 2 diabetes mellitus with hyperglycemia; Z79.4 Long term (current) use of insulin
CPT/HCPCS: 36415; 80053; 81000; 83690; 85025; 99282

== ENCOUNTER 2022-10-22 03:34 | Observation (INO) | payer MEDICARE ==
[2022-10-22] VITALS (14 sets, daily range): BP systolic 134–172; BP diastolic 60–82
[~2022-10-22] VITALS: Ht 193 cm; Wt 106.4 kg
[~2022-10-22 03:34] MED LIST changes: +DICY20TA PO; +METO-310 PO
[2022-10-22] MEDS ORDERED: PANTOPRAZOLE 40 MG (PROTONIX) VIAL IV ONE (04:00)
[2022-10-22] MEDS ORDERED: ASPIRIN 81 MG CHEW (CHILDREN'S ASA) PO ONE (04:00)
[2022-10-22] MEDS ORDERED: ONDANSETRON 4 MG/2 ML (SDV) Z0FRAN IVP ONE (04:00)
[2022-10-22] MEDS ORDERED: NS IV 1000 ML 1,000 ML IV SCH ×2 (04:00→05:00)
--- NOTE | 2022-10-22 04:01 | ED General ---
General Chief Complaint: Abdominal/GI Problems Stated Complaint: ABD PAIN/VOMITING/SHAKING Source of Information: Patient (SOMEWHAT DIFFICULT HISTORIAN), Old Records History of Present Illness Date Seen by Provider: Oct 22, 2022 Time Seen by Provider: 03:45 Initial Comments PT ARRIVES VIA POV FROM HOME WITH PT STATES HE ATE DINNER AROUND 1900 TONIGHT--COUNTRY RIBS HE ATE AGAIN AT 2330--COUNTRY RIBS--GOT CHOKED ON A PIECE OF MEAT AND COUGHED FOR AN HOUR, FINALLY QUIT COUGHING, AND WENT TO BED PT STATES AFTER HE WENT TO BED, HE STARTED SHIVERING HE BEGAN TO HAVE DIFFUSE UPPER ABDOMINAL PAIN AND PAIN ALL ACROSS HIS CHEST AROUND MIDNIGHT STATES "IT FEELS LIKE MY LUNGS ARE BURNING" HE ALSO FEELS SHORT OF BREATH--PT STATES HE HAS COPD AND ALWAYS FEELS A LITTLE SHORT OF BREATH, BUT DOES NOT HAVE HOME O2 OR ANY INHALERS OR NEBULIZERS. STATES HE FEELS MORE SHORT OF BREATH THAN NORMAL NO SWELLING IN LEGS/FEET NO DIZZINESS OR SYNCOPE PT HAS HAD COVID VACCINE X 3, NO FLU VACCINE. PT HAS HISTORY OF ATRIAL FIBRILLATION, HTN, INSULIN DEPENDENT DIABETES ( INSULIN + PILLS), CHRONIC BACK PAIN, RESTLESS LEGS, I.B.S. HE HAS HAD PANCREATITIS IN THE PAST HE HAD AN EGD AT [facility] ABOUT 2 WEEKS AGO FOR ABDOMINAL PAIN. HE STATES HE HAS NEVER HAD PROBLEMS WITH FOOD GETTING STUCK WHEN HE SWALLOWS AND HAS NEVER HAD TO HAVE HIS ESOPHAGUS DILATED. HE HAS HAD SEVERAL BOWEL OBSTRUCTIONS AND PARTIAL BOWEL OBSTRUCTIONS, BUT HAS NEVER HAD TO HAVE SURGERY FOR IT. HE HAS HAD A PRIOR CHOLECYSTECTOMY. NO OTHER ABDOMINAL SURGERIES HAS HISTORY OF KIDNEY STONES. PT STATES THIS IS NOT THE SAME WITH KIDNEY STONES. PT SMOKED CIGARETTES WHEN YOUNGER, NOW SMOKES CIGARS DAILY HE DRINKS "A COUPLE OF BEERS" EVERY NIGHT, INCLUDING TONIGHT HE DENIES DRUG USE. PT HAS NOT TAKEN ANY OF HIS EVENING MEDICATIONS. PCP: DR. BARTON--HE WAS A DR. SANCHEZ PATIENT UNTIL HE . CARDIOLOGY: DR. PEREZ AT [facility] Allergies and Home Medications Allergies Coded Allergies: No Known Drug Allergies (Unverified , 02/24/22) Patient Home Medication List Home Medication List Reviewed: Yes Dicyclomine HCl (Dicyclomine HCl) 20 Mg Tablet, 20 MG PO QIDACHS PRN for abdominal cramping Prescribed by: ALLEGRA HOLLIS on 08/28/22 1410 Diltiazem HCl (Diltiazem ER) 360 Mg Capsule.er, 360 MG PO DAILY, (Reported) Entered as Reported by: CEDRIC ANTHONY on 06/18/21 1040 Gabapentin (Neurontin) 300 Mg Capsule, 300 MG PO TID, (Reported) Entered as Reported by: CEDRIC ANTHONY on 06/18/21 104 Glimepiride (Glimepiride) 4 Mg Tablet, 8 MG PO DAILY, (Reported) Entered as Reported by: CEDRIC ANTHONY on 06/18/21 104 Guaifenesin (Mucus Relief) 600 Mg Tab.er.12h, 600 MG PO Q12H PRN for CONGESTION, (Reported) Entered as Reported by: CEDRIC ANTHONY on 06/18/21 104 Insulin Degludec (Tresiba Flextouch U-200) 200 Unit/1 Ml Insuln.pen, 50 UNITS SC DAILY, (Reported) Entered as Reported by: CEDRIC ANTHONY on 06/18/21 104 Lisinopril (Lisinopril) 40 Mg Tablet, 40 MG PO DAILY, (Reported) Entered as Reported by: CEDRIC ANTHONY on 06/18/21 104 Metoclopramide HCl (Reglan) 10 Mg Tablet, 10 MG PO Q6H PRN for nausea Prescribed by: ALLEGRA HOLLIS on 08/28/22 1410 Metoprolol Succinate (Metoprolol Succinate) 50 Mg Tab.er.24h, 50 MG PO DAILY, (Reported) Entered as Reported by: CEDRIC ANTHONY on 11/16/21 1227 Orphenadrine Citrate (Orphenadrine Citrate) 100 Mg Tablet.er, 100 MG PO BID, (Reported) Entered as Reported by: CEDRIC ANTHONY on 06/18/21 104 Pantoprazole Sodium (Pantoprazole Sodium) 40 Mg Tablet.dr, 40 MG PO DAILY, (Reported) Entered as Reported by: CEDRIC ANTHONY on 06/18/21 104 Pioglitazone HCl (Pioglitazone HCl) 30 Mg Tablet, 30 MG PO DAILY, (Reported) Entered as Reported by: CEDRIC ANTHONY on 06/18/21 104 Ropinirole HCl (Ropinirole HCl) 4 Mg Tablet, 4 MG PO BID, (Reported) Entered as Reported by: CEDRIC ANTHONY on 06/18/21 1040 Semaglutide (Ozempic) 1 Mg/0.75 Ml Pen.injctr, 1 MG SQ SUN, (Reported) Entered as Reported by: CEDRIC ANTHONY on 06/18/21 1040 Review of Systems Review of Systems Constitutional: chills, other (SHIVERING) EENTM: no symptoms reported Respiratory: see HPI, cough, short of breath, other (PER HPI) Cardiovascular: see HPI, chest pain; No edema, No palpitations, No syncope Gastrointestinal: see HPI, abdominal pain; No diarrhea; nausea, vomiting Genitourinary: no symptoms reported Musculoskeletal: no symptoms reported (BUT HAS CHRONIC BACK PAIN ) Skin: no symptoms reported Psychiatric/Neurological: No Symptoms Reported Hematologic/Lymphatic: No Symptoms Reported Immunological/Allergic: no symptoms reported Past Gapfyrp-Rjfpnc-Dnojww Hx Patient Social History Tobacco Use?: Yes Tobacco type used: Cigars, Cigarettes Smoking Status: Current Everyday Smoker Substance use?: No Alcohol Use?: Yes Alcohol type: Beer Alcohol Frequency: Daily Immunizations Up To Date Tetanus Booster (TDap): More than 5yrs PED Vaccines UTD: Yes First/Initial COVID19 Vaccinat: STATES 2 VACCINES PLUS BOOSTER Second COVID19 Vaccination Charli: STATES 2 VACCINES PLUS BOOSTER Third COVID19 Vaccination Date: STATES 2 VACCINES PLUS BOOSTER Seasonal Allergies Seasonal Allergies: Yes Past Medical History Surgeries: Yes (SEE BELOW) Gallbladder, Orthopedic, Renal Respiratory: Yes Sleep Apnea, COPD Currently Using CPAP: No Cardiac: Yes High Cholesterol, Hypertension Neurological: Yes Neuropathy Reproductive Disorders: No Sexually Transmitted Disease: No HIV/AIDS: No Genitourinary: Yes (RENAL CYSTS; NO DIALYSIS) Kidney Stones, Renal Failure Gastrointestinal: Yes (PARTIAL BOWEL OBSTRUCTIONS-NO SURGERY) Gastroesophageal Reflux, Obstructive Bowel, Chronic Diarrhea, Polyps, Gall Bladder Disease, Irritable Bowel Musculoskeletal: Yes (LEFT ROTATOR CUFF REPAIR; RIGHT BICEPS TENDON REPAIR;DIABETIC FOOT ULCER) Arthritis, Chronic Back Pain Endocrine: Yes Diabetes, Insulin dep HEENT: No Loss of Vision: Denies Hearing Impairment: Denies Cancer: No Psychosocial: Yes Depression Integumentary: Yes (DIABETIC FOOT ULCER) Blood Disorders: No Adverse Reaction/Blood Tranf: No Family Medical History Diabetes mellitus 19 MOTHER G8 SISTER FH: lung cancer 19 MOTHER Hypertension 19 FATHER 19 MOTHER G8 SISTER Kidney stone G8 SISTER Parkinson's disease G8 SISTER Prostate cancer 19 FATHER Heart Disease, Cancer SOCIAL HISTORY: -SMOKED CIGARETTES WHEN YOUNGER, NOW SMOKES CIGARS DAILY -ETOH-"COUPLE OF BEERS" EVERY DAY -DRUGS-DENIES USE PAST SURGICAL HISTORY: -MOST RECENT COLONOSCOPY WITH POLYPECTOMY X [address] LAGUNAS 11/20/21 -CHOLECYSTECTOMY 2011 -LEFT ROTATOR CUFF REPAIR 2011 -RIGHT BICEPS TENDON REPAIR 2011 -MULTIPLE CYSTOSCOPIES, LITHOTRIPSIES, KIDNEY STONE BASKET REMOVALS -EGD 09/2022 AT [facility]. Physical Exam Vital Signs Vital Signs - First Documented 10/22/22 03:39 Temp 37.2 Pulse 97 Resp 22 B/P (MAP) 127/87 (100) Pulse Ox 92 O2 Delivery Nasal Cannula O2 Flow Rate 2.00 Capillary Refill : Height, Weight, BMI Height: 6'4.00" Weight: 240lbs. 0.0oz. 108.034930io; 26.00 BMI Method:Stated General Appearance: WD/WN, Other (DIRTY, MALODOROUS, MILDLY DYSPNEIC, KEEPS EYES CLOSED. ) HEENT: PERRL/EOMI Neck: Normal Inspection Respiratory: Decreased Breath Sounds (DECREASED IN RIGHT BASE); No Rales, No Rhonci, No Wheezing; Other (MILDLY DYSPNEIC) Cardiovascular: Regular Rate, Rhythm, No Edema, No JVD, No Murmur, Normal Peripheral Pulses Gastrointestinal: Soft, Tenderness (EPIGASTRIC TENDERNESS. 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 Norm as Tested Skin: Normal Color, Warm/Dry, Tattoos/Piercings (TATTOOS) Focused Exam Sepsis Stage: Ruled Out Reason for ruling out sepsis: DOES NOT MEET CRITERIA Possible Source: Pulmonary Lactate Level 10/22/22 05:12: Lactic Acid Level 2.02*H Time of Focused Exam: 04:45 Respiratory: No Accessory Muscle Use, No Respiratory Distress, Decreased Breath Sounds (DIMINISHED IN RIGHT BASE) Cardiovascular: Regular Rate, Rhythm, No Murmur Capillary Refill: Less Than 3 Seconds Skin: normal color, warm/dry Lactic Acid Level Laboratory Tests Test 10/22/22 05:12 Lactic Acid Level 2.02 MMOL/L (0.50-2.00) *H Within 3hrs of presentation: Admin fluids, Admin ABX, Blood cultures prior to ABX's, Focus exam, Lactate level Progress/Results/Core Measures Suspected Sepsis SIRS Temperature: Pulse: Respiratory Rate: Laboratory Tests 10/22/22 03:53: White Blood Count 11.8H Blood Pressure / Mean: 10/22/22 05:12: Lactic Acid Level 2.02*H Laboratory Tests 10/22/22 03:53: Creatinine 1.55H, INR Comment 0.9, Platelet Count 182, Total Bilirubin 0.7 Results/Orders Lab Results Laboratory Tests Test 10/22/22 03:52 10/22/22 03:53 10/22/22 05:12 10/22/22 05:47 Range/Units Glucometer 391 H 70-110 MG/DL White Blood Count 11.8 H 4.3-11.0 10^3/uL Red Blood Count 5.28 4.30-5.52 10^6/uL Hemoglobin 16.1 13.3-17.7 g/dL Hematocrit 46 40-54 % Mean Corpuscular Volume 86 80-99 fL Mean Corpuscular Hemoglobin 31 25-34 pg Mean Corpuscular Hemoglobin Concent 35 32-36 g/dL Red Cell Distribution Width 12.9 10.0-14.5 % Platelet Count 182 130-400 10^3/uL Mean Platelet Volume 11.2 9.0-12.2 fL Immature Granulocyte % (Auto) 0 % Neutrophils (%) (Auto) 84 H 42-75 % Lymphocytes (%) (Auto) 11 L 12-44 % Monocytes (%) (Auto) 4 0-12 % Eosinophils (%) (Auto) 0 0-10 % Basophils (%) (Auto) 0 0-10 % Neutrophils # (Auto) 9.9 H 1.8-7.8 10^3/uL Lymphocytes # (Auto) 1.3 1.0-4.0 10^3/uL Monocytes # (Auto) 0.5 0.0-1.0 10^3/uL Eosinophils # (Auto) 0.1 0.0-0.3 10^3/uL Basophils # (Auto) 0.1 0.0-0.1 10^3/uL Immature Granulocyte # (Auto) 0.0 0.0-0.1 10^3/uL Prothrombin Time 12.5 12.2-14.7 SEC INR Comment 0.9 0.8-1.4 Activated Partial Thromboplast Time 26 24-35 SEC Sodium Level 136 135-145 MMOL/L Potassium Level 3.6 3.6-5.0 MMOL/L Chloride Level 99 98-107 MMOL/L Carbon Dioxide Level 22 21-32 MMOL/L Anion Gap 15 H 5-14 MMOL/L Blood Urea Nitrogen 27 H 7-18 MG/DL Creatinine 1.55 H 0.60-1.30 MG/DL Estimat Glomerular Filtration Rate 51 BUN/Creatinine Ratio 17 Glucose Level 399 H 70-105 MG/DL Calcium Level 9.7 8.5-10.1 MG/DL Corrected Calcium 9.8 8.5-10.1 MG/DL Magnesium Level 1.7 1.6-2.4 MG/DL Total Bilirubin 0.7 0.1-1.0 MG/DL Aspartate Amino Transf (AST/SGOT) 11 5-34 U/L Alanine Aminotransferase (ALT/SGPT) 14 0-55 U/L Alkaline Phosphatase 67 40-136 U/L Total Creatine Kinase 60 30-200 U/L Creatine Kinase MB 1.4 <6.6 NG/ML Myoglobin 47.5 10.0-92.0 NG/ML Troponin I < 0.028 <0.028 NG/ML B-Type Natriuretic Peptide 31.4 <100.0 PG/ML Total Protein 7.2 6.4-8.2 GM/DL Albumin 3.9 3.2-4.5 GM/DL Amylase Level 36 25-125 U/L Lipase 49 8-78 U/L Beta-Hydroxybutyrate (Chem panel) 0.16 0.00-0.27 MMOL/L Acetaminophen Level < 10 L 10-30 UG/ML Serum Alcohol < 10 <10 MG/DL Lactic Acid Level 2.02 *H 0.50-2.00 MMOL/L Urine Color YELLOW Urine Clarity CLEAR Urine pH 5.5 5-9 Urine Specific [place] 1.010 L 1.016-1.022 Urine Protein 1+ H NEGATIVE Urine Glucose (UA) 3+ H NEGATIVE Urine Ketones NEGATIVE NEGATIVE Urine Nitrite NEGATIVE NEGATIVE Urine Bilirubin NEGATIVE NEGATIVE Urine Urobilinogen 0.2 < = 1.0 MG/DL Urine Leukocyte Esterase NEGATIVE NEGATIVE Urine RBC (Auto) 1+ H NEGATIVE Urine RBC 5-10 H /HPF Urine WBC NONE /HPF Urine Squamous Epithelial Cells RARE /HPF Urine Crystals NONE /LPF Urine Bacteria NEGATIVE /HPF Urine Casts NONE /LPF Urine Mucus NEGATIVE /LPF Urine Culture Indicated NO Urine Opiates Screen NEGATIVE NEGATIVE Urine Oxycodone Screen NEGATIVE NEGATIVE Urine Methadone Screen NEGATIVE NEGATIVE Urine Propoxyphene Screen NEGATIVE NEGATIVE Urine Barbiturates Screen NEGATIVE NEGATIVE Ur Tricyclic Antidepressants Screen NEGATIVE NEGATIVE Urine Phencyclidine Screen NEGATIVE NEGATIVE Urine Amphetamines Screen NEGATIVE NEGATIVE Urine Methamphetamines Screen NEGATIVE NEGATIVE Urine Benzodiazepines Screen NEGATIVE NEGATIVE Urine Cocaine Screen NEGATIVE NEGATIVE Urine Cannabinoids Screen NEGATIVE NEGATIVE My Orders Orders - NIRALI BERNARD DO Ed Iv/Invasive Line Start (10/22/22 03:39) Monitor-Rhythm Ecg Trace Only (10/22/22 03:39) Amylase (10/22/22 03:39) Cbc With Automated Diff (10/22/22 03:39) Comprehensive Metabolic Panel (10/22/22 03:39) Lipase (10/22/22 03:39) Magnesium (10/22/22 03:39) Ua Culture If Indicated (10/22/22 03:39) Ed Iv/Invasive Line Start (10/22/22 03:39) Accucheck Stat ONCE (10/22/22 03:55) Ekg Tracing (10/22/22 03:55) O2 (10/22/22 03:55) Alcohol (10/22/22 03:55) Bnp [place] (10/22/22 03:55) Creatine Kinase (10/22/22 03:55) Creatine Kinase Mb (10/22/22 03:55) Drug Screen Stat (Urine) (10/22/22 03:55) Protime With Inr (10/22/22 03:55) Partial Thromboplastin Time (10/22/22 03:55) Troponin I Lipscomb (10/22/22 03:55) Ed Iv/Invasive Line Start (10/22/22 03:55) Ns Iv 1000 Ml (Sodium Chloride 0.9%) (10/22/22 04:00) Ondansetron Injection (Zofran Injectio (10/22/22 04:00) Chest 1 View, Ap/Pa Only (10/22/22 03:55) Ekg Tracing (10/22/22 03:55) O2 (10/22/22 03:55) Lipid Panel (10/23/22 06:00) Ed Iv/Invasive Line Start (10/22/22 03:55) Aspirin Chewable Tablet (Baby Aspirin Ch (10/22/22 04:00) Pantoprazole Injection (Protonix Injecti (10/22/22 04:00) Acetaminophen (10/22/22 03:53) Myoglobin Serum (10/22/22 03:53) Ct Otilia Chest/Noang Abd-Pelv W (10/22/22 04:41) Piperacillin Sodium/Tazobactam (Zosyn Vi (10/22/22 04:45) Ed Admission (Communication) (10/22/22 04:55) Blood Culture (10/22/22 04:59) Sputum Culture (10/22/22 04:59) Urine Culture (10/22/22 04:59) Protime With Inr (10/22/22 04:59) Ed Iv/Invasive Line Start (10/22/22 04:59) Vital Signs Adult Sepsis Patie Q15M (10/22/22 04:59) Remove Rings In Anticipation O (10/22/22 04:59) Lactic Acid Analyzer (10/22/22 04:59) Ed Iv/Invasive Line Start (10/22/22 04:59) Ns Iv 1000 Ml (Sodium Chloride 0.9%) (10/22/22 05:00) Beta Hydroxybutyrate (10/22/22 05:19) Hemoglobin A1c (10/22/22 05:19) Iohexol Injection (Omnipaque 350 Mg/Ml 1 (10/22/22 05:30) Sodium Chloride Flush (Catheter Flush Sy (10/22/22 05:30) Ns (Ivpb) (Sodium Chloride 0.9% Ivpb Bag (10/22/22 05:30) Medications Given in ED Current Medications Medications Dose Ordered Sig/Parvin Route Start Time Stop Time Status Last Admin Dose Admin Aspirin 324 mg ONCE ONCE PO 10/22/22 04:00 10/22/22 04:01 DC 10/22/22 04:10 324 MG Iohexol 100 ml ONCE ONCE IV 10/22/22 05:30 10/22/22 05:32 DC 10/22/22 05:44 90 ML Ondansetron HCl 4 mg ONCE ONCE IVP 10/22/22 04:00 10/22/22 04:01 DC 10/22/22 04:10 4 MG Pantoprazole 40 mg ONCE ONCE IV 10/22/22 04:00 10/22/22 04:01 DC 10/22/22 04:10 40 MG Piperacillin Sod/ Tazobactam Sod 4.5 gm/Sodium Chloride 100 ml @ 200 mls/hr ONCE ONCE IV 10/22/22 04:45 10/22/22 05:14 DC 10/22/22 05:43 200 MLS/HR Sodium Chloride 10 ml NEEDED PRN IV 10/22/22 05:30 10/22/22 05:44 10 ML Sodium Chloride 100 ml ONCE ONCE IV 10/22/22 05:30 10/22/22 05:32 DC 10/22/22 05:44 80 ML Vital Signs/I&O 10/22/22 10/22/22 10/22/22 03:39 03:40 06:01 Temp 37.2 Pulse 97 90 Resp 22 22 B/P (MAP) 127/87 (100) 155/70 Pulse Ox 92 92 97 O2 Delivery Nasal Cannula Nasal Cannula OxyMask O2 Flow Rate 2.00 2.00 3.00 Capillary Refill : Progress Note : Progress Note INITIAL O2 SATS 88-89% ON ROOM AIR PLACED ON OXIMASK AT 3L AND O2 SATS UP TO 96-97% ( PT IS A MOUTH BREATHER, NASAL CANULA DID NOT HELP O2 SATS) ACCUCHECK 391--PT'S STATES HIS BLOOD SUGARS ARE ALWAYS IN THE 300'S GIVEN: -IV FLUIDS -ZOFRAN -PROTONIX -ANTIBIOTICS PT STATES HE FEELS MUCH BETTER AFTER THE ABOVE. PT IS NOW ABLE TO RECLINE, AND RESPIRATIONS ARE EVEN AND UNLABORED DIFFERENTIAL DX INCLUDES: CARDIAC ETIOLOGY; GI ETIOLOGY; PNEUMONIA / ASPIRATION; P.E.; DKA VITALS STABLE. NO DETERIORATION IN PT'S CONDITION DURING ER STAY NO COUGH NO FEVER NO NAUSEA/VOMITING NO FURTHER COMPLAINTS OF CHEST PAIN OR ABDOMINAL PAIN FOR REMAINDER OF ER STAY DURING ER STAY REVIEWED PRIOR RECORDS, INCLUDING ER VISITS, ADMITS/H&P'S/CONSULTS/DISCHARGE SUMMARIES, TESTS/PROCEDURES. DISCUSSED TEST RESULTS, NEED FOR ADMIT AND PT IS AGREEABLE TO PLAN ECG Initial ECG Impression Date: Oct 22, 2022 Initial ECG Impression Time: 04:00 Initial ECG Rate: 94 Initial ECG Rhythm: Normal Sinus Initial ECG Intervals SD 140 QRS 107 QT/QTC 372/423 Initial ECG Comparisson: Unchanged Comment INTERPRETED BY ME Diagnostic Imaging Comments CXR--PENDING RADIOLOGIST REVIEW -RLL INFILTRATE; ? ALSO LLL INFILTRATE ? CT ANGIOGRAM CHEST / ABDOMEN-PELVIS--PER [facility] VIA FAX AT 0395 -INFILTRATES IN RIGHT AND LEFT LUNG MAY REFLECT BILATERAL ASPIRATION. -NON-SPECIFIC PNEUMONIA NOT EXCLUDED -NO P.E. -NO ACUTE FINDINGS IN THE ABDOMEN OR PELVIS. Reviewed: Reviewed by Me Departure Communication (Admissions) 0450--SPOKE WITH DR. SNEED, HOSPITALIST. ACCEPTS PT FOR ADMIT. SHE WILL DO ADMIT ORDERS Impression Primary Impression: Aspiration pneumonia Additional Impressions: Acute respiratory failure COPD (chronic obstructive pulmonary disease) IDDM (insulin dependent diabetes mellitus) HTN (hypertension) History of atrial fibrillation Chronic renal insufficiency Disposition: ADMITTED INPATIENT Condition: Improved Admissions Decision to Admit Reason: Admit from ER (General) Decision to Admit/Date: Oct 22, 2022 Time/Decision to Admit Time: 04:50 Departure-Patient Inst. Referrals: MARIELY BARTON DO (PCP/Family) Primary Care Physician NIRALI BERNARD DO Oct 22, 2022 04:01
[2022-10-22 04:03] LABS: BASOPHILS # (AUTO) 0.1 10^3/uL (0.0-0.1); BASOPHILS % (AUTO) 0 % (0-10); EOSINOPHILS # (AUTO) 0.1 10^3/uL (0.0-0.3); EOSINOPHILS % (AUTO) 0 % (0-10); HEMATOCRIT 46 % (40-54); HEMOGLOBIN 16.1 g/dL (13.3-17.7); LYMPHOCYTES # (AUTO) 1.3 10^3/uL (1.0-4.0); LYMPHOCYTES % (AUTO) 11 % (12-44); MEAN CORPUSCULAR HEMOGLOBIN 31 pg (25-34); MEAN CORPUSCULAR HGB CONC 35 g/dL (32-36); MEAN CORPUSCULAR VOLUME 86 fL (80-99); MEAN PLATELET VOLUME 11.2 fL (9.0-12.2); MONOCYTES # (AUTO) 0.5 10^3/uL (0.0-1.0); MONOCYTES % (AUTO) 4 % (0-12); NEUTROPHILS # (AUTO) 9.9 10^3/uL (1.8-7.8); NEUTROPHILS % (AUTO) 84 % (42-75); PLATELET COUNT 182 10^3/uL (130-400); WHITE BLOOD COUNT 11.8 10^3/uL (4.3-11.0)
[2022-10-22 04:13] LABS: CHLORIDE 99 MMOL/L (98-107); POTASSIUM 3.6 MMOL/L (3.6-5.0); SODIUM 136 MMOL/L (135-145)
[2022-10-22 04:14] LABS: ALBUMIN 3.9 GM/DL (3.2-4.5); INR 0.9 (0.8-1.4); PROTHROMBIN TIME PATIENT 12.5 SEC (12.2-14.7)
[2022-10-22 04:15] LABS: AMYLASE 36 U/L (25-125); CALCIUM 9.7 MG/DL (8.5-10.1)
[2022-10-22 04:16] LABS: GLUCOSE 399 MG/DL (70-105); TOTAL PROTEIN 7.2 GM/DL (6.4-8.2)
[2022-10-22 04:17] LABS: CARBON DIOXIDE 22 MMOL/L (21-32)
[2022-10-22 04:18] LABS: BILIRUBIN,TOTAL 0.7 MG/DL (0.1-1.0)
[2022-10-22 04:20] LABS: ALKALINE PHOSPHATASE 67 U/L (40-136); CREATININE SERUM 1.55 MG/DL (0.60-1.30); GFR ESTIMATED 51
[2022-10-22 04:21] LABS: BUN/CREATININE RATIO 17
[2022-10-22 04:22] LABS: MAGNESIUM 1.7 MG/DL (1.6-2.4)
[2022-10-22 04:23] LABS: ALANINE AMINOTRANSFERASE 14 U/L (0-55)
[2022-10-22 04:24] LABS: CREATINE KINASE 60 U/L (30-200); LIPASE 49 U/L (8-78)
[2022-10-22 04:31] LABS: CREATINE KINASE MB 1.4 NG/ML (<6.6)
[2022-10-22 04:35] LABS: ACETAMINOPHEN < 10 UG/ML (10-30)
[2022-10-22] MEDS ORDERED: PIPERACILLIN SODIUM/TAZOBACTAM 4.5 GM in NS (IVPB) 100 ML IV ONE (04:45)
[2022-10-22] MEDS ORDERED: IOHEXOL 350 MG/ML 100 ML (OMNIPAQUE 350) VIAL IV ONE (05:30)
[2022-10-22] MEDS ORDERED: CATHETER FLUSH 10 ML SYR IV PRN (05:30)
[2022-10-22] MEDS ORDERED: NS 100 ML (IVPB) BAG IV ONE (05:30)
[2022-10-22 05:50] LABS: BILIRUBIN,URINE NEGATIVE (NEGATIVE); CLARITY,URINE CLEAR; COLOR,URINE YELLOW; GLUCOSE, URINE (UA) 3+ (NEGATIVE); KETONES,URINE NEGATIVE (NEGATIVE); LEUKOCYTE ESTERASE ,URINE NEGATIVE (NEGATIVE); NITRITE,URINE NEGATIVE (NEGATIVE); PH,URINE 5.5 (5-9); PROTEIN,URINE 1+ (NEGATIVE)
--- NOTE | 2022-10-22 06:07 | Diagnostic Imaging Report ---
INDICATION: Chest pain. Abdominal pain. Nausea and vomiting. CTA chest, abdomen and pelvis Thin axial sections through the chest, abdomen and pelvis are obtained following intravenous contrast bolus. Multiplanar MIP images were reconstructed and reviewed. All CT scans use one or more of the following dose optimizing techniques: automated exposure control, MA and/or KvP adjustment based on patient size and exam type or iterative reconstruction. COMPARISON: 02/26/2022. CTA chest: No pulmonary emboli are seen to the segmental pulmonary arteries. The heart size is within normal limits. No pericardial effusion is present. There is calcified aortic and coronary atherosclerotic plaque without aneurysm. There is no mediastinal, hilar, or axillary lymphadenopathy. Patchy and consolidative opacities are seen in the bilateral lung bases and right middle lobe. No discrete mass. No central endobronchial obstructing lesion. No pleural effusion or pneumothorax. No acute osseous abnormalities. CT abdomen and pelvis: Stable large nonobstructing calculus in the inferior pole of the left kidney measuring 2.8 cm. Simple cortical cysts are seen in both kidneys. No hydronephrosis or solid renal mass. The urinary bladder is nondistended. Stable fat-containing lesion in the left adrenal gland. The right adrenal gland is unremarkable. The liver, spleen, and pancreas have a normal appearance. The gallbladder surgically absent. There is no pathologically enlarged mesenteric or retroperitoneal adenopathy. The bowel loops are nondilated. The appendix is visualized in the right lower quadrant and has a normal appearance. There is no free fluid or free air. No acute osseous abnormalities. There is calcified aortic and iliac atherosclerotic plaque without aneurysm. There is no free air, loculated collection, or adenopathy in the pelvis. IMPRESSION: 1. No evidence of pulmonary emboli to the segmental pulmonary arteries. 2. Patchy and consolidative opacities in the right middle lobe and bilateral lower lobes, concerning for infectious/inflammatory process. Aspiration can have this appearance in the appropriate clinical scenario. Recommend continued follow-up as indicated. 3. No acute abnormalities in the abdomen and pelvis. Agree with overnight report. Dictated by: Dictated on workstation # [id number]
[2022-10-22 06:09] LABS: BACTERIA,URINE NEGATIVE /HPF; SQUAMOUS EPITHELIAL CELL,UR RARE /HPF
[2022-10-22 06:14] LABS: AMPHETAMINE SCREEN, URINE NEGATIVE (NEGATIVE); BARBITURATE SCREEN URINE NEGATIVE (NEGATIVE); BENZODIAZEPINES SCREEN URINE NEGATIVE (NEGATIVE); CANNABINOID SCREEN, URINE NEGATIVE (NEGATIVE); COCAINE SCREEN URINE NEGATIVE (NEGATIVE); METHADONE STAT NEGATIVE (NEGATIVE); OPIATE SCREEN URINE NEGATIVE (NEGATIVE); OXYCODONE STAT NEGATIVE (NEGATIVE); PROPOXYPHENE STAT NEGATIVE (NEGATIVE); TRICYCLIC ANTIDEPRESSANTS SCRE NEGATIVE (NEGATIVE)
[2022-10-22] MEDS ORDERED: NS IV 1000 ML 1,000 ML ONE (06:28)
[2022-10-22] MEDS ORDERED: BENZONATATE 100 MG (TESSALON) CAPSULE PO PRN (06:30)
[2022-10-22] MEDS ORDERED: ENOXAPARIN 100 MG/1 ML (LOVENOX) SYR SC SCH (06:30)
[2022-10-22] MEDS ORDERED: inSUlin (REGULAR) HUMAN 1 UNIT/0.01 ML (CHARGE PER UNIT) SC PRN (06:30)
[2022-10-22] MEDS ORDERED: ONDANSETRON 4 MG (ZOFRAN) ORAL DISSOLVE TAB PO PRN (06:30)
[2022-10-22] MEDS ORDERED: LORazepam INJ 2 MG/ML (ATIVAN) VIAL IVP PRN (06:30)
[2022-10-22] MEDS ORDERED: MILK OF MAGNESIA 400 MG/5 ML 30 ML UDC PO PRN (06:30)
[2022-10-22] MEDS ORDERED: ONDANSETRON 4 MG/2 ML (SDV) Z0FRAN IV PRN (06:30)
[2022-10-22] MEDS ORDERED: LACTULOSE SYRUP 10GM/15ML (ENULOSE) 30ML UDC PO PRN (06:30)
[2022-10-22] MEDS ORDERED: diphenhydrAMINE 25 MG TAB (BENADRYL) PO PRN (06:30)
[2022-10-22] MEDS ORDERED: diphenhydrAMINE 50 MG/ML INJ (BENADRYL) IVP PRN (06:30)
[2022-10-22] MEDS ORDERED: polyethylene glycoL POWDER 17 GM (MIRALAX) PACK PO PRN (06:30)
[2022-10-22] MEDS ORDERED: LORazepam 0.5 MG (ATIVAN) TABLET PO PRN (06:30)
[2022-10-22] MEDS ORDERED: CALCIUM CARBONATE 500 MG (TUMS) TAB.CHEW PO PRN (06:30)
[2022-10-22] MEDS ORDERED: cloNIDine 0.1 MG (CATAPRES) TAB PO PRN (06:30)
[2022-10-22] MEDS ORDERED: MELATONIN 3 MG TABLET PO PRN (06:30)
[2022-10-22] MEDS ORDERED: ANTACID SUSP 30 ML UDC (MYLANTA) PO PRN (06:30)
[2022-10-22] MEDS ORDERED: BISACODYL 10 MG SUPP (DULCOLAX) PR PRN (06:30)
[2022-10-22] MEDS ORDERED: HYDROmorphone 2 MG/ML VIAL (DILAUDID) IV PRN (06:30)
[2022-10-22] MEDS: NS IV 1000 ML 1,000 ML IV SCH ×3 (06:32→20:08)
[2022-10-22] MEDS ORDERED: RT-ALBUTEROL SULF 2.5 MG/3 ML PRE-MIX VIAL INH PRN (07:30)
--- NOTE | 2022-10-22 08:37 | Diagnostic Imaging Report ---
EXAMINATION: Chest 1 view HISTORY: Chest pain. COMPARISON: 02/25/2022. FINDINGS: Patchy opacities are seen in the lung bases. No large pleural effusion or pneumothorax. Stable prominent cardiac silhouette. There is calcified aortic atherosclerotic plaque. IMPRESSION: 1. Bibasilar opacities, concerning for infection and/or atelectasis. Dictated by: Dictated on workstation # [id number]
[2022-10-22] MEDS: DOCUSATE SODIUM 100 MG (COLACE) CAP PO SCH ×2 (09:40→21:13)
[2022-10-22] MEDS: SENNOSIDES 8.6 MG (SENOKOT) TAB PO SCH ×2 (09:40→21:13)
--- NOTE | 2022-10-22 10:42 | History & Physical ---
ALISON VILLASENOR 10/22/22 1042: History of Present Illness History of Present Illness Reason for visit/HPI Pt is a 61 year old male with PMH of sleep apnea, hyperlipidemia, HTN, Neuropathy, Chronic Kidney stones, CKD, GERD, Hx obstructive bowel, IBS, Insulin dependent diabetes, and Paroxysmal Atrial fibrillation who presented to the ED 3 am for SOB secondary to a choking event at home. Pt. reports having food get stuck and having difficulties breathing following the incident, but was able to cough it up on his own power. He had continued SOB and CP following the event leading him to present to the ED where he was found to have a WBC 11.8, Glucose 399, AG 15, and LA 2.02. He was also tachycardic and and tachypnic in the ED meating the criteria for severe sepsis. CXR and CT in the ED showed findings consistent with possible aspiration pneumonia for which he was admitted for medical care following IVF and abx initiation in the ED. Pt this morning reports CP has resolved and he has minimal cough. He denies SOB, abd pain, N/V/D, hematuria, hematemesis, or melena. Date of Admission Oct 22, 2022 at 06:03 Date Seen by a Provider: Oct 22, 2022 Time Seen by a Provider: 08:00 I consulted on this patient on 10/22/22 10:35 Attending Physician Brandt Mitchell DO Admitting Physician Admitting Physician: Tracie Sneed DO Attending Physician: Tracie Sneed DO Consult Allergies and Home Medications Allergies Coded Allergies: No Known Drug Allergies (Unverified , 02/24/22) Patient Home Medication List Home Medication List Reviewed: No Diltiazem HCl (Diltiazem ER) 360 Mg Capsule.er, 360 MG PO DAILY, (Reported) Entered as Reported by: CEDRIC ANTHONY on 06/18/21 1040 Last Action: Converted Insulin Degludec (Insulin Degludec Pen (U-200)) 200 Unit/Ml (3 Ml) Insuln.pen, 50 UNITS SC DAILY, (Reported) Entered as Reported by: CEDRIC ANTHONY on 10/22/22 1122 Last Action: Held Insulin Lispro (Insulin Lispro Kwikpen U-100) 100 Unit/Ml Insuln.pen, 20 UNITS SC AC, (Reported) Entered as Reported by: CEDRIC ANTHONY on 10/22/221121 Last Action: Held Losartan/Hydrochlorothiazide (Losartan-Hctz 100-12.5 mg Tab) 100 Mg-12.5 Mg Tab let, 1 EA PO DAILY, (Reported) Entered as Reported by: CEDRIC ANTHONY on 10/22/221121 Last Action: Converted Metoprolol Succinate (Metoprolol Succinate) 50 Mg Tab.er.24h, 50 MG PO DAILY, (Reported) Entered as Reported by: CEDRIC ANTHONY on 11/16/21 1227 Last Action: Continued Pantoprazole Sodium (Pantoprazole Sodium) 40 Mg Tablet.dr, 40 MG PO DAILY, (Reported) Entered as Reported by: CEDRIC ANTHONY on 06/18/211039 Last Action: Held Pioglitazone HCl (Pioglitazone HCl) 30 Mg Tablet, 30 MG PO DAILY, (Reported) Entered as Reported by: CEDRIC ANTHONY on 06/18/211039 Last Action: Continued Ropinirole HCl (Ropinirole HCl) 4 Mg Tablet, 4 MG PO BID, (Reported) Entered as Reported by: CEDRIC ANTHONY on 06/18/211039 Last Action: Converted Tizanidine HCl (Tizanidine HCl) 4 Mg Tablet, 4 MG PO BID, (Reported) Entered as Reported by: CEDRIC ANTHONY on 10/22/221121 Last Action: Continued Discontinued Medications Dicyclomine HCl (Dicyclomine HCl) 20 Mg Tablet, 20 MG PO QIDACHS PRN for abdominal cramping Discontinued Reason: No Longer Taking Prescribed by: ALLEGRA HOLLIS on 08/28/22 1410 Last Action: Discontinued Gabapentin (Neurontin) 300 Mg Capsule, 300 MG PO TID, (Reported) Discontinued Reason: No Longer Taking Entered as Reported by: CEDRIC ANTHONY on 06/18/21 104 Last Action: Discontinued Glimepiride (Glimepiride) 4 Mg Tablet, 8 MG PO DAILY, (Reported) Discontinued Reason: No Longer Taking Entered as Reported by: CEDRIC ANTHONY on 06/18/211039 Last Action: Discontinued Guaifenesin (Mucus Relief) 600 Mg Tab.er.12h, 600 MG PO Q12H PRN for CONGESTION, (Reported) Discontinued Reason: No Longer Taking Entered as Reported by: CEDRIC ANTHONY on 06/18/211039 Last Action: Discontinued Insulin Degludec (Tresiba Flextouch U-200) 200 Unit/1 Ml Insuln.pen, 50 UNITS SC DAILY, (Reported) Discontinued Reason: No Longer Taking Entered as Reported by: CEDRIC ANTHONY on 06/18/21 104 Last Action: Discontinued Lisinopril (Lisinopril) 40 Mg Tablet, 40 MG PO DAILY, (Reported) Discontinued Reason: No Longer Taking Entered as Reported by: CEDRIC ANTHONY on 06/18/211039 Last Action: Discontinued Metoclopramide HCl (Reglan) 10 Mg Tablet, 10 MG PO Q6H PRN for nausea Discontinued Reason: No Longer Taking Prescribed by: ALLEGRA HOLLIS on 08/28/22 1410 Last Action: Discontinued Orphenadrine Citrate (Orphenadrine Citrate) 100 Mg Tablet.er, 100 MG PO BID, (Reported) Discontinued Reason: No Longer Taking Entered as Reported by: CEDRIC ANTHONY on 06/18/211039 Last Action: Discontinued Semaglutide (Ozempic) 1 Mg/0.75 Ml Pen.injctr, 1 MG SQ SUN, (Reported) Discontinued Reason: No Longer Taking Entered as Reported by: CEDRIC ANTHONY on 06/18/211039 Last Action: Discontinued Past [id number] Hx Patient Social History Employed/Student: retired Tobacco Use?: Yes Tobacco type used: Cigars Smoking Status: Current Everyday Smoker Smokeless Tobacco Frequency: Current Everyday User Use of E-Cig and/or Vaping dev: No Substance use?: No Alcohol Use?: Yes Alcohol type: Beer Alcohol Frequency: Daily Pt feels they are or have been: No Immunizations Up To Date Date of Influenza Vaccine: May 06, 2016 First/Initial COVID19 Vaccinat: STATES 2 VACCINES PLUS BOOSTER Second COVID19 Vaccination Charli: STATES 2 VACCINES PLUS BOOSTER Tetanus Booster (TDap): Less Than 5 Years Hepatitis A: Yes Hepatitis B: Yes PED Vaccines UTD: Yes Seasonal Allergies Seasonal Allergies: Yes Current Status Advance Directives: No Communicates: Verbally Primary Language: Uzbek Preferred Spoken Language: Uzbek Is interpretation needed?: No Sensory deficits: Vision impairment Past Medical History Surgeries: Gallbladder, Orthopedic, Renal (multiple cystoscopies & lithotripsies) Sleep Apnea, COPD Currently Using CPAP: No High Cholesterol, Hypertension Neuropathy Sexually Transmitted Disease: No HIV/AIDS: No Kidney Stones (chronic), Renal Failure Gastroesophageal Reflux, Obstructive Bowel, Chronic Diarrhea, Polyps, Gall Bladder Disease, Irritable Bowel Arthritis, Chronic Back Pain Diabetes, Insulin dep Loss of Vision: Denies Hearing Impairment: Denies Depression Blood Disorders: No Adverse Reaction/Blood Tranf: No Family Medical History Diabetes mellitus 19 MOTHER G8 SISTER FH: lung cancer 19 MOTHER Hypertension 19 FATHER 19 MOTHER G8 SISTER Kidney stone G8 SISTER Parkinson's disease G8 SISTER Prostate cancer 19 FATHER Heart Disease, Cancer SOCIAL HISTORY: -SMOKED CIGARETTES WHEN YOUNGER, NOW SMOKES CIGARS DAILY -ETOH-"COUPLE OF [employer]ERS" EVERY DAY -DRUGS-DENIES USE PAST SURGICAL HISTORY: -MOST RECENT COLONOSCOPY WITH POLYPECTOMY X [address] LAGUNAS 11/20/21 -CHOLECYSTECTOMY 2011 -LEFT ROTATOR CUFF REPAIR 2011 -RIGHT BICEPS TENDON REPAIR 2011 -MULTIPLE CYSTOSCOPIES, LITHOTRIPSIES, KIDNEY STONE BASKET REMOVALS -EGD 09/2022 AT [facility]. Review of Systems Constitutional: chills (last night) EENTM: No hearing loss, No vision loss (last night, resolved now) Respiratory: cough (minimal); No hemoptysis, No short of breath, No stridor Cardiovascular: chest pain (last night, resolved this morning); No edema, No palpitations Gastrointestinal: No abdominal pain, No diarrhea, No hematemesis, No melena, No nausea, No vomiting Genitourinary: no symptoms reported Musculoskeletal: no symptoms reported Skin: no symptoms reported Psychiatric/Neurological: No Symptoms Reported Physical Exam Vital Signs Vital Signs - First Documented 10/22/22 03:39 Temp 37.2 Pulse 97 Resp 22 B/P (MAP) 127/87 (100) Pulse Ox 92 O2 Delivery Nasal Cannula O2 Flow Rate 2.00 Capillary Refill : Less Than 3 Seconds Height, Weight, BMI Height: 6'4.00" Weight: 240lbs. 0.0oz. [id number]; 28.48 BMI Method:Stated General Appearance: No Apparent Distress, WD/WN, Obese Eyes: Bilateral Eye PERRL, Bilateral Eye EOMI HEENT: PERRL/EOMI, Pharynx Normal, Moist Mucous Membranes Neck: Non Tender, Supple Respiratory: Chest Non Tender, No Accessory Muscle Use, No Respiratory Distress, Other (minimal rhonchi/crackles in lung bases bilaterally) Cardiovascular: Regular Rate, Rhythm, No Edema, No Murmur, Normal Peripheral Pulses Gastrointestinal: Normal Bowel Sounds, Non Tender, Soft, Tenderness (diffuse, mild abd pain) Extremity: Normal Capillary Refill, Non Tender, No Calf Tenderness, No Pedal Edema Neurologic/Psychiatric: Alert, Oriented x3, No Motor/Sensory Deficits, Normal Mood/Affect Skin: Normal Color, Warm/Dry Lymphatic: No Adenopathy Assessment/Plan Assessment and Plan Severe Sepsis 2nd to aspiration pneumonia -Meets severe sepsis criteria with tachycardia, tachyponea, and lactic acidosis upon arrival -Zosyn & IVF for aspiration pneumona -Pt denies dysphagia or prior occurence. Will consult Surg for assessment for further work-up. ANTONETTE on CKD -Cr 1.55 from 1.18 in February 2022. IVF and monitor. Insulin dependent diabetes -Pt. has hyperglycemic upon arrival (399). No signs of DKA or HHS. Insulin sliding scale. COPD -Pt. denies using inhalers at home. Nebulizer treatments as needed with follow-up with PCP upon discharge. HTN -Hold home meds and monitor. Paroxysmal A fib -Pt. is a poor historian but appears to have been on Metoprolol and diltiazem in the past. Unclear what Pt. is on at this time. Doesn't appear to be on anticoagulation. -Currently in sinus rhythm. Will monitor for changes. Pt. reports sample maker original is Dr. Leigh with [facility]. Alcohol Abuse Disorder -Patient reports 1-2 beers daily with no recent period without alcohol. No prior history of withdrawl symptoms -CIWA protocol and monitor. DVT Proph: lovenox Diet: as tolerated Clinical Quality Measures AMI/AHF: ASA po Prior to arrival: No TRACIE SNEED DO 10/23/22 0512: Allergies and Home Medications Allergies Coded Allergies: No Known Drug Allergies (Unverified , 02/24/22) Patient Home Medication List Home Medication List Reviewed: Yes Diltiazem HCl (Diltiazem ER) 360 Mg Capsule.er, 360 MG PO DAILY, (Reported) Entered as Reported by: CEDRIC ANTHONY on 06/18/21 1040 Last Action: Converted Insulin Degludec (Insulin Degludec Pen (U-200)) 200 Unit/Ml (3 Ml) Insuln.pen, 50 UNITS SC DAILY, (Reported) Entered as Reported by: CEDRIC ANTHONY on 10/22/221121 Last Action: Held Insulin Lispro (Insulin Lispro Kwikpen U-100) 100 Unit/Ml Insuln.pen, 20 UNITS SC AC, (Reported) Entered as Reported by: CEDRIC ANTHONY on 10/22/221121 Last Action: Held Losartan/Hydrochlorothiazide (Losartan-Hctz 100-12.5 mg Tab) 100 Mg-12.5 Mg Tablet, 1 EA PO DAILY, (Reported) Entered as Reported by: CEDRIC ANTHONY on 10/22/221121 Last Action: Converted Metoprolol Succinate (Metoprolol Succinate) 50 Mg Tab.er.24h, 50 MG PO DAILY, (Reported) Entered as Reported by: CEDRIC ANTHONY on 11/16/21 1227 Last Action: Continued Pantoprazole Sodium (Pantoprazole Sodium) 40 Mg Tablet.dr, 40 MG PO DAILY, (Reported) Entered as Reported by: CEDRIC ANTHONY on 06/18/21 104 Last Action: Held Pioglitazone HCl (Pioglitazone HCl) 30 Mg Tablet, 30 MG PO DAILY, (Reported) Entered as Reported by: CEDRIC ANTHONY on 06/18/21 104 Last Action: Continued Ropinirole HCl (Ropinirole HCl) 4 Mg Tablet, 4 MG PO BID, (Reported) Entered as Reported by: CEDRIC ANTHONY on 06/18/21 104 Last Action: Converted Tizanidine HCl (Tizanidine HCl) 4 Mg Tablet, 4 MG PO BID, (Reported) Entered as Reported by: CEDRIC ANTHONY on 10/22/221121 Last Action: Continued Discontinued Medications Dicyclomine HCl (Dicyclomine HCl) 20 Mg Tablet, 20 MG PO QIDACHS PRN for abdominal cramping Discontinued Reason: No Longer Taking Prescribed by: ALLEGRA HOLLIS on 08/28/22 1410 Last Action: Discontinued Gabapentin (Neurontin) 300 Mg Capsule, 300 MG PO TID, (Reported) Discontinued Reason: No Longer Taking Entered as Reported by: CEDRIC ANTHONY on 06/18/21 104 Last Action: Discontinued Glimepiride (Glimepiride) 4 Mg Tablet, 8 MG PO DAILY, (Reported) Discontinued Reason: No Longer Taking Entered as Reported by: CEDRIC ANTHONY on 06/18/21 1040 Last Action: Discontinued Guaifenesin (Mucus Relief) 600 Mg Tab.er.12h, 600 MG PO Q12H PRN for CONGESTION, (Reported) Discontinued Reason: No Longer Taking Entered as Reported by: CEDRIC ANTHONY on 06/18/21 1040 Last Action: Discontinued Insulin Degludec (Tresiba Flextouch U-200) 200 Unit/1 Ml Insuln.pen, 50 UNITS SC DAILY, (Reported) Discontinued Reason: No Longer Taking Entered as Reported by: CEDRIC ANTHONY on 06/18/21 104 Last Action: Discontinued Lisinopril (Lisinopril) 40 Mg Tablet, 40 MG PO DAILY, (Reported) Discontinued Reason: No Longer Taking Entered as Reported by: CEDRIC ANTHONY on 06/18/211039 Last Action: Discontinued Metoclopramide HCl (Reglan) 10 Mg Tablet, 10 MG PO Q6H PRN for nausea Discontinued Reason: No Longer Taking Prescribed by: ALLEGRA HOLLIS on 08/28/22 1410 Last Action: Discontinued Orphenadrine Citrate (Orphenadrine Citrate) 100 Mg Tablet.er, 100 MG PO BID, (Reported) Discontinued Reason: No Longer Taking Entered as Reported by: CEDRIC ANTHONY on 06/18/211039 Last Action: Discontinued Semaglutide (Ozempic) 1 Mg/0.75 Ml Pen.injctr, 1 MG SQ SUN, (Reported) Discontinued Reason: No Longer Taking Entered as Reported by: CEDRIC NATHONY on 06/18/211039 Last Action: Discontinued Past Xwefxvl-Ryjrab-Lkrgaw Hx Patient Social History Marrital Status: Family Medical History Diabetes mellitus 19 MOTHER G8 SISTER FH: lung cancer 19 MOTHER Hypertension 19 FATHER 19 MOTHER G8 SISTER Kidney stone G8 SISTER Parkinson's disease G8 SISTER Prostate cancer 19 FATHER Review of Systems Constitutional: see HPI Physical Exam General Appearance: No Apparent Distress, WD/WN, Chronically ill Respiratory: Decreased Breath Sounds, Other (minimal rhonchi/crackles in lung bases bilaterally) Assessment/Plan Assessment and Plan Obtain Cardiology records Problems: (1) Aspiration pneumonia (2) Acute respiratory failure Admission Diagnosis Admission Status: Observation Supervisory-Addendum Brief Verification & Attestation Participated in pt care: history, MDM, physical Personally performed: exam, history, MDM, supervision of care Care discussed with: Medical Student Procedures: n/a Results interpretation: Verified all documentation Verification and Attestation of Medical Student E/M Service A medical student performed and documented this service in my presence. I reviewed and verified all information documented by the medical student and made modifications to such information, when appropriate. I personally performed the physical exam and medical decision making. Tracie Sneed, Oct 23, 2022,05:12 ALISON VILLASENOR Oct 22, 2022 10:42 TRACIE SNEED DO Oct 23, 2022 05:12
--- NOTE | 2022-10-22 11:03 | Consultation - Surgery ---
URSZULA DANG 10/22/22 1103: History of Present Illness History of Present Illness Patient Consulted On(gonzalo/time) 10/22/22 10:57 Date Seen by Provider: Oct 22, 2022 Time Seen by Provider: 10:57 History of Present Illness 61 M was admitted for chest and abdominal pain that occurred after choking on some ribs at 2330 last night. He reports that he coughed for about 30 minutes and was able to clear the piece of rib meat. Soon after, pt began to experience chills and diffuse upper abdominal and chest pain that was described as a burning feeling rated 8/10 w/ some associated increased SOB compared to his baseline. Has never had an episode like this before . Pt currently reports he is in no pain, denies any fever or chills, and claims improvement in his breathing. Pt has since ate some crackers and jello and drank some water without any issues. Denies any changes in weight or diet. Had an EGD done at [place] in 09/2022 for hx of GERD and was told there were no abnormalities. Allergies and Home Medications Allergies Coded Allergies: No Known Drug Allergies (Unverified , 02/24/22) Patient Home Medication List Home Medication List Reviewed: Yes Diltiazem HCl (Diltiazem ER) 360 Mg Capsule.er, 360 MG PO DAILY, (Reported) Entered as Reported by: CEDRIC ANTHONY on 06/18/21 1040 Last Action: Reviewed Insulin Degludec (Insulin Degludec Pen (U-200)) 200 Unit/Ml (3 Ml) Insuln.pen, 50 UNITS SC DAILY, (Reported) Entered as Reported by: CEDRIC ANTHONY on 10/22/22 1122 Last Action: Reviewed Insulin Lispro (Insulin Lispro Kwikpen U-100) 100 Unit/Ml Insuln.pen, 20 UNITS SC AC, (Reported) Entered as Reported by: CEDRIC ANTHONY on 10/22/22 112 Last Action: Reviewed Losartan/Hydrochlorothiazide (Losartan-Hctz 100-12.5 mg Tab) 100 Mg-12.5 Mg Tablet, 1 EA PO DAILY, (Reported) Entered as Reported by: CEDRIC ANTHONY on 10/22/22 112 Last Action: Reviewed Metoprolol Succinate (Metoprolol Succinate) 50 Mg Tab.er.24h, 50 MG PO DAILY, (Reported) Entered as Reported by: CEDRIC ANTHONY on 11/16/21 1227 Last Action: Reviewed Pantoprazole Sodium (Pantoprazole Sodium) 40 Mg Tablet.dr, 40 MG PO DAILY, (Reported) Entered as Reported by: CEDRIC ANTHONY on 06/18/211039 Last Action: Reviewed Pioglitazone HCl (Pioglitazone HCl) 30 Mg Tablet, 30 MG PO DAILY, (Reported) Entered as Reported by: CEDRIC ANTHONY on 06/18/211039 Last Action: Reviewed Ropinirole HCl (Ropinirole HCl) 4 Mg Tablet, 4 MG PO BID, (Reported) Entered as Reported by: CEDRIC ANTHONY on 06/18/211039 Last Action: Reviewed Tizanidine HCl (Tizanidine HCl) 4 Mg Tablet, 4 MG PO BID, (Reported) Entered as Reported by: CEDRIC ANTHONY on 10/22/22 1122 Last Action: Reviewed Discontinued Medications Dicyclomine HCl (Dicyclomine HCl) 20 Mg Tablet, 20 MG PO QIDACHS PRN for abdominal cramping Discontinued Reason: No Longer Taking Prescribed by: ALLEGRA HOLLIS on 08/28/22 1410 Last Action: Discontinued Gabapentin (Neurontin) 300 Mg Capsule, 300 MG PO TID, (Reported) Discontinued Reason: No Longer Taking Entered as Reported by: CEDRIC ANTHONY on 06/18/211039 Last Action: Discontinued Glimepiride (Glimepiride) 4 Mg Tablet, 8 MG PO DAILY, (Reported) Discontinued Reason: No Longer Taking Entered as Reported by: CEDRIC ANTHONY on 06/18/211039 Last Action: Discontinued Guaifenesin (Mucus Relief) 600 Mg Tab.er.12h, 600 MG PO Q12H PRN for CONGESTION, (Reported) Discontinued Reason: No Longer Taking Entered as Reported by: CEDRIC ANTHONY on 06/18/211039 Last Action: Discontinued Insulin Degludec (Tresiba Flextouch U-200) 200 Unit/1 Ml Insuln.pen, 50 UNITS SC DAILY, (Reported) Discontinued Reason: No Longer Taking Entered as Reported by: CEDRIC ANTHONY on 06/18/211039 Last Action: Discontinued Lisinopril (Lisinopril) 40 Mg Tablet, 40 MG PO DAILY, (Reported) Discontinued Reason: No Longer Taking Entered as Reported by: CEDRIC ANTHONY on 06/18/21 1040 Last Action: Discontinued Metoclopramide HCl (Reglan) 10 Mg Tablet, 10 MG PO Q6H PRN for nausea Discontinued Reason: No Longer Taking Prescribed by: ALLEGRA HOLLIS on 08/28/22 1410 Last Action: Discontinued Orphenadrine Citrate (Orphenadrine Citrate) 100 Mg Tablet.er, 100 MG PO BID, (Reported) Discontinued Reason: No Longer Taking Entered as Reported by: CEDRIC ANTHONY on 06/18/21 1040 Last Action: Discontinued Semaglutide (Ozempic) 1 Mg/0.75 Ml Pen.injctr, 1 MG SQ SUN, (Reported) Discontinued Reason: No Longer Taking Entered as Reported by: CEDRIC ANTHONY on 06/18/21 1040 Last Action: Discontinued Past Lcfjygu-Monleg-Ectpyr Hx Patient Social History Smoking Status: Current Everyday Smoker Type Used: Cigars Recent Hopitalizations: Yes (11/17/21- PARTIAL BOWEL OBSTRUCTION) Alcohol Use?: Yes Have you traveled recently?: No Immunizations Up To Date Tetanus Booster (TDap): More than 5yrs PED Vaccines UTD: Yes Date of Influenza Vaccine: May 06, 2016 Seasonal Allergies Seasonal Allergies: Yes Surgeries History of Surgeries: Yes (SEE BELOW) Surgeries: Gallbladder, Orthopedic, Renal Respiratory History of Respiratory Disorde: Yes Respiratory Disorders: Sleep Apnea, COPD Cardiovascular History of Cardiac Disorders: Yes Cardiac Disorders: High Cholesterol, Hypertension Neurological History of Neurological Disord: Yes Neurological Disorders: Neuropathy Reproductive System Hx Reproductive Disorders: No Sexually Transmitted Disease: No HIV/AIDS: No Genitourinary History of Genitourinary Disor: Yes (RENAL CYSTS; NO DIALYSIS) Genitourinary Disorders: Kidney Stones, Renal Failure Gastrointestinal History of Gastrointestinal Di: Yes (PARTIAL BOWEL OBSTRUCTIONS-NO SURGERY) Gastrointestinal Disorders: Gastroesophageal Reflux, Obstructive Bowel, Chronic Diarrhea, Polyps, Gall Bladder Disease, Irritable Bowel Musculoskeletal History of Musculoskeletal Dis: Yes (LEFT ROTATOR CUFF REPAIR; RIGHT BICEPS TENDON REPAIR;DIABETIC FOOT ULCER) Musculoskeletal Disorders: Arthritis, Chronic Back Pain Endocrine History of Endocrine Disorders: Yes Endocrine Disorders: Diabetes, Insulin dep HEENT History of HEENT Disorders: No Loss of Vision: Denies Hearing Impairment: Denies Cancer History of Cancer: No Psychosocial History of Psychiatric Problem: Yes Behavioral Health Disorders: Depression Integumentary History of Skin or Integumenta: Yes (DIABETIC FOOT ULCER) Blood Transfusions History of Blood Disorders: No Adverse Reaction to a Blood Tr: No Family Medical History Significant Family History: Heart Disease, Cancer, Diabetes Family Medial History: Diabetes mellitus 19 MOTHER G8 SISTER FH: lung cancer 19 MOTHER Hypertension 19 FATHER 19 MOTHER G8 SISTER Kidney stone G8 SISTER Parkinson's disease G8 SISTER Prostate cancer 19 FATHER Review of Systems-General Constitutional: No chills, No diaphoresis EENTM: No throat pain, No throat swelling Respiratory: cough (dry cough ), short of breath (consitent with his baseline d ue to COPD ) Cardiovascular: No chest pain, No palpitations Gastrointestinal: No abdominal pain, No heartburn, No nausea, No vomiting Genitourinary: No dysuria, No frequency Musculoskeletal: No back pain, No muscle pain Skin: dryness; No lumps Psychiatric/Neurological: Depressed; Denies Weakness Physical Exam-General Problems Physical Exam Vital Signs Vital Signs - First Documented 10/22/22 03:39 Temp 37.2 Pulse 97 Resp 22 B/P (MAP) 127/87 (100) Pulse Ox 92 O2 Delivery Nasal Cannula O2 Flow Rate 2.00 Capillary Refill : Less Than 3 Seconds General Appearance: WD/WN, no apparent distress Eyes: Bilateral Eye PERRL, Bilateral Eye EOMI HEENT: PERRL/EOMI, other (moist mucus membranes ) Neck: non-tender, full range of motion; No lymphadenopathy (R), No lymphadenopathy (L) Respiratory: chest non-tender, no respiratory distress, no accessory muscle use, crackles (mild in lower lung neumann R>L) Cardiovascular: regular rate, rhythm, no murmur Peripheral Pulses: 2+ Dorsalis Pedis (R), 2+ Left Dors-Pedis (L), 2+ Radial Pu lses (R), 2+ Radial Pulses (L) Gastrointestinal: normal bowel sounds, non tender, soft, no organomegaly, no pulsatile mass Back: no CVA tenderness, no vertebral tenderness Extremities: non-tender, no pedal edema, no calf tenderness Neurologic/Psychiatric: alert, oriented x 3, depressed affect Skin: normal color, warm/dry Lymphatic: other (no cervical or axillary LAD ) Data Review Labs Laboratory Tests 10/22/22 03:52: Glucometer 391H 10/22/22 03:53: White Blood Count 11.8H, Red Blood Count 5.28, Hemoglobin 16.1, Hematocrit 46, Mean Corpuscular Volume 86, Mean Corpuscular Hemoglobin 31, Mean Corpuscular Hemoglobin Concent 35, Red Cell Distribution Width 12.9, Platelet Count 182, Mean Platelet Volume 11.2, Immature Granulocyte % (Auto) 0, Neutrophils (%) (Auto) 84H, Lymphocytes (%) (Auto) 11L, Monocytes (%) (Auto) 4, Eosinophils (%) (Auto) 0, Basophils (%) (Auto) 0, Neutrophils # (Auto) 9.9H, Lymphocytes # (Auto) 1.3, Monocytes # (Auto) 0.5, Eosinophils # (Auto) 0.1, Basophils # (Auto) 0.1, Immature Granulocyte # (Auto) 0.0, Prothrombin Time 12.5, INR Comment 0.9, Activated Partial Thromboplast Time 26, Sodium Level 136, Potassium Level 3.6, Chloride Level 99, Carbon Dioxide Level 22, Anion Gap 15H, Blood Urea Nitrogen 27H, Creatinine 1.55H, Estimat Glomerular Filtration Rate 51, BUN/Creatinine Ratio 17, Glucose Level 399H, Calcium Level 9.7, Corrected Calcium 9.8, Magnesium Level 1.7, Total Bilirubin 0.7, Aspartate Amino Transf (AST/SGOT) 11, Alanine Aminotransferase (ALT/SGPT) 14, Alkaline Phosphatase 67, Total Creatine Kinase 60, Creatine Kinase MB 1.4, Myoglobin 47.5, Troponin I < 0.028, B-Type Natriuretic Peptide 31.4, Total Protein 7.2, Albumin 3.9, Amylase Level 36, Lipase 49, Beta-Hydroxybutyrate (Chem panel) 0.16, Acetaminophen Level < 10L, Serum Alcohol < 10 10/22/22 05:12: Lactic Acid Level 2.02*H 10/22/22 05:47: Urine Color YELLOW, Urine Clarity CLEAR, Urine pH 5.5, Urine Specific [place] 1.010L, Urine Protein 1+H, Urine Glucose (UA) 3+H, Urine Ketones NEGATIVE, Urine Nitrite NEGATIVE, Urine Bilirubin NEGATIVE, Urine Urobilinogen 0.2, Urine Leukocyte Esterase NEGATIVE, Urine RBC (Auto) 1+H, Urine RBC 5-10H, Urine WBC NONE, Urine Squamous Epithelial Cells RARE, Urine Crystals NONE, Urine Bacteria NEGATIVE, Urine Casts NONE, Urine Mucus NEGATIVE, Urine Culture Indicated NO, Urine Opiates Screen NEGATIVE, Urine Oxycodone Screen NEGATIVE, Urine Methadone Screen NEGATIVE, Urine Propoxyphene Screen NEGATIVE, Urine Barbiturates Screen NEGATIVE, Ur Tricyclic Antidepressants Screen NEGATIVE, Urine Phencyclidine Screen NEGATIVE, Urine Amphetamines Screen NEGATIVE, Urine Methamphetamines Screen NEGATIVE, Urine Benzodiazepines Screen NEGATIVE, Urine Cocaine Screen NEGATIVE, Urine Cannabinoids Screen NEGATIVE 10/22/22 08:17: Lactic Acid Level 2.58*H 10/22/22 09:43: Glucometer 334H 10/22/22 10:25: Lactic Acid Level 2.80*H Radiology Signed Date of Exam:10/22/22 CHEST 1 VIEW, AP/PA ONLY EXAMINATION: Chest 1 view HISTORY: Chest pain. COMPARISON: 02/25/2022. FINDINGS: Patchy opacities are seen in the lung bases. No large pleural effusion or pneumothorax. Stable prominent cardiac silhouette. There is calcified aortic atherosclerotic plaque. IMPRESSION: 1. Bibasilar opacities, concerning for infection and/or atelectasis. CT MIGUEL CHEST/NOANG ABD-PELV W INDICATION: Chest pain. Abdominal pain. Nausea and vomiting. CTA chest, abdomen and pelvis Thin axial sections through the chest, abdomen and pelvis are obtained following intravenous contrast bolus. Multiplanar MIP images were reconstructed and reviewed. All CT scans use one or more of the following dose optimizing techniques: automated exposure control, MA and/or KvP adjustment based on patient size and exam type or iterative reconstruction. COMPARISON: 02/26/2022. CTA chest: No pulmonary emboli are seen to the segmental pulmonary arteries. The heart size is within normal limits. No pericardial effusion is present. There is calcified aortic and coronary atherosclerotic plaque without aneurysm. There is no mediastinal, hilar, or axillary lymphadenopathy. Patchy and consolidative opacities are seen in the bilateral lung bases and right middle lobe. No discrete mass. No central endobronchial obstructing lesion. No pleural effusion or pneumothorax. No acute osseous abnormalities. CT abdomen and pelvis: Stable large nonobstructing calculus in the inferior pole of the left kidney measuring 2.8 cm. Simple cortical cysts are seen in both kidneys. No hydronephrosis or solid renal mass. The urinary bladder is nondistended. Stable fat-containing lesion in the left adrenal gland. The right adrenal gland is unremarkable. The liver, spleen, and pancreas have a normal appearance. The gallbladder surgically absent. There is no pathologically enlarged mesenteric or retroperitoneal adenopathy. The bowel loops are nondilated. The appendix is visualized in the right lower quadrant and has a normal appearance. There is no free fluid or free air. No acute osseous abnormalities. There is calcified aortic and iliac atherosclerotic plaque without aneurysm. There is no free air, loculated collection, or adenopathy in the pelvis. IMPRESSION: 1. No evidence of pulmonary emboli to the segmental pulmonary arteries. 2. Patchy and consolidative opacities in the right middle lobe and bilateral lower lobes, concerning for infectious/inflammatory process. Aspiration can have this appearance in the appropriate clinical scenario. Recommend continued follow-up as indicated. 3. No acute abnormalities in the abdomen and pelvis. Assessment/Plan Assessment/Plan Assessment/Plan chest and epigatric pain- likely due to aspiration pneumonitis dysphasia HTN DM A. fibb HLD GERD Continue IV Abx therapy Zofran PRN start soft diet and advance as tolerated continue protonix ICS and start breathing treatment w/ RT if symptoms worsen, consider a swallow study Clinical Quality Measures AMI/AHF: ASA po Prior to arrival: TANMAY Domingo DO 10/22/22 1638: History of Present Illness History of Present Illness Time Seen by Provider: 12:53 History of Present Illness Surgery asked to consult regarding Dysphagia and possible Aspiration pneumonitis. HPI per ED: PT ARRIVES VIA POV FROM HOME WITH , PT STATES HE ATE DINNER AROUND 1900 TONIGHT--COUNTRY RIBS, HE ATE AGAIN AT 2330--COUNTRY RIBS--GOT CHOKED ON A PIECE OF MEAT AND COUGHED FOR AN HOUR, FINALLY QUIT COUGHING, AND WENT TO BED, PT STATES AFTER HE WENT TO BED, HE STARTED SHIVERING, HE BEGAN TO HAVE DIFFUSE UPPER ABDOMINAL PAIN AND PAIN ALL ACROSS HIS CHEST AROUND MIDNIGHT, STATES "IT FEELS LIKE MY LUNGS ARE BURNING" HE ALSO FEELS SHORT OF BREATH--PT STATES HE HAS COPD AND ALWAYS FEELS A LITTLE SHORT OF BREATH, BUT DOES NOT HAVE HOME O2 OR ANY INHALERS OR NEBULIZERS. STATES HE FEELS MORE SHORT OF BREATH THAN NORMAL NO SWELLING IN LEGS/FEET, NO DIZZINESS OR SYNCOPE, PT HAS HAD COVID VACCINE X 3, NO FLU VACCINE. PT HAS HISTORY OF ATRIAL FIBRILLATION, HTN, INSULIN DEPENDENT DI ABETES ( INSULIN + PILLS), CHRONIC BACK PAIN, RESTLESS LEGS, I.B.S. HE HAS HAD PANCREATITIS IN THE PAST, HE HAD AN EGD AT [place] ABOUT 2 WEEKS AGO FOR ABDOMINAL PAIN. HE STATES HE HAS NEVER HAD PROBLEMS WITH FOOD GETTING STUCK WHEN HE SWALLOWS AND HAS NEVER HAD TO HAVE HIS ESOPHAGUS DILATED. HE HAS HAD SEVERAL BOWEL OBSTRUCTIONS AND PARTIAL BOWEL OBSTRUCTIONS, BUT HAS NEVER HAD TO HAVE SURGERY FOR IT. HE HAS HAD A PRIOR CHOLECYSTECTOMY. NO OTHER ABDOMINAL SURGERIES HAS HISTORY OF KIDNEY STONES. PT STATES THIS IS NOT THE SAME WITH KIDNEY STONES. When I spoke to pt he was laying in his bed, comfortable in no acute distress. He denied abdominal pain, no chest pain and no trouble breathing. He stated he had eaten and drank some fluids without difficulty. He was not on O2 nasal cannula. Allergies and Home Medications Allergies Coded Allergies: No Known Drug Allergies (Unverified , 02/24/22) Patient Home Medication List Home Medication List Reviewed: Yes Diltiazem HCl (Diltiazem ER) 360 Mg Capsule.er, 360 MG PO DAILY, (Reported) Entered as Reported by: CEDRIC ANTHONY on 06/18/21 1040 Last Action: Reviewed Insulin Degludec (Insulin Degludec Pen (U-200)) 200 Unit/Ml (3 Ml) Insuln.pen, 50 UNITS SC DAILY, (Reported) Entered as Reported by: CEDRIC ANTHONY on 10/22/221121 Last Action: Reviewed Insulin Lispro (Insulin Lispro Kwikpen U-100) 100 Unit/Ml Insuln.pen, 20 UNITS SC AC, (Reported) Entered as Reported by: CEDRIC ANTHONY on 10/22/221121 Last Action: Reviewed Losartan/Hydrochlorothiazide (Losartan-Hctz 100-12.5 mg Tab) 100 Mg-12.5 Mg Tablet, 1 EA PO DAILY, (Reported) Entered as Reported by: CEDRIC ANTHONY on 10/22/221121 Last Action: Reviewed Metoprolol Succinate (Metoprolol Succinate) 50 Mg Tab.er.24h, 50 MG PO DAILY, (Reported) Entered as Reported by: CEDRIC ANTHONY on 11/16/21 1227 Last Action: Reviewed Pantoprazole Sodium (Pantoprazole Sodium) 40 Mg Tablet.dr, 40 MG PO DAILY, (Reported) Entered as Reported by: CEDRIC ANTHONY on 06/18/211039 Last Action: Reviewed Pioglitazone HCl (Pioglitazone HCl) 30 Mg Tablet, 30 MG PO DAILY, (Reported) Entered as Reported by: CEDRIC ANTHONY on 06/18/211039 Last Action: Reviewed Ropinirole HCl (Ropinirole HCl) 4 Mg Tablet, 4 MG PO BID, (Reported) Entered as Reported by: CEDRIC ANTHONY on 06/18/211039 Last Action: Reviewed Tizanidine HCl (Tizanidine HCl) 4 Mg Tablet, 4 MG PO BID, (Reported) Entered as Reported by: CEDRIC ANTHONY on 10/22/22 1122 Last Action: Reviewed Discontinued Medications Dicyclomine HCl (Dicyclomine HCl) 20 Mg Tablet, 20 MG PO QIDACHS PRN for abdominal cramping Discontinued Reason: No Longer Taking Prescribed by: ALLEGRA HOLLIS on 08/28/22 1410 Last Action: Discontinued Gabapentin (Neurontin) 300 Mg Capsule, 300 MG PO TID, (Reported) Discontinued Reason: No Longer Taking Entered as Reported by: CEDRIC ANTHONY on 06/18/211039 Last Action: Discontinued Glimepiride (Glimepiride) 4 Mg Tablet, 8 MG PO DAILY, (Reported) Discontinued Reason: No Longer Taking Entered as Reported by: CEDRIC ANTHONY on 06/18/211039 Last Action: Discontinued Guaifenesin (Mucus Relief) 600 Mg Tab.er.12h, 600 MG PO Q12H PRN for CONGESTION, (Reported) Discontinued Reason: No Longer Taking Entered as Reported by: CEDRIC ANTHONY on 06/18/211039 Last Action: Discontinued Insulin Degludec (Tresiba Flextouch U-200) 200 Unit/1 Ml Insuln.pen, 50 UNITS SC DAILY, (Reported) Discontinued Reason: No Longer Taking Entered as Reported by: CEDRIC ANTHONY on 06/18/211039 Last Action: Discontinued Lisinopril (Lisinopril) 40 Mg Tablet, 40 MG PO DAILY, (Reported) Discontinued Reason: No Longer Taking Entered as Reported by: CEDRIC ANTHONY on 06/18/211039 Last Action: Discontinued Metoclopramide HCl (Reglan) 10 Mg Tablet, 10 MG PO Q6H PRN for nausea Discontinued Reason: No Longer Taking Prescribed by: ALLEGRA HOLLIS on 08/28/22 1410 Last Action: Discontinued Orphenadrine Citrate (Orphenadrine Citrate) 100 Mg Tablet.er, 100 MG PO BID, (Reported) Discontinued Reason: No Longer Taking Entered as Reported by: CEDRIC ANTHONY on 06/18/21 1040 Last Action: Discontinued Semaglutide (Ozempic) 1 Mg/0.75 Ml Pen.injctr, 1 MG SQ SUN, (Reported) Discontinued Reason: No Longer Taking Entered as Reported by: CEDRIC ANTHONY on 06/18/21 1040 Last Action: Discontinued Past Btgrudz-Hmmbph-Aiflca Hx Patient Social History Smoking Status: Current Everyday Smoker Type Used: Cigars Surgeries History of Surgeries: Yes Surgeries: Gallbladder, Orthopedic, Renal Respiratory History of Respiratory Disorde: Yes Respiratory Disorders: COPD Cardiovascular History of Cardiac Disorders: Yes Cardiac Disorders: High Cholesterol, Hypertension Neurological History of Neurological Disord: Yes Neurological Disorders: Neuropathy Reproductive System Hx Reproductive Disorders: No Sexually Transmitted Disease: No HIV/AIDS: No Genitourinary History of Genitourinary Disor: Yes (renal cysts) Genitourinary Disorders: Kidney Stones, Renal Failure Gastrointestinal History of Gastrointestinal Di: Yes Gastrointestinal Disorders: Gastroesophageal Reflux, Obstructive Bowel, Chronic Diarrhea, Polyps, Gall Bladder Disease, Irritable Bowel Musculoskeletal History of Musculoskeletal Dis: Yes Musculoskeletal Disorders: Arthritis, Chronic Back Pain Endocrine History of Endocrine Disorders: Yes Endocrine Disorders: Diabetes, Insulin dep HEENT History of HEENT Disorders: No Loss of Vision: Denies Hearing Impairment: Denies Cancer History of Cancer: No Psychosocial History of Psychiatric Problem: No Integumentary History of Skin or Integumenta: No Family Medical History Significant Family History: Heart Disease, Cancer, Diabetes Family Medial History: Diabetes mellitus 19 MOTHER G8 SISTER FH: lung cancer 19 MOTHER Hypertension 19 FATHER 19 MOTHER G8 SISTER Kidney stone G8 SISTER Parkinson's disease G8 SISTER Prostate cancer 19 FATHER Review of Systems-General Constitutional: No chills, No diaphoresis EENTM: No double vision, No throat pain, No throat swelling Respiratory: cough (dry cough ), short of breath (consitent with his baseline due to COPD ) Cardiovascular: No chest pain, No palpitations Gastrointestinal: No abdominal pain, No heartburn, No nausea, No vomiting Genitourinary: No dysuria, No frequency Musculoskeletal: No back pain, No muscle pain Skin: dryness; No lumps Psychiatric/Neurological: Depressed; Denies Weakness Physical Exam-General Problems Physical Exam General Appearance: WD/WN, no apparent distress Eyes: Bilateral Eye PERRL, Bilateral Eye EOMI HEENT: pharynx normal; No scleral icterus (R), No scleral icterus (L); other (moist mucus membranes ) Neck: non-tender, supple Respiratory: chest non-tender, no respiratory distress, crackles (mild in lower lung neumann R>L) Cardiovascular: regular rate, rhythm, no murmur Gastrointestinal: normal bowel sounds, non tender, soft, no organomegaly Rectal: deferred Back: no CVA tenderness, no vertebral tenderness Extremities: non-tender, no pedal edema, no calf tenderness Neurologic/Psychiatric: alert, oriented x 3, depressed affect Skin: normal color, warm/dry Lymphatic: no adenopathy (no cervical or axillary LAD ) Assessment/Plan Assessment/Plan Assessment/Plan Chest and Epigatric pain- secondary to recent episode of food bolus/ Likely aspiration pneumonitis Dysphagia HTN DM A. fib HLD GERD Continue IV Abx therapy Zofran PRN start soft diet and advance as tolerated continue protonix ICS and start breathing treatment w/ RT if symptoms worsen, consider a swallow study I reviewed the CT myself and went over case with primary doctor. No surgical intervention necessary at this time. Supervisory-Addendum Brief Verification & Attestation Participated in pt care: history, MDM, physical Personally performed: exam, history, MDM, supervision of care Care discussed with: Medical Student Procedures: n/a Verification and Attestation of Medical Student E/M Service A medical student performed and documented this service. I then reviewed and verified all information documented by the medical student and made modifications to such information, when appropriate. I personally performed a physical exam, medical decision making and then discussed any differences between the notes and made revisions as necessary to create one note. Tanmay Cerna , 10/22/22 , 16:44 URSZULA FUENTES Oct 22, 2022 11:03 TANMAY CERNA DO Oct 22, 2022 16:38
[2022-10-22] MEDS ORDERED: TIZA-186 PO (11:22)
[2022-10-22] MEDS ORDERED: LOSA1TAB26 PO (11:22)
[2022-10-22] MEDS ORDERED: INSU200I8 SC (11:22)
[2022-10-22] MEDS ORDERED: INSU100I48 SC (11:22)
[2022-10-22] MEDS: inSUlin ASPART (NovoLOG) 1 UNIT/0.01 ML (CHARGE PER UNIT) SC SCH ×3 (12:15→21:40)
[2022-10-22] MEDS: PIPERACILLIN SODIUM/TAZOBACTAM 4.5 GM in NS (IVPB) 100 ML IV SCH ×2 (12:15→20:08)
--- NOTE | 2022-10-22 14:13 | Physical Therapy Progress Note ---
Therapy Progress Note Patient is currently at independent PLOF with all gross motor skills and does not require skilled PT intervention at this time. LAM TERRY PT Oct 22, 2022 14:13
[2022-10-22] MEDS: ACETAMINOPHEN 325 MG TABLET PO PRN ×2 (15:32→23:12)
[2022-10-22] MEDS: rOPINIRole 1 MG (REQUIP) TABLET PO SCH (21:40)
[2022-10-22] MEDS: ENOXAPARIN 100 MG/1 ML (LOVENOX) SYR SC SCH (21:40)
[2022-10-23 03:00] VITALS: BP 132/60
[2022-10-23] MEDS: PIPERACILLIN SODIUM/TAZOBACTAM 4.5 GM in NS (IVPB) 100 ML IV SCH ×2 (04:48→10:45)
[2022-10-23] MEDS: inSUlin ASPART (NovoLOG) 1 UNIT/0.01 ML (CHARGE PER UNIT) SC SCH ×2 (04:48→12:16)
[2022-10-23 05:42] VITALS: BP 132/60
[2022-10-23 05:43] LABS: BASOPHILS % (AUTO) 0 % (0-10); EOSINOPHILS % (AUTO) 0 % (0-10); HEMATOCRIT 37 % (40-54); HEMOGLOBIN 12.9 g/dL (13.3-17.7); LYMPHOCYTES # (AUTO) 0.6 10^3/uL (1.0-4.0); LYMPHOCYTES % (AUTO) 5 % (12-44); MEAN CORPUSCULAR HEMOGLOBIN 31 pg (25-34); MEAN CORPUSCULAR HGB CONC 35 g/dL (32-36); MEAN CORPUSCULAR VOLUME 88 fL (80-99); MEAN PLATELET VOLUME 11.5 fL (9.0-12.2); MONOCYTES # (AUTO) 0.4 10^3/uL (0.0-1.0); MONOCYTES % (AUTO) 3 % (0-12); NEUTROPHILS # (AUTO) 11.6 10^3/uL (1.8-7.8); NEUTROPHILS % (AUTO) 91 % (42-75); PLATELET COUNT 136 10^3/uL (130-400); WHITE BLOOD COUNT 12.7 10^3/uL (4.3-11.0)
[2022-10-23 06:02] LABS: ALBUMIN 2.9 GM/DL (3.2-4.5); BILIRUBIN,TOTAL 1.3 MG/DL (0.1-1.0); CALCIUM 8.5 MG/DL (8.5-10.1); CREATININE SERUM 1.36 MG/DL (0.60-1.30); POTASSIUM 3.7 MMOL/L (3.6-5.0); TOTAL PROTEIN 5.6 GM/DL (6.4-8.2)
[2022-10-23 06:20] LABS: LYMPHOCYTES % (MANUAL) 5 %; MONOCYTES % (MANUAL) 4 %; NEUTROPHILS % (MANUAL) 91 %
[2022-10-23 06:21] LABS: PLATELET ESTIMATE ADEQUATE; RBC MORPH NORMAL
[2022-10-23] MEDS: RT-ALBUTEROL/IPRATROPIUM 3 ML (DUONEB) VIAL INH SCH ×2 (07:02→10:17)
--- NOTE | 2022-10-23 08:07 | Progress Note - Surgery ---
Subjective Date Seen by a Provider: Oct 23, 2022 Time Seen by a Provider: 08:01 Subjective/Events-last exam Pt resting in bed receiving a breathing treatment during the encounter. Pt states he felt a slight increase in SOB from his normal baseline with associated dry cough. Pt reports he is having no epigastric or chest pain. Was able to eat and drink again after encounter yesterday and states there was no issues. Denies any fever, chills, CP, n/v, or urinary complaints. Pt has not had a BM since last Friday but reports its not uncommon to go multiple days w/o a BM. Review of Systems General: No Chills, No Night Sweats HEENT: No Head Aches, No Sinus Congestion Pulmonary: Dyspnea (mild ), Cough Cardiovascular: No: Chest Pain, Lt Headedness Gastrointestinal: No: Nausea, Vomiting, Abdominal Pain Genitourinary: No Dysuria, No Frequency Musculoskeletal: No: back pain, leg pain Neurological: No: Change in speech, Confusion Focused Exam Lactate Level 10/22/22 05:12: Lactic Acid Level 2.02*H 10/22/22 08:17: Lactic Acid Level 2.58*H 10/22/22 10:25: Lactic Acid Level 2.80*H Time of Focused Exam: 04:45 Objective Exam Vital Signs Date Time Temp Pulse Resp B/P (MAP) Pulse Ox O2 Delivery O2 Flow Rate FiO2 10/23/22 07:24 96 10/23/22 07:02 92 OxyMask 3.00 10/23/22 05:42 36.8 82 95 28 10/23/22 03:00 36.8 82 18 132/60 (84) 95 OxyMask 2.00 10/23/22 01:43 98 OxyMask 2.00 10/23/22 01:00 89 10/23/22 00:10 94 OxyMask 3.00 10/23/22 00:08 37.5 10/23/22 00:00 95 OxyMask 3.00 10/22/22 23:42 37.4 10/22/22 23:12 38.9 98 20 136/66 (89) 92 Room Air 10/22/22 23:12 38.9 10/22/22 20:11 102 10/22/22 20:00 95 Room Air 10/22/22 19:39 Room Air 10/22/22 19:20 37.2 101 20 165/76 (105) 90 Room Air 10/22/22 16:56 37.3 10/22/22 16:35 38.0 102 18 162/76 (104) 92 Room Air 10/22/22 16:00 38.0 102 18 162/76 (104) 92 Room Air 10/22/22 15:32 38.0 10/22/22 15:16 38.5 102 18 166/77 (106) 92 Room Air 10/22/22 13:36 93 Room Air 10/22/22 13:34 37.4 103 18 172/80 (110) 93 Room Air 10/22/22 12:29 103 10/22/22 12:00 96 25 158/81 (106) 96 OxyMask 2.00 10/22/22 12:00 37.0 Room Air 10/22/22 09:00 92 27 143/76 (98) 96 OxyMask 2.00 I & O 10/23/22 07:00 Intake Total 1710 ml Output Total 1125 ml Balance 585 ml Capillary Refill : Less Than 3 Seconds General Appearance: No Apparent Distress, WD/WN HEENT: PERRL/EOMI, Moist Mucous Membranes Neck: Non Tender; No Lymphadenopathy (L), No Lymphadenopathy (R) Respiratory: No Accessory Muscle Use, No Respiratory Distress, Other (minimal rhonchi/crackles in lung bases bilaterally) Cardiovascular: Regular Rate, Rhythm, No Edema, No Murmur, Normal Peripheral Pulses Peripheral Pulses: 2+ Dorsalis Pedis (R), 2+ Left Dors-Pedis (L), 2+ Radial Pulses (R), 2+ Radial Pulses (L) Gastrointestinal: normal bowel sounds, non tender, soft, no organomegaly Extremity: Non Tender, No Calf Tenderness, No Pedal Edema Neurologic/Psychiatric: Alert, Oriented x3, Normal Mood/Affect Skin: Normal Color, Warm/Dry Lymphatic: Other (no cervical LAD ) Results Lab Laboratory Tests 10/22/22 08:17: Lactic Acid Level 2.58*H 10/22/22 09:43: Glucometer 334H 10/22/22 10:25: Lactic Acid Level 2.80*H 10/22/22 11:35: Glucometer 355H 10/22/22 15:19: Glucometer 230H 10/22/22 20:05: Glucometer 224H 10/22/22 23:27: Glucometer 251H 10/23/22 04:46: Glucometer 174H 10/23/22 05:09: White Blood Count 12.7H, Red Blood Count 4.21L, Hemoglobin 12.9L, Hematocrit 37L , Mean Corpuscular Volume 88, Mean Corpuscular Hemoglobin 31, Mean Corpuscular Hemoglobin Concent 35, Red Cell Distribution Width 13.2, Platelet Count 136, Mean Platelet Volume 11.5, Immature Granulocyte % (Auto) 1, Neutrophils (%) (Auto) 91H, Lymphocytes (%) (Auto) 5L, Monocytes (%) (Auto) 3, Eosinophils (%) (Auto) 0, Basophils (%) (Auto) 0, Neutrophils # (Auto) 11.6H, Lymphocytes # (Auto) 0.6L, Monocytes # (Auto) 0.4, Eosinophils # (Auto) 0.0, Basophils # (Auto) 0.0, Immature Granulocyte # (Auto) 0.1, Neutrophils % (Manual) 91, Lymphocytes % (Manual) 5, Monocytes % (Manual) 4, Platelet Estimate ADEQUATE, Blood Morphology Comment NORMAL, Sodium Level 139, Potassium Level 3.7, Chloride Level 107, Carbon Dioxide Level 23, Anion Gap 9, Blood Urea Nitrogen 21H, Creatinine 1.36H, Estimat Glomerular Filtration Rate 59, BUN/Creatinine Ratio 15, Glucose Level 207H, Calcium Level 8.5, Corrected Calcium 9.4, Total Bilirubin 1.3H, Aspartate Amino Transf (AST/SGOT) 15, Alanine Aminotransferase (ALT/SGPT) 12, Alkaline Phosphatase 48, Total Protein 5.6L, Albumin 2.9L Assessment/Plan Assessment/Plan Assessment/Plan Chest and Epigatric pain- secondary to recent episode of food bolus/- resolved Likely aspiration pneumonitis Dysphagia- resolved HTN DM A. fib HLD GERD anemia hold lovenox due to recent drop of 3.2 in Hgb- 16.1-12.9 Continue IV Abx therapy- switch to oral doxycycline upon discharge Zofran PRN continue soft diet and advance as tolerated continue protonix ICS and continue breathing treatment w/ RT CXR today due to increase in SOB Clinical Quality Measures AMI/AHF: ASA po Prior to arrival: URSZULA Rankin Oct 23, 2022 08:07
[2022-10-23 08:17] VITALS: BP 173/79
[2022-10-23] MEDS: rOPINIRole 1 MG (REQUIP) TABLET PO SCH (08:37)
[2022-10-23] MEDS: DOCUSATE SODIUM 100 MG (COLACE) CAP PO SCH (08:38)
[2022-10-23] MEDS: SENNOSIDES 8.6 MG (SENOKOT) TAB PO SCH (08:38)
[2022-10-23] MEDS: NS IV 1000 ML 1,000 ML IV SCH (08:39)
[2022-10-23] MEDS: ENOXAPARIN 100 MG/1 ML (LOVENOX) SYR SC SCH (08:39)
[2022-10-23] MEDS ORDERED: meTOproloL SUCCINATE 50 MG (TOPROL XL) TAB PO SCH (09:00)
[2022-10-23] MEDS ORDERED: LOSARTAN 100 MG (COZAAR) TABLET PO SCH (09:00)
[2022-10-23] MEDS ORDERED: HydroCHLOROthiazide CAP/TABLET 12.5 MG TAB PO SCH (09:00)
[2022-10-23] MEDS ORDERED: PIOGLITAZONE 30MG (ACTOS) TAB PO SCH (09:00)
[2022-10-23] MEDS ORDERED: AMOX1TAB12 PO (09:49)
[2022-10-23] MEDS ORDERED: ALBU2.5V4 INH (09:49)
[2022-10-23] MEDS ORDERED: BENZ100C18 PO (09:49)
--- NOTE | 2022-10-23 09:50 | Discharge Summary ---
Diagnosis/Chief Complaint Date of Admission Oct 22, 2022 at 06:03 Date of Discharge Discharge Date: Oct 23, 2022 Discharge Diagnosis Severe Sepsis 2nd to aspiration pneumonia -Meets severe sepsis criteria with tachycardia, tachyponea, and lactic acidosis upon arrival -Zosyn & IVF for aspiration pneumona -Pt denies dysphagia or prior occurence. Will consult Surg for assessment for further work-up. ANTONETTE on CKD -Cr 1.55 from 1.18 in February 2022. IVF and monitor. Insulin dependent diabetes -Pt. has hyperglycemic upon arrival (399). No signs of DKA or HHS. Insulin sliding scale. COPD -Pt. denies using inhalers at home. Nebulizer treatments as needed with foll ow-up with PCP upon discharge. HTN -Hold home meds and monitor. Paroxysmal A fib -Pt. is a poor historian but appears to have been on Metoprolol and diltiazem in the past. Unclear what Pt. is on at this time. Doesn't appear to be on anticoagulation. -Currently in sinus rhythm. Will monitor for changes. 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 Alcohol Abuse Disorder -Patient reports 1-2 beers daily with no recent period without alcohol. No prior history of withdrawl symptoms -CIWA protocol and monitor. DVT Proph: lovenox Diet: as tolerated Discharge Summary Discharge Physical Examination Allergies: Coded Allergies: No Known Drug Allergies (Unverified , 02/24/22) Vitals & I&Os Vital Signs Date Time Temp Pulse Resp B/P (MAP) Pulse Ox O2 Delivery O2 Flow Rate FiO2 10/23/22 12:14 67 10/23/22 11:31 37.0 20 119/58 (78) 90 OxyMask 2.00 10/23/22 05:42 28 General Appearance: Alert, Oriented X3, Cooperative Respiratory: Clear to Auscultation Cardiovascular: Regular Rate Psych/Mental Status: Mental Status NL Hospital Course Was the Problem List Reviewed?: Yes Pt is a 61 year old male with PMH of sleep apnea, hyperlipidemia, HTN, Neuropathy, Chronic Kidney stones, CKD, GERD, Hx obstructive bowel, IBS, Insulin dependent diabetes, and Paroxysmal Atrial fibrillation who was admitted to [facility] from 10/22-10/23 for SOB secondary to a choking event at home and concerns of aspiration pneumonia. Pt. reported that in the evening of 10/21 he had food get stuck while swallowing and had difficulties breathing following the incident, but was able to cough it up on his own power. He had continued SOB and CP following the event leading him to present to the ED where he was found to have a WBC 11.8, Glucose 399, AG 15, LA 2.02, and Cr 1.55. He was also tachyca rdic and and tachypnic in the ED meeting the criteria for severe sepsis and ANTONETTE. CXR and CT in the ED showed findings consistent with possible aspiration pneumonia for which he was admitted for medical care following IVF and abx initiation of Zosyn in the ED. During his stay, General Surgery was consulted and he was seen by Dr. Pretty who was not overly concerned as the patient had recently had an EGD at [facility] for GERD with no abnormalities noted. The patients breathing improved while he was in the hospital and he was able to tolerate RA while awake. He would wear oxygen at night for SOB, which he reports having at baseline at home due to sleep apnea, but he does not use a CPAP or oxygen at home. He continued to recieve IVF and Zosyn and could eat and drink safely. His labwork by 10/23 revealed WBC 12.7, Glucose better under control in the 100's, and Cr 1.36. His lungs were clear on auscultation. This patient likely has more of an aspiration pneumonitis secondary to choking event, but with minimally increased WBC he will continue to recieve antibiotics for possible aspiration pneumonia. As of 10/23 patient is clinicaly stable enough to continue care in the outpatient setting. His home meds have been restarted, and his IV antibiotics will be switched to Augmentin 850mg/150mg PO BID x5 days for outpatient tratment. Patient should follow up with Dr. Mitchell on his scheduled appointment 10/28. Labs (last 24 hrs) Laboratory Tests 10/22/22 03:52: Glucometer 391H 10/22/22 03:53: White Blood Count 11.8H, Red Blood Count 5.28, Hemoglobin 16.1, Hematocrit 46, Mean Corpuscular Volume 86, Mean Corpuscular Hemoglobin 31, Mean Corpuscular Hemoglobin Concent 35, Red Cell Distribution Width 12.9, Platelet Count 182, Mean Platelet Volume 11.2, Immature Granulocyte % (Auto) 0, Neutrophils (%) (Auto) 84H, Lymphocytes (%) (Auto) 11L, Monocytes (%) (Auto) 4, Eosinophils (%) (Auto) 0, Basophils (%) (Auto) 0, Neutrophils # (Auto) 9.9H, Lymphocytes # (Auto ) 1.3, Monocytes # (Auto) 0.5, Eosinophils # (Auto) 0.1, Basophils # (Auto) 0.1, Immature Granulocyte # (Auto) 0.0, Prothrombin Time 12.5, INR Comment 0.9, Activated Partial Thromboplast Time 26, Sodium Level 136, Potassium Level 3.6, Chloride Level 99, Carbon Dioxide Level 22, Anion Gap 15H, Blood Urea Nitrogen 27H, Creatinine 1.55H, Estimat Glomerular Filtration Rate 51, BUN/Creatinine Ratio 17, Glucose Level 399H, Mean Blood Glucose 237H, Hemoglobin A1c 9.9H, Calcium Level 9.7, Corrected Calcium 9.8, Magnesium Level 1.7, Total Bilirubin 0.7, Aspartate Amino Transf (AST/SGOT) 11, Alanine Aminotransferase (ALT/SGPT) 14, Alkaline Phosphatase 67, Total Creatine Kinase 60, Creatine Kinase MB 1.4, Myoglobin 47.5, Troponin I < 0.028, B-Type Natriuretic Peptide 31.4, Total Protein 7.2, Albumin 3.9, Amylase Level 36, Lipase 49, Beta-Hydroxybutyrate (Chem panel) 0.16, Acetaminophen Level < 10L, Serum Alcohol < 10 10/22/22 05:12: Lactic Acid Level 2.02*H 10/22/22 05:47: Urine Color YELLOW, Urine Clarity CLEAR, Urine pH 5.5, Urine Specific [place] 1.010L, Urine Protein 1+H, Urine Glucose (UA) 3+H, Urine Ketones NEGATIVE, Urine Nitrite NEGATIVE, Urine Bilirubin NEGATIVE, Urine Urobilinogen 0.2, Urine Leukocyte Esterase NEGATIVE, Urine RBC (Auto) 1+H, Urine RBC 5-10H, Urine WBC NONE, Urine Squamous Epithelial Cells RARE, Urine Crystals NONE, Urine Bacteria NEGATIVE, Urine Casts NONE, Urine Mucus NEGATIVE, Urine Culture Indicated NO, Urine Opiates Screen NEGATIVE, Urine Oxycodone Screen NEGATIVE, Urine Methadone Screen NEGATIVE, Urine Propoxyphene Screen NEGATIVE, Urine Barbiturates Screen NEGATIVE, Ur Tricyclic Antidepressants Screen NEGATIVE, Urine Phencyclidine Screen NEGATIVE, Urine Amphetamines Screen NEGATIVE, Urine Methamphetamines Screen NEGATIVE, Urine Benzodiazepines Screen NEGATIVE, Urine Cocaine Screen NEGATIVE, Urine Cannabinoids Screen NEGATIVE 10/22/22 08:17: Lactic Acid Level 2.58*H 10/22/22 09:43: Glucometer 334H 10/22/22 10:25: Lactic Acid Level 2.80*H 10/22/22 11:35: Glucometer 355H 10/22/22 15:19: Glucometer 230H 10/22/22 20:05: Glucometer 224H 10/22/22 23:27: Glucometer 251H 10/23/22 04:46: Glucometer 174H 10/23/22 05:09: White Blood Count 12.7H, Red Blood Count 4.21L, Hemoglobin 12.9L, Hematocrit 37L , Mean Corpuscular Volume 88, Mean Corpuscular Hemoglobin 31, Mean Corpuscular Hemoglobin Concent 35, Red Cell Distribution Width 13.2, Platelet Count 136, Mean Platelet Volume 11.5, Immature Granulocyte % (Auto) 1, Neutrophils (%) (Auto) 91H, Lymphocytes (%) (Auto) 5L, Monocytes (%) (Auto) 3, Eosinophils (%) (Auto) 0, Basophils (%) (Auto) 0, Neutrophils # (Auto) 11.6H, Lymphocytes # (Auto) 0.6L, Monocytes # (Auto) 0.4, Eosinophils # (Auto) 0.0, Basophils # (Auto) 0.0, Immature Granulocyte # (Auto) 0.1, Neutrophils % (Manual) 91, Lymphocytes % (Manual) 5, Monocytes % (Manual) 4, Platelet Estimate ADEQUATE, Blood Morphology Comment NORMAL, Sodium Level 139, Potassium Level 3.7, Chloride Level 107, Carbon Dioxide Level 23, Anion Gap 9, Blood Urea Nitrogen 21H, Creatinine 1.36H, Estimat Glomerular Filtration Rate 59, BUN/Creatinine Ratio 15, Glucose Level 207H, Calcium Level 8.5, Corrected Calcium 9.4, Total Bilirubin 1.3H, Aspartate Amino Transf (AST/SGOT) 15, Alanine Aminotransferase (ALT/SGPT) 12, Alkaline Phosphatase 48, Total Protein 5.6L, Albumin 2.9L 10/23/22 11:54: Glucometer 261H Microbiology 10/22/22 Urine Culture - Final, Complete NO GROWTH 10/22/22 Blood Culture - Preliminary, Resulted No growth Pending Labs Microbiology Date/Time Source Procedure Growth Status 10/22/22 05:47 Urine Clean Catch Urine Culture - Final NO GROWTH Complete 10/22/22 05:12 Peripheral Left Forearm Blood Culture - Preliminary No growth Resulted 10/22/22 05:07 Peripheral Lt Ac Blood Culture - Preliminary No growth Resulted Laboratory Tests 10/22/22 03:52: Glucometer 391 10/22/22 03:53: White Blood Count 11.8, Red Blood Count 5.28, Hemoglobin 16.1, Hematocrit 46, Mean Corpuscular Volume 86, Mean Corpuscular Hemoglobin 31, Mean Corpuscular Hemoglobin Concent 35, Red Cell Distribution Width 12.9, Platelet Count 182, Mean Platelet Volume 11.2, Immature Granulocyte % (Auto) 0, Neutrophils (%) (Auto) 84, Lymphocytes (%) (Auto) 11, Monocytes (%) (Auto) 4, Eosinophils (%) (Auto) 0, Basophils (%) (Auto) 0, Neutrophils # (Auto) 9.9, Lymphocytes # (Auto) 1.3, Monocytes # (Auto) 0.5, Eosinophils # (Auto) 0.1, Basophils # (Auto) 0.1, Immature Granulocyte # (Auto) 0.0, Prothrombin Time 12.5, INR Comment 0.9, Activated Partial Thromboplast Time 26, Sodium Level 136, Potassium Level 3.6, Chloride Level 99, Carbon Dioxide Level 22, Anion Gap 15, Blood Urea Nitrogen 27, Creatinine 1.55, Estimat Glomerular Filtration Rate 51, BUN/Creatinine Ratio 17, Glucose Level 399, Mean Blood Glucose 237, Hemoglobin A1c 9.9, Calcium Level 9.7, Corrected Calcium 9.8, Magnesium Level 1.7, Total Bilirubin 0.7, Aspartate Amino Transf (AST/SGOT) 11, Alanine Aminotransferase (ALT/SGPT) 14, Alkaline Phosphatase 67, Total Creatine Kinase 60, Creatine Kinase MB 1.4, Myoglobin 47.5, Troponin I < 0.028, B-Type Natriuretic Peptide 31.4, Total Protein 7.2, Albumin 3.9, Amylase Level 36, Lipase 49, Beta-Hydroxybutyrate (Chem panel) 0.16, Acetaminophen Level < 10, Serum Alcohol < 10 10/22/22 05:12: Lactic Acid Level 2.02 10/22/22 05:47: Urine Color YELLOW, Urine Clarity CLEAR, Urine pH 5.5, Urine Specific [place] 1.010, Urine Protein 1+, Urine Glucose (UA) 3+, Urine Ketones NEGATIVE, Urine Nitrite NEGATIVE, Urine Bilirubin NEGATIVE, Urine Urobilinogen 0.2, Urine Leukocyte Esterase NEGATIVE, Urine RBC (Auto) 1+, Urine RBC 5-10, Urine WBC NONE, Urine Squamous Epithelial Cells RARE, Urine Crystals NONE, Urine Bacteria NEGATIVE, Urine Casts NONE, Urine Mucus NEGATIVE, Urine Culture Indicated NO, Urine Opiates Screen NEGATIVE, Urine Oxycodone Screen NEGATIVE, Urine Methadone Screen NEGATIVE, Urine Propoxyphene Screen NEGATIVE, Urine Barbiturates Screen NEGATIVE, Ur Tricyclic Antidepressants Screen NEGATIVE, Urine Phencyclidine Screen NEGATIVE, Urine Amphetamines Screen NEGATIVE, Urine Methamphetamines Screen NEGATIVE, Urine Benzodiazepines Screen NEGATIVE, Urine Cocaine Screen NEGATIVE, Urine Cannabinoids Screen NEGATIVE 10/22/22 08:17: Lactic Acid Level 2.58 10/22/22 09:43: Glucometer 334 10/22/22 10:25: Lactic Acid Level 2.80 10/22/22 11:35: Glucometer 355 10/22/22 15:19: Glucometer 230 10/22/22 20:05: Glucometer 224 10/22/22 23:27: Glucometer 251 10/23/22 04:46: Glucometer 174 10/23/22 05:09: White Blood Count 12.7, Red Blood Count 4.21, Hemoglobin 12.9, Hematocrit 37, Mean Corpuscular Volume 88, Mean Corpuscular Hemoglobin 31, Mean Corpuscular Hemoglobin Concent 35, Red Cell Distribution Width 13.2, Platelet Count 136, Mean Platelet Volume 11.5, Immature Granulocyte % (Auto) 1, Neutrophils (%) (Aut o) 91, Lymphocytes (%) (Auto) 5, Monocytes (%) (Auto) 3, Eosinophils (%) (Auto) 0, Basophils (%) (Auto) 0, Neutrophils # (Auto) 11.6, Lymphocytes # (Auto) 0.6, Monocytes # (Auto) 0.4, Eosinophils # (Auto) 0.0, Basophils # (Auto) 0.0, Immature Granulocyte # (Auto) 0.1, Neutrophils % (Manual) 91, Lymphocytes % (Manual) 5, Monocytes % (Manual) 4, Platelet Estimate ADEQUATE, Blood Morphology Comment NORMAL, Sodium Level 139, Potassium Level 3.7, Chloride Level 107, Carbon Dioxide Level 23, Anion Gap 9, Blood Urea Nitrogen 21, Creatinine 1.36, Estimat Glomerular Filtration Rate 59, BUN/Creatinine Ratio 15, Glucose Level 207, Calcium Level 8.5, Corrected Calcium 9.4, Total Bilirubin 1.3, Aspartate Amino Transf (AST/SGOT) 15, Alanine Aminotransferase (ALT/SGPT) 12, Alkaline Phosphatase 48, Total Protein 5.6, Albumin 2.9 10/23/22 11:54: Glucometer 261 Discharge Home Medications: Active Scripts Active Amox Tr-K Clv 875-125 mg Tab (Amoxicillin/Potassium Clav) 875 Mg-125 Mg Tablet 1 Each PO BID Tessalon Perles (Benzonatate) 100 Mg Capsule 200 Mg PO TID PRN Albuterol Sulfate 2.5 Mg/3 Ml (0.083 %) Vial.neb 2.5 Mg INH TID Reported Insulin Degludec Pen (U-200) (Insulin Degludec) 200 Unit/Ml (3 Ml) Insuln.pen 50 Units SC DAILY Insulin Lispro Kwikpen U-100 (Insulin Lispro) 100 Unit/Ml Insuln.pen 20 Units SC AC Losartan-Hctz 100-12.5 mg Tab (Losartan/Hydrochlorothiazide) 100 Mg-12.5 Mg Tablet 1 Ea PO DAILY Tizanidine HCl 4 Mg Tablet 4 Mg PO BID Metoprolol Succinate 50 Mg Tab.er.24h 50 Mg PO DAILY Diltiazem ER (Diltiazem HCl) 360 Mg Capsule.er 360 Mg PO DAILY Ropinirole HCl 4 Mg Tablet 4 Mg PO BID Pioglitazone HCl 30 Mg Tablet 30 Mg PO DAILY Pantoprazole Sodium 40 Mg Tablet.dr 40 Mg PO DAILY Instructions to patient/family Please see electronic discharge instructions given to patient. Diagnosis/Problems Diagnosis/Problems (1) Aspiration pneumonia Qualifiers: Qualified Codes: J69.0 - Pneumonitis due to inhalation of food and vomit (2) Acute respiratory failure Clinical Quality Measures AMI/AHF: ASA po Prior to arrival: ASIYA Walker DO Oct 23, 2022 09:50
--- NOTE | 2022-10-23 09:58 | Physical Therapy Progress Note ---
Therapy Progress Note Received order for PT evaluation. Patient seen by PT on 10-22-22 and was at PLOF and Independent with all transfers and gait. Spoke with patient this date and he reports no decline or changes. Nurse notified. YUMIKO JOYNER PT Oct 23, 2022 09:58
--- NOTE | 2022-10-23 10:59 | Progress Note ---
ALISON VILLASENOR 10/23/22 1059: Subjective Date Seen by a Provider: Oct 23, 2022 Time Seen by a Provider: 07:45 Subjective/Events-last exam Pt is a 61 year old male with PMH of sleep apnea, hyperlipidemia, HTN, Neuropathy, Chronic Kidney stones, CKD, GERD, Hx obstructive bowel, IBS, Insulin dependent diabetes, and Paroxysmal Atrial fibrillation who was admitted to [facility] from 10/22-10/23 for SOB secondary to a choking event at home and concerns of aspiration pneumonia. Pt. reported that in the evening of 10/21 he had food get stuck while swallowing and had difficulties breathing following the incident, but was able to cough it up on his own power. He had continued SOB and CP following the event leading him to present to the ED where he was found to have a WBC 11.8, Glucose 399, AG 15, LA 2.02, and Cr 1.55. He was also tachycardic and and tachypnic in the ED meeting the criteria for severe sepsis and ANTONETTE. CXR and CT in the ED showed findings consistent with possible aspiration pneumonia for which he was admitted for medical care following IVF and abx initiation of Zosyn in the ED. During his stay, General Surgery was consulted and he was seen by Dr. Pretty who was not overly concerned as the patient had recently had an EGD at [place] for GERD with no abnormalities noted. The patients breathing improved while he was in the hospital and he was able to tolerate RA while awake. He would wear oxygen at night for SOB, which he reports having at baseline at home due to sleep apnea, but he does not use a CPAP or oxygen at home. He continued to recieve IVF and Zosyn and could eat and drink safely. His labwork by 10/23 revealed WBC 12.7, Glucose better under control in the 100's, and Cr 1.36. His lungs were clear on auscultation. This patient likely has more of an aspiration pneumonitis secondary to choking event, but with minimally increased WBC he will continue to recieve antibiotics for possible aspiration pneumonia. As of 10/23 patient is clinicaly stable enough to continue care in the outpatient setting. His home meds have been restarted, and his IV antibiotics will be switched to Augmentin 850mg/150mg PO BID x5 days for outpatient tratment. Patient should follow up with Dr. Mitchell on his scheduled appointment 10/28. Review of Systems General: No Chills, No Fatigue HEENT: No Head Aches Pulmonary: No Dyspnea; Cough (mild, non-productive) Cardiovascular: No: Chest Pain, Palpitations, Edema Gastrointestinal: No: Nausea, Vomiting, Abdominal Pain Genitourinary: No Dysuria, No Hematuria Neurological: No: Weakness, Numbness Focused Exam Lactate Level 10/22/22 05:12: Lactic Acid Level 2.02*H 10/22/22 08:17: Lactic Acid Level 2.58*H 10/22/22 10:25: Lactic Acid Level 2.80*H Time of Focused Exam: 04:45 Objective Exam Last Set of Vital Signs Vital Signs Date Time Temp Pulse Resp B/P (MAP) Pulse Ox O2 Delivery O2 Flow Rate FiO2 10/23/22 10:20 91 OxyMask 1.00 10/23/22 08:17 37.9 99 18 173/79 (110) 10/23/22 05:42 28 Capillary Refill : Less Than 3 Seconds I&O Intake and Output 10/23/22 00:00 Intake Total 3510 ml Output Total 1125 ml Balance 2385 ml Intake Oral 1410 ml IV Total 2100 ml Output Urine Total 1125 ml # Voids 3 Daily Weight Change No General: Alert, Oriented X3, No Acute Distress HEENT: Atraumatic, EOMI Lungs: Clear to Auscultation Heart: Regular Rate, No Murmurs Abdomen: Normal Bowel Sounds, Soft, No Tenderness, No Masses Extremities: No Clubbing, No Cyanosis, No Edema Skin: No Rashes, No Breakdown Neuro: Normal Speech, Strength at 5/5 X4 Ext, Sensation Intact Psych/Mental Status: Mental Status NL Results Lab Laboratory Tests 10/22/22 11:35: Glucometer 355H 10/22/22 15:19: Glucometer 230H 10/22/22 20:05: Glucometer 224H 10/22/22 23:27: Glucometer 251H 10/23/22 04:46: Glucometer 174H 10/23/22 05:09: White Blood Count 12.7H, Red Blood Count 4.21L, Hemoglobin 12.9L, Hematocrit 37L , Mean Corpuscular Volume 88, Mean Corpuscular Hemoglobin 31, Mean Corpuscular Hemoglobin Concent 35, Red Cell Distribution Width 13.2, Platelet Count 136, Me an Platelet Volume 11.5, Immature Granulocyte % (Auto) 1, Neutrophils (%) (Auto) 91H, Lymphocytes (%) (Auto) 5L, Monocytes (%) (Auto) 3, Eosinophils (%) (Auto) 0, Basophils (%) (Auto) 0, Neutrophils # (Auto) 11.6H, Lymphocytes # (Auto) 0.6L , Monocytes # (Auto) 0.4, Eosinophils # (Auto) 0.0, Basophils # (Auto) 0.0, Immature Granulocyte # (Auto) 0.1, Neutrophils % (Manual) 91, Lymphocytes % (Manual) 5, Monocytes % (Manual) 4, Platelet Estimate ADEQUATE, Blood Morphology Comment NORMAL, Sodium Level 139, Potassium Level 3.7, Chloride Level 107, Carbon Dioxide Level 23, Anion Gap 9, Blood Urea Nitrogen 21H, Creatinine 1.36H, Estimat Glomerular Filtration Rate 59, BUN/Creatinine Ratio 15, Glucose Level 207H, Calcium Level 8.5, Corrected Calcium 9.4, Total Bilirubin 1.3H, Aspartate Amino Transf (AST/SGOT) 15, Alanine Aminotransferase (ALT/SGPT) 12, Alkaline Phosphatase 48, Total Protein 5.6L, Albumin 2.9L Assessment/Plan Assessment/Plan Assess & Plan/Chief Complaint Severe Sepsis 2nd to aspiration pneumonia -(10/22) Met severe sepsis criteria with tachycardia, tachyponea, and lactic acidosis. Zosyn & IVF for aspiration pneumona. Surgery didn't feel need for scope or further work-up. -(10/23) Vitals stable & labwork improving except for WBC 12.7. Aspiration pneumonitis vs. pneumonia at this time. Will switch IV abx to Augmentin 850mg/150mg PO BID x5 days for pneumonia coverage to be safe. ANTONETTE on CKD -(10/22) Cr 1.55 from 1.18 in February 2022. IVF and monitor. -(10/23) Cr improved to 1.36. IVF discontinued. Insulin dependent diabetes -Pt. has hyperglycemic upon arrival (399). No signs of DKA or HHS. Insulin sliding scale. -() Patient's glucose under better control. will restart home meds upon discharge. COPD -Pt. denies using inhalers at home. Nebulizer treatments as needed with follow-up with PCP upon discharge. HTN -Home meds initially held, but were restarted 10/23 Paroxysmal A fib -(Home meds were initially held, but will restart today. Patient does not appear to be on any anticoagulation therapy. 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 Arteaga. Alcohol Abuse Disorder -Patient reports 1-2 beers daily with no recent period without alcohol. No prior history of withdrawl symptoms. None seen during stay. DVT Proph: lovenox Diet: as tolerated Clinical Quality Measures Admission Status Admission Dx Severe Sepsis 2nd to aspiration pneumonia -Meets severe sepsis criteria with tachycardia, tachyponea, and lactic acidosis upon arrival -Zosyn & IVF for aspiration pneumona -Pt denies dysphagia or prior occurence. Will consult Surg for assessment for further work-up. ANTONETTE on CKD -Cr 1.55 from 1.18 in February 2022. IVF and monitor. Insulin dependent diabetes -Pt. has hyperglycemic upon arrival (399). No signs of DKA or HHS. Insulin sliding scale. COPD -Pt. denies using inhalers at home. Nebulizer treatments as needed with follow-up with PCP upon discharge. HTN -Hold home meds and monitor. Paroxysmal A fib -Pt. is a poor historian but appears to have been on Metoprolol and diltiazem in the past. Unclear what Pt. is on at this time. Doesn't appear to be on anticoagulation. -Currently in sinus rhythm. Will monitor for changes. Pt. reports paste up artist apprentice is Dr. Leigh with [facility]. Alcohol Abuse Disorder -Patient reports 1-2 beers daily with no recent period without alcohol. No prior history of withdrawl symptoms -CIWA protocol and monitor. DVT Proph: lovenox Diet: as tolerated AMI/AHF: ASA po Prior to arrival: No TRACIE SNEED DO 10/24/22 0518: Supervisory-Addendum Brief Verification & Attestation Participated in pt care: history, MDM, physical Personally performed: exam, history, MDM, supervision of care Care discussed with: Medical Student Procedures: n/a Results interpretation: Verified all documentation Verification and Attestation of Medical Student E/M Service A medical student performed and documented this service in my presence. I reviewed and verified all information documented by the medical student and made modifications to such information, when appropriate. I personally performed the physical exam and medical decision making. Tracie Sneed, Oct 24, 2022,05:17 ALISON VILLASENOR Oct 23, 2022 10:59 TRACIE SNEED DO Oct 24, 2022 05:18
[2022-10-23] MEDS ORDERED: FUROSEMIDE 40 MG/4 ML INJ (LASIX) IVP NR (11:00)
[2022-10-23 11:08] VITALS: BP 173/79
[2022-10-23 11:31] VITALS: BP 119/58
== END 2022-10-23 09:46 | disposition home or self-care (01) ==
LOC: EDUNIT# 03:34 → ER 03:36 → INTOOBSV 06:03 → UNDOADMOB 06:03 → CSD 06:03 → 4TH 13:22 → CSD 13:22 → UNDODISOB 10-23 09:46
PROVIDERS: ADMIT Internal Medicine; ATTEND Internal Medicine
DX: A41.9 Sepsis, unspecified organism (principal); R65.20 Severe sepsis without septic shock; J96.00 Acute respiratory failure, unspecified whether with hypoxia or hypercapnia; J69.0 Pneumonitis due to inhalation of food and vomit; I12.9 Hypertensive chronic kidney disease with stage 1 through stage 4 chronic kidney disease, or unspecified chronic kidney disease; E11.22 Type 2 diabetes mellitus with diabetic chronic kidney disease; N18.9 Chronic kidney disease, unspecified; N17.9 Acute kidney failure, unspecified; J44.9 Chronic obstructive pulmonary disease, unspecified; I48.0 Paroxysmal atrial fibrillation; K21.9 Gastro-esophageal reflux disease without esophagitis; R13.10 Dysphagia, unspecified; D64.9 Anemia, unspecified; F10.10 Alcohol abuse, uncomplicated; F17.210 Nicotine dependence, cigarettes, uncomplicated; Z79.84 Long term (current) use of oral hypoglycemic drugs; Z79.01 Long term (current) use of anticoagulants; Z79.4 Long term (current) use of insulin; Z79.899 Other long term (current) drug therapy
CPT/HCPCS: 71045; 71275; 74177; 80053 ×2; 80306; 81000; 82010; 82150; 82550; 82553; 82947 ×2; 83036; 83605; 83690; 83735; 83874; 83880; 84484; 85007; 85025; 85027; 85610; 85730; 87040; 87088; 93005; 93041; 94640; 94760; 94761; 96372 ×2; 96375; 96376 ×2; 99284; G0378 ×2; G0480 ×2; 36415; 80320; 80329

== ENCOUNTER 2022-10-26 08:16 | Inpatient (IN) | payer MEDICARE ==
[~2022-10-26] VITALS: Ht 193 cm; Wt 109.8 kg
[~2022-10-26 08:16] MED LIST changes: +ALBU2.5V4 INH; +AMOX1TAB12 PO; +BENZ100C18 PO; +INSU100I48 SC; +INSU200I8 SC; +LOSA1TAB26 PO; +TIZA-186 PO
[2022-10-26 08:55] LABS: BASOPHILS # (AUTO) 0.1 10^3/uL (0.0-0.1); BASOPHILS % (AUTO) 1 % (0-10); EOSINOPHILS # (AUTO) 0.2 10^3/uL (0.0-0.3); EOSINOPHILS % (AUTO) 3 % (0-10); HEMATOCRIT 38 % (40-54); HEMOGLOBIN 13.7 g/dL (13.3-17.7); LYMPHOCYTES # (AUTO) 0.8 10^3/uL (1.0-4.0); LYMPHOCYTES % (AUTO) 11 % (12-44); MEAN CORPUSCULAR HEMOGLOBIN 31 pg (25-34); MEAN CORPUSCULAR HGB CONC 36 g/dL (32-36); MEAN CORPUSCULAR VOLUME 85 fL (80-99); MEAN PLATELET VOLUME 11.2 fL (9.0-12.2); MONOCYTES # (AUTO) 0.7 10^3/uL (0.0-1.0); MONOCYTES % (AUTO) 9 % (0-12); NEUTROPHILS # (AUTO) 5.4 10^3/uL (1.8-7.8); NEUTROPHILS % (AUTO) 75 % (42-75); PLATELET COUNT 205 10^3/uL (130-400); WHITE BLOOD COUNT 7.3 10^3/uL (4.3-11.0)
[2022-10-26 09:01] LABS: PROTHROMBIN TIME PATIENT 13.6 SEC (12.2-14.7)
[2022-10-26 09:02] LABS: ALBUMIN 3.2 GM/DL (3.2-4.5); POTASSIUM 2.8 MMOL/L (3.6-5.0)
[2022-10-26 09:03] LABS: CALCIUM 8.9 MG/DL (8.5-10.1)
[2022-10-26 09:04] LABS: TOTAL PROTEIN 6.2 GM/DL (6.4-8.2)
[2022-10-26 09:06] LABS: BILIRUBIN,TOTAL 0.7 MG/DL (0.1-1.0)
[2022-10-26 09:08] LABS: CREATININE SERUM 1.3 MG/DL (0.60-1.30)
[2022-10-26 09:10] LABS: MAGNESIUM 1.7 MG/DL (1.6-2.4)
--- NOTE | 2022-10-26 09:27 | Diagnostic Imaging Report ---
INDICATION: Chest pain. TECHNIQUE: Single view chest 9:02 AM. CORRELATION STUDY: 10/22/2022 FINDINGS: Heart size and mediastinum are enlarged and prominent. Vasculature is increased from prior. Bibasilar infiltrate-like opacities persist and overall adversely increased, right greater than left. IMPRESSION: 1. Cardiac enlargement with what appears to be pulmonary vascular congestion and edema. 2. Bibasilar infiltrate-like opacities, right greater than left, appear adversely changed as well. Dictated by: Dictated on workstation # [id number]
--- NOTE | 2022-10-26 09:44 | ED General ---
General Chief Complaint: Chest Pain Stated Complaint: SOA - CHEST PAIN Nursing Triage Note: PT TO RM 7 W SOA, PT STATES HAVING INCREASED SOA, PT HAS SOA STATES HAS PNEM FROM ASPIRATION THAT STARTED ON LAST AM. PT WAS IN HOSP UNTIL FRIDAY. LOW GRADE TEMP. HAS INC SOA, STATES FEELING WORSE TODAY Source of Information: Patient Exam Limitations: No Limitations History of Present Illness Date Seen by Provider: Oct 26, 2022 Time Seen by Provider: 08:20 Initial Comments This 61-year-old gentleman presents to the emergency room with primary complaints of worsening shortness of breath and hypoxia after being discharged from the hospital October 23. He was admitted October 22 with pneumonia. The pneumonia seem to start with an aspiration when he choked on a piece of meat. He was discharged on Augmentin after receiving IV antibiotics in the hospital. Last night he had much difficulty sleeping and lying down. Today he noted his oxygen saturations were in the 80s on the 2 L nasal cannula he was sent home on. He complains of nasal congestion that makes use of the nasal cannula difficult. He has a persistent discomfort in the central chest that has continued since his admission. There is some question of heart failure as he has increased lower extremity edema. He has had some cough but denies nausea, vomiting, diarrhea, fever, myalgia, or other acute symptoms of infectious disease. His primary care provider is Dr. Mitchell and his resource protection specialist is Dr. Leigh. He is diabetic. Allergies and Home Medications Allergies Coded Allergies: No Known Drug Allergies (Unverified , 02/24/22) Patient Home Medication List Home Medication List Reviewed: Yes Albuterol Sulfate (Albuterol Sulfate) 2.5 Mg/3 Ml (0.083 %) Vial.neb, 2.5 MG INH TID Prescribed by: ASIYA SNEED on 10/23/22948 Last Action: Reviewed Amoxicillin/Potassium Clav (Amox Tr-K Clv 875-125 mg Tab) 875 Mg-125 Mg Tablet, 1 EACH PO BID Prescribed by: ASIYA SNEED on 10/23/22948 Benzonatate (Tessalon Perles) 100 Mg Capsule, 200 MG PO TID PRN for COUGH Prescribed by: ASIYA SNEED on 10/23/22948 Last Action: Reviewed Diltiazem HCl (Diltiazem ER) 360 Mg Capsule.er, 360 MG PO DAILY, (Reported) Entered as Reported by: CEDRIC ANTHONY on 06/18/21 104 Last Action: Reviewed Insulin Degludec (Insulin Degludec Pen (U-200)) 200 Unit/Ml (3 Ml) Insuln.pen, 50 UNITS SC DAILY, (Reported) Entered as Reported by: CEDRIC ANTHONY on 10/22/22 112 Insulin Lispro (Insulin Lispro Kwikpen U-100) 100 Unit/Ml Insuln.pen, 20 UNITS SC AC, (Reported) Entered as Reported by: CEDRIC ANTHONY on 10/22/22 112 Losartan/Hydrochlorothiazide (Losartan-Hctz 100-12.5 mg Tab) 100 Mg-12.5 Mg Tablet, 1 EA PO DAILY, (Reported) Entered as Reported by: CEDRIC ANTHONY on 10/22/221121 Last Action: Reviewed Metoprolol Succinate (Metoprolol Succinate) 50 Mg Tab.er.24h, 50 MG PO DAILY, (Reported) Entered as Reported by: CEDRIC ANTHONY on 11/16/21 1227 Last Action: Reviewed Pantoprazole Sodium (Pantoprazole Sodium) 40 Mg Tablet.dr, 40 MG PO DAILY, (Reported) Entered as Reported by: CEDRIC ANTHONY on 06/18/21 104 Last Action: Reviewed Pioglitazone HCl (Pioglitazone HCl) 30 Mg Tablet, 30 MG PO DAILY, (Reported) Entered as Reported by: CEDRIC ANTHONY on 06/18/21 104 Last Action: Reviewed Ropinirole HCl (Ropinirole HCl) 4 Mg Tablet, 4 MG PO BID, (Reported) Entered as Reported by: CEDRIC ANTHONY on 06/18/211039 Last Action: Reviewed Tizanidine HCl (Tizanidine HCl) 4 Mg Tablet, 4 MG PO BID, (Reported) Entered as Reported by: CEDRIC ANTHONY on 10/22/22 112 Last Action: Reviewed Discontinued Medications Dicyclomine HCl (Dicyclomine HCl) 20 Mg Tablet, 20 MG PO QIDACHS PRN for abdominal cramping Discontinued Reason: No Longer Taking Prescribed by: ALLEGRA HOLLIS on 08/28/22 1410 Gabapentin (Neurontin) 300 Mg Capsule, 300 MG PO TID, (Reported) Discontinued Reason: No Longer Taking Entered as Reported by: CEDRIC ANTHONY on 06/18/21 1040 Glimepiride (Glimepiride) 4 Mg Tablet, 8 MG PO DAILY, (Reported) Discontinued Reason: No Longer Taking Entered as Reported by: CEDRIC ANTHONY on 06/18/21 1040 Guaifenesin (Mucus Relief) 600 Mg Tab.er.12h, 600 MG PO Q12H PRN for CONGESTION, (Reported) Discontinued Reason: No Longer Taking Entered as Reported by: CEDRIC ANTHONY on 06/18/21 1040 Insulin Degludec (Tresiba Flextouch U-200) 200 Unit/1 Ml Insuln.pen, 50 UNITS SC DAILY, (Reported) Discontinued Reason: No Longer Taking Entered as Reported by: CEDRIC ANTHONY on 06/18/21 1040 Lisinopril (Lisinopril) 40 Mg Tablet, 40 MG PO DAILY, (Reported) Discontinued Reason: No Longer Taking Entered as Reported by: CEDRIC ANTHONY on 06/18/21 1040 Metoclopramide HCl (Reglan) 10 Mg Tablet, 10 MG PO Q6H PRN for nausea Discontinued Reason: No Longer Taking Prescribed by: ALLEGRA HOLLIS on 08/28/22 1410 Orphenadrine Citrate (Orphenadrine Citrate) 100 Mg Tablet.er, 100 MG PO BID, (Reported) Discontinued Reason: No Longer Taking Entered as Reported by: CEDRIC ANTHONY on 06/18/21 1040 Semaglutide (Ozempic) 1 Mg/0.75 Ml Pen.injctr, 1 MG SQ SUN, (Reported) Discontinued Reason: No Longer Taking Entered as Reported by: CEDRIC ANTHONY on 06/18/21 1040 Review of Systems Review of Systems Constitutional: no symptoms reported EENTM: see HPI Respiratory: see HPI Cardiovascular: see HPI Gastrointestinal: no symptoms reported Genitourinary: no symptoms reported Musculoskeletal: no symptoms reported Skin: no symptoms reported Psychiatric/Neurological: No Symptoms Reported Hematologic/Lymphatic: No Symptoms Reported Past Bihkjon-Xtqnkj-Thvahe Hx Patient Social History Tobacco Use?: No Substance use?: No Alcohol Use?: No Pt feels they are or have been: No Immunizations Up To Date Tetanus Booster (TDap): More than 5yrs PED Vaccines UTD: Yes Influenza Vaccine Up-to-Date: Yes; Up-to-Date First/Initial COVID19 Vaccinat: STATES 2 VACCINES PLUS BOOSTER Second COVID19 Vaccination Charli: STATES 2 VACCINES PLUS BOOSTER Third COVID19 Vaccination Date: STATES 2 VACCINES PLUS BOOSTER Seasonal Allergies Seasonal Allergies: Yes Past Medical History Surgery/Hospitalization HX: RECENT PNEM, DIABETES, HTN, AFIB. GALLBLADDER, EGD, COLONOSCOPY Surgeries: Yes Gallbladder, Orthopedic, Renal Respiratory: Yes COPD Currently Using CPAP: No Cardiac: Yes (Reports history of SVT) High Cholesterol, Hypertension Neurological: Yes Neuropathy Reproductive Disorders: No Sexually Transmitted Disease: No HIV/AIDS: No Genitourinary: Yes (renal cysts) Kidney Stones, Renal Failure Gastrointestinal: Yes Gastroesophageal Reflux, Obstructive Bowel, Chronic Diarrhea, Polyps, Gall Bladder Disease, Irritable Bowel Musculoskeletal: Yes Arthritis, Chronic Back Pain Endocrine: Yes Diabetes, Insulin dep (Type II) HEENT: No Loss of Vision: Denies Hearing Impairment: Denies Cancer: No Psychosocial: No Depression Integumentary: No Blood Disorders: No Adverse Reaction/Blood Tranf: No Family Medical History Diabetes mellitus 19 MOTHER G8 SISTER FH: lung cancer 19 MOTHER Hypertension 19 FATHER 19 MOTHER G8 SISTER Kidney stone G8 SISTER Parkinson's disease G8 SISTER Prostate cancer 19 FATHER Heart Disease, Cancer, Diabetes SOCIAL HISTORY: -SMOKED CIGARETTES WHEN YOUNGER, NOW SMOKES CIGARS DAILY -ETOH-"[employer]" EVERY DAY -DRUGS-DENIES USE PAST SURGICAL HISTORY: -MOST RECENT COLONOSCOPY WITH POLYPECTOMY X [address] LAGUNAS 11/20/21 -CHOLECYSTECTOMY 2011 -LEFT ROTATOR CUFF REPAIR 2011 -RIGHT BICEPS TENDON REPAIR 2011 -MULTIPLE CYSTOSCOPIES, LITHOTRIPSIES, KIDNEY STONE BASKET REMOVALS -EGD 09/2022 AT [place]. Physical Exam-Suspected Sepsis Physical Exam Vital Signs Vital Signs - First Documented 10/26/22 14:13 Temp 36.6 Capillary Refill : Less Than 3 Seconds Blood Pressure Mean: 82 Height, Weight, BMI Height: 6'4.00" Weight: 240lbs. 0.0oz. 108.401770gm; 28.00 BMI Method:Stated General Appearance: No Apparent Distress, WD/WN HEENT: Normal ENT Inspection Neck: Normal Inspection; No JVD Respiratory: No Accessory Muscle Use, No Respiratory Distress, Crackles (Bilateral bases); No Wheezing Cardiovascular: Regular Rate, Rhythm, No Murmur, Other (Mild to moderate lower extremity edema) Gastrointestinal: Non Tender, Soft Extremity: Non Tender, Swelling (Mild to moderate bilateral lower extremity edema) Neurologic/Psychiatric: Alert, Oriented x3, No Motor/Sensory Deficits, Normal Mood/Affect Skin: normal color, warm/dry Focused Exam Lactate Level 10/26/22 09:03: Lactic Acid Level 2.56*H 10/26/22 11:19: Lactic Acid Level 2.44*H 10/26/22 13:35: Lactic Acid Level 1.20 Lactic Acid Level Progress/Results/Core Measures Suspected Sepsis SIRS Temperature: Pulse: 83 Respiratory Rate: 21 Laboratory Tests 10/26/22 08:30: White Blood Count 7.3 Blood Pressure 125 /61 Mean: 82 10/26/22 09:03: Lactic Acid Level 2.56*H 10/26/22 11:19: Lactic Acid Level 2.44*H 10/26/22 13:35: Lactic Acid Level 1.20 Laboratory Tests 10/26/22 08:30: Creatinine 1.30, INR Comment 1.0, Platelet Count 205, Total Bilirubin 0.7 Results/Orders Lab Results Laboratory Tests Test 10/26/22 08:30 10/26/22 09:03 10/26/22 09:44 10/26/22 11:19 Range/Units White Blood Count 7.3 4.3-11.0 10^3/uL Red Blood Count 4.46 4.30-5.52 10^6/uL Hemoglobin 13.7 13.3-17.7 g/dL Hematocrit 38 L 40-54 % Mean Corpuscular Volume 85 80-99 fL Mean Corpuscular Hemoglobin 31 25-34 pg Mean Corpuscular Hemoglobin Concent 36 32-36 g/dL Red Cell Distribution Width 12.8 10.0-14.5 % Platelet Count 205 130-400 10^3/uL Mean Platelet Volume 11.2 9.0-12.2 fL Immature Granulocyte % (Auto) 1 % Neutrophils (%) (Auto) 75 42-75 % Lymphocytes (%) (Auto) 11 L 12-44 % Monocytes (%) (Auto) 9 0-12 % Eosinophils (%) (Auto) 3 0-10 % Basophils (%) (Auto) 1 0-10 % Neutrophils # (Auto) 5.4 1.8-7.8 10^3/uL Lymphocytes # (Auto) 0.8 L 1.0-4.0 10^3/uL Monocytes # (Auto) 0.7 0.0-1.0 10^3/uL Eosinophils # (Auto) 0.2 0.0-0.3 10^3/uL Basophils # (Auto) 0.1 0.0-0.1 10^3/uL Immature Granulocyte # (Auto) 0.1 0.0-0.1 10^3/uL Prothrombin Time 13.6 12.2-14.7 SEC INR Comment 1.0 0.8-1.4 Activated Partial Thromboplast Time 28 24-35 SEC D-Dimer 0.83 H 0.00-0.49 UG/ML Sodium Level 137 135-145 MMOL/L Potassium Level 2.8 L 3.6-5.0 MMOL/L Chloride Level 104 98-107 MMOL/L Carbon Dioxide Level 22 21-32 MMOL/L Anion Gap 11 5-14 MMOL/L Blood Urea Nitrogen 16 7-18 MG/DL Creatinine 1.30 0.60-1.30 MG/DL Estimat Glomerular Filtration Rate 63 BUN/Creatinine Ratio 12 Glucose Level 268 H 70-105 MG/DL Calcium Level 8.9 8.5-10.1 MG/DL Corrected Calcium 9.5 8.5-10.1 MG/DL Magnesium Level 1.7 1.6-2.4 MG/DL Total Bilirubin 0.7 0.1-1.0 MG/DL Aspartate Amino Transf (AST/SGOT) 12 5-34 U/L Alanine Aminotransferase (ALT/SGPT) 15 0-55 U/L Alkaline Phosphatase 57 40-136 U/L Myoglobin 51.8 10.0-92.0 NG/ML Troponin I < 0.028 <0.028 NG/ML C-Reactive Protein High Sensitivity 6.39 H 0.00-0.50 MG/DL B-Type Natriuretic Peptide 90.5 <100.0 PG/ML Total Protein 6.2 L 6.4-8.2 GM/DL Albumin 3.2 3.2-4.5 GM/DL Lactic Acid Level 2.56 *H 2.44 *H 0.50-2.00 MMOL/L Influenza Type A (RT-PCR) Not Detected Not Detecte Influenza Type B (RT-PCR) Not Detected Not Detecte SARS-CoV-2 RNA (RT-PCR) Not Detected Not Detecte Urine Color YELLOW Urine Clarity CLEAR Urine pH 5.5 5-9 Urine Specific Basco 1.020 1.016-1.022 Urine Protein 1+ H NEGATIVE Urine Glucose (UA) TRACE H NEGATIVE Urine Ketones TRACE H NEGATIVE Urine Nitrite NEGATIVE NEGATIVE Urine Bilirubin NEGATIVE NEGATIVE Urine Urobilinogen 0.2 < = 1.0 MG/DL Urine Leukocyte Esterase NEGATIVE NEGATIVE Urine RBC (Auto) TRACE-I H NEGATIVE Urine RBC 0-2 /HPF Urine WBC NONE /HPF Urine Squamous Epithelial Cells NONE /HPF Urine Crystals NONE /LPF Urine Bacteria NEGATIVE /HPF Urine Casts NONE /LPF Urine Mucus NEGATIVE /LPF Urine Culture Indicated CULTURE PENDING Test 10/26/22 13:35 10/26/22 16:54 Range/Units Lactic Acid Level 1.20 0.50-2.00 MMOL/L Glucometer 272 H 70-110 MG/DL My Orders Orders - KEVON POWELL MD Ekg Tracing (10/26/22 08:20) Cbc With Automated Diff (10/26/22 08:47) Magnesium (10/26/22 08:47) Chest 1 View, Ap/Pa Only (10/26/22 08:47) Comprehensive Metabolic Panel (10/26/22 08:47) Myoglobin Serum (10/26/22 08:47) Protime With Inr (10/26/22 08:47) Partial Thromboplastin Time (10/26/22 08:47) O2 (10/26/22 08:47) Monitor-Rhythm Ecg Trace Only (10/26/22 08:47) Lipid Panel (10/27/22 06:00) Ed Iv/Invasive Line Start (10/26/22 08:47) Troponin I Allen (10/26/22 08:47) Blood Culture (10/26/22 08:48) Sputum Culture (10/26/22 08:48) Urinalysis (10/26/22 08:48) Urine Culture (10/26/22 08:48) Vital Signs Adult Sepsis Patie Q15M (10/26/22 08:48) Remove Rings In Anticipation O (10/26/22 08:48) Lactic Acid Analyzer (10/26/22 08:49) Covid 19 Inhouse Test (10/26/22 08:49) Influenza A And B By Pcr (10/26/22 08:49) Isolation Central Supply Req (10/26/22 08:49) Bnp Chambers (10/26/22 09:49) Potassium Cl 10meq/50ml Ivpb (Kcl 10 Meq (10/26/22 10:00) Hs C Reactive Protein (10/26/22 09:50) Fibrin Degradation Products (10/26/22 09:50) Cytology Requistion | Nursing (10/26/22 10:04) Ct Angio Chest W (R/O Pe) (10/26/22 10:18) Iohexol Injection (Omnipaque 350 Mg/Ml 1 (10/26/22 11:15) Received Contrast (Hold Metformin- Contr (10/26/22 11:15) Sodium Chloride Flush (Catheter Flush Sy (10/26/22 11:15) Ns (Ivpb) (Sodium Chloride 0.9% Ivpb Bag (10/26/22 11:15) Ns (Ivpb) (Sodium Chloride 0.9% Ivpb Bag (10/26/22 11:07) Cefepime Injection (Maxipime Injection) (10/26/22 11:45) Azithromycin Injection (Zithromax Inject (10/26/22 11:31) Ns Iv 1000 Ml (Sodium Chloride 0.9%) (10/26/22 11:45) Potassium Chloride (Tablet) (Klor Con Ta (10/26/22 12:00) Code/Resuscitation (10/26/22 11:46) Ed Admission (Communication) (10/26/22 11:46) Azithromycin Injection (Zithromax Inject (10/26/22 14:52) Medications Given in ED Current Medications Medications Dose Ordered Sig/Parvin Route Start Time Stop Time Status Last Admin Dose Admin Cefepime HCl 2000 mg/Sodium Chloride 50 ml @ 100 mls/hr ONCE ONCE IV 10/26/22 11:45 10/26/22 12:14 DC 10/26/22 12:24 100 MLS/HR Iohexol 100 ml ONCE ONCE IV 10/26/22 11:15 10/26/22 11:16 DC 10/26/22 10:45 83 ML Potassium Chloride 40 meq ONCE ONCE PO 10/26/22 12:00 10/26/22 12:01 DC 10/26/22 12:23 40 MEQ Potassium Chloride 50 ml @ 50 mls/hr ONCE ONCE IV 10/26/22 10:00 10/26/22 10:59 DC 10/26/22 11:14 50 MLS/HR Sodium Chloride 10 ml NEEDED PRN IV 10/26/22 11:15 10/26/22 10:45 10 ML Sodium Chloride 100 ml ONCE ONCE IV 10/26/22 11:15 10/26/22 11:16 DC 10/26/22 10:45 80 ML Sodium Chloride 100 ml @ ud STK-MED ONCE .ROUTE 10/26/22 11:07 10/26/22 11:09 DC 10/26/22 11:15 100 MLS/HR Sodium Chloride 1,000 ml @ 100 mls/hr Q10H ONCE IV 10/26/22 11:45 10/26/22 21:44 10/26/22 12:24 100 MLS/HR Vital Signs/I&O 10/26/22 10/26/22 10/26/22 10/26/22 08:20 08:20 08:29 13:12 Pulse 83 68 Resp 21 17 B/P (MAP) 125/61 (82) 121/69 Pulse Ox 87 95 O2 Delivery Nasal Cannula OxyMask Nasal Cannula OxyMask O2 Flow Rate 2.00 5.00 2.00 5.00 10/26/22 10/26/22 10/26/22 10/26/22 13:51 14:13 14:25 15:25 Temp 36.6 36.6 36.4 Pulse 69 69 70 Resp 20 18 B/P (MAP) 148/70 (96) 147/70 (95) Pulse Ox 95 95 93 O2 Delivery OxyMask OxyMask OxyMask O2 Flow Rate 8.00 9.00 8.00 10/26/22 10/26/22 18:24 19:32 Pulse 66 68 Capillary Refill : Less Than 3 Seconds Blood Pressure Mean: 82 Progress Note : Time: 11:49 Progress Note Patient was interviewed and examined. His primary complaint is worsening shortness of breath and hypoxia with oxygen saturations in the 80s on the 2 L nasal cannula he was sent home with. He reports having difficulty with nasal breathing due to congestion. He has been stable on oxy mask at 6 L here. Cardiac work-up was unremarkable. BNP was normal. Troponin was negative. EKG was nonischemic. Chest x-ray was suspicious for pulmonary edema and failure. However, this was not validated by CT or BNP. Patient was not demonstrating signs of sepsis as his heart rate and temperature were normal and the WBC and CRP were also normal. For this reason further work-up was performed with CT angiogram of the chest after a D-dimer returned elevated. CT demonstrated worsening multifocal pneumonia but no pulmonary embolus or pulmonary edema. Patient appears to be failing outpatient therapy. Blood cultures and lactic acid were obtained and antibiotic therapy with cefepime and azithromycin is being administered now that pneumonia is suspected as the primary cause of his symptoms. CMP was also evaluated and hypokalemia was noticed with a potassium of 2.8. Potassium replacement was started by IV route with 10 mEq. This is being followed by 40 mEq orally. Case was discussed with Dr. Newby who accepts admission. I discussed CODE STATUS with the patient and he requests to remain full code. ECG Initial ECG Impression Date: Oct 26, 2022 Initial ECG Impression Time: 08:25 Initial ECG Rate: 88 Initial ECG Rhythm: Normal Sinus Initial ECG Intervals: Normal Initial ECG Impression: Normal Comment Normal sinus rhythm with no ST elevation or depression. No abnormal intervals or axis deviation. Diagnostic Imaging Diagonstic Imaging: Xray Plain Films/CT/US/NM/MRI: chest Comments Chest x-ray was viewed and interpreted by me and compared with prior. There is increased pulmonary congestion suggestive of failure with possible superimposed infiltrates. Cardiomegaly again noted. Radiologist's interpretation noted as below: NAME: DARIN SUTTON [facility] REC#: [id number] PT STATUS: REG ER : 1960 PHYSICIAN: KEVON POWELL MD ADMIT DATE: 10/26/22/ER Draft Date of Exam:10/26/22 CHEST 1 VIEW, AP/PA ONLY INDICATION: Chest pain. TECHNIQUE: Single view chest 9:02 AM. CORRELATION STUDY: 10/22/2022 FINDINGS: Heart size and mediastinum are enlarged and prominent. Vasculature is increased from prior. Bibasilar infiltrate-like opacities persist and overall adversely increased, right greater than left. IMPRESSION: 1. Cardiac enlargement with what appears to be pulmonary vascular congestion and edema. 2. Bibasilar infiltrate-like opacities, right greater than left, appear adversely changed as well. Dictated on workstation # [id number] Dict: 10/26/22922 Trans: 10/26/22926 [facility] [id number] Interpreted by: RADHA OQUENDO DO Departure Communication (Admissions) Time/Spoke to Admitting Phy: 11:40 Dr. Newby Impression Primary Impression: Pneumonia Qualified Codes: J18.9 - Pneumonia, unspecified organism Additional Impressions: Hypoxia Hypokalemia Atypical chest pain Disposition: ADMITTED INPATIENT Condition: Stable Admissions Decision to Admit Reason: Admit from ER (General) Decision to Admit/Date: Oct 26, 2022 Time/Decision to Admit Time: 11:40 Departure-Patient Inst. Referrals: MARIELY MITCHELL DO (PCP/Family) Primary Care Physician Copy Copies To 1: MARIELY MITCHELL JOSHUA T MD Oct 26, 2022 09:44
[2022-10-26] MEDS ORDERED: POTASSIUM CL 10MEQ/50ML IVPB 50 ML IV ONE (10:00)
[2022-10-26] MEDS ORDERED: NS (IVPB) 100 ML ONE (11:07)
[2022-10-26] MEDS ORDERED: NS 100 ML (IVPB) BAG IV ONE (11:15)
[2022-10-26] MEDS ORDERED: HOLD METFORMIN - RECEIVED CONTRAST 20 ML VIAL IV SCH (11:15)
[2022-10-26] MEDS ORDERED: IOHEXOL 350 MG/ML 100 ML (OMNIPAQUE 350) VIAL IV ONE (11:15)
[2022-10-26] MEDS ORDERED: CATHETER FLUSH 10 ML SYR IV PRN (11:15)
--- NOTE | 2022-10-26 11:17 | Diagnostic Imaging Report ---
TECHNIQUE: CTA of the chest was performed. 3D reformats were obtained and reviewed. Dose reduction techniques were utilized. REASON FOR EXAM: Shortness of breath. Pneumonia. COMPARISON: Chest radiograph performed earlier this same date. CTA chest of 10/22/2022. FINDINGS: No pulmonary emboli are seen to the subsegmental pulmonary arteries. Stable heart size. No pericardial effusion. Mildly prominent lymph nodes are seen in the mediastinum. Increasing patchy and consolidative opacities are seen throughout the mid and lower lungs bilaterally. No large pleural effusion or pneumothorax. No discrete mass. No acute osseous abnormalities. No acute abnormalities in the upper abdomen. IMPRESSION: 1. No pulmonary emboli. 2. Worsening multifocal pneumonia. Dictated by: Dictated on workstation # [id number]
[2022-10-26 11:27] LABS: BILIRUBIN,URINE NEGATIVE (NEGATIVE); CLARITY,URINE CLEAR; COLOR,URINE YELLOW; GLUCOSE, URINE (UA) TRACE (NEGATIVE); KETONES,URINE TRACE (NEGATIVE); LEUKOCYTE ESTERASE ,URINE NEGATIVE (NEGATIVE); NITRITE,URINE NEGATIVE (NEGATIVE); PH,URINE 5.5 (5-9); PROTEIN,URINE 1+ (NEGATIVE)
[2022-10-26] MEDS ORDERED: AZITHROMYCIN INJECTION 500 MG in NS (IVPB) 250 ML IV STA ×2 (11:31→14:52)
[2022-10-26] MEDS ORDERED: CEFEPIME INJECTION 2,000 MG in NS (IVPB) 50 ML IV ONE (11:45)
[2022-10-26] MEDS ORDERED: NS IV 1000 ML 1,000 ML IV ONE (11:45)
[2022-10-26 11:48] LABS: BACTERIA,URINE NEGATIVE /HPF; RBC,URINE 0-2 /HPF
[2022-10-26] MEDS ORDERED: KCL 10 MEQ TAB (MICRO K) PO ONE (12:00)
[2022-10-26] MEDS ORDERED: LACTULOSE SYRUP 10GM/15ML (ENULOSE) 30ML UDC PO PRN (13:30)
[2022-10-26] MEDS ORDERED: diphenhydrAMINE 50 MG/ML INJ (BENADRYL) IVP PRN (13:30)
[2022-10-26] MEDS ORDERED: MELATONIN 3 MG TABLET PO PRN (13:30)
[2022-10-26] MEDS ORDERED: diphenhydrAMINE 25 MG TAB (BENADRYL) PO PRN (13:30)
[2022-10-26] MEDS ORDERED: ACETAMINOPHEN 325 MG TABLET PO PRN (13:30)
[2022-10-26] MEDS ORDERED: BISACODYL 10 MG SUPP (DULCOLAX) PR PRN (13:30)
[2022-10-26] MEDS ORDERED: MILK OF MAGNESIA 400 MG/5 ML 30 ML UDC PO PRN (13:30)
[2022-10-26] MEDS ORDERED: ONDANSETRON 4 MG/2 ML (SDV) Z0FRAN IV PRN (13:30)
[2022-10-26] MEDS ORDERED: ONDANSETRON 4 MG (ZOFRAN) ORAL DISSOLVE TAB PO PRN (13:30)
[2022-10-26] MEDS ORDERED: CALCIUM CARBONATE 500 MG (TUMS) TAB.CHEW PO PRN (13:30)
[2022-10-26] MEDS ORDERED: NS IV 500 ML 500 ML IV PRN (13:30)
[2022-10-26] MEDS ORDERED: ANTACID SUSP 30 ML UDC (MYLANTA) PO PRN (13:30)
[2022-10-26] MEDS ORDERED: polyethylene glycoL POWDER 17 GM (MIRALAX) PACK PO PRN (13:30)
[2022-10-26 14:13] VITALS: BP 148/70
[2022-10-26 14:25] VITALS: BP 148/70
[2022-10-26] MEDS: NS IV 1000 ML 1,000 ML IV SCH (14:44)
[2022-10-26] MEDS: metroNIDAZOLE 500MG/100ML IVPB 100 ML IV SCH ×2 (14:45→21:16)
[2022-10-26] MEDS: ENOXAPARIN 40 MG/0.4 ML (LOVENOX) SYR SC SCH (14:46)
[2022-10-26 15:25] VITALS: BP 147/70
[2022-10-26] MEDS: inSUlin ASPART (NovoLOG) 1 UNIT/0.01 ML (CHARGE PER UNIT) SC SCH ×2 (18:11→21:16)
[2022-10-26] MEDS: CEFEPIME INJECTION 1,000 MG in NS (IVPB) 50 ML IV SCH ×2 (18:15→23:18)
[2022-10-26 19:48] VITALS: BP 155/75
[2022-10-26] MEDS: DOCUSATE SODIUM 100 MG (COLACE) CAP PO SCH (20:26)
[2022-10-26] MEDS: SENNOSIDES 8.6 MG (SENOKOT) TAB PO SCH (20:26)
[2022-10-26] MEDS: RT-ALBUTEROL SULF 2.5 MG/3 ML PRE-MIX VIAL INH SCH (21:16)
[2022-10-26 23:22] VITALS: BP 174/79
[2022-10-27] MEDS: NS IV 1000 ML 1,000 ML IV SCH ×3 (02:22→20:14)
[2022-10-27 03:23] VITALS: BP 169/86
[2022-10-27] MEDS: CEFEPIME INJECTION 1,000 MG in NS (IVPB) 50 ML IV SCH ×4 (05:05→23:41)
[2022-10-27 05:44] LABS: BASOPHILS # (AUTO) 0.1 10^3/uL (0.0-0.1); BASOPHILS % (AUTO) 1 % (0-10); EOSINOPHILS # (AUTO) 0.3 10^3/uL (0.0-0.3); EOSINOPHILS % (AUTO) 4 % (0-10); HEMATOCRIT 35 % (40-54); HEMOGLOBIN 12.2 g/dL (13.3-17.7); LYMPHOCYTES # (AUTO) 1.2 10^3/uL (1.0-4.0); LYMPHOCYTES % (AUTO) 19 % (12-44); MEAN CORPUSCULAR HEMOGLOBIN 31 pg (25-34); MEAN CORPUSCULAR HGB CONC 35 g/dL (32-36); MEAN CORPUSCULAR VOLUME 87 fL (80-99); MEAN PLATELET VOLUME 11.1 fL (9.0-12.2); MONOCYTES # (AUTO) 0.6 10^3/uL (0.0-1.0); MONOCYTES % (AUTO) 10 % (0-12); NEUTROPHILS # (AUTO) 4.2 10^3/uL (1.8-7.8); NEUTROPHILS % (AUTO) 65 % (42-75); PLATELET COUNT 190 10^3/uL (130-400); WHITE BLOOD COUNT 6.4 10^3/uL (4.3-11.0)
[2022-10-27] MEDS: inSUlin ASPART (NovoLOG) 1 UNIT/0.01 ML (CHARGE PER UNIT) SC SCH ×4 (05:47→20:13)
[2022-10-27] MEDS: metroNIDAZOLE 500MG/100ML IVPB 100 ML IV SCH ×3 (05:47→21:28)
[2022-10-27 06:00] LABS: CALCIUM 8.4 MG/DL (8.5-10.1); CREATININE SERUM 1.03 MG/DL (0.60-1.30); MAGNESIUM 1.6 MG/DL (1.6-2.4)
[2022-10-27 06:02] LABS: CHOLESTEROL 144 MG/DL (< 200); HDL CHOLESTEROL 23 MG/DL (40-60); TRIGLYCERIDES 147 MG/DL (<150); VLDL CHOLESTEROL 29 MG/DL (5-40)
[2022-10-27] MEDS: KCL 20 MEQ TAB (K-DUR) PO SCH (06:06)
[2022-10-27] MEDS: POTASSIUM CL 10MEQ/50ML IVPB 50 ML IV SCH ×9 (06:06→16:07)
[2022-10-27] MEDS: POTASSIUM BICARB 20 MEQ (EFFER-K) TABLET PO SCH (06:06)
[2022-10-27] MEDS: MAGNESIUM 1 GM/100 ML IVPB 100 ML IV SCH ×5 (06:06→09:33)
[2022-10-27 07:16] VITALS: BP 174/85
[2022-10-27] MEDS: RT-ALBUTEROL SULF 2.5 MG/3 ML PRE-MIX VIAL INH SCH ×3 (07:36→22:11)
[2022-10-27] MEDS: DOCUSATE SODIUM 100 MG (COLACE) CAP PO SCH ×2 (08:38→19:17)
[2022-10-27] MEDS: SENNOSIDES 8.6 MG (SENOKOT) TAB PO SCH ×2 (08:38→19:17)
[2022-10-27] MEDS ORDERED: meTOproloL SUCCINATE 50 MG (TOPROL XL) TAB PO ONE (09:30)
[2022-10-27] MEDS ORDERED: LOSARTAN 100 MG (COZAAR) TABLET PO ONE (09:30)
[2022-10-27] MEDS ORDERED: hydrALAZINE (APESOLINE) 20 MG/ML VIAL IV PRN (09:30)
[2022-10-27 11:21] VITALS: BP 162/74
[2022-10-27] MEDS: ENOXAPARIN 40 MG/0.4 ML (LOVENOX) SYR SC SCH (14:53)
[2022-10-27 15:53] VITALS: BP 166/76
--- NOTE | 2022-10-27 18:51 | History & Physical-Hospitalist ---
History of Present Illness HPI/Chief Complaint Parveen Escalante Jr is a 61 year old male with PMH HTN, T2DM, COPD, AFib, alcohol abuse, who presented with shortness of breath. He was recently discharged after a hospital stay due to pneumonia. He was discharged home with 1-2 L oxygen. He was still short of breath and hypoxic on this. He says he was feeling more short of breath. He denies fevers. He did not have a cough or sputum production. He denies chest pain. He denies abdominal pain, nausea, vomiting. He has chronic diarrhea. Source: patient Exam Limitations: no limitations Date Seen 10/27/22 Time Seen by a Provider: 11:50 Attending Physician Brandt Mitchell DO PCP Admitting Physician: Tad Erazo MD Attending Physician: Tad Erazo MD Referring Physician Date of Admission Oct 26, 2022 at 13:08 Home Medications & Allergies Home Medications Reviewed patient Home Medication Reconciliation performed by pharmacy medication reconciliations ground water technician and/or nursing. Patients Allergies have been reviewed. Allergies Allergies Coded Allergies No Known Drug Allergies (Unverified02/24/22) Past Rlygymu-Fsvnqe-Pxwtjt Hx Patient Social History Tobacco Use?: Yes Tobacco type used: Cigars Smoking Status: Current Everyday Smoker Smokeless Tobacco Frequency: Never a User Use of E-Cig and/or Vaping dev: No Substance use?: No Alcohol Use?: Yes Alcohol type: Beer Alcohol Frequency: Daily Additional Alcohol Comments: 1-2 beers daily Pt feels they are or have been: No Immunizations Up To Date Date of Influenza Vaccine: May 06, 2016 First/Initial COVID19 Vaccinat: STATES 2 VACCINES PLUS BOOSTER Second COVID19 Vaccination Charli: STATES 2 VACCINES PLUS BOOSTER Tetanus Booster (TDap): Less Than 5 Years Hepatitis A: Yes Hepatitis B: Yes PED Vaccines UTD: Yes Seasonal Allergies Seasonal Allergies: Yes Current Status Advance Directives: No Communicates: Verbally Primary Language: Bahraini Preferred Spoken Language: Bahraini Is interpretation needed?: No Implanted or Applied Medical D: None Past Medical History Surgeries: Gallbladder, Orthopedic, Renal COPD Currently Using CPAP: No High Cholesterol, Hypertension Neuropathy Sexually Transmitted Disease: No HIV/AIDS: No Kidney Stones, Renal Failure Gastroesophageal Reflux, Obstructive Bowel, Chronic Diarrhea, Polyps, Gall Chandrakant dder Disease, Irritable Bowel Arthritis, Chronic Back Pain Diabetes, Insulin dep (Type II) Loss of Vision: Denies Hearing Impairment: Denies Depression Blood Disorders: No Adverse Reaction/Blood Tranf: No Family Medical History Diabetes mellitus 19 MOTHER G8 SISTER FH: lung cancer 19 MOTHER Hypertension 19 FATHER 19 MOTHER G8 SISTER Kidney stone G8 SISTER Parkinson's disease G8 SISTER Prostate cancer 19 FATHER Heart Disease, Cancer, Diabetes SOCIAL HISTORY: -SMOKED CIGARETTES WHEN YOUNGER, NOW SMOKES CIGARS DAILY -ETOH-"[employer]" EVERY DAY -DRUGS-DENIES USE PAST SURGICAL HISTORY: -MOST RECENT COLONOSCOPY WITH POLYPECTOMY X [address] LAGUNAS 11/20/21 -CHOLECYSTECTOMY 2012 -LEFT ROTATOR CUFF REPAIR 2011 -RIGHT BICEPS TENDON REPAIR 2012 -MULTIPLE CYSTOSCOPIES, LITHOTRIPSIES, KIDNEY STONE BASKET REMOVALS -EGD 09/2022 AT [facility]. Review of Systems Constitutional: no symptoms reported EENTM: no symptoms reported Respiratory: short of breath Cardiovascular: no symptoms reported Gastrointestinal: no symptoms reported Physical Exam Physical Exam Vital Signs Vital Signs - First Documented 10/26/22 14:13 Temp 36.6 Capillary Refill : Less Than 3 Seconds Height, Weight, BMI Height: 6'4.00" Weight: 240lbs. 0.0oz. 108.901941ly; 29.47 BMI Method:Stated General Appearance: No Apparent Distress, WD/WN HEENT: PERRL/EOMI, Pharynx Normal Respiratory: Lungs Clear, Normal Breath Sounds, No Respiratory Distress Cardiovascular: Regular Rate, Rhythm, No Edema, No Murmur Gastrointestinal: Normal Bowel Sounds, Non Tender, Soft Extremity: Normal Inspection, Non Tender, No Pedal Edema Neurologic/Psychiatric: Alert, Oriented x3, No Motor/Sensory Deficits, Normal Mood/Affect Skin: Normal Color, Warm/Dry Results Results/Procedures Labs Laboratory Tests 10/26/22 08:30 10/27/22 05:11 Patient resulted labs reviewed. Imaging: Reviewed Imaging Report Assessment/Plan Admission Diagnosis Multifocal pneumonia Admission Status: Inpatient Order (span 2 midnights) Reason for Inpatient Admission: IV antibiotics Assessment and Plan Multifocal pneumonia Acute on chronic respiratory failure with hypoxia Acute kidney injury Hypokalemia Hypomagnesemia Not septic CT with multifocal pneumonia Started on Cefepime and Flagyl IV fluids Monitor and correct electrolytes as needed HTN AFib COPD Continue home meds as able T2DM Sliding scale insulin DVT prophylaxis: Lovenox Diagnosis/Problems Diagnosis/Problems (1) Acute on chronic respiratory failure with hypoxia Status: Acute (2) Multifocal pneumonia Status: Acute (3) ANTONETTE (acute kidney injury) Status: Acute (4) Hypokalemia Status: Acute (5) Hypomagnesemia Status: Acute TAD ERAZO MD Oct 27, 2022 18:51
[2022-10-27 19:11] VITALS: BP 169/84
[2022-10-27] MEDS: rOPINIRole 1 MG (REQUIP) TABLET PO SCH (19:18)
[2022-10-27 23:31] VITALS: BP 159/77
[2022-10-28 03:18] VITALS: BP 147/75
[2022-10-28] MEDS: NS IV 1000 ML 1,000 ML IV SCH (04:07)
[2022-10-28] MEDS: CEFEPIME INJECTION 1,000 MG in NS (IVPB) 50 ML IV SCH ×4 (05:03→23:47)
[2022-10-28 05:21] LABS: BASOPHILS # (AUTO) 0.1 10^3/uL (0.0-0.1); BASOPHILS % (AUTO) 1 % (0-10); EOSINOPHILS # (AUTO) 0.2 10^3/uL (0.0-0.3); EOSINOPHILS % (AUTO) 3 % (0-10); HEMATOCRIT 32 % (40-54); HEMOGLOBIN 11.1 g/dL (13.3-17.7); LYMPHOCYTES # (AUTO) 1.5 10^3/uL (1.0-4.0); LYMPHOCYTES % (AUTO) 21 % (12-44); MEAN CORPUSCULAR HEMOGLOBIN 30 pg (25-34); MEAN CORPUSCULAR HGB CONC 35 g/dL (32-36); MEAN CORPUSCULAR VOLUME 87 fL (80-99); MEAN PLATELET VOLUME 10.6 fL (9.0-12.2); MONOCYTES # (AUTO) 0.5 10^3/uL (0.0-1.0); MONOCYTES % (AUTO) 7 % (0-12); NEUTROPHILS # (AUTO) 4.7 10^3/uL (1.8-7.8); NEUTROPHILS % (AUTO) 66 % (42-75); PLATELET COUNT 215 10^3/uL (130-400); WHITE BLOOD COUNT 7.1 10^3/uL (4.3-11.0)
[2022-10-28] MEDS: POTASSIUM BICARB 20 MEQ (EFFER-K) TABLET PO SCH (05:21)
[2022-10-28] MEDS: inSUlin ASPART (NovoLOG) 1 UNIT/0.01 ML (CHARGE PER UNIT) SC SCH ×7 (05:21→20:27)
[2022-10-28] MEDS: metroNIDAZOLE 500MG/100ML IVPB 100 ML IV SCH (05:40)
[2022-10-28 05:43] LABS: CALCIUM 8.2 MG/DL (8.5-10.1); CREATININE SERUM 1.06 MG/DL (0.60-1.30); MAGNESIUM 1.9 MG/DL (1.6-2.4); POTASSIUM 3.2 MMOL/L (3.6-5.0)
[2022-10-28] MEDS: POTASSIUM CL 10MEQ/50ML IVPB 50 ML IV SCH (05:56)
[2022-10-28] MEDS: MAGNESIUM 1 GM/100 ML IVPB 100 ML IV SCH ×3 (05:56→08:07)
[2022-10-28] MEDS: KCL 20 MEQ TAB (K-DUR) PO SCH (05:56)
[2022-10-28 07:13] VITALS: BP_SYST 169; BP_SYST 170; BP_DIAS 82; BP_DIAS 86
[2022-10-28] MEDS: RT-ALBUTEROL SULF 2.5 MG/3 ML PRE-MIX VIAL INH SCH ×3 (07:28→21:11)
[2022-10-28] MEDS ORDERED: ALBU2.5V4 PO (08:10)
[2022-10-28] MEDS: rOPINIRole 1 MG (REQUIP) TABLET PO SCH ×2 (08:10→20:33)
[2022-10-28] MEDS: LOSARTAN 100 MG (COZAAR) TABLET PO SCH (08:11)
[2022-10-28] MEDS: meTOproloL SUCCINATE 50 MG (TOPROL XL) TAB PO SCH (08:11)
[2022-10-28] MEDS: PANTOPRAZOLE 40 MG (PROTONIX) TAB PO SCH (08:11)
[2022-10-28] MEDS ORDERED: IBUP-2473 PO (08:15)
[2022-10-28] MEDS ORDERED: CYAN-41 PO (08:19)
[2022-10-28] MEDS ORDERED: KCL 20 MEQ TAB (K-DUR) PO ONE ×2 (09:00→11:00)
[2022-10-28] MEDS: DOCUSATE SODIUM 100 MG (COLACE) CAP PO SCH ×2 (09:03→20:32)
[2022-10-28] MEDS: SENNOSIDES 8.6 MG (SENOKOT) TAB PO SCH ×2 (09:03→20:33)
--- NOTE | 2022-10-28 11:02 | Physical Therapy Evaluation ---
PT Evaluation-General Medical Diagnosis Admission Date Oct 26, 2022 at 13:08 Medical Diagnosis: hypoxia Onset Date: Oct 26, 2022 Therapy Diagnosis Therapy Diagnosis: debility Height/Weight Height (Feet): 6 Height (Inches): 4.00 Weight (Pounds): 240 Weight (Ounces): 0.0 Precautions Precautions/Isolations: Standard Precautions Referral Physician: Odin Reason for Referral: Evaluation/Treatment Medical History Pertinent Medical History: Atrial Fib, COPD, DM, HTN, Neuropathy, Smoking Current History ER secondary to SOA secondary to aspiration pneumonia Reviewed History: Yes Social History Home: Single Level Current Living Status: Spouse Prior Prior Level of Function SCALE: Activities may be completed with or without assistive devices. 7-Dpreiqcwki-bnznume completes the activity by him/herself with no assistance from a helper. 5-Set-up or Clean-up Assistance-helper sets up or cleans up; patient completes activity. [place] assists only prior to or following the activity. 4-Supervision or Touching Assistance-helper provides verbal cues and/or touching/steadying and/or contact guard assistance as patient completes activity. Assistance may be provided throughout the activity or intermittently. 3-Partial/Moderate Assistance-helper does LESS THAN HALF the effort. [place] lifts, holds or supports trunk or limbs, but provides less than half the effort. 2-Substantial/Maximal Assistance-helper does MORE THAN HALF the effort. [place] lifts or holds trunk or limbs and provides more than half the effort. 8-Cxecfkyfu-lbouvv does ALL the effort. Patient does none of the effort to complete the activity. Or, the assistance of 2 or more helpers is required for the patient to complete the activity. If activity was not attempted, code reason: 7-Patient Refused. 9-Not Applicable-not attempted and the patient did not perform the activity before the current illness, exacerbation or injury. 10-Not Attempted due to Environmental Limitations-(lack of equipment, weather restraints, etc.). 88-Not Attempted due to Medical Conditions or Safety Concerns. Bed Mobility: 6 Transfers (B,C,W/C): 6 Gait: 6 Stairs: 6 Indoor Mobility (Ambulation): Independent Stairs: Independent Prior Devices Use: None PT Evaluation-Current Subjective Patient agrees to PT. Objective Patient Orientation: Normal For Age Attachments: IV ROM/Strength ROM Lower Extremities bilateral LE WFL Strength Lower Extremities 5/5 grossly bilateral LE all planes Integumentary/Posture Bowel Incontinence: No Bladder Incontinence: No Posture WFL Neuromuscular (Tone, Coordination, Reflexes) grossly intact Sensory Vision: Functional Hearing: Functional Transfers Lying to Sitting/Side of Bed(Q: 6 Sit to Stand (QC): 6 Gait Mode of Locomotion: Walk Anticipated Mode of Locomotion: Walk Walk 10 feet (QC): 6 Walk 50 ft with 2 Turns(QC): 6 Walk 150 ft (QC): 6 Distance: >800' Gait Assistive Device: None Comments/Gait Description safe and functional with no deviation Balance Sitting Static: Normal Sitting Dynamic: Normal Standing Static: Normal Standing Dynamic: Normal Picking up an Object (QC): 6 Assessment/Needs Patient is currently at independent [facility] with all gross motor skills and does not require skilled PT intervention at this time. Rehab Potential: Fair PT Plan Treatment/Plan Treatment Plan: Discontinue PT, goals met Treatment Duration: Oct 28, 2022 Frequency: 1 time per week Estimated Hrs Per Day: .25 hour per day Patient and/or Family Agrees t: Yes Time Time In: 1030 Time Out: 1039 DATE: Oct 28, 2022 Total Billed Treatment Time: 9 Total Billed Treatment 1 visit EVLow 9 min LAM TERRY PT Oct 28, 2022 11:02
[2022-10-28 11:07] VITALS: BP 144/73
--- NOTE | 2022-10-28 12:17 | Progress Note - Hospitalist ---
Subjective HPI/CC On Admission Date Seen by Provider: Oct 28, 2022 Parveen Escalante Jr is a 61 year old male with PMH HTN, T2DM, COPD, AFib, alcohol abuse, who presented with shortness of breath. He was recently discharged after a hospital stay due to pneumonia. He was discharged home with 1-2 L oxygen. He was still short of breath and hypoxic on this. He says he was feeling more short of breath. He denies fevers. He did not have a cough or sputum production. He denies chest pain. He denies abdominal pain, nausea, vomiting. He has chronic diarrhea. Subjective/Events-last exam Pt reports feeling better today. No complaints. Has oximask on and thinks he is breathing much better with that. Had some delivered from [employer] though so has them at home. Focused Exam Lactate Level 10/26/22 09:03: Lactic Acid Level 2.56*H 10/26/22 11:19: Lactic Acid Level 2.44*H 10/26/22 13:35: Lactic Acid Level 1.20 Objective Exam Vital Signs Vital Signs Date Time Temp Pulse Resp B/P (MAP) Pulse Ox O2 Delivery O2 Flow Rate FiO2 10/28/22 11:07 36.2 65 18 144/73 (96) 90 OxyMask 2.00 Capillary Refill : Less Than 3 Seconds General Appearance: No Apparent Distress, WD/WN Respiratory: Lungs Clear, No Respiratory Distress Cardiovascular: Regular Rate, Rhythm, No Murmur Neurologic/Psychiatric: Alert, Oriented x3 Results/Procedures Lab Laboratory Tests 10/28/22 05:02 Patient resulted labs reviewed. Imaging: Reviewed Imaging Report Assessment/Plan Assessment and Plan Assess & Plan/Chief Complaint Multifocal pneumonia Acute on chronic respiratory failure with hypoxia Acute kidney injury Hypokalemia Hypomagnesemia Not septic CT with multifocal pneumonia Continue Cefepime- DC flagyl DC IV fluids Monitor and correct electrolytes as needed HTN AFib COPD Continue home meds as able T2DM Sliding scale insulin DVT prophylaxis: HAYDEE Alvarez MD Oct 28, 2022 12:17
[2022-10-28] MEDS: ENOXAPARIN 40 MG/0.4 ML (LOVENOX) SYR SC SCH (14:25)
[2022-10-28 15:30] VITALS: BP 167/78
[2022-10-28 19:50] VITALS: BP 166/81
[2022-10-28 23:51] VITALS: BP 152/70
[2022-10-29 05:36] LABS: BASOPHILS % (AUTO) 1 % (0-10); EOSINOPHILS # (AUTO) 0.2 10^3/uL (0.0-0.3); EOSINOPHILS % (AUTO) 3 % (0-10); HEMATOCRIT 35 % (40-54); HEMOGLOBIN 12.4 g/dL (13.3-17.7); LYMPHOCYTES # (AUTO) 1.4 10^3/uL (1.0-4.0); LYMPHOCYTES % (AUTO) 20 % (12-44); MEAN CORPUSCULAR HEMOGLOBIN 31 pg (25-34); MEAN CORPUSCULAR HGB CONC 36 g/dL (32-36); MEAN CORPUSCULAR VOLUME 86 fL (80-99); MEAN PLATELET VOLUME 11.1 fL (9.0-12.2); MONOCYTES # (AUTO) 0.4 10^3/uL (0.0-1.0); MONOCYTES % (AUTO) 5 % (0-12); NEUTROPHILS # (AUTO) 4.8 10^3/uL (1.8-7.8); NEUTROPHILS % (AUTO) 69 % (42-75); PLATELET COUNT 228 10^3/uL (130-400); WHITE BLOOD COUNT 6.9 10^3/uL (4.3-11.0)
[2022-10-29 05:50] LABS: POTASSIUM 3.7 MMOL/L (3.6-5.0)
[2022-10-29 05:52] LABS: CALCIUM 8.4 MG/DL (8.5-10.1)
[2022-10-29] MEDS: POTASSIUM CL 10MEQ/50ML IVPB 50 ML IV SCH (05:53)
[2022-10-29] MEDS: KCL 20 MEQ TAB (K-DUR) PO SCH (05:53)
[2022-10-29] MEDS: POTASSIUM BICARB 20 MEQ (EFFER-K) TABLET PO SCH (05:53)
[2022-10-29 05:56] LABS: CREATININE SERUM 1.02 MG/DL (0.60-1.30)
[2022-10-29] MEDS: MAGNESIUM 1 GM/100 ML IVPB 100 ML IV SCH (06:06)
[2022-10-29] MEDS: inSUlin ASPART (NovoLOG) 1 UNIT/0.01 ML (CHARGE PER UNIT) SC SCH ×4 (06:53→11:24)
[2022-10-29] MEDS: CEFEPIME INJECTION 1,000 MG in NS (IVPB) 50 ML IV SCH ×2 (06:53→11:24)
[2022-10-29 07:06] VITALS: BP 173/84
[2022-10-29] MEDS: RT-ALBUTEROL SULF 2.5 MG/3 ML PRE-MIX VIAL INH SCH (07:29)
[2022-10-29] MEDS: meTOproloL SUCCINATE 50 MG (TOPROL XL) TAB PO SCH (07:55)
[2022-10-29] MEDS: PANTOPRAZOLE 40 MG (PROTONIX) TAB PO SCH (07:56)
[2022-10-29] MEDS: LOSARTAN 100 MG (COZAAR) TABLET PO SCH (07:56)
[2022-10-29] MEDS: rOPINIRole 1 MG (REQUIP) TABLET PO SCH (07:56)
[2022-10-29] MEDS: DOCUSATE SODIUM 100 MG (COLACE) CAP PO SCH (08:00)
[2022-10-29] MEDS: SENNOSIDES 8.6 MG (SENOKOT) TAB PO SCH (08:00)
[2022-10-29] MEDS ORDERED: KCL 20 MEQ TAB (K-DUR) PO ONE (09:00)
[2022-10-29 09:16] VITALS: BP 158/79
[2022-10-29 11:00] VITALS: BP 126/73
--- NOTE | 2022-10-29 11:10 | Discharge Inst-Simple/Standard ---
Discharge Inst-Standard Patient Instructions/Follow Up Plan of Care/Instructions/FU: Please continue to take your medications as written. Please follow up with your primary care doctor to follow up this hospital stay. Activity as Tolerated: Yes Discharge Diet: ADA Diet Return to The Hospital For: Chest pain, shortness of breath, fever, weakness, if you feel you are getting worse. HAYDEE MTZ MD Oct 29, 2022 11:10
[2022-10-29 11:57] VITALS: BP 126/73
== END 2022-10-29 11:57 | disposition home or self-care (01) | DRG 193 ==
LOC: EDUNIT# 08:16 → ER 08:17 → 4TH 13:08
PROVIDERS: ADMIT Internal Medicine; ATTEND Internal Medicine
DX: J18.9 Pneumonia, unspecified organism (principal); J96.21 Acute and chronic respiratory failure with hypoxia; N17.9 Acute kidney failure, unspecified; J44.0 Chronic obstructive pulmonary disease with (acute) lower respiratory infection; E87.6 Hypokalemia; E83.42 Hypomagnesemia; I10 Essential (primary) hypertension; I48.91 Unspecified atrial fibrillation; E11.9 Type 2 diabetes mellitus without complications; E78.00 Pure hypercholesterolemia, unspecified; E11.40 Type 2 diabetes mellitus with diabetic neuropathy, unspecified; K21.9 Gastro-esophageal reflux disease without esophagitis; M54.9 Dorsalgia, unspecified; F32.A Depression, unspecified; K58.9 Irritable bowel syndrome, unspecified; Z79.4 Long term (current) use of insulin; Z79.01 Long term (current) use of anticoagulants; Z79.899 Other long term (current) drug therapy; Z20.822 Contact with and (suspected) exposure to COVID-19
CPT/HCPCS: 36415; 71045; 71275; 80048; 80053; 80061; 81000; 82947; 83605; 83735; 83874; 83880; 84484; 85025; 85379; 85610; 85730; 86141; 87040; 87088; 87636; 93005; 93041; 94640; 94760

== ENCOUNTER → 2022-12-12 | Outpatient (CLI) | payer MEDICARE ==
[~2022-12-12] MED LIST changes: +ALBU2.5V4 PO; +CYAN-41 PO; +IBUP-2473 PO; -ORPH100T PO; +ORPH100T3 PO
== END ==
LOC: WOUNDCARE 13:34
PROVIDERS: ATTEND Family Medicine
DX: L97.512 Non-pressure chronic ulcer of other part of right foot with fat layer exposed (principal); E11.621 Type 2 diabetes mellitus with foot ulcer; I70.235 Atherosclerosis of native arteries of right leg with ulceration of other part of foot; E11.65 Type 2 diabetes mellitus with hyperglycemia; E11.40 Type 2 diabetes mellitus with diabetic neuropathy, unspecified; E66.01 Morbid (severe) obesity due to excess calories
CPT/HCPCS: 99213

== ENCOUNTER → 2022-12-12 | Outpatient (CLI) | payer MEDICARE ==
--- NOTE | 2022-12-12 15:38 | Diagnostic Imaging Report ---
INDICATION: Diabetic foot ulcer. EXAMINATION: AP, oblique and lateral views of the right foot were obtained. COMPARISON: 01/11/2020. FINDINGS: Rather advanced degenerative findings are again noted at the 1st interphalangeal joint. Mild marginal spurring is seen in the midfoot. There is no evidence of acute fracture or malalignment. There is osseous demineralization diffusely involving the lateral toes. No focal bone destruction or periosteal reaction is seen. IMPRESSION: Mild worsening of degenerative findings without evidence of acute bone destruction to indicate site of osteomyelitis. Dictated by: Dictated on workstation # [id number]
== END ==
LOC: RAD 13:10
PROVIDERS: ATTEND Internal Medicine
DX: E11.621 Type 2 diabetes mellitus with foot ulcer (principal); M19.071 Primary osteoarthritis, right ankle and foot
CPT/HCPCS: 73630

== ENCOUNTER → 2022-12-19 | Outpatient (CLI) | payer MEDICARE | LOC: WOUNDCARE 08:21 | PROVIDERS: ATTEND Family Medicine | DX: E11.621 Type 2 diabetes mellitus with foot ulcer (principal); L97.212 Non-pressure chronic ulcer of right calf with fat layer exposed; E11.52 Type 2 diabetes mellitus with diabetic peripheral angiopathy with gangrene; E11.65 Type 2 diabetes mellitus with hyperglycemia; E11.40 Type 2 diabetes mellitus with diabetic neuropathy, unspecified; E66.01 Morbid (severe) obesity due to excess calories; I70.235 Atherosclerosis of native arteries of right leg with ulceration of other part of foot | CPT/HCPCS: 86038; 86039; 86431; G0463; 36415; 99212 ==

== ENCOUNTER → 2022-12-26 | Outpatient (CLI) | payer MEDICARE | LOC: WOUNDCARE 08:15 | PROVIDERS: ATTEND Family Medicine | DX: L97.512 Non-pressure chronic ulcer of other part of right foot with fat layer exposed (principal); E11.621 Type 2 diabetes mellitus with foot ulcer; I70.235 Atherosclerosis of native arteries of right leg with ulceration of other part of foot; E11.65 Type 2 diabetes mellitus with hyperglycemia; E11.40 Type 2 diabetes mellitus with diabetic neuropathy, unspecified; E66.01 Morbid (severe) obesity due to excess calories; I73.01 Raynaud's syndrome with gangrene | CPT/HCPCS: 99212 ==

== ENCOUNTER → 2023-01-02 | Outpatient (CLI) | payer MEDICARE ==
[~2023-01-02] MED LIST changes: +DILT360C22 PO; -DILT360C30 PO; +HOLD METFORMIN - RECEIVED CONTRAST 20 ML VIAL IV SCH; +IOHEXOL 350 MG/ML 100 ML (OMNIPAQUE 350) VIAL IV ONE; +IOHEXOL 350 MG/ML 150 ML (OMNIPAQUE 350) VIAL IV ONE; +NS 100 ML (IVPB) BAG IV ONE
[2023-01-02 10:28] LABS: CREATININE SERUM 1.35 MG/DL (0.60-1.30)
--- NOTE | 2023-01-02 12:31 | Diagnostic Imaging Report ---
INDICATION: Lower extremity ulcer, peripheral vascular disease. CTA the abdomen and pelvis enlarged performed with IV contrast bolus and axial slices and MIP reconstructions and 3-D reconstructions. Dose reduction protocol was used. There is no prior study for comparison. The visualized portions of the lung bases are clear. There were no pleural fluid collections. There is no free intraperitoneal air. The liver shows no focal lesion. Gallbladder is surgically absent. Spleen, adrenals, and pancreas are normal. The right kidney shows a couple tiny cyst but is otherwise normal. The left kidney shows a more prominent cyst superiorly measuring about 4.5 cm. There is a partial staghorn calculus in the lower pole of the right kidney, measuring 2.9 cm in greatest diameter. There is no retroperitoneal mass or adenopathy. There is no ascites or abnormal fluid collection. There is no pelvic mass or free fluid. CTA images demonstrate some atherosclerotic plaquing in the aorta without evidence of aneurysmal disease or significant stenosis. The celiac trunk and SMA and renal arteries are patent without significant stenosis. The inferior mesenteric artery is patent. The common iliac arteries show minimal plaquing with no significant stenosis. The internal iliac arteries and external iliac arteries are patent and without significant stenosis. Common femoral arteries and femoral bifurcations on both sides are patent and without stenosis. The SFAs are patent on both sides with mild plaquing in the mid SFA, with degree of stenosis less than 30%. There is some plaquing in the popliteal arteries on both sides without significant stenosis. All 3 tibial vessels are patent on both sides throughout their course. IMPRESSION: CT images show no abdominal mass or abnormal fluid collection. There are bilateral renal cysts, including a prominent cyst in the left kidney superiorly. Is a partial staghorn calculus in the lower pole of the left kidney. CTA images demonstrate mild atherosclerotic plaquing throughout the infrarenal abdominal aorta without evidence of aneurysm or dissection or significant stenosis. There is no major aortic branch stenosis. The iliac vessels show minimal plaquing but no significant stenosis. There is mild plaquing in the mid SFA on both sides but no significant stenosis. Dictated by: Dictated on workstation # [id number]
== END ==
LOC: RAD 09:28
PROVIDERS: ATTEND Internal Medicine Cardiovascular Disease
DX: N28.1 Cyst of kidney, acquired (principal); N20.0 Calculus of kidney; I70.0 Atherosclerosis of aorta; I70.8 Atherosclerosis of other arteries; L97.909 Non-pressure chronic ulcer of unspecified part of unspecified lower leg with unspecified severity
CPT/HCPCS: 36415; 75635; 82565

== ENCOUNTER → 2023-01-09 | Outpatient (CLI) | payer MEDICARE ==
[~2023-01-09] MED LIST changes: -HOLD METFORMIN - RECEIVED CONTRAST 20 ML VIAL IV SCH; -IOHEXOL 350 MG/ML 100 ML (OMNIPAQUE 350) VIAL IV ONE; -IOHEXOL 350 MG/ML 150 ML (OMNIPAQUE 350) VIAL IV ONE; -NS 100 ML (IVPB) BAG IV ONE
== END ==
LOC: WOUNDCARE 08:20
PROVIDERS: ATTEND Family Medicine
DX: E11.621 Type 2 diabetes mellitus with foot ulcer (principal); E11.65 Type 2 diabetes mellitus with hyperglycemia; E11.40 Type 2 diabetes mellitus with diabetic neuropathy, unspecified; L97.512 Non-pressure chronic ulcer of other part of right foot with fat layer exposed; I70.235 Atherosclerosis of native arteries of right leg with ulceration of other part of foot; E66.01 Morbid (severe) obesity due to excess calories; E11.52 Type 2 diabetes mellitus with diabetic peripheral angiopathy with gangrene; I73.01 Raynaud's syndrome with gangrene
CPT/HCPCS: 99212

== ENCOUNTER → 2023-01-23 | Outpatient (CLI) | payer MEDICARE ==
[2023-01-23 09:17] LABS: BILIRUBIN,URINE NEGATIVE (NEGATIVE); CLARITY,URINE CLEAR; COLOR,URINE YELLOW; GLUCOSE, URINE (UA) NEGATIVE (NEGATIVE); KETONES,URINE NEGATIVE (NEGATIVE); LEUKOCYTE ESTERASE ,URINE NEGATIVE (NEGATIVE); NITRITE,URINE NEGATIVE (NEGATIVE); PROTEIN,URINE 1+ (NEGATIVE)
[2023-01-23 09:30] LABS: POTASSIUM 3.7 MMOL/L (3.6-5.0)
[2023-01-23 09:31] LABS: CALCIUM 9.5 MG/DL (8.5-10.1)
[2023-01-23 09:32] LABS: TOTAL PROTEIN 7.1 GM/DL (6.4-8.2)
[2023-01-23 09:34] LABS: BILIRUBIN,TOTAL 0.7 MG/DL (0.1-1.0)
[2023-01-23 09:35] LABS: BACTERIA,URINE TRACE /HPF; SQUAMOUS EPITHELIAL CELL,UR RARE /HPF; WBC,URINE 0-2 /HPF
[2023-01-23 09:36] LABS: HYALINE CASTS, URINE 0-2 /LPF
[2023-01-23 09:36] LABS: CREATININE SERUM 1.7 MG/DL (0.60-1.30)
== END ==
LOC: WOUNDCARE 08:17
PROVIDERS: ATTEND Family Medicine
DX: E11.621 Type 2 diabetes mellitus with foot ulcer (principal); I70.235 Atherosclerosis of native arteries of right leg with ulceration of other part of foot; E11.65 Type 2 diabetes mellitus with hyperglycemia; E66.01 Morbid (severe) obesity due to excess calories; E11.40 Type 2 diabetes mellitus with diabetic neuropathy, unspecified; I73.01 Raynaud's syndrome with gangrene; L97.516 Non-pressure chronic ulcer of other part of right foot with bone involvement without evidence of necrosis; A49.9 Bacterial infection, unspecified; E11.52 Type 2 diabetes mellitus with diabetic peripheral angiopathy with gangrene; I96 Gangrene, not elsewhere classified
CPT/HCPCS: 11044; 80053; 81000; 85652; 86141; 86200; 87070; 87077; 87186; 87205; G0463; 36415

== ENCOUNTER → 2023-01-27 | Outpatient (CLI) | payer MEDICARE ==
[~2023-01-27] MED LIST changes: +GADOTERATE 0.5 MMOL/ML (CLARISCAN) 20 ML VIAL IV ONE
--- NOTE | 2023-01-27 11:10 | Diagnostic Imaging Report ---
Exam: MRI right great toe without and with intravenous contrast. Date: January 27, 2023. Indication: 62-year-old male, right great toe pain. Concern for osteomyelitis. Comparison: Right foot radiographs December 12, 2022. Technique: Multiple pre and postcontrast MRI sequences of the right great toe were obtained. Findings: There is abnormal signal within the soft tissues at the distal aspect of the first distal phalanx with potential skin contour abnormality in the region of the nailbed. There is no identified focal fluid collection or abscess. There is abnormal marrow edema and enhancement involving the first distal phalanx with marrow signal abnormalities extending near the base of the first distal phalanx and articulating surface. This is consistent with osteomyelitis. There is no first interphalangeal joint effusion or otherwise identified joint effusion in the included [id number]. There is mild to moderate osteoarthritis involving the first metacarpal phalangeal joint and first interphalangeal joint. The imaged tendons are intact and without evidence of tenosynovitis. Impression: 1. Osteomyelitis involving essentially the entire first distal phalanx. 2. No evidence of septic arthritis. 3. No identified focal fluid collection or abscess. 4. Probable skin defect at the level of the first digit nailbed. Dictated by: Dictated on workstation # [id number]
== END ==
LOC: RAD 09:45
PROVIDERS: ATTEND Family Medicine
DX: M86.8X8 Other osteomyelitis, other site (principal); L97.516 Non-pressure chronic ulcer of other part of right foot with bone involvement without evidence of necrosis
CPT/HCPCS: 73720

== ENCOUNTER → 2023-01-30 | Outpatient (CLI) | payer MEDICARE ==
[~2023-01-30] MED LIST changes: -GADOTERATE 0.5 MMOL/ML (CLARISCAN) 20 ML VIAL IV ONE; +LNZ600T PO
== END ==
LOC: WOUNDCARE 08:25
PROVIDERS: ATTEND Family Medicine
DX: E11.621 Type 2 diabetes mellitus with foot ulcer (principal); E11.65 Type 2 diabetes mellitus with hyperglycemia; E11.40 Type 2 diabetes mellitus with diabetic neuropathy, unspecified; E66.01 Morbid (severe) obesity due to excess calories; L97.516 Non-pressure chronic ulcer of other part of right foot with bone involvement without evidence of necrosis; I70.235 Atherosclerosis of native arteries of right leg with ulceration of other part of foot; I73.01 Raynaud's syndrome with gangrene; M86.171 Other acute osteomyelitis, right ankle and foot; B95.7 Other staphylococcus as the cause of diseases classified elsewhere; E11.52 Type 2 diabetes mellitus with diabetic peripheral angiopathy with gangrene
CPT/HCPCS: 11042; G0463

== ENCOUNTER 2023-02-01 20:54 | Inpatient (IN) | payer MEDICARE ==
[~2023-02-01] VITALS: Ht 193 cm; Wt 111.2 kg
[~2023-02-01 20:54] MED LIST changes: -LNZ600T PO
[2023-02-01] MEDS ORDERED: ASPIRIN 81 MG CHEW (CHILDREN'S ASA) PO ONE (21:15)
[2023-02-01 21:19] LABS: BASOPHILS # (AUTO) 0.1 10^3/uL (0.0-0.1); BASOPHILS % (AUTO) 0 % (0-10); EOSINOPHILS # (AUTO) 0.1 10^3/uL (0.0-0.3); EOSINOPHILS % (AUTO) 1 % (0-10); HEMATOCRIT 37 % (40-54); HEMOGLOBIN 12.8 g/dL (13.3-17.7); LYMPHOCYTES # (AUTO) 1.5 10^3/uL (1.0-4.0); LYMPHOCYTES % (AUTO) 13 % (12-44); MEAN CORPUSCULAR HEMOGLOBIN 30 pg (25-34); MEAN CORPUSCULAR HGB CONC 35 g/dL (32-36); MEAN CORPUSCULAR VOLUME 87 fL (80-99); MEAN PLATELET VOLUME 11.6 fL (9.0-12.2); MONOCYTES # (AUTO) 0.7 10^3/uL (0.0-1.0); MONOCYTES % (AUTO) 6 % (0-12); NEUTROPHILS # (AUTO) 9.1 10^3/uL (1.8-7.8); NEUTROPHILS % (AUTO) 79 % (42-75); PLATELET COUNT 172 10^3/uL (130-400); WHITE BLOOD COUNT 11.5 10^3/uL (4.3-11.0)
[2023-02-01 21:38] LABS: ALANINE AMINOTRANSFERASE 14 U/L (0-55); ALBUMIN 3.8 GM/DL (3.2-4.5); ALKALINE PHOSPHATASE 61 U/L (40-136); AMYLASE 48 U/L (25-125); BILIRUBIN,TOTAL 0.6 MG/DL (0.1-1.0); BUN/CREATININE RATIO 14; CALCIUM 9.2 MG/DL (8.5-10.1); CARBON DIOXIDE 17 MMOL/L (21-32); CHLORIDE 110 MMOL/L (98-107); CREATININE SERUM 2.37 MG/DL (0.60-1.30); GFR ESTIMATED 30; GLUCOSE 123 MG/DL (70-105); LIPASE 51 U/L (8-78); MAGNESIUM 1.7 MG/DL (1.6-2.4); POTASSIUM 4.1 MMOL/L (3.6-5.0); SODIUM 138 MMOL/L (135-145); TOTAL PROTEIN 6.5 GM/DL (6.4-8.2)
[2023-02-01 21:39] LABS: CLARITY,URINE CLOUDY; COLOR,URINE DARK YELLOW; GLUCOSE, URINE (UA) NEGATIVE (NEGATIVE); KETONES,URINE TRACE (NEGATIVE); LEUKOCYTE ESTERASE ,URINE NEGATIVE (NEGATIVE); NITRITE,URINE NEGATIVE (NEGATIVE); PROTEIN,URINE 2+ (NEGATIVE)
[2023-02-01 21:43] LABS: PROTHROMBIN TIME PATIENT 13.7 SEC (12.2-14.7)
[2023-02-01 21:47] LABS: ERYTHROCYTE SEDIMENTATION RATE 11 MM/HR (0-30)
--- NOTE | 2023-02-01 21:49 | Diagnostic Imaging Report ---
INDICATION: Chest pain Frontal chest obtained at 902 hours p.m. COMPARISON: 10/26/2022 The heart is mildly enlarged. There is no focal infiltrate or pneumothorax or pleural fluid. There is poor inspiration. IMPRESSION: Poor inspiration with mild cardiomegaly. No acute process in the chest. Dictated by: Dictated on workstation # [id number]
[2023-02-01 21:53] LABS: BACTERIA,URINE MODERATE /HPF
[2023-02-01 21:57] LABS: BILIRUBIN,URINE 2+ (NEGATIVE)
[2023-02-01] MEDS ORDERED: PIPERACILLIN SODIUM/TAZOBACTAM 4.5 GM in NS (IVPB) 100 ML IV ONE (22:45)
--- NOTE | 2023-02-01 23:07 | ED Chest Pain ---
General Chief Complaint: Chest Pain Stated Complaint: CHEST PAIN/DIZZY Nursing Triage Note: PT AMBULATE TO ROOM 09 WITHOUT DIFFICULTY WITH C/O CHEST PAIN AND DIZZYNESS STARTING AT NOON TODAY. Source: patient, spouse History of Present Illness Date Seen by Provider: Feb 01, 2023 Time Seen by Provider: 21:02 Initial Comments PT ARRIVES VIA POV FROM HOME WITH C/O CHEST PAIN SINCE NOON TODAY PAIN IS IN CENTER OF CHEST AND RADIATES TO LEFT LATERAL CHEST AND AXILLA. RATES PAIN 6/10 EARLIER, NOW 3/10 NOTHING WORSENS OR IMPROVES PAIN, BUT HE HAS NOT TAKEN ANYTHING FOR PAIN NO SHORTNESS OF BREATH NO SWEATS NO SWELLING IN LEGS/FEET OR PAIN IN CALVES NO PALPITATIONS NO DIZZINESS OR SYNCOPE NO FEVER NO COUGH OR RECENT ILLNESS NO GI SYMPTOMS PT IS CURRENTLY ON LINEZOLID FOR CELLULITIS OF RIGHT TOES AND DIABETIC FOOT ULCERS--HAS BEEN SEEING DR. PETERSON WITH WOUND CARE AND ALSO DR. ANTHONY, [employer]. PT IS INSULIN DEPENDENT DIABETIC, HAS HTN, HX OF TACHYCARDIA. HE DENIES PRIOR CAD AND DENIES HAVING A CARDIAC CATH. PCP:DR. BARTON Allergies and Home Medications Allergies Coded Allergies: No Known Drug Allergies (Unverified , 02/24/22) Patient Home Medication List Albuterol Sulfate (Albuterol Sulfate) 2.5 Mg/3 Ml (0.083 %) Vial.neb, 1 VIAL PO TID PRN for SHORTNESS OF BREATH, (Reported) Entered as Reported by: GINA MOSES on 10/28/22 0810 Cyanocobalamin (Vitamin B-12) (Vitamin B-12) 1,000 Mcg Tablet, 1,000 MCG PO DAILY, (Reported) Entered as Reported by: GINA MOSES on 10/28/22 0819 Diltiazem HCl (Diltiazem ER) 360 Mg Capsule.er, 360 MG PO DAILY, (Reported) Entered as Reported by: CEDRIC ANTHONY on 06/18/21 1040 Ibuprofen (Ibuprofen) 200 Mg Tablet, 400 MG PO Q8H PRN for PAIN-MILD (1-4), (Reported) Entered as Reported by: GINA MOSES on 10/28/22 0815 Insulin Degludec (Insulin Degludec Pen (U-200)) 200 Unit/Ml (3 Ml) Insuln.pen, 50 UNITS SC DAILY, (Reported) Entered as Reported by: CEDRIC ANTHONY on 10/22/22 112 Insulin Lispro (Insulin Lispro Kwikpen U-100) 100 Unit/Ml Insuln.pen, 10 UNITS SC AC, (Reported) Entered as Reported by: CEDRIC ANTHONY on 10/22/22 112 Losartan/Hydrochlorothiazide (Losartan-Hctz 100-12.5 mg Tab) 100 Mg-12.5 Mg Tablet, 1 EA PO DAILY, (Reported) Entered as Reported by: CEDRIC ANTHONY on 10/22/22 112 Metoprolol Succinate (Metoprolol Succinate) 50 Mg Tab.er.24h, 50 MG PO DAILY, (Reported) Entered as Reported by: CEDRIC ANTHONY on 11/16/21 1227 Pantoprazole Sodium (Pantoprazole Sodium) 40 Mg Tablet.dr, 40 MG PO DAILY, (Reported) Entered as Reported by: CEDRIC ANTHONY on 06/18/21 1040 Pioglitazone HCl (Pioglitazone HCl) 30 Mg Tablet, 30 MG PO DAILY, (Reported) Entered as Reported by: CEDRIC ANTHONY on 06/18/21 104 Ropinirole HCl (Ropinirole HCl) 4 Mg Tablet, 4 MG PO BID, (Reported) Entered as Reported by: CEDRIC ANTHONY on 06/18/21 104 Tizanidine HCl (Tizanidine HCl) 4 Mg Tablet, 4 MG PO BID, (Reported) Entered as Reported by: CEDRIC ANTHONY on 10/22/22 112 Past Uwoeend-Uzhxwl-Ygqvld Hx Immunizations Up To Date Tetanus Booster (TDap): More than 5yrs PED Vaccines UTD: Yes First/Initial COVID19 Vaccinat: STATES 2 VACCINES PLUS BOOSTER Second COVID19 Vaccination Charli: STATES 2 VACCINES PLUS BOOSTER Third COVID19 Vaccination Date: STATES 2 VACCINES PLUS BOOSTER Seasonal Allergies Seasonal Allergies: Yes Past Medical History Surgery/Hospitalization HX: RECENT PNEM, DIABETES, HTN, AFIB. GALLBLADDER, EGD, COLONOSCOPY Surgeries: Yes Gallbladder, Orthopedic, Renal Respiratory: Yes COPD Currently Using CPAP: No Cardiac: Yes (Reports history of SVT) High Cholesterol, Hypertension Neurological: Yes Neuropathy Reproductive Disorders: No Sexually Transmitted Disease: No HIV/AIDS: No Genitourinary: Yes (renal cysts) Kidney Stones, Renal Failure Gastrointestinal: Yes Gastroesophageal Reflux, Obstructive Bowel, Chronic Diarrhea, Polyps, Gall Bladder Disease, Irritable Bowel Musculoskeletal: Yes Arthritis, Chronic Back Pain Endocrine: Yes Diabetes, Insulin dep HEENT: No Loss of Vision: Denies Hearing Impairment: Denies Cancer: No Psychosocial: No Depression Integumentary: No Blood Disorders: No Adverse Reaction/Blood Tranf: No Family Medical History Diabetes mellitus 19 MOTHER G8 SISTER FH: lung cancer 19 MOTHER Hypertension 19 FATHER 19 MOTHER G8 SISTER Kidney stone G8 SISTER Parkinson's disease G8 SISTER Prostate cancer 19 FATHER Heart Disease, Cancer, Diabetes SOCIAL HISTORY: -SMOKED CIGARETTES WHEN YOUNGER, NOW SMOKES CIGARS DAILY -ETOH-"COUPLE OF BEERS" EVERY DAY -DRUGS-DENIES USE PAST SURGICAL HISTORY: -MOST RECENT COLONOSCOPY WITH POLYPECTOMY X [address] LAGUNAS 11/20/21 -CHOLECYSTECTOMY 2011 -LEFT ROTATOR CUFF REPAIR 2011 -RIGHT BICEPS TENDON REPAIR 2011 -MULTIPLE CYSTOSCOPIES, LITHOTRIPSIES, KIDNEY STONE BASKET REMOVALS -EGD 09/2022 AT [facility]. Physical Exam Vital Signs Vital Signs - First Documented 02/01/23 02/01/23 20:59 21:02 Temp 36.7 Pulse 46 Resp 17 B/P (MAP) 114/55 (74) Pulse Ox 97 O2 Delivery Room Air Capillary Refill : Less Than 3 Seconds Height, Weight, BMI Height: 6'4.00" Weight: 240lbs. 0.0oz. [id number]; 29.00 BMI Method:Stated General Appearance: Other (PLAYING ON PHONE THROUGHOUT HISTORY, EXAM AND ENTIRE ER VISIT; DOES NOT APPEAR ILL OR TO BE IN ANY DISCOMFORT OR DISTRESS) Focused Exam Lactate Level 02/01/23 21:03: Lactic Acid Level 1.46 Lactic Acid Level Laboratory Tests Test 02/01/23 21:03 Lactic Acid Level 1.46 MMOL/L (0.50-2.00) Progress/Results/Core Measures Results/Orders Lab Results Laboratory Tests Test 02/01/23 21:03 02/01/23 21:28 02/01/23 22:26 Range/Units White Blood Count 11.5 H 4.3-11.0 10^3/uL Red Blood Count 4.21 L 4.30-5.52 10^6/uL Hemoglobin 12.8 L 13.3-17.7 g/dL Hematocrit 37 L 40-54 % Mean Corpuscular Volume 87 80-99 fL Mean Corpuscular Hemoglobin 30 25-34 pg Mean Corpuscular Hemoglobin Concent 35 32-36 g/dL Red Cell Distribution Width 13.3 10.0-14.5 % Platelet Count 172 130-400 10^3/uL Mean Platelet Volume 11.6 9.0-12.2 fL Immature Granulocyte % (Auto) 0 % Neutrophils (%) (Auto) 79 H 42-75 % Lymphocytes (%) (Auto) 13 12-44 % Monocytes (%) (Auto) 6 0-12 % Eosinophils (%) (Auto) 1 0-10 % Basophils (%) (Auto) 0 0-10 % Neutrophils # (Auto) 9.1 H 1.8-7.8 10^3/uL Lymphocytes # (Auto) 1.5 1.0-4.0 10^3/uL Monocytes # (Auto) 0.7 0.0-1.0 10^3/uL Eosinophils # (Auto) 0.1 0.0-0.3 10^3/uL Basophils # (Auto) 0.1 0.0-0.1 10^3/uL Immature Granulocyte # (Auto) 0.0 0.0-0.1 10^3/uL Erythrocyte Sedimentation Rate 11 0-30 MM/HR Prothrombin Time 13.7 12.2-14.7 SEC INR Comment 1.0 0.8-1.4 Activated Partial Thromboplast Time 28 24-35 SEC Sodium Level 138 135-145 MMOL/L Potassium Level 4.1 3.6-5.0 MMOL/L Chloride Level 110 H 98-107 MMOL/L Carbon Dioxide Level 17 L 21-32 MMOL/L Anion Gap 11 5-14 MMOL/L Blood Urea Nitrogen 33 H 7-18 MG/DL Creatinine 2.37 H 0.60-1.30 MG/DL Estimat Glomerular Filtration Rate 30 BUN/Creatinine Ratio 14 Glucose Level 123 H 70-105 MG/DL Lactic Acid Level 1.46 0.50-2.00 MMOL/L Calcium Level 9.2 8.5-10.1 MG/DL Corrected Calcium 9.4 8.5-10.1 MG/DL Magnesium Level 1.7 1.6-2.4 MG/DL Total Bilirubin 0.6 0.1-1.0 MG/DL Aspartate Amino Transf (AST/SGOT) 12 5-34 U/L Alanine Aminotransferase (ALT/SGPT) 14 0-55 U/L Alkaline Phosphatase 61 40-136 U/L Myoglobin 76.6 10.0-92.0 NG/ML Troponin I < 0.028 <0.028 NG/ML C-Reactive Protein High Sensitivity 0.09 0.00-0.50 MG/DL B-Type Natriuretic Peptide 74.3 <100.0 PG/ML Total Protein 6.5 6.4-8.2 GM/DL Albumin 3.8 3.2-4.5 GM/DL Amylase Level 48 25-125 U/L Lipase 51 8-78 U/L Beta-Hydroxybutyrate (Chem panel) 0.09 0.00-0.27 MMOL/L Urine Color DARK YELLOW Urine Clarity CLOUDY Urine pH 5.0 5-9 Urine Specific [place] >=1.030 1.016-1.022 Urine Protein 2+ H NEGATIVE Urine Glucose (UA) NEGATIVE NEGATIVE Urine Ketones TRACE H NEGATIVE Urine Nitrite NEGATIVE NEGATIVE Urine Bilirubin 2+ H NEGATIVE Urine Urobilinogen 1.0 < = 1.0 MG/DL Urine Leukocyte Esterase NEGATIVE NEGATIVE Urine RBC (Auto) 3+ H NEGATIVE Urine RBC 10-25 H /HPF Urine WBC 5-10 H /HPF Urine Crystals NONE /LPF Urine Bacteria MODERATE H /HPF Urine Casts PRESENT /LPF Urine Hyaline Casts 10-25 H /LPF Urine Mucus SMALL H /LPF Urine Culture Indicated YES My Orders Orders - NIRALI BERNARD DO Cbc With Automated Diff (02/01/23 20:58) Magnesium (02/01/23 20:58) Chest 1 View, Ap/Pa Only (02/01/23 20:58) Ekg Tracing (02/01/23 20:58) Comprehensive Metabolic Panel (02/01/23 20:58) Myoglobin Serum (02/01/23 20:58) Protime With Inr (02/01/23 20:58) Partial Thromboplastin Time (02/01/23 20:58) O2 (02/01/23 20:58) Monitor-Rhythm Ecg Trace Only (02/01/23 20:58) Ed Iv/Invasive Line Start (02/01/23 20:58) Troponin I [place] (02/01/23 20:58) Amylase (02/01/23 21:08) Bnp [place] (02/01/23 21:08) Hs C Reactive Protein (02/01/23 21:08) Lactic Acid Analyzer (02/01/23 21:08) Lipase (02/01/23 21:08) Ua Culture If Indicated (02/01/23 21:08) Erythrocyte Sedimentation Rate (02/01/23 21:08) Aspirin Chewable Tablet (Baby Aspirin Ch (02/01/23 21:15) Urine Culture (02/01/23 21:28) Beta Hydroxybutyrate (02/01/23 22:23) Hemoglobin A1c (02/01/23 22:23) Piperacillin Sodium/Tazobactam (Zosyn Vi (02/01/23 22:45) Medications Given in ED Current Medications Medications Dose Ordered Sig/Parvin Route Start Time Stop Time Status Last Admin Dose Admin Aspirin 324 mg ONCE ONCE PO 02/01/23 21:15 02/01/23 21:16 DC 02/01/23 21:18 324 MG Piperacillin Sod/ Tazobactam Sod 4.5 gm/Sodium Chloride 100 ml @ 200 mls/hr ONCE ONCE IV 02/01/23 22:45 02/01/23 23:14 02/01/23 22:42 200 MLS/HR Vital Signs/I&O 02/01/23 02/01/23 20:59 21:02 Temp 36.7 Pulse 46 Resp 17 B/P (MAP) 114/55 (74) Pulse Ox 97 O2 Delivery Room Air Room Air Blood Pressure Mean: 74 Progress Progress Note : Progress Note VITALS ON ARRIVAL: TEP 36.7=98.0, HR 45, RR 18, BP 114/55, O2 SAT 97% ON ROOM AIR Departure Departure-Patient Inst. Referrals: MARIELY BARTON DO (PCP/Family) Primary Care Physician NIRALI BERNARD DO Feb 01, 2023 23:07
[2023-02-01 23:14] VITALS: BP 136/71
[2023-02-01 23:30] VITALS: BP 141/75
[2023-02-01] MEDS ORDERED: NS IV 1000 ML 1,000 ML ONE (23:35)
[2023-02-01] MEDS ORDERED: LNZ600T PO ×2 (23:45)
[2023-02-01] MEDS: NS IV 1000 ML 1,000 ML IV SCH (23:59)
[2023-02-02] VITALS: BP 136/70
[2023-02-02] MEDS ORDERED: morphine INJ 4 MG/ML 1 ML (VIAL/SYRINGE) IV PRN
[2023-02-02] MEDS ORDERED: NITROGLYCERIN 0.4 MG SL TABS BTL 25'S SL PRN
[2023-02-02] MEDS ORDERED: EPINEPHrine 1 MG INJECTION 4 MG in NS (IVPB) 248 ML IV SCH ×2
[2023-02-02] MEDS ORDERED: ONDANSETRON 4 MG/2 ML (SDV) Z0FRAN IVP PRN
[2023-02-02] MEDS: VASOPRESSIN INJECTION 20 UNIT in NS (IVPB) 100 ML IV SCH ×2 (00:14→10:54)
[2023-02-02] MEDS: NOREPINEPHRINE 8 MG/250 ML 250 ML IV SCH ×2 (00:14→10:54)
[2023-02-02] MEDS: VANCOMYCIN 1 GM/NS 250 ML IVPB IV SCH ×4 (00:29→01:33)
--- NOTE | 2023-02-02 00:59 | Tele-ICU Consult ---
History of Present Illness History of Present Illness Date Seen by Provider: Feb 02, 2023 Time Seen by Provider: 00:49 History of Present Illness eICU critical care consult 62 yo M came to ED with cc CP, radiates down left arm, , no SOB, no diaphoresis Taking linozelid for cellulitis right toes, had diabetic foot ulcers, has IDDM, Other PMH HTN a fib, HTN, HLD, Hx of renal stones, Allergies and Home Medications Allergies Coded Allergies: No Known Drug Allergies (Unverified , 02/24/22) Home Medications Albuterol Sulfate 2.5 Mg/3 Ml (0.083 %) Vial.neb, 1 VIAL PO TID PRN for SHORTNESS OF BREATH, (Reported) Cyanocobalamin (Vitamin B-12) 1,000 Mcg Tablet, 1,000 MCG PO DAILY, (Reported) Diltiazem HCl 360 Mg Capsule.er, 360 MG PO DAILY, (Reported) Ibuprofen 200 Mg Tablet, 400 MG PO Q8H PRN for PAIN-MILD (1-4), (Reported) TAKES 2 (200MG) TABS Insulin Degludec 200 Unit/Ml (3 Ml) Insuln.pen, 50 UNITS SC DAILY, (Reported) Insulin Lispro 100 Unit/Ml Insuln.pen, 10 UNITS SC AC, (Reported) Linezolid 600 Mg Tablet, 600 MG PO BID Prescribed by: LIYA BEAL on 02/01/23 8805 Losartan/Hydrochlorothiazide 100 Mg-12.5 Mg Tablet, 1 EA PO DAILY, (Reported) Metoprolol Succinate 50 Mg Tab.er.24h, 50 MG PO DAILY, (Reported) Pantoprazole Sodium 40 Mg Tablet.dr, 40 MG PO DAILY, (Reported) Pioglitazone HCl 30 Mg Tablet, 30 MG PO DAILY, (Reported) Ropinirole HCl 4 Mg Tablet, 4 MG PO BID, (Reported) Tizanidine HCl 4 Mg Tablet, 4 MG PO BID, (Reported) Past Medical/Social/Family Hx Patient Social History Tobacco Use?: Yes Tobacco type used: Cigars Substance use?: No Alcohol Use?: Yes Alcohol type: Beer Alcohol Frequency: Daily Pt stated abuse/neglect: No Immunizations Up To Date Influenza Vaccine Up-to-Date: Yes; Up-to-Date First/Initial COVID19 Vaccinat: STATES 2 VACCINES PLUS BOOSTER Second COVID19 Vaccination Charli: STATES 2 VACCINES PLUS BOOSTER Tetanus Booster (TDap): Unknown Hepatitis A: Yes Hepatitis B: Yes TB Skin Test: None Current Status Advance Directives: No Communicates: Verbally Primary Language: Bulgarian Preferred Spoken Language: Bulgarian Is interpretation needed?: No Implanted or Applied Medical D: None Family Medical History Family Hx: SOCIAL HISTORY: -SMOKED CIGARETTES WHEN YOUNGER, NOW SMOKES CIGARS DAILY -ETOH-"COUPLE OF BEERS" EVERY DAY -DRUGS-DENIES USE PAST SURGICAL HISTORY: -MOST RECENT COLONOSCOPY WITH POLYPECTOMY X [address] LAGUNAS 11/20/21 -CHOLECYSTECTOMY 2012 -LEFT ROTATOR CUFF REPAIR 2011 -RIGHT BICEPS TENDON REPAIR 2012 -MULTIPLE CYSTOSCOPIES, LITHOTRIPSIES, KIDNEY STONE BASKET REMOVALS -EGD 09/2022 AT [facility]. Review of Systems Constitutional: see HPI EENTM: see HPI Respiratory: see HPI Cardiovascular: see HPI Gastrointestinal: see HPI Genitourinary: see HPI Musculoskeletal: see HPI Skin: see HPI Psychiatric/Neurological: See HPI Focused Exam Lactate Level 02/01/23 21:03: Lactic Acid Level 1.46 Height, Weight, BMI Height: 6'4.00" Weight: 240lbs. 0.0oz. 108.293299we; 29.87 BMI Method:Stated Lactic Acid Level Laboratory Tests Test 02/01/23 21:03 Lactic Acid Level 1.46 MMOL/L (0.50-2.00) Exam Exam Patient acknowledged, consented, and participated in this virtual visit which was conducted using real time audio/video Vital Signs Date Time Temp Pulse Resp B/P (MAP) Pulse Ox O2 Delivery O2 Flow Rate FiO2 02/02/23 00:25 49 02/02/23 00:14 46 136/70 02/02/23 00:03 96 Room Air 02/02/23 00:00 36.7 45 96 Room Air 02/02/23 00:00 46 23 136/70 (92) 98 Room Air 02/01/23 23:30 46 141/75 (97) 96 Room Air 02/01/23 23:28 48 02/01/23 23:14 48 136/71 (92) 96 Room Air 02/01/23 23:06 49 17 90/67 96 Room Air 02/01/23 21:02 97 Room Air 02/01/23 20:59 36.7 46 17 114/55 (74) Room Air Height & Weight Height: 6'4.00" Weight: 240lbs. 0.0oz. 108.673094zp; 29.87 BMI Method:Stated General Appearance: Other (PLAYING ON PHONE THROUGHOUT HISTORY, EXAM AND ENTIRE ER VISIT; DOES NOT APPEAR ILL OR TO BE IN ANY DISCOMFORT OR DISTRESS) Capillary Refill: Less Than 3 Seconds Results Lab Laboratory Tests 02/01/23 21:03 Assessment/Plan Assessment/Plan pt not ICU pt, will cancel consult MELECIO GONZALEZ MD Feb 02, 2023 00:58
[2023-02-02 01:00] VITALS: BP 113/46
[2023-02-02 02:00] VITALS: BP 113/50
[2023-02-02 03:22] LABS: BASOPHILS # (AUTO) 0.1 10^3/uL (0.0-0.1); BASOPHILS % (AUTO) 1 % (0-10); EOSINOPHILS # (AUTO) 0.2 10^3/uL (0.0-0.3); EOSINOPHILS % (AUTO) 2 % (0-10); HEMATOCRIT 35 % (40-54); HEMOGLOBIN 11.9 g/dL (13.3-17.7); LYMPHOCYTES # (AUTO) 2.5 10^3/uL (1.0-4.0); LYMPHOCYTES % (AUTO) 29 % (12-44); MEAN CORPUSCULAR HEMOGLOBIN 30 pg (25-34); MEAN CORPUSCULAR HGB CONC 34 g/dL (32-36); MEAN CORPUSCULAR VOLUME 88 fL (80-99); MEAN PLATELET VOLUME 11.5 fL (9.0-12.2); MONOCYTES # (AUTO) 0.7 10^3/uL (0.0-1.0); MONOCYTES % (AUTO) 8 % (0-12); NEUTROPHILS # (AUTO) 5.2 10^3/uL (1.8-7.8); NEUTROPHILS % (AUTO) 61 % (42-75); PLATELET COUNT 151 10^3/uL (130-400); WHITE BLOOD COUNT 8.6 10^3/uL (4.3-11.0)
[2023-02-02 03:33] LABS: TRIGLYCERIDES 209 MG/DL (<150); VLDL CHOLESTEROL 42 MG/DL (5-40)
[2023-02-02 03:37] LABS: CHOLESTEROL 146 MG/DL (< 200)
[2023-02-02 03:38] LABS: HDL CHOLESTEROL 32 MG/DL (40-60)
[2023-02-02] MEDS ORDERED: PIPERACILLIN/TAZO 4.5 GM VIAL (ZOSYN) IV ONE (03:50)
[2023-02-02 03:52] LABS: ALBUMIN 3.3 GM/DL (3.2-4.5)
[2023-02-02 03:53] LABS: CALCIUM 8.9 MG/DL (8.5-10.1)
[2023-02-02 03:54] LABS: TOTAL PROTEIN 5.9 GM/DL (6.4-8.2)
[2023-02-02 03:56] LABS: BILIRUBIN,TOTAL 0.5 MG/DL (0.1-1.0)
[2023-02-02 03:58] LABS: CREATININE SERUM 2.14 MG/DL (0.60-1.30)
[2023-02-02 04:00] VITALS: BP 135/77
[2023-02-02] MEDS ORDERED: PIPERACILLIN SODIUM/TAZOBACTAM 4.5 GM in NS (IVPB) 100 ML IV SCH (04:00)
[2023-02-02 04:12] LABS: POTASSIUM 3.8 MMOL/L (3.6-5.0)
[2023-02-02] MEDS: inSUlin ASPART (NovoLOG) 1 UNIT/0.01 ML (CHARGE PER UNIT) SC SCH ×2 (05:45→10:53)
[2023-02-02] MEDS: NS IV 1000 ML 1,000 ML IV SCH (06:23)
[2023-02-02 07:56] VITALS: BP 150/73
--- NOTE | 2023-02-02 08:53 | Tele-ICU Progress Note ---
Progress Note video rounds completed 62 y/o DM with foot ulcer and CP Troponin and EKG wnl On linezolid for foot ulcer WBC nany glucose normal PLAN: cardiology to evalutae for CP antibiotics for Diabetic foot ulcer Time spent in review 10 minuters Focused Exam Lactate Level 02/01/23 21:03: Lactic Acid Level 1.46 Height, Weight, BMI Height: 6'4.00" Weight: 240lbs. 0.0oz. 108.207865vp; 29.85 BMI Method:Stated Labs Laboratory Tests 02/01/23 21:03 02/02/23 03:11 Results Results/Procedures Labs Laboratory Tests 02/01/23 21:03 02/02/23 03:11 Patient resulted labs reviewed. Results Labs Labs Laboratory Tests 02/01/23 21:03: White Blood Count 11.5H, Red Blood Count 4.21L, Hemoglobin 12.8L, Hematocrit 37L , Mean Corpuscular Volume 87, Mean Corpuscular Hemoglobin 30, Mean Corpuscular Hemoglobin Concent 35, Red Cell Distribution Width 13.3, Platelet Count 172, Mean Platelet Volume 11.6, Immature Granulocyte % (Auto) 0, Neutrophils (%) (Auto) 79H, Lymphocytes (%) (Auto) 13, Monocytes (%) (Auto) 6, Eosinophils (%) (Auto) 1, Basophils (%) (Auto) 0, Neutrophils # (Auto) 9.1H, Lymphocytes # (Auto) 1.5, Monocytes # (Auto) 0.7, Eosinophils # (Auto) 0.1, Basophils # (Auto) 0.1, Immature Granulocyte # (Auto) 0.0, Erythrocyte Sedimentation Rate 11, Prothrombin Time 13.7, INR Comment 1.0, Activated Partial Thromboplast Time 28, Sodium Level 138, Potassium Level 4.1, Chloride Level 110H, Carbon Dioxide Level 17L, Anion Gap 11, Blood Urea Nitrogen 33H, Creatinine 2.37H, Estimat Glomerular Filtration Rate 30, BUN/Creatinine Ratio 14, Glucose Level 123H, Lactic Acid Level 1.46, Calcium Level 9.2, Corrected Calcium 9.4, Magnesium Level 1.7, Total Bilirubin 0.6, Aspartate Amino Transf (AST/SGOT) 12, Alanine Aminotransferase (ALT/SGPT) 14, Alkaline Phosphatase 61, Myoglobin 76.6, Troponin I < 0.028, C- Reactive Protein High Sensitivity 0.09, B-Type Natriuretic Peptide 74.3, Total Protein 6.5, Albumin 3.8, Amylase Level 48, Lipase 51, Beta-Hydroxybutyrate (Chem panel) 0.09 02/01/23 21:28: Urine Color DARK YELLOW, Urine Clarity CLOUDY, Urine pH 5.0, Urine Specific [place] >=1.030, Urine Protein 2+H, Urine Glucose (UA) NEGATIVE, Urine Ketones TRACEH, Urine Nitrite NEGATIVE, Urine Bilirubin 2+H, Urine Urobilinogen 1.0, Urine Leukocyte Esterase NEGATIVE, Urine RBC (Auto) 3+H, Urine RBC 10-25H, Urine WBC 5-10H, Urine Crystals NONE, Urine Bacteria MODERATEH, Urine Casts PRESENT, Urine Hyaline Casts 10-25H, Urine Mucus SMALLH, Urine Culture Indicated YES 02/01/23 22:26: 02/02/23 00:33: Troponin I < 0.028 02/02/23 03:11: White Blood Count 8.6, Red Blood Count 3.99L, Hemoglobin 11.9L, Hematocrit 35L, Mean Corpuscular Volume 88, Mean Corpuscular Hemoglobin 30, Mean Corpuscular Hemoglobin Concent 34, Red Cell Distribution Width 13.4, Platelet Count 151, Mean Platelet Volume 11.5, Immature Granulocyte % (Auto) 0, Neutrophils (%) (Auto) 61, Lymphocytes (%) (Auto) 29, Monocytes (%) (Auto) 8, Eosinophils (%) (Auto) 2, Basophils (%) (Auto) 1, Neutrophils # (Auto) 5.2, Lymphocytes # (Auto) 2.5, Monocytes # (Auto) 0.7, Eosinophils # (Auto) 0.2, Basophils # (Auto) 0.1, Immature Granulocyte # (Auto) 0.0, Sodium Level 141, Potassium Level 3.8, Chloride Level 112H, Carbon Dioxide Level 21, Anion Gap 8, Blood Urea Nitrogen 32H, Creatinine 2.14H, Estimat Glomerular Filtration Rate 34, BUN/Creatinine Ratio 15, Glucose Level 76, Calcium Level 8.9, Corrected Calcium 9.5, Total Bilirubin 0.5, Aspartate Amino Transf (AST/SGOT) 10, Alanine Aminotransferase (ALT/SGPT) 10, Alkaline Phosphatase 51, Troponin I < 0.028, Total Protein 5.9L, Albumin 3.3, Triglycerides Level 209H, Cholesterol Level 146, LDL Cholesterol Direct 90, VLDL Cholesterol 42H, HDL Cholesterol 32L MELECIO PLASENCIA MD Feb 02, 2023 08:52
[2023-02-02] MEDS ORDERED: ASPIRIN E.C. 81 MG (ECOTRIN) TAB PO SCH (09:00)
--- NOTE | 2023-02-02 10:34 | Consultation-Cardiology ---
HPI-Cardiology Cardiology Consultation: Date of Consultation 02/02/23 Time Seen by a Provider: 10:10 Date of Admission Attending Physician Brandt Mitchell DO Admitting Physician Admitting Physician: Lida Newby MD Attending Physician: Lida Newby MD Consulting Physician LOUIS HURLEY MD, MA, FACP, FACC, [facility] [place], CCDS Physician requesting consult: Dr Newby HPI: Chief Complaint: Chest discomfort 62 yo man admitted to Dr Newby from the ER for symptoms of chest discomfort: present in the L chest, dull ache, mild to mod, w/o radiation, lasted several hours, and has resolved w/o recurrence. It was associated dizziness. At home, a Kardia device had indicated a low heart rate (40s) and the bp was low for him, according to him (lowest SBP approx 100, he says). No syncope. No shortness of breath. No palp last night. Does have a chronic h/o SVT (associated with palp) the last episode of which was 6 months ago. Denies fever or chills. Has chronic osteomyelitis of the R great toe and is awaiting amputation by Dr Becerra. He states that circulation in both legs has been evaluated and found tot be normal Review of Systems-Cardiology Review of Systems Constitutional: lightheadedness, malaise; No weight loss, No weight gain Eyes: other (chronic poor vision in the L eye due to diabetic retinopathy); No vision change Ears/Nose/Throat: No ear discharge, No nasal drainage, No recent hearing loss Respiratory: As described under HPI Cardiovascular: As described under HPI Gastrointestinal: No diarrhea, No nausea, No vomiting Genitourinary: No dysuria, No hematuria, No urine frequency changes Musculoskeletal: No back pain, No joint pain Skin: No rash, No ulcerations Psychiatric/Neurological: No seizure, No focal weakness, No syncope Hematologic: No bleeding abnormalities OBL-Pobhxy-Ymysjx Hx Patient Social History Alcohol Use?: Yes Pt feels they are or have been: No Tobacco type used: Cigars Immunizations Up To Date Tetanus Booster (TDap): More than 5yrs Date of Influenza Vaccine: May 06, 2016 Past Medical History PMH As described under Assessment. Family Medical History Family Medical History: Both parents had heart disease in their 60s Family History: Diabetes mellitus 19 MOTHER G8 SISTER FH: lung cancer 19 MOTHER Hypertension 19 FATHER 19 MOTHER G8 SISTER Kidney stone G8 SISTER Parkinson's disease G8 SISTER Prostate cancer 19 FATHER Allergies and Home Medications Allergies Coded Allergies: No Known Drug Allergies (Unverified , 02/24/22) Patient Home Medication List Home Medication List Reviewed: Yes Albuterol Sulfate (Albuterol Sulfate) 2.5 Mg/3 Ml (0.083 %) Vial.neb, 1 VIAL PO TID PRN for SHORTNESS OF BREATH, (Reported) Entered as Reported by: GINA MOSES on 10/28/22 0810 Cyanocobalamin (Vitamin B-12) (Vitamin B-12) 1,000 Mcg Tablet, 1,000 MCG PO DAILY, (Reported) Entered as Reported by: GINA MOSES on 10/28/22 0819 Diltiazem HCl (Diltiazem ER) 360 Mg Capsule.er, 360 MG PO DAILY, (Reported) Entered as Reported by: CEDRIC ANTHONY on 06/18/21 1040 Ibuprofen (Ibuprofen) 200 Mg Tablet, 400 MG PO Q8H PRN for PAIN-MILD (1-4), (Reported) Entered as Reported by: GINA MOSES on 10/28/22 0815 Insulin Degludec (Insulin Degludec Pen (U-200)) 200 Unit/Ml (3 Ml) Insuln.pen, 50 UNITS SC DAILY, (Reported) Entered as Reported by: CEDRIC ANTHONY on 10/22/22 1122 Insulin Lispro (Insulin Lispro Kwikpen U-100) 100 Unit/Ml Insuln.pen, 10 UNITS SC AC, (Reported) Entered as Reported by: CEDRIC ANTHONY on 10/22/22 1122 Linezolid (Linezolid) 600 Mg Tablet, 600 MG PO BID Prescribed by: LIYA BEAL on 02/01/23 2791 Last Action: New Order Losartan/Hydrochlorothiazide (Losartan-Hctz 100-12.5 mg Tab) 100 Mg-12.5 Mg Tablet, 1 EA PO DAILY, (Reported) Entered as Reported by: CEDRIC ANTHONY on 10/22/22 1122 Metoprolol Succinate (Metoprolol Succinate) 50 Mg Tab.er.24h, 50 MG PO DAILY, (Reported) Entered as Reported by: CEDRIC ANTHONY on 11/16/21 1227 Pantoprazole Sodium (Pantoprazole Sodium) 40 Mg Tablet.dr, 40 MG PO DAILY, (Reported) Entered as Reported by: CEDRIC ANTHONY on 06/18/21 1040 Pioglitazone HCl (Pioglitazone HCl) 30 Mg Tablet, 30 MG PO DAILY, (Reported) Entered as Reported by: CEDRIC ANTHONY on 06/18/21 1040 Ropinirole HCl (Ropinirole HCl) 4 Mg Tablet, 4 MG PO BID, (Reported) Entered as Reported by: CEDRIC ANTHONY on 06/18/21 1040 Tizanidine HCl (Tizanidine HCl) 4 Mg Tablet, 4 MG PO BID, (Reported) Entered as Reported by: CEDRIC ANTHONY on 10/22/22 1122 Physical Exam-Cardiology Physical Exam Vital Signs/I&O 02/01/23 02/01/23 02/01/23 02/01/23 23:06 23:14 23:28 23:30 Pulse 49 48 48 46 Resp 17 B/P (MAP) 90/67 136/71 (92) 141/75 (97) Pulse Ox 96 96 96 O2 Delivery Room Air Room Air Room Air 02/02/23 02/02/23 02/02/23 02/02/23 00:00 00:00 00:03 00:14 Temp 36.7 Pulse 46 45 46 Resp 23 B/P (MAP) 136/70 (92) 136/70 Pulse Ox 98 96 96 O2 Delivery Room Air Room Air Room Air 02/02/23 02/02/23 02/02/23 02/02/23 00:25 01:00 02:00 04:00 Pulse 49 47 48 51 Resp 14 15 B/P (MAP) 113/46 (68) 113/50 (71) 135/77 (96) Pulse Ox 97 97 93 O2 Delivery Room Air Room Air Room Air 02/02/23 02/02/23 02/02/23 02/02/23 04:06 07:00 07:56 08:00 Temp 36.5 36.3 Pulse 61 59 Resp 12 B/P (MAP) 150/73 (98) Pulse Ox 96 96 O2 Delivery Room Air Room Air Room Air Capillary Refill : Less Than 3 Seconds Constitutional: AAO x 3, well-developed, well-nourished HEENT: EOMI, hearing is well preserved; No xanthelasmas are seen Neck: carotid pulses are 2 + bilaterally, with good upstrokes Respiratory: No accessory muscle use; chest expansion is symmetric, chest is bilaterally symmetric, other (good, bilateral air entry) Cardiovascular: regular rate-rhythm, S1 and S2, systolic murmur (soft LISA at card base) Gastrointestinal: No tender; soft; No guarding, No rebound; audible bowel sounds Extremities: No clubbing, No cyanosis, No significant edema Neurologic/Psychiatric: oriented x 3, other (moves all limbs equally) Skin: warm/dry, cyanosis; No cool, No diaphoresis; rash on exposed areas, ulcerations on exposed areas Data Review Labs Laboratory Tests 02/01/23 21:03: White Blood Count 11.5H, Red Blood Count 4.21L, Hemoglobin 12.8L, Hematocrit 37L , Mean Corpuscular Volume 87, Mean Corpuscular Hemoglobin 30, Mean Corpuscular Hemoglobin Concent 35, Red Cell Distribution Width 13.3, Platelet Count 172, Mean Platelet Volume 11.6, Immature Granulocyte % (Auto) 0, Neutrophils (%) (Auto) 79H, Lymphocytes (%) (Auto) 13, Monocytes (%) (Auto) 6, Eosinophils (%) (Auto) 1, Basophils (%) (Auto) 0, Neutrophils # (Auto) 9.1H, Lymphocytes # (Auto) 1.5, Monocytes # (Auto) 0.7, Eosinophils # (Auto) 0.1, Basophils # (Auto) 0.1, Immature Granulocyte # (Auto) 0.0, Erythrocyte Sedimentation Rate 11, Prothrombin Time 13.7, INR Comment 1.0, Activated Partial Thromboplast Time 28, Sodium Level 138, Potassium Level 4.1, Chloride Level 110H, Carbon Dioxide Level 17L, Anion Gap 11, Blood Urea Nitrogen 33H, Creatinine 2.37H, Estimat Glomerular Filtration Rate 30, BUN/Creatinine Ratio 14, Glucose Level 123H, Lactic Acid Level 1.46, Calcium Level 9.2, Corrected Calcium 9.4, Magnesium Level 1.7, Total Bilirubin 0.6, Aspartate Amino Transf (AST/SGOT) 12, Alanine Aminotransferase (ALT/SGPT) 14, Alkaline Phosphatase 61, Myoglobin 76.6, Troponin I < 0.028, C- Reactive Protein High Sensitivity 0.09, B-Type Natriuretic Peptide 74.3, Total Protein 6.5, Albumin 3.8, Amylase Level 48, Lipase 51, Beta-Hydroxybutyrate (Chem panel) 0.09 02/01/23 21:28: Urine Color DARK YELLOW, Urine Clarity CLOUDY, Urine pH 5.0, Urine Specific [place] >=1.030, Urine Protein 2+H, Urine Glucose (UA) NEGATIVE, Urine Ketones TRACEH, Urine Nitrite NEGATIVE, Urine Bilirubin 2+H, Urine Urobilinogen 1.0, Urine Leukocyte Esterase NEGATIVE, Urine RBC (Auto) 3+H, Urine RBC 10-25H, Urine WBC 5-10H, Urine Crystals NONE, Urine Bacteria MODERATEH, Urine Casts PRESENT, Urine Hyaline Casts 10-25H, Urine Mucus SMALLH, Urine Culture Indicated YES 02/01/23 22:26: 02/02/23 00:33: Troponin I < 0.028 02/02/23 03:11: White Blood Count 8.6, Red Blood Count 3.99L, Hemoglobin 11.9L, Hematocrit 35L, Mean Corpuscular Volume 88, Mean Corpuscular Hemoglobin 30, Mean Corpuscular Hemoglobin Concent 34, Red Cell Distribution Width 13.4, Platelet Count 151, Mean Platelet Volume 11.5, Immature Granulocyte % (Auto) 0, Neutrophils (%) (Auto) 61, Lymphocytes (%) (Auto) 29, Monocytes (%) (Auto) 8, Eosinophils (%) (Auto) 2, Basophils (%) (Auto) 1, Neutrophils # (Auto) 5.2, Lymphocytes # (Auto) 2.5, Monocytes # (Auto) 0.7, Eosinophils # (Auto) 0.2, Basophils # (Auto) 0.1, Immature Granulocyte # (Auto) 0.0, Sodium Level 141, Potassium Level 3.8, Chloride Level 112H, Carbon Dioxide Level 21, Anion Gap 8, Blood Urea Nitrogen 32H, Creatinine 2.14H, Estimat Glomerular Filtration Rate 34, BUN/Creatinine Ratio 15, Glucose Level 76, Calcium Level 8.9, Corrected Calcium 9.5, Total Bilirubin 0.5, Aspartate Amino Transf (AST/SGOT) 10, Alanine Aminotransferase (ALT/SGPT) 10, Alkaline Phosphatase 51, Troponin I < 0.028, Total Protein 5.9L, Albumin 3.3, Triglycerides Level 209H, Cholesterol Level 146, LDL Cholesterol Direct 90, VLDL Cholesterol 42H, HDL Cholesterol 32L 02/02/23 09:34: Glucometer 131H Laboratory Tests 02/01/23 21:03 02/02/23 03:11 A/P-Cardiology Assessment/Admission Diagnosis Chest discomfort of undetermined etiology - no evidence of ACS ANTONETTE on CKD 3 H/o PSVT DM II complicated by diabetic retinopathy (left-sided), CKD-3, diabetic R great toe ulcer/osteomyelitis States w/u for PAD by Dr Villasenor has not indicated any significant PAD of the l ower limbs - ANA was done on December 18, 2022 and it was normal bilaterally; on the right side ANA 1.33 with TBI 0.93 and on the left side ANA 1.24 with TBI 1.04 Aortic regurg - reported to be mild on echo of 06/18, followed by his screen examiner Dr Leigh TAA - h/o mild enlargement of thoracic aorta, followed by his screen examiner Dr Leigh Discussion and Recomendations * I had a long and detailed discussion with the patient. There is no evidence of acute coronary syndrome, but he does have multiple cor risk factors. Noninvasive cardiac w/u recommended, but he wants to have that done with his screen examiner Dr Leigh in [place], [place]. He does not wish to do it here. Accordingly, given no symptoms and no evidence of ACS, it appears reasonable to d/c from a cardiac standpoint. We have instructed him to f/u with his screen examiner BARBY * He does have evidence of acute kidney injury. This is being managed by the Hospitalist service (Dr Newby). * He has complicated DM II. This is being managed by the Hospitalist service. Clinical Quality Measures AMI/AHF: ASA po Prior to arrival: LOUIS Bruno MD FACP FAC CCDS Feb 02, 2023 10:34
--- NOTE | 2023-02-02 11:17 | Short Stay Summary-Hospitalist ---
History of Present Illness HPI/Chief Complaint Parveen Escalante Jr is a 62 year old male with PMH HTN, AFib, COPD, T2DM, CKD, who presented with chest pain. The pain started yesterday afternoon. It was in the center of his chest and radiated toward his left arm. It resolved last night around midnight. He denies chest pain at this time. He denies palpitations. He denies shortness of breath. He denies diaphoresis. He denies nausea and vomiting. He is hungry. He does not want any further workup done here. He follows with Dr. Leigh in [place]. He also has a diabetic foot ulcer and he is following with Dr. Edouard. He is on Linezolid. He reports that Dr. Edouard is p ricardo to remove his toe. Source: patient Exam Limitations: no limitations Date Seen 02/02/23 Time Seen by a Provider: 10:50 Attending Physician Brandt Mitchell DO PCP Admitting Physician: Tad Newby MD Attending Physician: Tad Newby MD Referring Physician Date of Admission Feb 01, 2023 at 23:08 Home Medications & Allergies Home Medications Reviewed patient Home Medication Reconciliation performed by pharmacy medication reconciliations contract technician and/or nursing. Patients Allergies have been reviewed. Allergies Allergies Coded Allergies No Known Drug Allergies (Unverified02/24/22) Past Vefpkhe-Dhfhpr-Bscyui Hx Patient Social History Tobacco Use?: Yes Tobacco type used: Cigars Substance use?: No Alcohol Use?: Yes Alcohol type: Beer Alcohol Frequency: Daily Pt feels they are or have been: No Immunizations Up To Date Date of Influenza Vaccine: May 06, 2016 First/Initial COVID19 Vaccinat: STATES 2 VACCINES PLUS BOOSTER Second COVID19 Vaccination Charli: STATES 2 VACCINES PLUS BOOSTER Tetanus Booster (TDap): Unknown Hepatitis A: Yes Hepatitis B: Yes PED Vaccines UTD: Yes Seasonal Allergies Seasonal Allergies: Yes Current Status Advance Directives: No Communicates: Verbally Primary Language: Wallisian Preferred Spoken Language: Wallisian Is interpretation needed?: No Implanted or Applied Medical D: None Past Medical History Surgeries: Gallbladder, Orthopedic, Renal COPD Currently Using CPAP: No High Cholesterol, Hypertension Neuropathy Sexually Transmitted Disease: No HIV/AIDS: No Kidney Stones, Renal Failure Gastroesophageal Reflux, Obstructive Bowel, Chronic Diarrhea, Polyps, Gall Chandrakant dder Disease, Irritable Bowel Arthritis, Chronic Back Pain Diabetes, Insulin dep Loss of Vision: Denies Hearing Impairment: Denies Depression Blood Disorders: No Adverse Reaction/Blood Tranf: No Family Medical History Diabetes mellitus 19 MOTHER G8 SISTER FH: lung cancer 19 MOTHER Hypertension 19 FATHER 19 MOTHER G8 SISTER Kidney stone G8 SISTER Parkinson's disease G8 SISTER Prostate cancer 19 FATHER Heart Disease, Cancer, Diabetes SOCIAL HISTORY: -SMOKED CIGARETTES WHEN YOUNGER, NOW SMOKES CIGARS DAILY -ETOH-"COUPLE OF BEERS" EVERY DAY -DRUGS-DENIES USE PAST SURGICAL HISTORY: -MOST RECENT COLONOSCOPY WITH POLYPECTOMY X [address] LAGUNAS 11/20/21 -CHOLECYSTECTOMY 2012 -LEFT ROTATOR CUFF REPAIR 2011 -RIGHT BICEPS TENDON REPAIR 2011 -MULTIPLE CYSTOSCOPIES, LITHOTRIPSIES, KIDNEY STONE BASKET REMOVALS -EGD 09/2022 AT [facility]. Review of Systems Constitutional: no symptoms reported Respiratory: no symptoms reported Cardiovascular: chest pain Gastrointestinal: no symptoms reported Physical Exam Physical Exam Vital Signs Vital Signs - First Documented 02/01/23 02/01/23 20:59 21:02 Temp 36.7 Pulse 46 Resp 17 B/P (MAP) 114/55 (74) Pulse Ox 97 O2 Delivery Room Air Capillary Refill : Less Than 3 Seconds Height, Weight, BMI Height: 6'4.00" Weight: 240lbs. 0.0oz. [id number]; 29.85 BMI Method:Stated General Appearance: No Apparent Distress, Obese, Other (PLAYING ON PHONE THROUGHOUT HISTORY, EXAM AND ENTIRE ER VISIT; DOES NOT APPEAR ILL OR TO BE IN ANY DISCOMFORT OR DISTRESS) HEENT: PERRL/EOMI, Pharynx Normal Neck: Normal Inspection, Supple Respiratory: Lungs Clear, Normal Breath Sounds, No Respiratory Distress Cardiovascular: Regular Rate, Rhythm, No Edema, No Murmur, Normal Peripheral Pulses Gastrointestinal: Normal Bowel Sounds, Non Tender, Soft Extremity: Non Tender, No Pedal Edema, Other (left great toe wound with dressing in place) Neurologic/Psychiatric: Alert, Normal Mood/Affect Results Results/Procedures Labs Laboratory Tests 02/01/23 21:03 02/02/23 03:11 Patient resulted labs reviewed. Imaging: Reviewed Imaging Report Short Stay Diagnosis Discharge Diagnosis-Short Stay Admission Diagnosis Chest pain Final Discharge Diagnosis Chest pain Conclusion Plan Chest pain Cardiology consulted Troponins and EKG unremarkable Pain resolved Patient declines further workup Follow up with Dr. Reese ANTONETTE on CKD Improved with fluids Stay well hydrated T2DM with foot ulcer Continue antibiotics Follow up with Dr. Edouard as scheduled HTN AFib COPD Obesity Continue home meds Monitor blood pressure at home Contact Dr. Mitchell or Dr. Leigh with consistantly elevated BP >140/90 Diagnosis/Problems Diagnosis/Problems (1) Chest pain Status: Acute (2) Acute kidney injury superimposed on chronic kidney disease Status: Acute (3) Type 2 diabetes mellitus with complication Status: Acute (4) HTN (hypertension) Status: Acute (5) COPD (chronic obstructive pulmonary disease) Status: Chronic Qualifiers: Qualified Codes: J44.9 - Chronic obstructive pulmonary disease, unspecified (6) Diabetic foot ulcer Status: Acute Qualifiers: Clinical Quality Measures AMI/AHF: ASA po Prior to arrival: TAD Sampson MD Feb 02, 2023 11:17
[2023-02-02 11:51] VITALS: BP 168/79
[2023-02-02] MEDS ORDERED: VANCOMYCIN 1250 MG/NS 250 ML PREMIX IV SCH (21:00)
== END 2023-02-02 13:00 | disposition home or self-care (01) | DRG 313 ==
LOC: EDUNIT# 20:54 → ER 20:55 → ICU 23:08
PROVIDERS: ADMIT Internal Medicine; ATTEND Internal Medicine
DX: R07.9 Chest pain, unspecified (principal); N17.9 Acute kidney failure, unspecified; M86.9 Osteomyelitis, unspecified; E11.22 Type 2 diabetes mellitus with diabetic chronic kidney disease; I12.9 Hypertensive chronic kidney disease with stage 1 through stage 4 chronic kidney disease, or unspecified chronic kidney disease; J44.9 Chronic obstructive pulmonary disease, unspecified; E11.621 Type 2 diabetes mellitus with foot ulcer; L97.509 Non-pressure chronic ulcer of other part of unspecified foot with unspecified severity; I48.91 Unspecified atrial fibrillation; E66.9 Obesity, unspecified; F17.210 Nicotine dependence, cigarettes, uncomplicated; E78.00 Pure hypercholesterolemia, unspecified; K21.9 Gastro-esophageal reflux disease without esophagitis; M19.90 Unspecified osteoarthritis, unspecified site; G89.29 Other chronic pain; M54.9 Dorsalgia, unspecified; F32.A Depression, unspecified; Z79.4 Long term (current) use of insulin; Z79.899 Other long term (current) drug therapy; N18.30 Chronic kidney disease, stage 3 unspecified; I35.1 Nonrheumatic aortic (valve) insufficiency; E11.319 Type 2 diabetes mellitus with unspecified diabetic retinopathy without macular edema; E11.69 Type 2 diabetes mellitus with other specified complication; I71.20 Thoracic aortic aneurysm, without rupture, unspecified; Z68.29 Body mass index [BMI] 29.0-29.9, adult
CPT/HCPCS: 36415; 71045; 80053; 80061; 81000; 82010; 82150; 82947; 83036; 83605; 83690; 83735; 83874; 83880; 84484; 85025; 85610; 85652; 85730; 86141; 87088; 93005; 93041

== ENCOUNTER → 2023-02-06 | Outpatient (CLI) | payer MEDICARE ==
[~2023-02-06] MED LIST changes: +LNZ600T PO
== END ==
LOC: WOUNDCARE 08:28
PROVIDERS: ATTEND Family Medicine
DX: E11.621 Type 2 diabetes mellitus with foot ulcer (principal); I70.235 Atherosclerosis of native arteries of right leg with ulceration of other part of foot; E11.65 Type 2 diabetes mellitus with hyperglycemia; E11.40 Type 2 diabetes mellitus with diabetic neuropathy, unspecified; E66.01 Morbid (severe) obesity due to excess calories; I73.01 Raynaud's syndrome with gangrene; L97.516 Non-pressure chronic ulcer of other part of right foot with bone involvement without evidence of necrosis; M86.171 Other acute osteomyelitis, right ankle and foot; B95.7 Other staphylococcus as the cause of diseases classified elsewhere; N17.9 Acute kidney failure, unspecified; E11.52 Type 2 diabetes mellitus with diabetic peripheral angiopathy with gangrene; I96 Gangrene, not elsewhere classified
CPT/HCPCS: 99213

== ENCOUNTER 2023-02-10 05:31 | Outpatient (CLI) | payer MEDICARE ==
[~2023-02-10] VITALS: Ht 193 cm; Wt 113.6 kg
== END 2023-02-10 13:07 ==
LOC: PREOP 05:31
PROVIDERS: ATTEND Podiatrist Foot & Ankle Surgery
DX: Z01.818 Encounter for other preprocedural examination (principal)